=== PATIENT | female | born 1975 | race American Indian/Alaskan Native ===

== ENCOUNTER 2016-05-12 06:04 | Emergency (ER) | payer MEDICAID, OTHER ==
[2016-05-12 06:39] VITALS: BP 127/75
--- NOTE | 2016-05-12 07:14 | EDM.PDOC ---
ED HPI GENERAL MEDICAL PROBLEM - General Chief Complaint: General Stated Complaint: STREEP Time Seen by Provider: 05/12/16 06:37 Source of Information: Reports: Patient History Limitations: Reports: No limitations - History of Present Illness INITIAL COMMENTS - FREE TEXT/NARRATIVE: History of present illness: [Comes in with a daughter both have similar symptoms. She has sore throat and a nonproductive cough. This is been going on for a few days. Her daughter has a fever but she doesn't. She wants to be checked for strep is going around] Review of systems: As per history of present illness and below otherwise all systems reviewed and negative. Past medical history: As per history of present illness and as reviewed below otherwise noncontributory. Surgical history: As per history of present illness and as reviewed below otherwise noncontributory. Social history: No reported history of drug or alcohol abuse. Family history: As per history of present illness and as reviewed below otherwise noncontributory. Physical exam: HEENT: Atraumatic, normocephalic, pupils reactive, negative for conjunctival pallor or scleral icterus, mucous membranes moist, throat erythematous without exudate, neck supple, nontender, trachea midline. Lungs: Clear to auscultation, breath sounds equal bilaterally, Heart: S1S2, regular, negative for clicks, rubs, or JVD. Abdomen: Soft, nondistended, nontender. Pelvis: Stable nontender. Genitourinary: Deferred. Rectal: Deferred. Neuro: Awake, alert, oriented. Exam nonfocal. Diagnostics: [Strep is negative] Therapeutics: [] Impression: [URI] Plan: [Symptomatic treatment] Definitive disposition and diagnosis as appropriate pending reevaluation and review of above. 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: Neurological History: Reports: Migraines Endocrine/Metabolic History: Reports: Diabetes, type II Dermatologic History: Reports: Other (see below) Other Dermatologic History: hx of butterfly rash on face a few years age, she has gotten checked for lupus which was negative - Infectious Disease History Infectious Disease History: Reports: Chicken pox - Past Surgical History Other HEENT Surgeries/Procedures: migraines GI Surgical History: Reports: Cholecystectomy Musculoskeletal Surgical History: Reports: Other (see below) Other Musculoskeletal Surgeries/Procedures:: knee problems Social & Family History - Family History Family Medical History: Noncontributory - Tobacco Use Smoking Status *Q: Current Every Day Smoker Years of Tobacco use: 1 Packs/Tins Daily: 0.5 Used Tobacco, but Quit: Yes Month Tobacco Last Used: 1999 Second Hand Smoke Exposure: No - Caffeine Use Caffeine Use: Reports: Soda - Alcohol Use Days Per Week of Alcohol Use: 0 - Recreational Drug Use Recreational Drug Use: No ED ROS GENERAL - Review of Systems Review Of Systems: ROS reveals no pertinent complaints other than HPI. ED EXAM, GENERAL - Physical Exam Exam: See Below Course - Vital Signs Last Recorded V/S: Last Vital Signs Temp 35.9 C 05/12/16 06:38 Pulse 89 05/12/16 06:38 Resp 16 05/12/16 06:38 BP 127/75 05/12/16 06:38 Pulse Ox 96 05/12/16 06:38 - Orders/Labs/Meds Orders: Active Orders 24 hr Category Date Time Status CULTURE STREP A CONFIRMATION [RM] Stat Lab 05/12/16 06:46 Results STREP SCRN A RAPID W CULT CONF [RM] Stat Lab 05/12/16 06:46 Results Departure - Departure Time of Disposition: 07:13 Disposition: Home, Self-Care 01 Condition: good Clinical Impression: URI (upper respiratory infection) Qualifiers: URI type: unspecified viral URI Qualified Code(s): J06.9 - Acute upper respiratory infection, unspecified; B97.89 - Other viral agents as the cause of diseases classified elsewhere Forms: ED Department Discharge Additional Instructions: Push fluids and take Tylenol and Advil for any pain or discomfort that you have or fever. If you do not get better in the next week he should followup with your doctor. - My Orders Last 24 Hours: My Active Orders 05/12/16 06:46 CULTURE STREP A CONFIRMATION [RM] Stat STREP SCRN A RAPID W CULT CONF [RM] Stat - Assessment/Plan Last 24 Hours: My Active Orders 05/12/16 06:46 CULTURE STREP A CONFIRMATION [RM] Stat STREP SCRN A RAPID W CULT CONF [RM] Stat
== END 2016-05-12 07:21 | disposition home or self-care (01) ==
LOC: JP.ED 06:04
DX: J06.9 Acute upper respiratory infection, unspecified (principal); B97.89 Other viral agents as the cause of diseases classified elsewhere; F17.210 Nicotine dependence, cigarettes, uncomplicated; Z88.5 Allergy status to narcotic agent; Z88.8 Allergy status to other drugs, medicaments and biological substances; Z90.49 Acquired absence of other specified parts of digestive tract; Z98.890 Other specified postprocedural states
CPT/HCPCS: 87081; 87430; 99282; 99283

== ENCOUNTER 2016-08-13 18:46 | Emergency (ER) | payer MEDICAID ==
[2016-08-13 19:04] VITALS: BP 147/91
[2016-08-13] MEDS ORDERED: diphenhydrAMINE 25 MG Cap PO ONE (19:23)
[2016-08-13] MEDS ORDERED: Ketorolac 60 MG/2 ML SDV IM ONE (19:23)
--- NOTE | 2016-08-13 19:34 | EDM.PDOC ---
ED HPI GENERAL MEDICAL PROBLEM - General Chief Complaint: General Stated Complaint: ILLNESS Time Seen by Provider: 08/13/16 19:12 Source of Information: Reports: Patient History Limitations: Reports: No Limitations - History of Present Illness INITIAL COMMENTS - FREE TEXT/NARRATIVE: illness; this is a 40 year old female present to ER for evaluation . She reports has been sick for a while, but the past 2 days having facial pain, knees , elbows teeth and jaws are achey. Now this afternoon, had chills, facial flushing, pain and pressure in sinus area. 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: Neurological History: Reports: Migraines Endocrine/Metabolic History: Reports: Diabetes, Type II Dermatologic History: Reports: Other (See Below) Other Dermatologic History: hx of butterfly rash on face a few years age, she has gotten checked for lupus which was negative - Infectious Disease History Infectious Disease History: Reports: Chicken Pox - Past Surgical History Other HEENT Surgeries/Procedures: migraines GI Surgical History: Reports: Cholecystectomy Female Surgical History: Reports: Other (See Below) Musculoskeletal Surgical History: Reports: Other (See Below) Social & Family History - Family History Family Medical History: Noncontributory - Tobacco Use Smoking Status *Q: Light Tobacco Smoker Years of Tobacco use: 3 Packs/Tins Daily: 0.1 Used Tobacco, but Quit: Yes Month Tobacco Last Used: 1999 Second Hand Smoke Exposure: No - Caffeine Use Caffeine Use: Reports: Soda - Alcohol Use Days Per Week of Alcohol Use: 0 - Recreational Drug Use Recreational Drug Use: No - Living Situation & Occupation Living situation: Reports: with Family (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 has Metformin) GI/Abdominal: Reports: No Symptoms : Reports: No Symptoms Musculoskeletal: Reports: Muscle Pain Skin: Reports: No Symptoms Neurological: Reports: No Symptoms Psychiatric: Reports: No Symptoms Hematologic/Lymphatic: Reports: No Symptoms Immunologic: Reports: No Symptoms ED EXAM, GENERAL - Physical Exam Exam: See Below Exam Limited By: No Limitations General Appearance: Alert, WD/WN, Mild Distress, Obese Eye Exam: Bilateral Eye: Normal Inspection Ears: Normal External Exam, Normal Canal, Hearing Grossly Normal, Normal TMs Ear Exam: Bilateral Ear: Auricle Normal, Canal Normal, TM normal Nose: Nasal Tenderness, Nasal Drainage, Other (frontal and maxillary pain and pressure. turbinates raw and injected.) Throat/Mouth: Normal Inspection, Normal Lips, Normal Teeth, Normal Gums, Normal Oropharynx, Normal Voice, No Airway Compromise Head: Atraumatic, Normocephalic, Facial Tenderness, Sinus Tenderness Neck: Normal Inspection, Supple, Non-Tender, Full Range of Motion Respiratory/Chest: No Respiratory Distress, Lungs Clear, Normal Breath Sounds, No Accessory Muscle Use, Chest Non-Tender Cardiovascular: Normal Peripheral Pulses, Regular Rate, Rhythm, No Murmur GI/Abdominal: Normal Bowel Sounds, Soft, Non-Tender, No Organomegaly, No Distention (Female) Exam: Deferred Rectal (Female) Exam: Deferred Back Exam: Normal Inspection, Full Range of Motion Extremities: Normal Inspection, Normal Range of Motion Neurological: Alert, Oriented, CN II-XII Intact, Normal Cognition, Normal Gait, Normal Reflexes, No Motor/Sensory Deficits Psychiatric: Normal Affect, Normal Mood Skin Exam: Warm, Dry, Intact, Normal Color, No Rash Lymphatic: No Adenopathy Course - Vital Signs Last Recorded V/S: Last Vital Signs Temp 37.4 C 08/13/16 19:04 Pulse 91 08/13/16 19:04 Resp 16 08/13/16 19:04 BP 147/91 H 08/13/16 19:04 Pulse Ox 97 08/13/16 19:04 - Orders/Labs/Meds Orders: Active Orders 24 hr Category Date Time Status Sinus Comp Min 3V [CR] Stat Exams 08/13/16 19:23 Taken Meds: Medications Discontinued Medications Generic Name Dose Route Start Last Admin Trade Name Jossie PRN Reason Stop Dose Admin Diphenhydramine HCl 25 mg 08/13/16 19:23 08/13/16 19:29 Benadryl PO 08/13/16 19:24 25 mg ONETIME ONE Administration Ketorolac Tromethamine 60 mg 08/13/16 19:23 08/13/16 19:27 Toradol IM 08/13/16 19:24 60 mg ONETIME ONE Administration - Radiology Interpretation Free Text/Narrative:: xray of sinus 3 views; pending radiologist report - Re-Assessments/Exams Free Text/Narrative Re-Assessment/Exam: 08/13/16 19:29 given Toradol 60mg im for pain given Benadryl 25 mg po for congestion Departure - Departure Time of Disposition: 19:59 Disposition: Home, Self-Care 01 Condition: Good Clinical Impression: Acute sinus infection Qualifiers: Sinusitis location: maxillary Recurrence: non-recurrent Qualified Code(s): J01.00 - Acute maxillary sinusitis, unspecified - Discharge Information Instructions: Sinusitis, Adult, [id number] Referrals: PCP,None [Primary Care Provider] - Forms: ED Department Discharge Care Plan Goals: Acute Sinus Infection -given Toradol 60 mg im and Benadryl 25 mg po in ER -Xray of Sinus; 3 views in ER script -home medication Augmentin 875mgtake one tablet two times a day til gone -home med; Ultram 50mg take one to two tablets every 4 to 6 hours as needed for pain -home med; Benadryl 25mg take one tablet every 4 to 6 hours as needed for congestion discussed medication, xray reports. Advised to push fluids, rest, take medications as prescribed. start tonight return to clinic or ER if not improved or symptoms worsen. - Problem List & Annotations (1) Acute sinus infection SNOMED Code(s): 01604679 Code(s): J01.90 - ACUTE SINUSITIS, UNSPECIFIED Status: Acute Qualifiers: Sinusitis location: maxillary Recurrence: non-recurrent Qualified Code(s) : J01.00 - Acute maxillary sinusitis, unspecified - Problem List Review Problem List Initiated/Reviewed/Updated: Yes - My Orders Last 24 Hours: My Active Orders 08/13/16 19:23 Sinus Comp Min 3V [CR] Stat - Assessment/Plan Last 24 Hours: My Active Orders 08/13/16 19:23 Sinus Comp Min 3V [CR] Stat Plan: Acute Sinus Infection -given Toradol 60 mg im and Benadryl 25 mg po in ER -Xray of Sinus; 3 views in ER script -home medication Augmentin 875mgtake one tablet two times a day til gone -home med; Ultram 50mg take one to two tablets every 4 to 6 hours as needed for pain -home med; Benadryl 25mg take one tablet every 4 to 6 hours as needed for congestion discussed medication, xray reports. Advised to push fluids, rest, take medications as prescribed. start tonight return to clinic or ER if not improved or symptoms worsen.
--- NOTE | 2016-08-14 08:40 | CR ---
Sinus Comp Min 3V HISTORY: maxillary sinus pain and pressure FINDINGS: There is opacification of the right maxillary sinus consistent with sinusitis. Remainder o f the visualized paranasal sinuses are relatively clear. No soft tissue mass or bony expansion or er osion can be seen. There is no significant nasal septal deviation. IMPRESSION: Right maxillary sinusitis.
== END 2016-08-13 19:59 | disposition home or self-care (01) ==
LOC: JP.ED 18:46
DX: J01.00 Acute maxillary sinusitis, unspecified (principal); F17.210 Nicotine dependence, cigarettes, uncomplicated; E11.9 Type 2 diabetes mellitus without complications; G43.909 Migraine, unspecified, not intractable, without status migrainosus; Z90.49 Acquired absence of other specified parts of digestive tract; Z88.5 Allergy status to narcotic agent; Z88.8 Allergy status to other drugs, medicaments and biological substances
CPT/HCPCS: 70220; 96372; 99284; A9270; J1885; 99283

== ENCOUNTER 2017-11-06 16:59 | Emergency (ER) | payer SELFPAY ==
[2017-11-06 17:14] VITALS: BP 120/64
[2017-11-06] MEDS ORDERED: cefTRIAXone 1 GM Vial IM ONE (17:29)
[2017-11-06] MEDS ORDERED: Ketorolac 60 MG/2 ML SDV IM ONE (17:30)
[2017-11-06] MEDS ORDERED: Atropine/Diphenoxylate 0.025-2.5 MG Tab PO ONE (17:32)
--- NOTE | 2017-11-06 17:36 | EDM.PDOC ---
ED HPI GENERAL MEDICAL PROBLEM - General Chief Complaint: General Stated Complaint: EARACHE, BODY ACHES Time Seen by Provider: 11/06/17 17:20 Source of Information: Reports: Patient, Old Records History Limitations: Reports: No Limitations - History of Present Illness INITIAL COMMENTS - FREE TEXT/NARRATIVE: 42 yo female was seen in the clinic yesterday for L otitis media and started on Amoxicillin. Now she has diarrhea and both ears hurt and the left is worse than yesterday. Aches all over. Not aware of a fever. Is taking acetaminophen and ibuprofen without relief. No cough or SOB. Has a pHx of recurrent sinusitis. Onset: Gradual Onset Date: 11/04/17 Duration: Day(s):, Getting Worse Location: Reports: Head, Face Quality: Reports: Ache Severity: Moderate Improves with: Reports: None Worsens with: Reports: Other (time) Context: Reports: Other (See HPI) Associated Symptoms: Reports: Headaches, Other (See HPI). 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, Other Medication(s) (Amoxicillin ) Bilateral Ear Pain Score (Numeric/FACES): 9 - Related Data Allergies Allergy/AdvReac Type Severity Reaction Status Date / Time codeine AdvReac Intermediate Anxiety Verified 11/06/17 17:30 iodine AdvReac Unknown Anxiety Verified 11/06/17 17:30 Home Meds: Home Meds *Metformin 1 tab PO BID 11/06/17 [History] Acetaminophen/HYDROcodone [[place] 325-5 MG] 1 - 2 tab PO Q6H PRN #10 tab [Rx] Amoxicillin/Clavulanate K [Augmentin 875-125 MG] 1 tab PO BID 11/06/17 [History] Sulfamethoxazole/Trimethoprim [Bactrim Ds Tablet] 1 each PO Q12H #20 tablet [Rx] Past Medical History Genitourinary History: Reports: Renal 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: Neurological History: Reports: Migraines Endocrine/Metabolic History: Reports: Diabetes, Type II Dermatologic History: Reports: Other (See Below) Other Dermatologic History: hx of butterfly rash on face a few years age, she has gotten checked for lupus which was negative - Infectious Disease History Infectious Disease History: Reports: Chicken Pox - Past Surgical History Other HEENT Surgeries/Procedures: migraines GI Surgical History: Reports: Cholecystectomy Female Surgical History: Reports: Other (See Below) Musculoskeletal Surgical History: Reports: Other (See Below) Social & Family History - Family History Family Medical History: Noncontributory - Caffeine Use Caffeine Use: Reports: Soda - Living Situation & Occupation Living situation: Reports: with Family (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 in the knees) HEENT: Reports: Ear Pain (bilaterally), Rhinitis, Sinus Problem (pressure), Throat Pain (mild). Denies: Ear Discharge, Vision Change Respiratory: Reports: No Symptoms Cardiovascular: Reports: No Symptoms Endocrine: Reports: No Symptoms GI/Abdominal: Reports: Diarrhea. Denies: Abdominal Pain, Black Stool, Bloody Stool, Constipation, Distension, Hematemesis, Hematochezia, Nausea, Vomiting : Denies: No Symptoms Musculoskeletal: Reports: No Symptoms Skin: Reports: No Symptoms Neurological: Reports: No Symptoms Psychiatric: Reports: No Symptoms ED EXAM, GENERAL - Physical Exam Exam: See Below Exam Limited By: No Limitations General Appearance: Alert, WD/WN, Mild Distress, Obese Eye Exam: Bilateral Eye: Normal Inspection Ears: Normal Canal, Hearing Loss, Other (bilateral TM injection). No: Hearing Grossly Normal Ear Exam: Bilateral Ear: Auricle Normal, Canal Normal, Erythema, Tenderness, TM Red Nose: Other (congested) Throat/Mouth: Normal Inspection, Normal Lips, Normal Oropharynx, Normal Voice, No Airway Compromise Head: Atraumatic, Normocephalic Neck: Normal Inspection, Supple, Non-Tender Respiratory/Chest: No Respiratory Distress, Lungs Clear, Normal Breath Sounds, No Accessory Muscle Use Cardiovascular: Regular Rate, Rhythm, No Edema GI/Abdominal: Normal Bowel Sounds, Soft, Non-Tender, No Distention Back Exam: Normal Inspection. No: CVA Tenderness (R), CVA Tenderness (L) Extremities: Normal Inspection, Normal Range of Motion, Non-Tender, No Pedal Edema, Other (normal appearing knees bilaterally) Neurological: Alert, Oriented, CN II-XII Intact, Normal Cognition, No Motor/ Sensory Deficits Psychiatric: Normal Affect, Normal Mood Skin Exam: Warm, Dry, Intact, Normal Color Lymphatic: No Adenopathy Course - Vital Signs Last Recorded V/S: Last Vital Signs Temp 37.3 C 11/06/17 17:29 Pulse 97 11/06/17 17:29 Resp 18 11/06/17 17:29 BP 120/64 11/06/17 17:29 Pulse Ox 95 11/06/17 17:29 - Orders/Labs/Meds Labs: Laboratory Tests 11/06/17 Range/Units 17:34 WBC 10.0 (4.5-11.0) K/uL RBC 5.15 (3.30-5.50) M/uL Hgb 14.8 (12.0-15.0) g/dL Hct 43.4 (36.0-48.0) % MCV 84 (80-98) fL MCH 29 (27-31) pg MCHC 34 (32-36) % Plt Count 306 (150-400) K/uL Meds: Medications Discontinued Medications Generic Name Dose Route Start Last Admin Trade Name Freq PRN Reason Stop Dose Admin Ceftriaxone Sodium 1 gm 11/06/17 17:29 Rocephin IM 11/06/17 17:30 ONETIME ONE Diphenoxylate HCl/Atropine 1 tab 11/06/17 17:32 Lomotil 0.025-2.5 Mg PO 11/06/17 17:33 ONETIME ONE Ketorolac Tromethamine 60 mg 11/06/17 17:30 Toradol IM 11/06/17 17:31 ONETIME ONE Departure - Departure Time of Disposition: 17:50 Disposition: Home, Self-Care 01 Condition: Fair Clinical Impression: Sinusitis Qualifiers: Sinusitis location: maxillary Chronicity: acute Recurrence: recurrent Qualified Code(s): J01.01 - Acute recurrent maxillary sinusitis Otitis media Qualifiers: Otitis media type: suppurative Chronicity: acute Laterality: bilateral Recurrence: not specified as recurrent Spontaneous tympanic membrane rupture: without spontaneous rupture Qualified Code(s): H66.003 - Acute suppurative otitis media without spontaneous rupture of ear drum, bilateral - Discharge Information *PRESCRIPTION DRUG MONITORING PROGRAM REVIEWED*: No *COPY OF PRESCRIPTION DRUG MONITORING REPORT IN PATIENT ROSA: No Prescriptions: Acetaminophen/HYDROcodone [[place] 325-5 MG] 1 - 2 tab PO Q6H PRN #10 tab PRN Reason: Pain Sulfamethoxazole/Trimethoprim [Bactrim Ds Tablet] 1 each PO Q12H #20 tablet Instructions: Sinusitis, Adult, [id number], Otitis Media, Adult Referrals: PCP,None [Primary Care Provider] - Forms: ED Department Discharge Additional Instructions: Stop you amoxicillin. Start TMP/SMZ and take every 12 hrs until gone. Use the hydrocodone/APAP as needed for pain relief. After 11 pm tonight you may also add back ibuprofen as needed. See your doctor for recheck next week, return here if fever over 100.2F occurs. Drink ample fluids and get lots of rest. You may use yogurt for your diarrhea and if needed loperamide(follow package instructions).
== END 2017-11-06 18:30 | disposition home or self-care (01) ==
LOC: JP.ED 16:59
DX: J01.01 Acute recurrent maxillary sinusitis (principal); H66.003 Acute suppurative otitis media without spontaneous rupture of ear drum, bilateral; R19.7 Diarrhea, unspecified; E11.9 Type 2 diabetes mellitus without complications; Z88.5 Allergy status to narcotic agent; Z88.8 Allergy status to other drugs, medicaments and biological substances
CPT/HCPCS: 36415; 85027; 96372; 99283; A9270; J0696; J1885

== ENCOUNTER 2019-06-16 10:23 | Emergency (ER) | payer OTHER, MEDICAID ==
[2019-06-16] MEDS ORDERED: Famotidine 20 MG Tab PO ONE (10:24)
[2019-06-16] MEDS ORDERED: diphenhydrAMINE 25 MG Cap PO ONE (10:24)
--- NOTE | 2019-06-16 10:30 | EDM.PDOC ---
ED HPI GENERAL MEDICAL PROBLEM - General Chief Complaint: Allergic Reaction Stated Complaint: MEDICAL VIA [facility] Time Seen by Provider: 06/16/19 10:25 Source of Information: Reports: Patient, EMS, Old Records History Limitations: Reports: No Limitations - History of Present Illness INITIAL COMMENTS - FREE TEXT/NARRATIVE: 43 yo female ate a piece of kiwi about an hour ago and immediately noted swelling around her eyes and some throat swelling. EMS administered 25 mg of IV Benedryl and she is much improved on arrival. No hx of the same. No rash or itching. 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) (diphenhydramine 25 mg IV) - Related Data Allergies Allergy/AdvReac Type Severity Reaction Status Date / Time codeine AdvReac Intermediate Anxiety Verified 06/16/19 10:32 iodine AdvReac Unknown Anxiety Verified 06/16/19 10:32 Home Meds: Home Meds metFORMIN [Glucophage XR] 1 tab PO BID 06/16/19 [History] Past Medical History HEENT History: Reports: Otitis Media Genitourinary History: Reports: Renal 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: Neurological History: Reports: Migraines Endocrine/Metabolic History: Reports: Diabetes, Type II Dermatologic History: Reports: Other (See Below) Other Dermatologic History: hx of butterfly rash on face a few years age, she has gotten checked for lupus which was negative - Infectious Disease History Infectious Disease History: Reports: Chicken Pox - Past Surgical History GI Surgical History: Reports: Cholecystectomy Female Surgical History: Reports: Other (See Below) Social & Family History - Family History Family Medical History: Noncontributory - Caffeine Use Caffeine Use: Reports: Soda - Living Situation & Occupation Living situation: Reports: with Family (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[facility], 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[employer], 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 ED ROS ALLERGIC REACTION - Review of Systems Review Of Systems: See Below Constitutional: Reports: No Symptoms HEENT: Reports: Throat Swelling Respiratory: Reports: No Symptoms Cardiovascular: Reports: No Symptoms GI/Abdominal: Reports: No Symptoms Skin: Reports: No Symptoms Neurological: Reports: No Symptoms ED EXAM GENERAL NO PERIP PULSE - Physical Exam Exam: See Below Exam Limited By: No Limitations General Appearance: Alert, WD/WN, No Apparent Distress Eye Exam: Bilateral Eye: Conjunctival Injection Ears: Normal External Exam, Normal Canal, Hearing Grossly Normal, Normal TMs Nose: Normal Inspection, No Blood Throat/Mouth: Normal Inspection, Normal Lips, Normal Oropharynx, Normal Voice, No Airway Compromise Head: Atraumatic, Normocephalic Neck: Normal Inspection Respiratory/Chest: No Respiratory Distress, Lungs Clear, Normal Breath Sounds, No Accessory Muscle Use Cardiovascular: Regular Rate, Rhythm, No Edema Extremities: Normal Inspection Neurological: Alert, Oriented, CN II-XII Intact, Normal Cognition, No Motor/ Sensory Deficits Psychiatric: Normal Affect, Normal Mood Skin Exam: Warm, Dry, Intact, Normal Color, No Rash Course - Vital Signs Last Recorded V/S: Last Vital Signs Temp 36.6 C 06/16/19 10:38 Pulse 98 06/16/19 10:38 Resp 14 06/16/19 10:38 BP 132/93 H 06/16/19 10:38 Pulse Ox 99 06/16/19 10:38 - Orders/Labs/Meds Meds: Medications Discontinued Medications Generic Name Dose Route Start Last Admin Trade Name Tomq PRN Reason Stop Dose Admin Diphenhydramine HCl 50 mg 06/16/19 10:24 06/16/19 10:53 Benadryl PO 06/16/19 10:25 50 mg ONETIME ONE Administration Famotidine 40 mg 06/16/19 10:24 06/16/19 10:53 Pepcid PO 06/16/19 10:25 40 mg ONETIME ONE Administration - Re-Assessments/Exams Free Text/Narrative Re-Assessment/Exam: 06/16/19 11:21 symptoms resolved, ready to go home. 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 Avoid Kiwi in the future and be careful with banana, Latex, or avocado. Return if worse. See your doctor for recheck within the week. Sepsis Event Note - Focused Exam Vital Signs: Vital Signs Temp Pulse Resp BP Pulse Ox 06/16/19 10:38 36.6 C 98 14 132/93 H 99 Date Exam was Performed: 06/16/19 Time Exam was Performed: 11:21
[2019-06-16 10:39] VITALS: BP 132/93; PULSE 98
== END 2019-06-16 11:37 | disposition home or self-care (01) ==
LOC: JP.ED 10:23
DX: T78.1XXA Other adverse food reactions, not elsewhere classified, initial encounter (principal); E11.9 Type 2 diabetes mellitus without complications; Z79.84 Long term (current) use of oral hypoglycemic drugs; Z88.5 Allergy status to narcotic agent; Z91.09 Other allergy status, other than to drugs and biological substances
CPT/HCPCS: 99284; A9270

== ENCOUNTER 2019-09-25 22:19 | Emergency (ER) | payer OTHER, MEDICAID ==
[2019-09-25 22:33] VITALS: BP 138/77; PULSE 103
[2019-09-25] MEDS ORDERED: Ondansetron 4 MG Tab.DIS PO ONE (23:15)
[2019-09-25] MEDS ORDERED: Alum Hydrox/Mag Hydrox/Simeth 15 ML, Lidocaine 2% 15 ML PO ONE ×2 (23:20)
--- NOTE | 2019-09-25 23:21 | EDM.PDOC ---
ED HPI GENERAL MEDICAL PROBLEM - General Chief Complaint: Gastrointestinal Problem Stated Complaint: VOMITING,BODY ACHES Time Seen by Provider: 09/25/19 22:27 Source of Information: Reports: Patient, Family History Limitations: Reports: No Limitations - History of Present Illness INITIAL COMMENTS - FREE TEXT/NARRATIVE: pT. STATES HER DAUGHTER WAS sick w/vomiting yesterday but is better today. denies blood in vomitus. No severe abd pain. no fever. 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: Neurological History: Reports: Migraines Endocrine/Metabolic History: Reports: Diabetes, Type II Dermatologic History: Reports: Other (See Below) Other Dermatologic History: hx of butterfly rash on face a few years age, she has gotten checked for lupus which was negative - Infectious Disease History Infectious Disease History: Reports: Chicken Pox - Past Surgical History GI Surgical History: Reports: Cholecystectomy Female Surgical History: Reports: Other (See Below) Musculoskeletal Surgical History: Reports: Other (See Below) Social & Family History - Family History Family Medical History: Noncontributory - Tobacco Use Smoking Status *Q: Current Every Day Smoker Years of Tobacco use: 25 Packs/Tins Daily: 0.2 - Caffeine Use Caffeine Use: Reports: Soda - Recreational Drug Use Recreational Drug Use: No - Living Situation & Occupation Living situation: Reports: with Family (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 Denies: Fever HEENT: Reports: No Symptoms Respiratory: Reports: No Symptoms Cardiovascular: Reports: No Symptoms GI/Abdominal: Reports: Anorexia, Nausea, Vomiting. Denies: Diarrhea, Distension Neurological: Reports: No Symptoms Psychiatric: Reports: No Symptoms ED EXAM, GI/ABD - Physical Exam Exam: See Below Exam Limited By: No Limitations General Appearance: Alert, Obese Throat/Mouth: Normal Inspection, Normal Lips, Normal Teeth Head: Atraumatic, Normocephalic Respiratory/Chest: No Respiratory Distress, Lungs Clear, Normal Breath Sounds Cardiovascular: Normal Peripheral Pulses, Regular Rate, Rhythm GI/Abdominal Exam: Soft, Non-Tender, No Organomegaly, No Mass, Other (well healed surgical scar RUQ). No: Guarding, Rebound Extremities: Normal Range of Motion, Non-Tender Neurological: Alert, Oriented Psychiatric: Anxious. No: Tearful Skin Exam: Warm, Dry, Intact, No Rash Course - Vital Signs Text/Narrative:: Administered Zofran ODT, then GI cocktail. Last Recorded V/S: Last Vital Signs Temp 36.8 C 09/25/19 22:48 Pulse 103 H 09/25/19 22:48 Resp 18 09/25/19 22:48 BP 138/77 09/25/19 22:48 Pulse Ox 96 09/25/19 22:48 - Orders/Labs/Meds Meds: Medications Discontinued Medications Generic Name Dose Route Start Last Admin Trade Name Freq PRN Reason Stop Dose Admin Al Hydroxide/Mg Hydroxide 15 0 ml 09/25/19 23:20 09/25/19 23:37 ml/ Lidocaine HCl 15 ml PO 09/25/19 23:21 30 ml ONETIME ONE Administration Ondansetron HCl 4 mg 09/25/19 23:15 09/25/19 23:37 Zofran Odt PO 09/25/19 23:16 4 mg ONETIME ONE Administration Departure - Departure Time of Disposition: 23:44 Disposition: Home, Self-Care 01 Clinical Impression: Vomiting - Discharge Information Instructions: Nausea and Vomiting, Adult Referrals: PCP,None [Primary Care Provider] - Forms: ED Department Discharge Additional Instructions: Rx given for zofran. return if you develop marked abdominal pain, bloody vomitus, fever. Sepsis Event Note (ED) - Evaluation Sepsis Screening Result: No Definite Risk - Focused Exam Vital Signs: Vital Signs Temp Pulse Resp BP Pulse Ox 09/25/19 22:48 36.8 C 103 H 18 138/77 96 09/25/19 22:31 36.8 C 103 H 18 138/77 96
== END 2019-09-26 00:19 | disposition home or self-care (01) ==
LOC: JP.ED 22:19
DX: R11.10 Vomiting, unspecified (principal); E11.9 Type 2 diabetes mellitus without complications; F17.210 Nicotine dependence, cigarettes, uncomplicated; Z88.5 Allergy status to narcotic agent; Z91.048 Other nonmedicinal substance allergy status
CPT/HCPCS: 99283; A9270

== ENCOUNTER 2020-01-08 15:39 | Emergency (ER) | payer BC, OTHER, MEDICAID ==
[2020-01-08 17:05] VITALS: BP 128/88; PULSE 94
[2020-01-08] MEDS ORDERED: Ketorolac 60 MG/2 ML SDV IM ONE (17:39)
--- NOTE | 2020-01-08 17:45 | EDM.PDOC ---
ED HPI GENERAL MEDICAL PROBLEM - General Chief Complaint: Chest Pain Stated Complaint: CHEST PAIN Time Seen by Provider: 01/08/20 17:30 Source of Information: Reports: Patient, Old Records, RN History Limitations: Reports: Other (incomplete medical records) - History of Present Illness INITIAL COMMENTS - FREE TEXT/NARRATIVE: 44 yo NA female who normally gets her care at [facility] presents with upper/anterior chest pain worse with deep breathing or leaning forward. Was not changed by eating. No hx of the same. Is s/p choly. No hx of CAD. Does have a hx of DM and has not checked her BS or taken any of her meds for over a month. Lives in [place]. No cough. No injury to the area. Feels different from GERD she has experienced in the past. When at its worst had mild nausea. No SOB or diaphoresis. Onset: Today Onset Date: 01/08/20 Onset Time: 11:00 Duration: Hour(s):, Waxing/Waning Location: Reports: Chest Quality: Reports: Pressure Severity: Mild Improves with: Reports: Other (shallow breathing or holding still) Worsens with: Reports: Breathing Context: Reports: Other (See HPI) Associated Symptoms: Reports: Chest Pain, Nausea/Vomiting (no vomiting, brief nausea). 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) (none) Chest Pain Score (Numeric/FACES): 8 - Related Data Allergies Allergy/AdvReac Type Severity Reaction Status Date / Time codeine AdvReac Intermediate Anxiety Verified 01/08/20 17:23 iodine AdvReac Unknown Anxiety Verified 01/08/20 17:23 Home Meds: Home Meds Naproxen Sodium [Naproxen Sodium ER] 500 mg PO Q12H PRN #14 tablet.er 01/08/20 [Rx] glipiZIDE [Glipizide ER] 5 mg PO DAILY 01/08/20 [History] metFORMIN [Glucophage] 500 mg PO BIDMEALS 01/08/20 [History] Past Medical History HEENT History: Reports: Otitis Media Genitourinary History: Reports: Renal Calculus 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: Neurological History: Reports: Migraines Endocrine/Metabolic History: Reports: Diabetes, Type II Dermatologic History: Reports: Other (See Below) Other Dermatologic History: hx of butterfly rash on face a few years age, she has gotten checked for lupus which was negative - Infectious Disease History Infectious Disease History: Reports: Chicken Pox - Past Surgical History Other HEENT Surgeries/Procedures: migraines GI Surgical History: Reports: Cholecystectomy Female Surgical History: Reports: Other (See Below) Other Female Surgeries/Procedures: h/o kidney stones Musculoskeletal Surgical History: Reports: Other (See Below) Other Musculoskeletal Surgeries/Procedures:: knee problems Social & Family History - Family History Family Medical History: No Pertinent Family History - Tobacco Use Tobacco Use Status *Q: Current Some Day Tobacco User Years of Tobacco use: 20 Packs/Tins Daily: 0.1 - Caffeine Use Caffeine Use: Reports: None - Recreational Drug Use Recreational Drug Use: No - Living Situation & Occupation Living situation: Reports: with Family (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[facility], 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[employer], 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 ED ROS GENERAL - Review of Systems Review Of Systems: See Below Constitutional: Reports: No Symptoms HEENT: Reports: No Symptoms Respiratory: Reports: No Symptoms Cardiovascular: Reports: Chest Pain GI/Abdominal: Reports: No Symptoms : Reports: No Symptoms Musculoskeletal: Reports: No Symptoms Skin: Reports: No Symptoms Neurological: Reports: No Symptoms ED EXAM, GENERAL - Physical Exam Exam: See Below Exam Limited By: No Limitations General Appearance: Alert, WD/WN, No Apparent Distress Eye Exam: Bilateral Eye: Normal Inspection Ears: Normal External Exam, Normal Canal, Hearing Grossly Normal, Normal TMs Ear Exam: Bilateral Ear: Auricle Normal, Canal Normal Nose: Normal Inspection, No Blood Throat/Mouth: Normal Inspection, Normal Lips, Normal Oropharynx, Normal Voice, No Airway Compromise Head: Atraumatic, Normocephalic Neck: Normal Inspection Respiratory/Chest: No Respiratory Distress, Lungs Clear, Normal Breath Sounds, No Accessory Muscle Use. No: Chest Non-Tender (upper/anterior chest wall tenderness) Cardiovascular: Regular Rate, Rhythm, No Edema GI/Abdominal: Normal Bowel Sounds, Soft, Non-Tender, No Distention. No: Distended, Tender Back Exam: Normal Inspection. No: CVA Tenderness (R), CVA Tenderness (L) Extremities: Normal Inspection, Normal Range of Motion, Non-Tender, No Pedal Edema. No: Pedal Edema, Leg Pain (no calf pain) Neurological: Alert, Oriented, CN II-XII Intact, Normal Cognition Psychiatric: Normal Affect, Anxious Skin Exam: Warm, Dry, Intact, Normal Color, No Rash #1 Interpretation EKG Date: 01/08/20 Time: 18:10 Rhythm: NSR Rate (Beats/Min): 90 [place]: Normal P-Wave: Present QRS: Normal ST-T: Normal QT: Normal Comparison: No Change Course - Vital Signs Last Recorded V/S: Last Vital Signs Temp 36.6 C 01/08/20 17:26 Pulse 94 01/08/20 17:26 Resp 16 01/08/20 17:26 BP 128/88 01/08/20 17:26 Pulse Ox 100 01/08/20 17:26 - Orders/Labs/Meds Orders: Active Orders 24 hr Category Date Time Status Cardiac Monitoring [RC] .As Directed Care 01/08/20 17:39 Active EKG Documentation Completion [RC] ASDIRECTED Care 01/08/20 17:33 Active glipiZIDE [Glucotrol] Med 01/08/20 18:30 Active 5 mg PO DAILY EKG 12 Lead [EK] Routine Ther 01/08/20 17:33 Ordered Medication Orders Glipizide (Glucotrol) 5 mg PO DAILY [facility] Last Admin: 01/08/20 18:41 Dose: 5 mg Documented by: LATHA Labs: Laboratory Tests 01/08/20 01/08/20 01/08/20 Range/Units 18:04 18:04 18:04 WBC 11.7 H (4.5-11.0) K/uL RBC 4.95 (3.30-5.50) M/uL Hgb 14.1 (12.0-15.0) g/dL Hct 42.7 (36.0-48.0) % MCV 86 (80-98) fL MCH 29 (27-31) pg MCHC 33 (32-36) % Plt Count 323 (150-400) K/uL D-Dimer, Quantitative 211.39 (0.0-500.0) ng/mL Sodium 137 L (140-148) mmol/L Potassium 3.9 (3.6-5.2) mmol/L Chloride 99 L (100-108) mmol/L Carbon Dioxide 28 (21-32) mmol/L Anion Gap 13.9 (5.0-14.0) mmol/L BUN 10 (7-18) mg/dL Creatinine 0.8 (0.6-1.0) mg/dL Est Cr Clr Drug Dosing 85.76 mL/min Estimated GFR (MDRD) > 60 (>60) Glucose 288 H (74-106) mg/dL Calcium 8.8 (8.5-10.1) mg/dL Troponin I < 0.017 (0.000-0.056) ng/mL Meds: Medications Generic Name Dose Route Start Last Admin Trade Name Freq PRN Reason Stop Dose Admin Glipizide 5 mg 01/08/20 18:30 01/08/20 18:41 Glucotrol PO 5 mg DAILY DALJIT Administration Discontinued Medications Generic Name Dose Route Start Last Admin Trade Name Freq PRN Reason Stop Dose Admin Acetaminophen 1,000 mg 01/08/20 18:50 Tylenol Extra Strength PO 01/08/20 18:51 ONETIME ONE Ketorolac Tromethamine 60 mg 01/08/20 17:39 01/08/20 17:48 Toradol IM 01/08/20 17:40 60 mg ONETIME ONE Administration Metformin HCl 500 mg 01/08/20 18:28 01/08/20 18:41 Glucophage PO 01/08/20 18:29 500 mg ONETIME ONE Administration - Re-Assessments/Exams Free Text/Narrative Re-Assessment/Exam: 01/08/20 18:52 partial relief with Toradol. Departure - Departure Time of Disposition: 19:00 Disposition: Home, Self-Care 01 Condition: Fair Clinical Impression: Elevated blood sugar, Chest wall pain Prescriptions: Naproxen Sodium [Naproxen Sodium ER] 500 mg PO Q12H PRN #14 tablet.er PRN Reason: Pain Instructions: Nonspecific Chest Pain, Adult Referrals: PCP,None [Primary Care Provider] - Forms: ED Department Discharge Additional Instructions: Take Naproxen sodium as directed with food. Add acetaminophen up to 1000 mg every 6 hrs for added relief. Resume your diabetic meds, next dose is due in the morning. See your doctor for recheck within the week. Sepsis Event Note (ED) - Evaluation Sepsis Screening Result: No Definite Risk - Focused Exam Vital Signs: Vital Signs Temp Pulse Resp BP Pulse Ox 01/08/20 17:26 36.6 C 94 16 128/88 100 01/08/20 17:03 36.6 C 94 16 128/88 100 - My Orders Last 24 Hours: My Active Orders 01/08/20 17:33 EKG Documentation Completion [RC] ASDIRECTED EKG 12 Lead [EK] Routine 01/08/20 17:39 Cardiac Monitoring [RC] .As Directed 01/08/20 18:30 glipiZIDE [Glucotrol] 5 mg PO DAILY - Assessment/Plan Last 24 Hours: My Active Orders 01/08/20 17:33 EKG Documentation Completion [RC] ASDIRECTED EKG 12 Lead [EK] Routine 01/08/20 17:39 Cardiac Monitoring [RC] .As Directed 01/08/20 18:30 glipiZIDE [Glucotrol] 5 mg PO DAILY
[2020-01-08] MEDS ORDERED: metFORMIN 500 MG Tab PO ONE (18:28)
[2020-01-08] MEDS ORDERED: glipiZIDE 5 MG Tab PO SCH (18:30)
[2020-01-08] MEDS ORDERED: Acetaminophen 500 MG Tab PO ONE (18:50)
== END 2020-01-08 19:02 | disposition home or self-care (01) ==
LOC: JP.ED 15:39
DX: R07.89 Other chest pain (principal); E11.65 Type 2 diabetes mellitus with hyperglycemia; F17.210 Nicotine dependence, cigarettes, uncomplicated; Z79.84 Long term (current) use of oral hypoglycemic drugs; Z88.5 Allergy status to narcotic agent; Z91.048 Other nonmedicinal substance allergy status
CPT/HCPCS: 36415; 80048; 84484; 85027; 85379; 93005; 96372; 99285; A9270; J1885; 93010

== ENCOUNTER 2020-01-18 10:56 | Emergency (ER) | payer BC, MEDICAID ==
[2020-01-18 11:07] VITALS: BP 138/87; PULSE 105
[2020-01-18] MEDS ORDERED: Ketorolac 60 MG/2 ML SDV IM ONE (11:22)
[2020-01-18] MEDS ORDERED: Albuterol/Ipratropium 4 GM Inhalation Spray INH PRN (11:22)
[2020-01-18] MEDS ORDERED: LORazepam 1 MG Tab PO ONE (11:23)
--- NOTE | 2020-01-18 11:25 | EDM.PDOC ---
ED HPI GENERAL MEDICAL PROBLEM - General Chief Complaint: General Stated Complaint: COVID POSITIVE, CHEST PAIN 7 DAYS Time Seen by Provider: 01/18/20 11:22 Source of Information: Reports: Patient, RN Notes Reviewed History Limitations: Reports: No Limitations - History of Present Illness INITIAL COMMENTS - FREE TEXT/NARRATIVE: 44-year-old female presents emergency department a complaint of body aches, cough, inability to eat some nausea she is 2 days out from positive COVID-19 test, very histrionic difficult to obtain history tearful Generalized Pain Score (Numeric/FACES): 10 - Related Data Allergies Allergy/AdvReac Type Severity Reaction Status Date / Time codeine AdvReac Intermediate Anxiety Verified 01/08/20 17:23 iodine AdvReac Unknown Anxiety Verified 01/08/20 17:23 Home Meds: Home Meds Naproxen Sodium [Naproxen Sodium ER] 500 mg PO Q12H PRN #14 tablet.er 01/08/20 [Rx] glipiZIDE [Glipizide ER] 5 mg PO DAILY 01/08/20 [History] metFORMIN [Glucophage] 500 mg PO BIDMEALS 01/08/20 [History] Past Medical History HEENT History: Reports: Otitis Media Genitourinary History: Reports: Renal Calculus 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: Neurological History: Reports: Migraines Endocrine/Metabolic History: Reports: Diabetes, Type II Dermatologic History: Reports: Other (See Below) Other Dermatologic History: hx of butterfly rash on face a few years age, she has gotten checked for lupus which was negative - Infectious Disease History Infectious Disease History: Reports: Chicken Pox - Past Surgical History Other HEENT Surgeries/Procedures: migraines GI Surgical History: Reports: Cholecystectomy Female Surgical History: Reports: Other (See Below) Other Female Surgeries/Procedures: h/o kidney stones Musculoskeletal Surgical History: Reports: Other (See Below) Other Musculoskeletal Surgeries/Procedures:: knee problems Social & Family History - Family History Family Medical History: No Pertinent Family History - Tobacco Use Tobacco Use Status *Q: Former Tobacco User Used Tobacco, but Quit: Yes Month/Year Tobacco Last Used: nov 2019 - Caffeine Use Caffeine Use: Reports: Tea - Recreational Drug Use Recreational Drug Use: No - Living Situation & Occupation Living situation: Reports: with Family (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 Denies: Sputum Cardiovascular: Reports: Dyspnea on Exertion GI/Abdominal: Reports: Nausea Musculoskeletal: Reports: Muscle Pain Psychiatric: Reports: Anxiety ED EXAM, GENERAL - Physical Exam Exam: See Below Exam Limited By: No Limitations General Appearance: Alert, WD/WN, Anxious Respiratory/Chest: No Respiratory Distress, Lungs Clear, Normal Breath Sounds, No Accessory Muscle Use, Chest Non-Tender Cardiovascular: Regular Rate, Rhythm, No Murmur GI/Abdominal: Soft, Non-Tender Psychiatric: Anxious Course - Vital Signs Last Recorded V/S: Last Vital Signs Temp 97.6 F 01/18/20 11:06 Pulse 105 H 01/18/20 11:06 Resp 13 01/18/20 11:06 BP 138/87 01/18/20 11:06 Pulse Ox 96 01/18/20 11:06 - Orders/Labs/Meds Orders: Active Orders 24 hr Category Date Time Status RT Post Treatment Assessment [RC] Click to Edit Care 01/18/20 11:22 Active Albuterol/Ipratropium [Combivent Respimat] Med 01/18/20 11:22 Active 1 gm INH Q4H PRN Medication Orders Albuterol/Ipratropium (Combivent Respimat) 1 gm INH Q4H PRN PRN Reason: Dyspnea Last Admin: 01/18/20 11:38 Dose: 2 puff Documented by: MORGAN Meds: Medications Generic Name Dose Route Start Last Admin Trade Name Freq PRN Reason Stop Dose Admin Albuterol/Ipratropium 1 gm 01/18/20 11:22 01/18/20 11:38 Combivent Respimat INH 2 puff Q4H PRN Administration Dyspnea Discontinued Medications Generic Name Dose Route Start Last Admin Trade Name Freq PRN Reason Stop Dose Admin Cyclobenzaprine HCl 10 mg 01/18/20 12:31 01/18/20 13:07 Flexeril PO 01/18/20 12:32 10 mg ONETIME ONE Administration Ketorolac Tromethamine 60 mg 01/18/20 11:22 01/18/20 11:39 Toradol IM 01/18/20 11:23 60 mg ONETIME ONE Administration Lorazepam 1 mg 01/18/20 11:23 01/18/20 11:39 Ativan PO 01/18/20 11:24 1 mg ONETIME ONE Administration Departure - Departure Time of Disposition: 13:23 Disposition: Home, Self-Care 01 Condition: Poor Clinical Impression: COVID-19 - Discharge Information Instructions: COVID-19 Referrals: PCP,None [Primary Care Provider] - Forms: ED Department Discharge Additional Instructions: Continue to use ibuprofen for baseline pain control use hydrocodone for breakthrough pain, use Flexeril as needed for muscle relaxant, please followup with your primary care provider in 10-14 days if not better, please call return to the emergency department with worsening of symptoms. Sepsis Event Note (ED) - Evaluation Sepsis Screening Result: Possible Sepsis Risk - Focused Exam Vital Signs: Vital Signs Temp Pulse Resp BP Pulse Ox 01/18/20 11:06 97.6 F 105 H 13 138/87 96 - My Orders Last 24 Hours: My Active Orders 01/18/20 11:22 RT Post Treatment Assessment [RC] Click to Edit Albuterol/Ipratropium [Combivent Respimat] 1 gm INH Q4H PRN - Assessment/Plan Last 24 Hours: My Active Orders 01/18/20 11:22 RT Post Treatment Assessment [RC] Click to Edit Albuterol/Ipratropium [Combivent Respimat] 1 gm INH Q4H PRN Plan: Assessment Acuity = acute Site and laterality = viral syndrome Etiology = COVID-19 Manifestations = body aches, cough Location of injury = Home Lab values = none Plan Some improvement combination Combivent, Toradol, Ativan and Flexeril discharge home Flexeril 10 mg p.o. 3 times daily as needed total #15 prescription written for hydrocodone 5/325 1 tab p.o. 3 times daily as needed total #10 follow-up primary care in 10 to 14 days if not better This note was dictated using [employer] voice recognition software please call with any questions on syntax or grammar.
[2020-01-18] MEDS ORDERED: Cyclobenzaprine 10 MG Tab PO ONE (12:31)
== END 2020-01-18 13:45 | disposition home or self-care (01) ==
LOC: JP.ED 10:56
DX: U07.1 COVID-19 (principal); E11.9 Type 2 diabetes mellitus without complications; Z88.5 Allergy status to narcotic agent; Z91.048 Other nonmedicinal substance allergy status; Z79.84 Long term (current) use of oral hypoglycemic drugs; Z87.891 Personal history of nicotine dependence
CPT/HCPCS: 94640; 96372; 99283; A9270; J1885

== ENCOUNTER 2020-01-21 18:10 | Emergency (ER) | payer BC, MEDICAID ==
[2020-01-21] MEDS ORDERED: Acetaminophen 500 MG Tab ONE (18:37)
--- NOTE | 2020-01-21 18:44 | EDM.PDOC ---
ED HPI GENERAL MEDICAL PROBLEM - General Chief Complaint: General Stated Complaint: COVID POSITIVE/FEELING WORSE Time Seen by Provider: 01/21/20 18:43 Source of Information: Reports: Patient History Limitations: Reports: No Limitations - History of Present Illness INITIAL COMMENTS - FREE TEXT/NARRATIVE: pt arrived with a low grade temp and a continuous cough. The cough is new t onight. Onset: Gradual, Other (pt was covid positive on Jan 14) Duration: Day(s): Location: Reports: Head, Chest, Generalized Associated Symptoms: Reports: Cough, Other ( The cough is continuous and this is new tonight. ) Lower Feet Pain Score (Numeric/FACES): 6 - Related Data Allergies Allergy/AdvReac Type Severity Reaction Status Date / Time codeine AdvReac Intermediate Anxiety Verified 01/21/20 18:33 iodine AdvReac Unknown Anxiety Verified 01/21/20 18:33 Home Meds: Home Meds glipiZIDE [Glipizide ER] 5 mg PO DAILY 01/08/20 [History] metFORMIN [Glucophage] 500 mg PO BIDMEALS 01/08/20 [History] Cyclobenzaprine [Flexeril] 10 mg PO DAILY 01/21/20 [History] Hydrocodone/Acetaminophen [Hydrocodon-Acetaminophen 5-325] 1 tab PO Q6H PRN 01/21/20 [History] Past Medical History HEENT History: Reports: Otitis Media Genitourinary History: Reports: Renal Calculus [employer] History: Reports: Neurological History: Reports: Migraines Endocrine/Metabolic History: Reports: Diabetes, Type II Dermatologic History: Reports: Other (See Below) Other Dermatologic History: hx of butterfly rash on face a few years age, she has gotten checked for lupus which was negative - Infectious Disease History Infectious Disease History: Reports: Chicken Pox - Past Surgical History Other HEENT Surgeries/Procedures: migraines GI Surgical History: Reports: Cholecystectomy Female Surgical History: Reports: Other (See Below) Other Female Surgeries/Procedures: h/o kidney stones Musculoskeletal Surgical History: Reports: Other (See Below) Other Musculoskeletal Surgeries/Procedures:: knee problems Social & Family History - Family History Family Medical History: No Pertinent Family History - Tobacco Use Tobacco Use Status *Q: Never Tobacco User - Caffeine Use Caffeine Use: Reports: Tea - Recreational Drug Use Recreational Drug Use: No - Living Situation & Occupation Living situation: Reports: with Family (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 ) Cardiovascular: Reports: Chest Pain, Other ( Pt has tightness in her chest.) Endocrine: Reports: No Symptoms GI/Abdominal: Reports: No Symptoms : Reports: No Symptoms Musculoskeletal: Reports: No Symptoms Skin: Reports: No Symptoms Neurological: Reports: No Symptoms ED EXAM, GENERAL - Physical Exam Exam: See Below Free Text/Narrative:: pt arrived with a cough and some feeling of tightness in her chest. She has good oxgenation in the high 90s. Exam Limited By: No Limitations General Appearance: Alert, Anxious, Mild Distress Ears: Normal TMs Nose: Normal Inspection Throat/Mouth: Normal Inspection Head: Atraumatic Neck: Normal Inspection Respiratory/Chest: No Respiratory Distress, Other (pt has a continuous cough) Cardiovascular: Regular Rate, Rhythm GI/Abdominal: Soft, Non-Tender (Female) Exam: Deferred Rectal (Female) Exam: Deferred Back Exam: Normal Inspection Extremities: Normal Inspection Neurological: Alert, Oriented, Normal Cognition Psychiatric: Normal Affect Course - Vital Signs Last Recorded V/S: Last Vital Signs Temp 37.2 C 01/21/20 20:15 Pulse 84 01/21/20 19:33 Resp 16 01/21/20 19:33 BP 144/85 H 01/21/20 19:33 Pulse Ox 96 01/21/20 20:15 - Orders/Labs/Meds Labs: Laboratory Tests 01/21/20 01/21/20 01/21/20 Range/Units 18:42 19:10 19:10 WBC 8.3 (4.5-11.0) K/uL RBC 4.64 (3.30-5.50) M/uL Hgb 13.2 (12.0-15.0) g/dL Hct 39.8 (36.0-48.0) % MCV 86 (80-98) fL MCH 28 (27-31) pg MCHC 33 (32-36) % Plt Count 300 (150-400) K/uL Neut % (Auto) 75 H (36-66) % Lymph % (Auto) 15 L (24-44) % Whitley % (Auto) 9 H (2-6) % Eos % (Auto) 1 L (2-4) % Baso % (Auto) 0 (0-1) % D-Dimer, Quantitative (0.0-500.0) ng/mL Sodium 136 L (140-148) mmol/L Potassium 3.4 L (3.6-5.2) mmol/L Chloride 98 L (100-108) mmol/L Carbon Dioxide 29 (21-32) mmol/L Anion Gap 12.4 (5.0-14.0) mmol/L BUN 6 L (7-18) mg/dL Creatinine 0.8 (0.6-1.0) mg/dL Est Cr Clr Drug Dosing 79.11 mL/min Estimated GFR (MDRD) > 60 (>60) Glucose 245 H (74-106) mg/dL Calcium 8.0 L (8.5-10.1) mg/dL Total Bilirubin 0.5 D (0.2-1.0) mg/dL AST 30 (15-37) U/L ALT 48 (12-78) U/L Alkaline Phosphatase 104 (46-116) U/L C-Reactive Protein 9.04 H (0.0-0.3) mg/dL Total Protein 6.9 (6.4-8.2) g/dL Albumin 2.8 L (3.4-5.0) g/dL Globulin 4.1 H (2.3-3.5) g/dL Albumin/Globulin Ratio 0.7 L (1.2-2.2) HCG, Quant (0-6) mIU/mL Urine Color (YELLOW) Urine Appearance (CLEAR) Urine pH (5.0-8.0) Ur Specific [place] (1.008-1.030) Urine Protein (NEGATIVE) mg/dL Urine Glucose (UA) (NEGATIVE) mg/dL Urine Ketones (NEGATIVE) mg/dL Urine Occult Blood (NEGATIVE) Urine Nitrite (NEGATIVE) Urine Bilirubin (NEGATIVE) Urine Urobilinogen (0.2-1.0) EU/dL Ur Leukocyte Esterase (NEGATIVE) Urine RBC (0-5) Urine WBC (0-5) Ur Epithelial Cells Urine Bacteria 11/01/21/20 01/21/20 Range/Units 19:10 19:26 19:30 WBC (4.5-11.0) K/uL RBC (3.30-5.50) M/uL Hgb (12.0-15.0) g/dL Hct (36.0-48.0) % MCV (80-98) fL MCH (27-31) pg MCHC (32-36) % Plt Count (150-400) K/uL Neut % (Auto) (36-66) % Lymph % (Auto) (24-44) % Whitley % (Auto) (2-6) % Eos % (Auto) (2-4) % Baso % (Auto) (0-1) % D-Dimer, Quantitative 668.53 H (0.0-500.0) ng/mL Sodium (140-148) mmol/L Potassium (3.6-5.2) mmol/L Chloride (100-108) mmol/L Carbon Dioxide (21-32) mmol/L Anion Gap (5.0-14.0) mmol/L BUN (7-18) mg/dL Creatinine (0.6-1.0) mg/dL Est Cr Clr Drug Dosing mL/min Estimated GFR (MDRD) (>60) Glucose (74-106) mg/dL Calcium (8.5-10.1) mg/dL Total Bilirubin (0.2-1.0) mg/dL AST (15-37) U/L ALT (12-78) U/L Alkaline Phosphatase (46-116) U/L C-Reactive Protein (0.0-0.3) mg/dL Total Protein (6.4-8.2) g/dL Albumin (3.4-5.0) g/dL Globulin (2.3-3.5) g/dL Albumin/Globulin Ratio (1.2-2.2) HCG, Quant 0 (0-6) mIU/mL Urine Color Yellow (YELLOW) Urine Appearance Clear (CLEAR) Urine pH 7.0 (5.0-8.0) Ur Specific [place] 1.015 (1.008-1.030) Urine Protein Negative (NEGATIVE) mg/dL Urine Glucose (UA) >=1000 H (NEGATIVE) mg/dL Urine Ketones Negative (NEGATIVE) mg/dL Urine Occult Blood Negative (NEGATIVE) Urine Nitrite Negative (NEGATIVE) Urine Bilirubin Negative (NEGATIVE) Urine Urobilinogen 1.0 (0.2-1.0) EU/dL Ur Leukocyte Esterase Small H (NEGATIVE) Urine RBC Not seen (0-5) Urine WBC 5-10 H (0-5) Ur Epithelial Cells Not seen Urine Bacteria Few Meds: Medications Discontinued Medications Generic Name Dose Route Start Last Admin Trade Name Freq PRN Reason Stop Dose Admin Acetaminophen Confirm 01/21/20 18:37 01/21/20 18:45 Tylenol Extra Strength Administered 01/21/20 18:38 Not Given Dose 1,000 mg .ROUTE .STK-MED ONE Acetaminophen 1,000 mg 01/21/20 18:45 01/21/20 18:46 Tylenol Extra Strength PO 01/21/20 18:46 1,000 mg ONETIME ONE Administration Hydrocodone Bitart/Acetaminophen 1 tab 01/21/20 20:49 01/21/20 20:52 Franklin 325-5 Mg PO 01/21/20 20:50 1 tab ONETIME ONE Administration Albuterol 2 gm 01/21/20 19:30 01/21/20 20:02 Ventolin Hfa INH 01/21/20 19:31 2 puff ONETIME ONE Administration Dexamethasone 4 mg 01/21/20 20:42 01/21/20 20:52 Decadron PO 01/21/20 20:43 4 mg ONETIME ONE Administration Guaifenesin/Codeine Phosphate 10 ml 01/21/20 20:09 01/21/20 20:13 Robitussin Ac PO 01/21/20 20:10 10 ml ONETIME ONE Administration Sodium Chloride 1,000 mls @ 999 mls/hr 01/21/20 19:15 Normal Saline IV ASDIRECTED DALJIT - Re-Assessments/Exams Free Text/Narrative Re-Assessment/Exam: 01/21/20 21:02 push Departure - Departure Time of Disposition: 21:10 Disposition: Home, Self-Care 01 Condition: Fair Clinical Impression: COVID-19, Pulmonary infiltrates - Discharge Information Instructions: Prevent the Spread of COVID-19 if You Are Sick - [facility] Referrals: PCP,None [Primary Care Provider] - Forms: ED Department Discharge Care Plan Goals: rtc if increased sob-- you have good oxgenation at this time, Be sure to take your diabetic medication regularly, Use diabetic supplements for nutrition if not eating, albuterol inhaler 2 puffs qid for cough and bronchospasm, robitussin ac 2 tsp qeh as needed for the cough, follow up with regular provider, get vit c and zinic as a supplement, beclomethazione 4 mg bid for the next 3 days then stop. Use tylenol alternating with motrin for fever and body aches-- for severe pain use norco 5/325 q6h prn for pain. Sepsis Event Note (ED) - Evaluation Sepsis Screening Result: Possible Sepsis Risk
[2020-01-21] MEDS ORDERED: Acetaminophen 500 MG Tab PO ONE (18:45)
[2020-01-21] MEDS ORDERED: Sodium Chloride 0.9% 1,000 ML IV SCH (19:15)
[2020-01-21] MEDS ORDERED: Albuterol 8 GM Inhaler INH ONE (19:30)
[2020-01-21 19:34] VITALS: BP 144/85; PULSE 84
--- NOTE | 2020-01-21 19:40 | CRLCR ---
Indication: SOB Technique: Chest 1 view Comparison: None Findings/Impression: Cardiovascular and mediastinum: Heart size and vasculature are normal in caliber and appearance. Mediastinum is within normal limits. Lungs and pleural space: Ill-defined interstitial and airspace opacities in the bilateral mid and lower lungs consistent with infectious infiltrates. An ovoid lucency in the peripheral right mid lung opacity could be related to regional aerated lung, however follow up to exclude an evolving cavitary focus. Correlate clinically, including for viral pneumonia, and follow-up. No pleural effusions. No pneumothorax seen. Bones and soft tissues: No significant findings. Dictated by Adam Juarez MD @ 01/21/2020 7:38:53 PM Dictated by: Adam Juarez MD @ 01/21/2020 19:38:59 (Electronically Signed)
[2020-01-21] MEDS ORDERED: Codeine/guaiFENesin 100mg-10 MG/5 ML Syrup 10 ML Cup PO ONE (20:09)
[2020-01-21] MEDS ORDERED: Dexamethasone 4 MG/ML SDV PO ONE (20:42)
[2020-01-21] MEDS ORDERED: Acetaminophen/HYDROcodone 325-5 MG Tab PO ONE (20:49)
== END 2020-01-21 21:09 | disposition home or self-care (01) ==
LOC: JP.ED 18:10
DX: U07.1 COVID-19 (principal); R91.8 Other nonspecific abnormal finding of lung field; E11.9 Type 2 diabetes mellitus without complications; Z88.5 Allergy status to narcotic agent; Z91.048 Other nonmedicinal substance allergy status; Z79.84 Long term (current) use of oral hypoglycemic drugs
CPT/HCPCS: 36415; 71045; 80053; 81001; 84702; 85025; 85379; 86140; 94640; 99285; A9270; J1100

== ENCOUNTER 2020-08-29 20:02 | Emergency (ER) | payer BC, MEDICAID ==
[2020-08-29] MEDS ORDERED: Ibuprofen 600 MG Tab PO ONE (22:12)
[2020-08-29] MEDS ORDERED: diphenhydrAMINE 50 MG/ML SDV IVPUSH ONE (22:36)
[2020-08-29] MEDS ORDERED: methylPREDNISolone Sodium Succinate 125 MG/2 ML SDV IVPUSH ONE (22:36)
--- NOTE | 2020-08-29 22:43 | EDM.PDOC ---
ED HPI GENERAL MEDICAL PROBLEM - General Chief Complaint: Back Pain or Injury Stated Complaint: BACK AND BODY PAIN Time Seen by Provider: 08/29/20 20:43 Source of Information: Reports: Patient History Limitations: Reports: No Limitations - History of Present Illness INITIAL COMMENTS - FREE TEXT/NARRATIVE: Mally is a 44-year-old female presenting to the ED for evaluation of ge neralized body aches, fever and chills, headache, nausea without vomiting, shortness of breath with right-sided chest pain that started 5 days ago. The patient was seen several days ago at [facility] in [place] where she was evaluated for the symptoms and had a normal EKG, chest x-ray, and lab work per her report. The patient has a history significant for Covid in December 2019 and has had both vaccination doses but states that this feels like when she had Covid. She is unsure of any fever but has had significant chills. She has had a nonproductive cough. Patient said that her youngest child had a fever and cough earlier this week that cleared up after 2 days. She does state that the right-sided chest pain started out in the right flank and now is spread anteriorly to the anterior chest. It is associated with pleurodynia and difficulty breathing. right flank pain and headache Pain Score (Numeric/FACES): 9 - Related Data Allergies Allergy/AdvReac Type Severity Reaction Status Date / Time iodine AdvReac Unknown Anxiety Verified 08/29/20 20:27 Home Meds: Home Meds glipiZIDE [Glipizide ER] 5 mg PO DAILY 01/08/20 [History] metFORMIN [Glucophage] 500 mg PO BIDMEALS 01/08/20 [History] Cyclobenzaprine HCl 10 mg PO ASDIRECTED 08/29/20 [History] levoFLOXacin [Levaquin] 750 mg PO DAILY 7 Days #7 tab 08/30/20 [Rx] Past Medical History HEENT History: Reports: Otitis Media, Sinusitis Gastrointestinal History: Reports: GERD Genitourinary History: Reports: Renal Calculus [employer] History: Reports: Musculoskeletal History: Reports: Other (See Below) Other Musculoskeletal History: knee pain Neurological History: Reports: Migraines Psychiatric History: Reports: Panic Attack Endocrine/Metabolic History: Reports: Diabetes, Type II, Obesity/BMI 30+ Dermatologic History: Reports: Other (See Below) Other Dermatologic History: hx of butterfly rash on face, she has gotten checked for lupus which was negative - Infectious Disease History Infectious Disease History: Reports: Chicken Pox, Influenza, Mononucleosis, Novel Coronavirus, Shingles - Past Surgical History GI Surgical History: Reports: Cholecystectomy Social & Family History - Family History Family Medical History: No Pertinent Family History - Tobacco Use Tobacco Use Status *Q: Light Tobacco User Years of Tobacco use: 20 Packs/Tins Daily: 0.1 - Caffeine Use Caffeine Use: Reports: Tea - Recreational Drug Use Recreational Drug Use: No - Living Situation & Occupation Living situation: Reports: with Family (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 Denies: Sputum Cardiovascular: Reports: Chest Pain (Right-sided chest pain) Endocrine: Reports: Fatigue GI/Abdominal: Reports: Abdominal Pain, Nausea Musculoskeletal: Reports: Back Pain (Upper back on the right side) Skin: Reports: No Symptoms Neurological: Reports: Dizziness, Headache Psychiatric: Reports: Anxiety Hematologic/Lymphatic: Reports: No Symptoms Immunologic: Reports: No Symptoms ED EXAM, GENERAL - Physical Exam Exam: See Below Exam Limited By: No Limitations General Appearance: Alert, Anxious, Moderate Distress Eye Exam: Bilateral Eye: EOMI Throat/Mouth: Normal Inspection, Normal Oropharynx, Normal Voice, No Airway Compromise Head: Normocephalic, Other (Flushed face) Neck: Normal Inspection, Supple, Non-Tender, Full Range of Motion Respiratory/Chest: Decreased Breath Sounds (Right base), Rhonchi (Right base), Splinting (Splinting respiration with pain on the right with deep inspiration.) Cardiovascular: Normal Peripheral Pulses, Regular Rate, Rhythm, Tachycardia Peripheral Pulses: 2+: Radial (L), Radial (R), Posterior Tibial (L), Posterior Tibial (R) GI/Abdominal: Normal Bowel Sounds, Soft, Non-Tender Back Exam: Normal Inspection, Full Range of Motion Extremities: Normal Inspection, Normal Range of Motion Neurological: Alert, Oriented, Normal Cognition, No Motor/Sensory Deficits Psychiatric: Normal Affect, Normal Mood Skin Exam: Warm, Dry Lymphatic: No Adenopathy Course - Vital Signs Last Recorded V/S: Last Vital Signs Temp 36.8 C 08/29/20 20:30 Pulse 96 08/29/20 22:54 Resp 16 08/29/20 22:54 BP 147/92 H 08/29/20 22:54 Pulse Ox 98 08/29/20 22:54 - Orders/Labs/Meds Orders: Active Orders 24 hr Category Date Time Status Chest 2V [CR] Stat Exams 08/29/20 21:05 Taken Iopamidol [Isovue-370 (76%)] Med 08/29/20 23:00 Active 100 ml IV . DIRECTED Sodium Chloride 0.9% [Normal Saline] 100 ml Med 08/29/20 23:00 Active IV ASDIRECTED Medication Orders Sodium Chloride (Normal Saline) 100 mls @ 4 mls/sec IV ASDIRECTED DALJIT Last Admin: 08/29/20 23:07 Dose: 4 mls/sec Documented by: [employer] Iopamidol (Iopamidol 755 Mg/Ml 100 Ml Bottle) 100 ml IV . DIRECTED DALJIT Last Admin: 08/29/20 23:07 Dose: 100 ml Documented by: [email or web address] Labs: Laboratory Tests 08/29/20 08/29/20 08/29/20 Range/Units 21:21 21:21 21:21 WBC 11.6 H (4.5-11.0) K/uL RBC 4.48 (3.30-5.50) M/uL Hgb 12.9 (12.0-15.0) g/dL Hct 38.2 (36.0-48.0) % MCV 85 (80-98) fL MCH 29 (27-31) pg MCHC 34 (32-36) % Plt Count 353 (150-400) K/uL Neut % (Auto) 76.2 H (36-66) % Lymph % (Auto) 14.7 L (24-44) % Mcleod % (Auto) 7.6 H (2-6) % Eos % (Auto) 1.3 L (2-4) % Baso % (Auto) 0.2 (0-1) % D-Dimer, Quantitative (0.0-500.0) ng/mL Sodium 136 L (140-148) mmol/L Potassium 4.2 (3.6-5.2) mmol/L Chloride 100 (100-108) mmol/L Carbon Dioxide 27 (21-32) mmol/L Anion Gap 13.2 (5.0-14.0) mmol/L BUN 10 D (7-18) mg/dL Creatinine 0.6 (0.6-1.0) mg/dL Est Cr Clr Drug Dosing 85.80 mL/min Estimated GFR (MDRD) > 60 (>60) Glucose 229 H (74-106) mg/dL Calcium 8.4 L (8.5-10.1) mg/dL Total Bilirubin 0.7 (0.2-1.0) mg/dL AST 10 L (15-37) U/L ALT 20 (12-78) U/L Alkaline Phosphatase 83 (46-116) U/L C-Reactive Protein 5.54 H (0.0-0.3) mg/dL Total Protein 7.0 (6.4-8.2) g/dL Albumin 3.3 L (3.4-5.0) g/dL Globulin 3.7 H (2.3-3.5) g/dL Albumin/Globulin Ratio 0.9 L (1.2-2.2) Lyme Disease IgG Ab Negative (Negative) Lyme Disease IgM Ab Negative (Negative) 08/29/20 Range/Units 21:21 WBC (4.5-11.0) K/uL RBC (3.30-5.50) M/uL Hgb (12.0-15.0) g/dL Hct (36.0-48.0) % MCV (80-98) fL MCH (27-31) pg MCHC (32-36) % Plt Count (150-400) K/uL Neut % (Auto) (36-66) % Lymph % (Auto) (24-44) % Mcleod % (Auto) (2-6) % Eos % (Auto) (2-4) % Baso % (Auto) (0-1) % D-Dimer, Quantitative 999.03 H (0.0-500.0) ng/mL Sodium (140-148) mmol/L Potassium (3.6-5.2) mmol/L Chloride (100-108) mmol/L Carbon Dioxide (21-32) mmol/L Anion Gap (5.0-14.0) mmol/L BUN (7-18) mg/dL Creatinine (0.6-1.0) mg/dL Est Cr Clr Drug Dosing mL/min Estimated GFR (MDRD) (>60) Glucose (74-106) mg/dL Calcium (8.5-10.1) mg/dL Total Bilirubin (0.2-1.0) mg/dL AST (15-37) U/L ALT (12-78) U/L Alkaline Phosphatase (46-116) U/L C-Reactive Protein (0.0-0.3) mg/dL Total Protein (6.4-8.2) g/dL Albumin (3.4-5.0) g/dL Globulin (2.3-3.5) g/dL Albumin/Globulin Ratio (1.2-2.2) Lyme Disease IgG Ab (Negative) Lyme Disease IgM Ab (Negative) Meds: Medications Generic Name Dose Route Start Last Admin Trade Name Jossie PRN Reason Stop Dose Admin Sodium Chloride 100 mls @ 4 mls/sec 08/29/20 23:00 08/29/20 23:07 Normal Saline IV 4 mls/sec ASDIRECTED DALJIT Administration Iopamidol 100 ml 08/29/20 23:00 08/29/20 23:07 Iopamidol 755 Mg/Ml 100 Ml Bottle IV 100 ml . DIRECTED DALJIT Administration Discontinued Medications Generic Name Dose Route Start Last Admin Trade Name Jossie PRN Reason Stop Dose Admin Diphenhydramine HCl 50 mg 08/29/20 22:36 08/29/20 22:50 Diphenhydramine 50 Mg/Ml Sdv IVPUSH 08/29/20 22:37 50 mg ONETIME ONE Administration Ceftriaxone Sodium 2 gm/ 50 mls @ 100 mls/hr 08/30/20 00:20 08/30/20 00:49 Sodium Chloride IV 08/30/20 00:49 100 mls/hr ONETIME ONE Administration Ibuprofen 600 mg 08/29/20 22:12 08/29/20 22:28 Ibuprofen 600 Mg Tab PO 08/29/20 22:13 600 mg ONETIME ONE Administration Methylprednisolone Sodium Succinate 125 mg 08/29/20 22:36 08/29/20 22:50 Methylprednisolone Sodium Succinate 125 Mg/2 Ml Sdv IVPUSH 08/29/20 22:37 125 mg ONETIME ONE Administration - Radiology Interpretation Free Text/Narrative:: I reviewed the two-view chest x-ray showing an unusual infiltrate in the periphery of the right lower lobe. I hope to better define this with the CT angiogram of the chest. CT angiogram of the chest reveals a right lower lobe consolidation consistent with an acute pneumonia. There is also lymphadenopathy noted in the major fissure of the right lung. - Re-Assessments/Exams Free Text/Narrative Re-Assessment/Exam: 08/29/20 22:41 I reviewed the patient's 2 view chest x-ray showing what appears to be infiltrate in the right lower lobe out at the periphery. This does not look like a typical pneumonia. I did review her labs showing a CBC with a leukocyte count of 11.6, hemoglobin of 12.9, hematocrit of 38.2, and a platelet count of 353,000. Her comprehensive metabolic panel is unremarkable. Her glucose is 229. Her C-reactive protein is significantly elevated at 5.54 and her D-dimer is markedly elevated at 999+. Because of my extreme concern about a pulmonary embolism, we will proceed with a CT angiogram of the chest. As we were setting up to do this, the patient informed us that she has a contrast allergy so we will need to premedicate her with Solu-Medrol 125 mg IV push and diphenhydramine 50 mg IV push. 08/30/20 00:[address] angiogram of the chest was negative for pulmonary embolism, however, it did show consolidation in the right lower lobe of the lung consistent with acute pneumonia. This would be consistent with her symptoms as well. The patient was given ceftriaxone 2 g IV and we will start her on Levaquin 750 mg daily for the next 7 days. I do think at this time the patient is suitable for discharge home. She should continue to take Tylenol or ibuprofen for fever and chills and continue to push fluids to prevent dehydration. Indications return to the ED were discussed and all questions were answered prior to discharge. Departure - Departure Time of Disposition: 01:56 Disposition: Home, Self-Care 01 Clinical Impression: Right lower lobe pneumonia Qualifiers: Pneumonia type: due to unspecified organism Qualified Code(s): J18.9 - Pneumonia, unspecified organism - Discharge Information Prescriptions: levoFLOXacin [Levaquin] 750 mg PO DAILY 7 Days #7 tab Instructions: Community-Acquired Pneumonia, Adult, [id number] Referrals: PCP,None [Primary Care Provider] - Forms: ED Department Discharge Care Plan Goals: We have started the treatment for your pneumonia with ceftriaxone 2 g IV in the emergency room and I have a prescription for you to pickle solution maker tomorrow for Levaquin 750 mg daily for 7 days. This should help clear up your infection. You to take Tylenol and/or ibuprofen for your fever and continue to push fluids to prevent dehydration. Sepsis Event Note (ED) - Evaluation Sepsis Screening Result: Possible Sepsis Risk - Focused Exam Vital Signs: Vital Signs Temp Pulse Resp BP Pulse Ox 08/29/20 22:54 96 16 147/92 H 98 08/29/20 21:45 91 17 129/81 98 08/29/20 20:30 36.8 C 109 H 18 119/83 98 08/29/20 20:25 36.8 C 109 H 18 119/83 98 - Problem List & Annotations (1) Right lower lobe pneumonia SNOMED Code(s): 396555486 Code(s): J18.9 - PNEUMONIA, UNSPECIFIED ORGANISM Status: Acute Priority: High Current Visit: Yes Qualifiers: Pneumonia type: due to unspecified organism Qualified Code(s): J18.9 - Pneumonia, unspecified organism - Problem List Review Problem List Initiated/Reviewed/Updated: Yes - My Orders Last 24 Hours: My Active Orders 08/29/20 21:05 Chest 2V [CR] Stat 08/29/20 23:00 Iopamidol [Isovue-370 (76%)] 100 ml IV . DIRECTED Sodium Chloride 0.9% [Normal Saline] 100 ml IV ASDIRECTED - Assessment/Plan Last 24 Hours: My Active Orders 08/29/20 21:05 Chest 2V [CR] Stat 08/29/20 23:00 Iopamidol [Isovue-370 (76%)] 100 ml IV . DIRECTED Sodium Chloride 0.9% [Normal Saline] 100 ml IV ASDIRECTED
[2020-08-29 22:55] VITALS: BP 147/92; PULSE 96
[2020-08-29] MEDS ORDERED: Sodium Chloride 0.9% 100 ML IV SCH (23:00)
[2020-08-29] MEDS ORDERED: Iopamidol 755 Mg/ML 100 ML Bottle IV SCH (23:00)
--- NOTE | 2020-08-30 00:11 | CRLCT ---
For Patients: As a result of the Century Cures Act, medical imaging exams and procedure reports are released immediately into your electronic medical record. You may view this report before your referring provider. If you have questions, please contact your health care provider. INDICATION: Shortness of breath, right-sided chest pain and elevated D-dimer TECHNIQUE: CT chest PE was acquired with 100 cc Isovue 370 intravenous contrast. COMPARISON: None. FINDINGS: Heart and vasculature: Contrast opacification of the pulmonary arterial tree is adequate. No sign of pulmonary embolism. Heart size is normal. Thoracic aorta and pulmonary artery are normal in caliber. Lungs and pleural: Trace right pleural fluid. Subpleural 4 millimeter nodule along the right major fissure, likely an intrapulmonary lymph node. Focal airspace consolidation within the posterior segment of the right lower lobe. Lymph nodes/mediastinum: Right hilar lymph nodes measure up to 11 millimeters in short axis. Chest wall: No masses. Upper abdomen: Peripherally enhancing lesion within the right lobe of the liver near the dome measuring 18 millimeters. Bones: Unremarkable for age. IMPRESSION: 1. No evidence of pulmonary embolus. 2. Dense consolidation in the right lower lobe posterior segment suggestive of pneumonia. 3. Right hilar adenopathy, likely reactive to the right lower lobe process. 4. Right lobe liver lesion with peripheral enhancement measuring 18 millimeters. This is indeterminate although note is made of some areas of peripheral nodularity which are suggestive of a hepatic hemangioma. Please note that all CT scans at this facility use dose modulation, iterative reconstruction, and/or weight-based dosing when appropriate to reduce radiation dose to as low as reasonably achievable. Dictated by Ramana Miranda MD @ 08/30/2020 12:09:[address] Ramana Miranda @ Aug 30 2020 12:09AM
[2020-08-30] MEDS ORDERED: cefTRIAXone 2 GM in Sodium Chloride 0.9% 50 ML IV ONE (00:20)
--- NOTE | 2020-08-30 09:10 | CR ---
CHEST: 2 view CLINICAL HISTORY:Cough, dyspnea COMPARISON:January 12, 2020 FINDINGS: Heart size and pulmonary vascularity are normal. There is a rounded density in the right lateral lower lobe. Patient did have bibasal infiltrate-like density on the December 2019 study. IMPRESSION: Rounded density in the lateral right lung base. This may represent a rounded pneumonia but neoplasm is not excluded. Follow-up recommended
== END 2020-08-30 02:08 | disposition home or self-care (01) ==
LOC: JP.ED 20:02
DX: J18.9 Pneumonia, unspecified organism (principal); E11.9 Type 2 diabetes mellitus without complications; E66.9 Obesity, unspecified; Z68.1 Body mass index [BMI] 19.9 or less, adult; Z72.0 Tobacco use; Z88.8 Allergy status to other drugs, medicaments and biological substances; Z79.84 Long term (current) use of oral hypoglycemic drugs; Z79.899 Other long term (current) drug therapy
CPT/HCPCS: 36415; 71046; 71275; 80053; 85025; 85379; 86140; 86618; 96365; 96375; 99285; A9270; J0696; J1200; J2930; Q9967

== ENCOUNTER 2020-09-12 18:52 | Emergency (ER) | payer BC, MEDICAID ==
[2020-09-12] MEDS ORDERED: Albuterol 0.083% 2.5 MG/3 ML Neb Soln NEB ONE (20:16)
--- NOTE | 2020-09-12 20:16 | EDM.PDOC ---
ED HPI GENERAL MEDICAL PROBLEM - General Chief Complaint: Respiratory Problem Stated Complaint: CHEST PRESSURE Time Seen by Provider: 09/12/20 20:14 Source of Information: Reports: Patient History Limitations: Reports: No Limitations - History of Present Illness INITIAL COMMENTS - FREE TEXT/NARRATIVE: pt did have pneumonia about 2 weeks ago. She sdid take the perscription and did feel better. Onset: Other ( started in the last 2 days. 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: Musculoskeletal History: Reports: Other (See Below) Other Musculoskeletal History: knee pain Neurological History: Reports: Migraines Psychiatric History: Reports: Panic Attack Endocrine/Metabolic History: Reports: Diabetes, Type II, Obesity/BMI 30+ Dermatologic History: Reports: Other (See Below) Other Dermatologic History: hx of butterfly rash on face, she has gotten checked for lupus which was negative - Infectious Disease History Infectious Disease History: Reports: Chicken Pox, Influenza, Mononucleosis, Novel Coronavirus, Shingles - Past Surgical History Other HEENT Surgeries/Procedures: migraines GI Surgical History: Reports: Cholecystectomy Female Surgical History: Reports: Other (See Below) Other Female Surgeries/Procedures: h/o kidney stones Musculoskeletal Surgical History: Reports: Other (See Below) Other Musculoskeletal Surgeries/Procedures:: knee problems Social & Family History - Family History Family Medical History: No Pertinent Family History - Caffeine Use Caffeine Use: Reports: None - Recreational Drug Use Recreational Drug Use: No - Living Situation & Occupation Living situation: Reports: with Family (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 Denies: Other (sob. ) HEENT: Reports: No Symptoms Respiratory: Reports: Shortness of Breath, Pleuritic Chest Pain, Cough Cardiovascular: Reports: No Symptoms Endocrine: Reports: No Symptoms GI/Abdominal: Reports: No Symptoms : Reports: No Symptoms Musculoskeletal: Reports: No Symptoms ED EXAM, GENERAL - Physical Exam Exam: See Below Free Text/Narrative:: pt arrived with pain on the rt side of her chest. It did hurt more with deep breathing. Exam Limited By: No Limitations General Appearance: Alert, Anxious, Moderate Distress Ears: Normal TMs, Other (pt did appear quite flushed) Nose: Normal Inspection Throat/Mouth: Normal Inspection Head: Atraumatic Neck: Normal Inspection Respiratory/Chest: Other ( a few rales were heard at the rt lung base. ) Cardiovascular: Regular Rate, Rhythm GI/Abdominal: Soft, Non-Tender (Female) Exam: Deferred Rectal (Female) Exam: Deferred Back Exam: Normal Inspection Extremities: Normal Inspection Neurological: Alert, Oriented, Normal Cognition Psychiatric: Anxious Course - Vital Signs Last Recorded V/S: Last Vital Signs Temp 36.4 C 09/13/20 01:19 Pulse 97 09/13/20 01:19 Resp 18 09/13/20 01:19 BP 117/77 09/13/20 01:19 Pulse Ox 95 09/13/20 01:19 - Orders/Labs/Meds Labs: Laboratory Tests 09/12/20 09/12/20 09/12/20 Range/Units 20:20 20:24 20:24 WBC 12.8 H (4.5-11.0) K/uL RBC 4.89 (3.30-5.50) M/uL Hgb 13.4 (12.0-15.0) g/dL Hct 40.6 (36.0-48.0) % MCV 83 (80-98) fL MCH 27 (27-31) pg MCHC 33 (32-36) % Plt Count 391 (150-400) K/uL Neut % (Auto) 79.6 H (36-66) % Lymph % (Auto) 13.4 L (24-44) % [place] % (Auto) 5.3 (2-6) % Eos % (Auto) 1.4 L (2-4) % Baso % (Auto) 0.3 (0-1) % D-Dimer, Quantitative 807.53 H (0.0-500.0) ng/mL Sodium 135 L (140-148) mmol/L Potassium 3.8 (3.6-5.2) mmol/L Chloride 98 L (100-108) mmol/L Carbon Dioxide 27 (21-32) mmol/L Anion Gap 13.8 (5.0-14.0) mmol/L BUN 13 (7-18) mg/dL Creatinine 0.8 (0.6-1.0) mg/dL Est Cr Clr Drug Dosing 85.76 mL/min Estimated GFR (MDRD) > 60 (>60) Glucose 365 H (74-106) mg/dL Calcium 8.4 L (8.5-10.1) mg/dL Total Bilirubin 1.0 (0.2-1.0) mg/dL AST 10 L (15-37) U/L ALT 25 (12-78) U/L Alkaline Phosphatase 98 (46-116) U/L C-Reactive Protein 2.34 H (0.0-0.3) mg/dL Total Protein 7.1 (6.4-8.2) g/dL Albumin 3.5 (3.4-5.0) g/dL Globulin 3.6 H (2.3-3.5) g/dL Albumin/Globulin Ratio 1.0 L (1.2-2.2) Influenza Type A RNA (NEGATIVE) RSV RNA (INAAT) (NEGATIVE) Influenza Type B RNA (NEGATIVE) SARS-CoV-2 RNA (CRYSTAL) (NEGATIVE) 09/12/20 Range/Units 22:01 WBC (4.5-11.0) K/uL RBC (3.30-5.50) M/uL Hgb (12.0-15.0) g/dL Hct (36.0-48.0) % MCV (80-98) fL MCH (27-31) pg MCHC (32-36) % Plt Count (150-400) K/uL Neut % (Auto) (36-66) % Lymph % (Auto) (24-44) % [place]very % (Auto) (2-6) % Eos % (Auto) (2-4) % Baso % (Auto) (0-1) % D-Dimer, Quantitative (0.0-500.0) ng/mL Sodium (140-148) mmol/L Potassium (3.6-5.2) mmol/L Chloride (100-108) mmol/L Carbon Dioxide (21-32) mmol/L Anion Gap (5.0-14.0) mmol/L BUN (7-18) mg/dL Creatinine (0.6-1.0) mg/dL Est Cr Clr Drug Dosing mL/min Estimated GFR (MDRD) (>60) Glucose (74-106) mg/dL Calcium (8.5-10.1) mg/dL Total Bilirubin (0.2-1.0) mg/dL AST (15-37) U/L ALT (12-78) U/L Alkaline Phosphatase (46-116) U/L C-Reactive Protein (0.0-0.3) mg/dL Total Protein (6.4-8.2) g/dL Albumin (3.4-5.0) g/dL Globulin (2.3-3.5) g/dL Albumin/Globulin Ratio (1.2-2.2) Influenza Type A RNA Negative (NEGATIVE) RSV RNA (INAAT) Negative (NEGATIVE) Influenza Type B RNA Negative (NEGATIVE) SARS-CoV-2 RNA (CRYSTAL) Negative (NEGATIVE) Meds: Medications Discontinued Medications Generic Name Dose Route Start Last Admin Trade Name Freq PRN Reason Stop Dose Admin Albuterol 2.5 mg 09/12/20 20:16 09/12/20 20:29 Albuterol 0.083% 2.5 Mg/3 Ml Neb Soln NEB 09/12/20 20:17 2.5 mg ONETIME ONE Administration Azithromycin 500 mg 09/13/20 01:05 09/13/20 01:16 Azithromycin 250 Mg Tab PO 09/13/20 01:06 500 mg ONETIME ONE Administration Diphenhydramine HCl 50 mg 09/12/20 22:08 09/12/20 22:29 Diphenhydramine 50 Mg/Ml Sdv IVPUSH 09/12/20 22:09 50 mg ONETIME ONE Administration Sodium Chloride 100 mls @ 3 mls/sec 09/12/20 22:30 09/12/20 23:09 Normal Saline IV 3 mls/sec ASDIRECTED DALJIT Administration Ceftriaxone Sodium 1 gm/ 50 mls @ 100 mls/hr 09/12/20 23:58 09/13/20 00:06 Sodium Chloride IV 09/13/20 00:27 100 mls/hr ONETIME ONE Administration Iopamidol 100 ml 09/12/20 22:30 09/12/20 23:09 Iopamidol 755 Mg/Ml 100 Ml Bottle IV 100 ml . DIRECTED DALJIT Administration Ketorolac Tromethamine 60 mg 09/12/20 20:48 09/12/20 20:53 Ketorolac 30 Mg/Ml Sdv IM 09/12/20 20:49 60 mg ONETIME ONE Administration Methylprednisolone Sodium Succinate 125 mg 09/12/20 22:08 09/12/20 22:29 Methylprednisolone Sodium Succinate 125 Mg/2 Ml Sdv IVPUSH 09/12/20 22:09 125 mg ONETIME ONE Administration - Re-Assessments/Exams Free Text/Narrative Re-Assessment/Exam: 09/13/20 01:00 chest xray showed a questionable infiltrate. Her ddimer was mildly elevated so a angio of the chest was done and was neg for clot but there was a mild infiltrate preent which had improved form 2 weeks ago. She was given rocephen 1 gm iv. Her wbc showed mild elevation Departure - Departure Time of Disposition: 12:39 Disposition: Home, Self-Care 01 Condition: Fair Clinical Impression: Pneumonia involving right lung - Discharge Information Instructions: Community-Acquired Pneumonia, Adult, [id number] Referrals: PCP,None [Primary Care Provider] - Forms: ED Department Discharge Care Plan Goals: push fluids, zithromax 500mg now 250 daily for 1 week, appt with regular Dr in 1 week. torodol 10 mg q6h for next 5 days as needed for pain. Sepsis Event Note (ED) - Evaluation Sepsis Screening Result: No Definite Risk
[2020-09-12] MEDS ORDERED: Ketorolac 30 MG/ML SDV IM ONE (20:48)
[2020-09-12] MEDS ORDERED: diphenhydrAMINE 50 MG/ML SDV IVPUSH ONE (22:08)
[2020-09-12] MEDS ORDERED: methylPREDNISolone Sodium Succinate 125 MG/2 ML SDV IVPUSH ONE (22:08)
[2020-09-12] MEDS ORDERED: Iopamidol 755 Mg/ML 100 ML Bottle IV SCH (22:30)
[2020-09-12] MEDS ORDERED: Sodium Chloride 0.9% 100 ML IV SCH (22:30)
[2020-09-12 23:25] LABS: CORONAVIRUS COVID-19 NAA NEGATIVE (NEGATIVE)
--- NOTE | 2020-09-12 23:50 | CRLCT ---
For Patients: As a result of the Century Cures Act, medical imaging exams and procedure reports are released immediately into your electronic medical record. You may view this report before your referring provider. If you have questions, please contact your health care provider. INDICATION: Short of breath with right-sided chest pain. Elevated D-dimer. COMPARISON: [address] TECHNIQUE: 100 mL Isovue-370 IV contrast. FINDINGS: Adequate bolus timing with no pulmonary embolism filling defects. Mildly enlarged roughly 1 cm right hilar lymph nodes. No mediastinal adenopathy. No left hilar adenopathy. Hazy flash vascular enhancement presumed hemangioma suggested in the posterior right liver segment 7. No other significant finding in the upper abdomen. There is no fracture or bone lesion. Minor hazy atelectasis in the dependent lower lobes with some diminished consolidation at the lateral right inferior costophrenic angle. This has a less round in appearance than on comparison. No new consolidation. IMPRESSION : 1. No pulmonary embolism appreciated. Improved presumed pneumonia at the right lower lobe. Persistent small reactive right hilar lymph nodes. Please note that all CT scans at this facility use dose modulation, iterative reconstruction, and/or weight-based dosing when appropriate to reduce radiation dose to as low as reasonably achievable. Dictated by Ahmet Khan MD @ 09/12/2020 11:48:[address] Ahmet Khan @ Sep 12 2020 11:48PM
[2020-09-12] MEDS ORDERED: cefTRIAXone 1 GM in Sodium Chloride 0.9% 50 ML IV ONE (23:58)
[2020-09-13] MEDS ORDERED: Azithromycin 250 MG Tab PO ONE (01:05)
[2020-09-13 01:21] VITALS: BP 117/77; PULSE 97
--- NOTE | 2020-09-13 09:03 | CR ---
CHEST: 2 view CLINICAL HISTORY:Right chest pain COMPARISON:08/29/2020 FINDINGS: There is a decrease in size of the right lower lobe opacity described on 08/29/2020. No new abnormal density seen. Heart and pulmonary vascularity appear normal IMPRESSION: Decrease in right lower lobe opacity when compared to 08/29/2020
== END 2020-09-13 01:24 | disposition home or self-care (01) ==
LOC: JP.ED 18:52
DX: J18.9 Pneumonia, unspecified organism (principal); E11.9 Type 2 diabetes mellitus without complications; E66.9 Obesity, unspecified; Z68.34 Body mass index [BMI] 34.0-34.9, adult; Z86.16 Personal history of COVID-19; Z88.8 Allergy status to other drugs, medicaments and biological substances; Z20.822 Contact with and (suspected) exposure to COVID-19
CPT/HCPCS: 0241U; 36415; 71046; 71275; 80053; 85025; 85379; 86140; 94640; 96365; 96372; 96375; 99285; A9270; J0696; J1200; J1885; J2930; Q9967; 99283

== ENCOUNTER 2020-09-15 15:38 | Inpatient (IN) | payer BC, MEDICAID ==
--- NOTE | 2020-09-15 16:27 | EDM.PDOC ---
ED HPI GENERAL MEDICAL PROBLEM - General Chief Complaint: Respiratory Problem Stated Complaint: PNEUMONIA, GETTING WORSE Time Seen by Provider: 09/15/20 16:14 Source of Information: Reports: Patient History Limitations: Reports: No Limitations - History of Present Illness INITIAL COMMENTS - FREE TEXT/NARRATIVE: 44 yo female presents to ER with right sided chest pain with deep breathes, she was seen 72 hours ago here and yesterday in [place]. She states the pain has worsened over the last 48 hours. She was originally dx with pneumonia early in August treated with antibiotics and did improve. earlier this week she developed right sided pain when she would take a deep breath. fatigue, poor appetite. 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: Musculoskeletal History: Reports: Other (See Below) Other Musculoskeletal History: knee pain Neurological History: Reports: Migraines Psychiatric History: Reports: Panic Attack Endocrine/Metabolic History: Reports: Diabetes, Type II, Obesity/BMI 30+ Dermatologic History: Reports: Other (See Below) Other Dermatologic History: hx of butterfly rash on face, she has gotten checked for lupus which was negative - Infectious Disease History Infectious Disease History: Reports: Chicken Pox, Influenza, Mononucleosis, Novel Coronavirus, Shingles - Past Surgical History Other HEENT Surgeries/Procedures: migraines GI Surgical History: Reports: Cholecystectomy Female Surgical History: Reports: Other (See Below) Other Female Surgeries/Procedures: h/o kidney stones Musculoskeletal Surgical History: Reports: Other (See Below) Other Musculoskeletal Surgeries/Procedures:: knee problems Social & Family History - Family History Family Medical History: No Pertinent Family History - Tobacco Use Tobacco Use Status *Q: Current Every Day Tobacco User Years of Tobacco use: 20 Packs/Tins Daily: 0.5 - Caffeine Use Caffeine Use: Reports: None - Recreational Drug Use Recreational Drug Use: No - Living Situation & Occupation Living situation: Reports: with Family (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 Denies: Fever, Chills Respiratory: Reports: Shortness of Breath, Pleuritic Chest Pain, Cough. Denies: Wheezing Cardiovascular: Denies: Chest Pain GI/Abdominal: Denies: Abdominal Pain ED EXAM, GENERAL - Physical Exam Exam: See Below Exam Limited By: No Limitations General Appearance: Alert, WD/WN, No Apparent Distress Head: Atraumatic, Normocephalic Neck: Normal Inspection, Supple, Non-Tender, Full Range of Motion. No: Lymphadenopathy (R), Lymphadenopathy (L) Respiratory/Chest: No Respiratory Distress, No Accessory Muscle Use, Decreased Breath Sounds, Rhonchi (right lower) Cardiovascular: Tachycardia Psychiatric: Normal Affect, Normal Mood Skin Exam: Warm, Dry, Intact Course - Vital Signs Last Recorded V/S: Last Vital Signs Temp 35.6 C L 09/15/20 15:53 Pulse 103 H 09/15/20 21:01 Resp 20 09/15/20 20:01 BP 125/65 09/15/20 21:01 Pulse Ox 94 L 09/15/20 21:01 - Orders/Labs/Meds Orders: Active Orders 24 hr Category Date Time Status Chest 2V [CR] Stat Exams 09/15/20 18:37 Taken Iopamidol [Isovue-370 (76%)] Med 09/15/20 20:15 Active 100 ml IV . DIRECTED Sodium Chloride 0.9% [Normal Saline] 1,000 ml Med 09/15/20 17:00 Active IV ASDIRECTED Sodium Chloride 0.9% [Normal Saline] 100 ml Med 09/15/20 20:15 Active IV ASDIRECTED cefTRIAXone [Rocephin] 1 gm Med 09/15/20 21:49 Active Sodium Chloride 0.9% [Normal Saline] 50 ml IV ONETIME Medication Orders Sodium Chloride (Normal Saline) 1,000 mls @ 999 mls/hr IV ASDIRECTED DALJIT Last Admin: 09/15/20 17:16 Dose: 999 mls/hr Documented by: AKILAH Sodium Chloride (Normal Saline) 100 mls @ 4 mls/sec IV ASDIRECTED DALJIT Last Admin: 09/15/20 20:37 Dose: 4 mls/sec Documented by: NORA Ceftriaxone Sodium 1 gm/ (Sodium Chloride) 50 mls @ 100 mls/hr IV ONETIME ONE Stop: 09/15/20 22:18 Iopamidol (Iopamidol 755 Mg/Ml 100 Ml Bottle) 100 ml IV . DIRECTED DALJIT Last Admin: 09/15/20 20:36 Dose: 100 ml Documented by: NORA Labs: Laboratory Tests 09/15/20 09/15/20 09/15/20 Range/Units 16:56 16:57 17:30 WBC 12.4 H (4.5-11.0) K/uL RBC 4.69 (3.30-5.50) M/uL Hgb 13.0 (12.0-15.0) g/dL Hct 39.7 (36.0-48.0) % MCV 85 (80-98) fL MCH 28 (27-31) pg MCHC 33 (32-36) % Plt Count 353 (150-400) K/uL Neut % (Auto) 86.5 H (36-66) % Lymph % (Auto) 7.1 L (24-44) % [place] % (Auto) 6.0 (2-6) % Eos % (Auto) 0.2 L (2-4) % Baso % (Auto) 0.2 (0-1) % Sodium 135 L (140-148) mmol/L Potassium 3.7 (3.6-5.2) mmol/L Chloride 98 L (100-108) mmol/L Carbon Dioxide 25 (21-32) mmol/L Anion Gap 15.7 H (5.0-14.0) mmol/L BUN 12 (7-18) mg/dL Creatinine 0.7 (0.6-1.0) mg/dL Est Cr Clr Drug Dosing 98.01 mL/min Estimated GFR (MDRD) > 60 (>60) Glucose 251 H (74-106) mg/dL Calcium 8.4 L (8.5-10.1) mg/dL C-Reactive Protein 20.91 H (0.0-0.3) mg/dL Procalcitonin ng/mL 09/15/20 Range/Units 18:48 WBC (4.5-11.0) K/uL RBC (3.30-5.50) M/uL Hgb (12.0-15.0) g/dL Hct (36.0-48.0) % MCV (80-98) fL MCH (27-31) pg MCHC (32-36) % Plt Count (150-400) K/uL Neut % (Auto) (36-66) % Lymph % (Auto) (24-44) % [place] % (Auto) (2-6) % Eos % (Auto) (2-4) % Baso % (Auto) (0-1) % Sodium (140-148) mmol/L Potassium (3.6-5.2) mmol/L Chloride (100-108) mmol/L Carbon Dioxide (21-32) mmol/L Anion Gap (5.0-14.0) mmol/L BUN (7-18) mg/dL Creatinine (0.6-1.0) mg/dL Est Cr Clr Drug Dosing mL/min Estimated GFR (MDRD) (>60) Glucose (74-106) mg/dL Calcium (8.5-10.1) mg/dL C-Reactive Protein (0.0-0.3) mg/dL Procalcitonin < 0.05 ng/mL Meds: Medications Generic Name Dose Route Start Last Admin Trade Name Freq PRN Reason Stop Dose Admin Sodium Chloride 1,000 mls @ 999 mls/hr 09/15/20 17:00 09/15/20 17:16 Normal Saline IV 999 mls/hr ASDIRECTED DALJIT Administration Sodium Chloride 100 mls @ 4 mls/sec 09/15/20 20:15 09/15/20 20:37 Normal Saline IV 4 mls/sec ASDIRECTED DALJIT Administration Ceftriaxone Sodium 1 gm/ 50 mls @ 100 mls/hr 09/15/20 21:49 Sodium Chloride IV 09/15/20 22:18 ONETIME ONE Iopamidol 100 ml 09/15/20 20:15 09/15/20 20:36 Iopamidol 755 Mg/Ml 100 Ml Bottle IV 100 ml . DIRECTED DALJIT Administration Discontinued Medications Generic Name Dose Route Start Last Admin Trade Name Freq PRN Reason Stop Dose Admin Diphenhydramine HCl 50 mg 09/15/20 20:01 09/15/20 20:07 Diphenhydramine 50 Mg/Ml Sdv IVPUSH 09/15/20 20:02 50 mg ONETIME ONE Administration Ketorolac Tromethamine 30 mg 09/15/20 16:58 09/15/20 17:16 Ketorolac 30 Mg/Ml Sdv IVPUSH 09/15/20 16:59 30 mg ONETIME ONE Administration Methylprednisolone Sodium Succinate 125 mg 09/15/20 20:01 09/15/20 20:09 Methylprednisolone Sodium Succinate 125 Mg/2 Ml Sdv IVPUSH 09/15/20 20:02 125 mg ONETIME ONE Administration Morphine Sulfate 2 mg 09/15/20 17:37 09/15/20 17:51 Morphine 2 Mg/Ml Syringe IVPUSH 09/15/20 17:38 2 mg ONETIME ONE Administration Morphine Sulfate 2 mg 09/15/20 21:50 09/15/20 22:01 Morphine 2 Mg/Ml Syringe IVPUSH 09/15/20 21:51 2 mg ONETIME ONE Administration Sodium Chloride 10 ml 09/15/20 20:07 09/15/20 20:36 Sodium Chloride 0.9% 10 Ml Syringe FLUSH 09/15/20 20:08 10 ml ONETIME ONE Administration - Re-Assessments/Exams Free Text/Narrative Re-Assessment/Exam: 09/15/20 22:01 44 yo female present to the ER in mild distress with right sided chest wall pain, worse with deep breathes, tachypneic and fatigue. She was seen thday night in this ER and yesterday in [place]. She was started on azithromycin. She progressively worsened. Today she had significant worsening in her chest x-ray. Ct scan was repeated showing worsening of right lower lobe pneumonia. received IV pain management and IV antibiotics. will be admitted to med/surg received by Dr. Reyes 09/15/20 22:04 Departure - Departure Time of Disposition: 22:25 Disposition: Admitted As Inpatient 68 Condition: Good Clinical Impression: Pneumonia Qualifiers: Pneumonia type: due to unspecified organism Laterality: right Lung location: lower lobe of lung Qualified Code(s): J18.9 - Pneumonia, unspecified organism - Discharge Information *PRESCRIPTION DRUG MONITORING PROGRAM REVIEWED*: Not Applicable *COPY OF PRESCRIPTION DRUG MONITORING REPORT IN PATIENT ROSA: Not Applicable Referrals: PCP,None [Primary Care Provider] - Forms: ED Department Discharge Sepsis Event Note (ED) - Evaluation Sepsis Screening Result: No Definite Risk - Focused Exam Vital Signs: Vital Signs Temp Pulse Resp BP Pulse Ox 09/15/20 21:01 103 H 125/65 94 L 09/15/20 20:01 114 H 20 126/72 93 L 09/15/20 19:02 106 H 12 117/72 95 09/15/20 17:46 108 H 116/86 91 L 09/15/20 17:14 119 H 124/90 92 L 09/15/20 15:53 35.6 C L 121 H 22 H 125/87 95 09/15/20 15:49 35.6 C L 121 H 22 H 125/87 95 - My Orders Last 24 Hours: My Active Orders 09/15/20 17:00 Sodium Chloride 0.9% [Normal Saline] 1,000 ml IV ASDIRECTED 09/15/20 18:37 Chest 2V [CR] Stat 09/15/20 20:15 Iopamidol [Isovue-370 (76%)] 100 ml IV . DIRECTED Sodium Chloride 0.9% [Normal Saline] 100 ml IV ASDIRECTED 09/15/20 21:49 cefTRIAXone [Rocephin] 1 gm Sodium Chloride 0.9% [Normal Saline] 50 ml IV ONETIME - Assessment/Plan Last 24 Hours: My Active Orders 09/15/20 17:00 Sodium Chloride 0.9% [Normal Saline] 1,000 ml IV ASDIRECTED 09/15/20 18:37 Chest 2V [CR] Stat 09/15/20 20:15 Iopamidol [Isovue-370 (76%)] 100 ml IV . DIRECTED Sodium Chloride 0.9% [Normal Saline] 100 ml IV ASDIRECTED 09/15/20 21:49 cefTRIAXone [Rocephin] 1 gm Sodium Chloride 0.9% [Normal Saline] 50 ml IV ONETIME
[2020-09-15] MEDS ORDERED: Ketorolac 30 MG/ML SDV IVPUSH ONE (16:58)
[2020-09-15] MEDS ORDERED: Sodium Chloride 0.9% 1,000 ML IV SCH (17:00)
[2020-09-15] MEDS ORDERED: Morphine 2 MG/ML SYRINGE IVPUSH ONE ×2 (17:37→21:50)
[2020-09-15] MEDS ORDERED: methylPREDNISolone Sodium Succinate 125 MG/2 ML SDV IVPUSH ONE (20:01)
[2020-09-15] MEDS ORDERED: diphenhydrAMINE 50 MG/ML SDV IVPUSH ONE (20:01)
[2020-09-15] MEDS: Sodium Chloride 0.9% 10 ML Syringe FLUSH ONE ×2 (20:12→20:36)
[2020-09-15] MEDS ORDERED: Sodium Chloride 0.9% 100 ML IV SCH (20:15)
[2020-09-15] MEDS ORDERED: Iopamidol 755 Mg/ML 100 ML Bottle IV SCH (20:15)
--- NOTE | 2020-09-15 21:23 | CRLCT ---
For Patients: As a result of the Century Cures Act, medical imaging exams and procedure reports are released immediately into your electronic medical record. You may view this report before your referring provider. If you have questions, please contact your health care provider. HISTORY: Chest pain, shortness of breath. TECHNIQUE: CT chest with IV contrast, pulmonary embolism protocol. 100 mL Isovue-370 IV. COMPARISON: CT chest 09/12/2020. FINDINGS: Pulmonary arteries: No pulmonary embolism. Lungs: New small to moderate loculated right pleural effusion. New complete opacification of the right lower lobe with atelectasis and consolidation. Right lower lobe valid has significantly progressed since comparison CT. Patchy atelectasis throughout the remainder of both lungs. No left pleural effusion. No pneumothorax. Mediastinum: Thoracic aorta is normal caliber. No pericardial effusion. Lymph nodes: Unchanged borderline enlarged right hilar lymph nodes. No new lymphadenopathy. Musculoskeletal: Unremarkable. Upper abdomen: Unchanged hyperenhancing lesion in the posterior right lobe of the liver. IMPRESSION: 1. No pulmonary embolism. 2. New loculated small to moderate size right pleural effusion. 3. Progression of right lower lobe airspace disease and atelectasis. Right lower lobe is nearly completely opacified. New patchy atelectasis throughout the remainder of both lungs. 4. Unchanged borderline enlarged right hilar lymph nodes which are likely reactive. Please note that all CT scans at this facility use dose modulation, iterative reconstruction, and/or weight-based dosing when appropriate to reduce radiation dose to as low as reasonably achievable. Dictated by Amol Mesa MD @ 09/15/2020 9:20:[address] Amol Mesa @ Sep 15 2020 9:20PM
[2020-09-15] MEDS ORDERED: cefTRIAXone 1 GM in Sodium Chloride 0.9% 50 ML IV ONE (21:49)
[2020-09-15] MEDS ORDERED: Sodium Chloride 0.9% 10 ML Syringe FLUSH PRN (23:08)
[2020-09-15] MEDS ORDERED: Ketorolac 30 MG/ML SDV IVPUSH PRN (23:12)
[2020-09-15] MEDS ORDERED: cefTRIAXone 1 GM in Sodium Chloride 0.9% 50 ML IV SCH (23:45)
[2020-09-15] MEDS ORDERED: Azithromycin 250 MG Tab PO ONE (23:57)
[2020-09-16] MEDS: Acetaminophen/HYDROcodone 325-10 MG Tab PO PRN ×4 (00:35→21:48)
--- NOTE | 2020-09-16 01:03 | HP ---
IDENTIFYING DATA: Mally aldridge is a 44-year-old female from [place], [place]. CHIEF COMPLAINT: Right-sided chest pain. HISTORY OF PRESENT ILLNESS: Adult female noted lower right lateral thoracic chest wall pain, exacerbated with movement and inspiration or cough approximately 1-1/2 weeks ago. Additionally, she has had recurrent fever, weakness, and shortness of breath. She was seen in the emergency room approximately one week ago. Lab and x-ray studies were unremarkable. It was felt this represented a viral syndrome, and she was discharged with instructions to manage symptoms and seek follow up as needed. She was seen in the emergency room two days ago and had evidence of right lower lung pneumonia on chest x-ray and CT imaging. She was provided a five-day course of azithromycin, and with worsening pain presented to the emergency room yesterday evening. IV ceftriaxone was administered. She was instructed to continue with azithromycin, and a 2nd antibiotic was prescribed. She was not able to obtain this antibiotic from her retail pharmacy. She presents this evening with increasing pain, shortness of breath, and a weak nonproductive cough. PAST SURGERY HISTORY: Previous surgeries include laser cone and elective cholecystectomy. ADDITIONAL HISTORY: Significant for COVID respiratory infection in December of 2019. She has since recovered and has had COVID vaccine series completed. Recent COVID testing is also noted to be negative. She has a history of type 2 diabetes managed with oral medications. She denies hypertension, chronic respiratory disease, cardiac disease, stroke, renal disease, or peripheral vascular disease. HABITS: Smoker of two cigarettes daily. Previous use of sugared soft drinks, now abstaining. She does not use coffee. Denies alcohol or illicit drug use. ALLERGIES: REPORTED TO IODINE, PENICILLIN, AND CODEINE. CURRENT MEDICATIONS: Glipizide 5 mg daily and metformin 500 mg b.i.d. SOCIAL HISTORY: She is , residing with her and two preteen children. 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 Family is available to provide assistance during the hospital stay. FAMILY HISTORY: Notes tested positive for COVID during her infection in December of 2019. Elderly father with a history of cardiac disease. Lives in the adjacent residence. No other family members are currently ill. REVIEW OF SYSTEMS: NEUROLOGIC: No history of strokes, seizures, paresthesias, neuropathy, cataracts, or glaucoma. Records indicate a history of previous depression. CARDIAC: As above. No history of ischemic heart disease, PR, congestive heart failure, tachycardia, or rheumatic fever. RESPIRATORY: Denies asthma, emphysema, purulent sputum production, or hemoptysis. Chest imaging does reveal increasing density in the right lower lung. GI: No history of hepatitis, jaundice, chronic peptic ulcer disease, or bowel changes. Records suggest a history of nonalcoholic steatohepatitis. Status post cholecystectomy. : Denies chronic renal disease. Voiding with good regularity. No dysuria. MUSCULOSKELETAL: Bilateral leg and knee pain. She attributes this to COVID disease in December of 2019. She does use Biofreeze on a p.r.n. basis. PHYSICAL EXAMINATION: GENERAL: Appearance is that of a fatigued adult female with mild respiratory distress noted. VITAL SIGNS: On admission, temperature 35.6 degrees Celsius; pulse 103; respiratory rate 20; O2 sats 94%, now at 95% with supplemental oxygen; and blood pressure 125/65. HEENT: Hearing is intact. Sclerae are anicteric. Extraocular eye movements are intact. No facial asymmetries. No perioral cyanosis. Oral mucosa is moist and pink. NECK: Brisk carotid pulses. No bruits, JVD, adenopathy, or thyromegaly. LUNGS: Shallow respiratory effort with patient noting pleuritic pain with deep inspiration. Limited air flow. No wheezes or rales heard. HEART: Regular without murmurs, gallops, or rubs. Borderline tachycardic. ABDOMEN: Tenderness at the right costal margin. No organomegaly. No guarding, rebound, referred pain, or CVA tenderness. Active bowel sounds. Good femoral pulses. EXTREMITIES: Pale in the lower extremities. Radial, posterior tibial, and dorsal pedal pulses are brisk, as is capillary refill in the toes. No pitting edema, ischemic skin changes, or varicosities. Recent venous Dopplers negative for DVT. NEUROLOGIC: Sensorium is intact. LABORATORY DATA: On admission WBC 12.4, hemoglobin 13, and left shift with a differential of 87% neutrophils. Sodium 135, potassium 3.7, BUN 12, creatinine 0.7, GFR greater than 60, and glucose 251. C-reactive protein 21. Procalcitonin less than 0.05. Two-view chest x- ray reveals increasing density in the right lower lung. IMPRESSIONS: 1. Right lower lobe pneumonia. 2. Type 2 diabetes. 3. History of COVID infection in December of 2019 with subsequent resolution and completion of COVID vaccine series. PLAN: The patient will be admitted for supportive cares including oxygen, rest, analgesic therapy in the form of IV Toradol and oral hydrocodone as well as dual antibiotic therapy with azithromycin and ceftriaxone. Tylenol will be provided on a p.r.n. basis for fever and pain. Consistent carbohydrate diet and glucose monitoring are requested. Full code status will be initiated. Ham Reyes MD /[id number]
[2020-09-16] MEDS: Nicotine 21 MG/24 Hr Patch TRDERM SCH (08:25)
[2020-09-16] MEDS: glipiZIDE 5 MG Tab.ER PO SCH (08:25)
[2020-09-16] MEDS: metFORMIN 500 MG Tab PO SCH ×2 (08:25→16:46)
--- NOTE | 2020-09-16 09:06 | PN ---
DATE OF SERVICE: 09/16/2020 SUBJECTIVE: This 44-year-old female was admitted yesterday evening with right-sided pneumonia and pleuritic pain with accompanying air hunger with right lower lobe infiltrate confirmed on radiographic studies. She has had persistent right-sided pleurisy with discomfort through the night, leading to impaired respiratory effort with shallow breathing and subjective tachypnea, managed with use of supplemental oxygen. She has had no cough or sputum production. Appetite is good. Taking oral sustenance with water in during the night. Continues to minimize her activity, noting right-sided chest pain with movement. OBJECTIVE: VITAL SIGNS: Temperature 35.4 degrees centigrade, pulse 104, blood pressure 105/57, and respiratory rate 20 with O2 sats of 89% with supplemental oxygen at 1 L/minute. NECK: Brisk carotid pulses. No bruits or JVD. No stridor. LUNGS: Poor air exchange bilaterally. No tachypnea, retractions, or rales are heard. HEART: Regular. Borderline tachycardic. No murmurs or gallops noted. ABDOMEN: Persistent pain at the right costal margin. No organomegaly. No lower abdominal pain or CVA tenderness. EXTREMITIES: Warm and pink. Good turgor. IMPRESSION AND PLAN: Right lower lobe pneumonia. Had antibiotic therapies provided earlier. We will continue with use of azithromycin and Rocephin as well as IV Toradol and p.r.n. use of hydrocodone for pleuritic pain. Allow diabetic dietary intake with glucose monitoring and ongoing use of standard metformin and glipizide therapy. Continue to provide supplemental oxygen and Tylenol on a p.r.n. basis. Ham Reyes MD /[id number]
[2020-09-16] MEDS ORDERED: Insulin Lispro 100 Unit/ML 3 ML KwikPen SUBCUT ONE ×2 (09:30→11:55)
--- NOTE | 2020-09-16 10:02 | PCM.PN ---
- General Info Date of Service: 09/16/20 Subjective Update: Mally was admitted last night for management of persistent right lung pneumonia with possible loculated pleural effusion and hypoxic respiratory failure. She has been sick for nearly 3 weeks though she did have temporary improvement in her symptoms after treatment with levofloxacin. She continues to have mild dyspnea at rest and coughs with any sort of deep breathing attempts. She reports moderate pain in the right lateral chest and right posterior chest, especially with deep breathing and movements. She has not had any fevers. Currently requiring 3 L of supplemental oxygen. Functional Status: Reports: Pain Controlled - Review of Systems General: Denies: Fever Pulmonary: Reports: Shortness of Breath, Pleuritic Chest Pain Musculoskeletal: Reports: Back Pain - Patient Data Vitals - Most Recent: Last Vital Signs Temp 35.5 C L 09/16/20 08:15 Pulse 107 H 09/16/20 08:15 Resp 30 H 09/16/20 09:32 BP 117/64 09/16/20 08:15 Pulse Ox 92 L 09/16/20 08:20 Weight - Most Recent: 93.621 kg I&O - Last 24 Hours: Intake & Output 09/15/20 09/16/20 09/16/20 22:59 06:59 14:59 Intake Total 950 Output Total 700 Balance 250 Lab Results Last 24 Hours: Laboratory Results - last 24 hr 09/15/20 09/15/20 09/15/20 Range/Units 16:56 16:57 17:30 WBC 12.4 H (4.5-11.0) K/uL RBC 4.69 (3.30-5.50) M/uL Hgb 13.0 (12.0-15.0) g/dL Hct 39.7 (36.0-48.0) % MCV 85 (80-98) fL MCH 28 (27-31) pg MCHC 33 (32-36) % Plt Count 353 (150-400) K/uL Neut % (Auto) 86.5 H (36-66) % Lymph % (Auto) 7.1 L (24-44) % Perkins % (Auto) 6.0 (2-6) % Eos % (Auto) 0.2 L (2-4) % Baso % (Auto) 0.2 (0-1) % Sodium 135 L (140-148) mmol/L Potassium 3.7 (3.6-5.2) mmol/L Chloride 98 L (100-108) mmol/L Carbon Dioxide 25 (21-32) mmol/L Anion Gap 15.7 H (5.0-14.0) mmol/L BUN 12 (7-18) mg/dL Creatinine 0.7 (0.6-1.0) mg/dL Est Cr Clr Drug Dosing 98.01 mL/min Estimated GFR (MDRD) > 60 (>60) Glucose 251 H (74-106) mg/dL POC Glucose (74-106) mg/dL Calcium 8.4 L (8.5-10.1) mg/dL C-Reactive Protein 20.91 H (0.0-0.3) mg/dL Procalcitonin ng/mL 09/15/20 09/16/20 Range/Units 18:48 08:47 WBC (4.5-11.0) K/uL RBC (3.30-5.50) M/uL Hgb (12.0-15.0) g/dL Hct (36.0-48.0) % MCV (80-98) fL MCH (27-31) pg MCHC (32-36) % Plt Count (150-400) K/uL Neut % (Auto) (36-66) % Lymph % (Auto) (24-44) % Perkins % (Auto) (2-6) % Eos % (Auto) (2-4) % Baso % (Auto) (0-1) % Sodium (140-148) mmol/L Potassium (3.6-5.2) mmol/L Chloride (100-108) mmol/L Carbon Dioxide (21-32) mmol/L Anion Gap (5.0-14.0) mmol/L BUN (7-18) mg/dL Creatinine (0.6-1.0) mg/dL Est Cr Clr Drug Dosing mL/min Estimated GFR (MDRD) (>60) Glucose (74-106) mg/dL POC Glucose 446 H* (74-106) mg/dL Calcium (8.5-10.1) mg/dL C-Reactive Protein (0.0-0.3) mg/dL Procalcitonin < 0.05 ng/mL Med Orders - Current: Current Medications Acetaminophen (Acetaminophen 325 Mg Tab) 650 mg PO Q4H PRN PRN Reason: Pain Hydrocodone Bitart/Acetaminophen (Acetaminophen/Hydrocodone 325-10 Mg Tab) 1 tab PO Q4H PRN PRN Reason: Pain Last Admin: 09/16/20 06:09 Dose: 1 tab Documented by: Benzonatate (Benzonatate 100 Mg Cap) 100 mg PO Q6H PRN PRN Reason: Cough Glipizide (Glipizide 5 Mg Tab.Er) 5 mg PO DAILY [facility] Last Admin: 09/16/20 08:25 Dose: 5 mg Documented by: Guaifenesin/Dextromethorphan (Guaifenesin/Dextromethorphan 100-10 Mg/5 Ml Soln 10 Ml Cup) 10 ml PO Q4H PRN PRN Reason: Cough Sodium Chloride (Normal Saline) 1,000 mls @ 100 mls/hr IV ASDIRECTED [facility] Doxycycline Hyclate 100 mg/ (Sodium Chloride) 100 mls @ 100 mls/hr IV Q12H [facility] Ceftazidime 1 gm/ Sodium (Chloride) 50 mls @ 100 mls/hr IV Q8H [facility] Insulin Human Lispro (Insulin Lispro 100 Unit/Ml 3 Ml Kwikpen) 0 unit SUBCUT QIDACANDBED [facility]; Protocol Lactobacillus Rhamnosus (Lactobacillus Rhamnosus Gg (Probiotic) Cap) 1 cap PO BID [facility] Metformin HCl (Metformin 500 Mg Tab) 500 mg PO BIDMEALS [facility] Last Admin: 09/16/20 08:25 Dose: 500 mg Documented by: Morphine Sulfate (Morphine 2 Mg/Ml Syringe) 2 mg IVPUSH Q2H PRN PRN Reason: Pain (severe 7-10) Nicotine (Nicotine 21 Mg/24 Hr Patch) 21 mg TRDERM DAILY [facility] Last Admin: 09/16/20 08:25 Dose: 21 mg Documented by: Sodium Chloride (Sodium Chloride 0.9% 10 Ml Syringe) 10 ml FLUSH ASDIRECTED PRN PRN Reason: Keep Vein Open Discontinued Medications Azithromycin (Azithromycin 250 Mg Tab) 250 mg PO BEDTIME [facility] Azithromycin (Azithromycin 250 Mg Tab) 500 mg PO ONETIME ONE Stop: 09/15/20 23:58 Last Admin: 09/16/20 00:35 Dose: 500 mg Documented by: Diphenhydramine HCl (Diphenhydramine 50 Mg/Ml Sdv) 50 mg IVPUSH ONETIME ONE Stop: 09/15/20 20:02 Last Admin: 09/15/20 20:07 Dose: 50 mg Documented by: Sodium Chloride (Normal Saline) 1,000 mls @ 999 mls/hr IV ASDIRECTED [facility] Last Admin: 09/15/20 17:16 Dose: 999 mls/hr Documented by: Sodium Chloride (Normal Saline) 100 mls @ 4 mls/sec IV ASDIRECTED [facility] Last Admin: 09/15/20 20:37 Dose: 4 mls/sec Documented by: Ceftriaxone Sodium 1 gm/ (Sodium Chloride) 50 mls @ 100 mls/hr IV ONETIME ONE Stop: 09/15/20 22:18 Last Admin: 09/15/20 22:07 Dose: 100 mls/hr Documented by: Ceftriaxone Sodium 1 gm/ (Sodium Chloride) 50 mls @ 100 mls/hr IV Q24H [facility] Last Admin: 09/16/20 00:16 Dose: Not Given Documented by: Ceftriaxone Sodium 1 gm/ (Sodium Chloride) 50 mls @ 100 mls/hr IV Q24H [facility] Insulin Human Lispro (Insulin Lispro 100 Unit/Ml 3 Ml Kwikpen) 8 unit SUBCUT ONETIME ONE Stop: 09/16/20 09:31 Iopamidol (Iopamidol 755 Mg/Ml 100 Ml Bottle) 100 ml IV . DIRECTED [facility] Last Admin: 09/15/20 20:36 Dose: 100 ml Documented by: Ketorolac Tromethamine (Ketorolac 30 Mg/Ml Sdv) 30 mg IVPUSH ONETIME ONE Stop: 09/15/20 16:59 Last Admin: 09/15/20 17:16 Dose: 30 mg Documented by: Ketorolac Tromethamine (Ketorolac 30 Mg/Ml Sdv) 30 mg IVPUSH Q8H PRN PRN Reason: Pain Stop: 09/20/20 23:14 Last Admin: 09/16/20 05:27 Dose: 30 mg Documented by: Methylprednisolone Sodium Succinate (Methylprednisolone Sodium Succinate 125 Mg/2 Ml Sdv) 125 mg IVPUSH ONETIME ONE Stop: 09/15/20 20:02 Last Admin: 09/15/20 20:09 Dose: 125 mg Documented by: Morphine Sulfate (Morphine 2 Mg/Ml Syringe) 2 mg IVPUSH ONETIME ONE Stop: 07/25/21 17:38 Last Admin: 09/15/20 17:51 Dose: 2 mg Documented by: Morphine Sulfate (Morphine 2 Mg/Ml Syringe) 2 mg IVPUSH ONETIME ONE Stop: 09/15/20 21:51 Last Admin: 09/15/20 22:01 Dose: 2 mg Documented by: Sodium Chloride (Sodium Chloride 0.9% 10 Ml Syringe) 10 ml FLUSH ONETIME ONE Stop: 09/15/20 20:08 Last Admin: 09/15/20 20:36 Dose: 10 ml Documented by: - Exam Quality Assessment: Supplemental Oxygen General: Alert, Oriented, Cooperative, Mild Distress Lungs: Normal Respiratory Effort, Decreased Breath Sounds (right mid and lower lung ). No: Crackles, Wheezing Cardiovascular: Regular Rhythm, Tachycardia GI/Abdominal Exam: Soft, No Distention Extremities: No Pedal Edema. No: Increased Warmth Skin: Warm, Dry Psy/Mental Status: Alert, Normal Affect - Patient Data Lab Results Last 24 hrs: Laboratory Results - last 24 hr 09/15/20 09/15/20 09/15/20 Range/Units 16:56 16:57 17:30 WBC 12.4 H (4.5-11.0) K/uL RBC 4.69 (3.30-5.50) M/uL Hgb 13.0 (12.0-15.0) g/dL Hct 39.7 (36.0-48.0) % MCV 85 (80-98) fL MCH 28 (27-31) pg MCHC 33 (32-36) % Plt Count 353 (150-400) K/uL Neut % (Auto) 86.5 H (36-66) % Lymph % (Auto) 7.1 L (24-44) % Perkins % (Auto) 6.0 (2-6) % Eos % (Auto) 0.2 L (2-4) % Baso % (Auto) 0.2 (0-1) % Sodium 135 L (140-148) mmol/L Potassium 3.7 (3.6-5.2) mmol/L Chloride 98 L (100-108) mmol/L Carbon Dioxide 25 (21-32) mmol/L Anion Gap 15.7 H (5.0-14.0) mmol/L BUN 12 (7-18) mg/dL Creatinine 0.7 (0.6-1.0) mg/dL Est Cr Clr Drug Dosing 98.01 mL/min Estimated GFR (MDRD) > 60 (>60) Glucose 251 H (74-106) mg/dL POC Glucose (74-106) mg/dL Calcium 8.4 L (8.5-10.1) mg/dL C-Reactive Protein 20.91 H (0.0-0.3) mg/dL Procalcitonin ng/mL 09/15/20 09/16/20 Range/Units 18:48 08:47 WBC (4.5-11.0) K/uL RBC (3.30-5.50) M/uL Hgb (12.0-15.0) g/dL Hct (36.0-48.0) % MCV (80-98) fL MCH (27-31) pg MCHC (32-36) % Plt Count (150-400) K/uL Neut % (Auto) (36-66) % Lymph % (Auto) (24-44) % Perkins % (Auto) (2-6) % Eos % (Auto) (2-4) % Baso % (Auto) (0-1) % Sodium (140-148) mmol/L Potassium (3.6-5.2) mmol/L Chloride (100-108) mmol/L Carbon Dioxide (21-32) mmol/L Anion Gap (5.0-14.0) mmol/L BUN (7-18) mg/dL Creatinine (0.6-1.0) mg/dL Est Cr Clr Drug Dosing mL/min Estimated GFR (MDRD) (>60) Glucose (74-106) mg/dL POC Glucose 446 H* (74-106) mg/dL Calcium (8.5-10.1) mg/dL C-Reactive Protein (0.0-0.3) mg/dL Procalcitonin < 0.05 ng/mL Result Diagrams: 09/15/20 16:56 09/15/20 16:57 Sepsis Event Note - Evaluation Sepsis Screening Result: Sepsis Risk - Focused Exam Vital Signs: Vital Signs Temp Temp Pulse Resp BP Pulse Ox Pulse Ox 09/16/20 09:32 30 H 09/16/20 08:20 92 L 09/16/20 08:15 35.5 C L 107 H 20 117/64 88 L 09/16/20 08:00 18 119/69 92 L 09/16/20 03:00 104 H 20 105/57 L 89 L 09/16/20 00:00 94 L 09/15/20 23:22 35.4 C L 108 H 16 137/74 89 L 09/15/20 22:13 36.7 C 104 H 26 H 128/74 92 L - Problem List Review Problem List Initiated/Reviewed/Updated: Yes - My Orders Last 24 Hours: My Active Orders 09/16/20 09:09 Communication Order [RC] PRN Communication Order [RC] PRN Diabetes Education [RC] Click to Edit Notify Provider [RC] PRN 09/16/20 09:15 Sodium Chloride 0.9% [Normal Saline] 1,000 ml IV ASDIRECTED 09/16/20 09:27 Benzonatate [Tessalon Perles] 100 mg PO Q6H PRN Dextromethorphan/guaiFENesin [Robitussin DM] 10 ml PO Q4H PRN 09/16/20 09:57 Antiembolic Devices [RC] .Routine SCD [Sequential Compression Device] [OM.PC] Routine 09/16/20 09:58 Morphine 2 mg IVPUSH Q2H PRN 09/16/20 10:00 Doxycycline [Vibramycin] 100 mg Sodium Chloride 0.9% [Normal Saline] 100 ml IV Q12H cefTAZidime Pentahydrate [Fortaz] 1 gm Sodium Chloride 0.9% [Normal Saline] 50 ml IV Q8H 09/16/20 11:00 Insulin Lispro [HumaLOG] See Protocol SUBCUT QIDACANDBED 09/16/20 11:30 GLUCOSE POC LAB TO COLLECT JPM [POC] QIDACANDBED 09/16/20 16:30 GLUCOSE POC LAB TO COLLECT JPM [POC] QIDACANDBED 09/16/20 21:00 GLUCOSE POC LAB TO COLLECT JPM [POC] QIDACANDBED Lactobacillus Rhamnosus GG [Culturelle] 1 cap PO BID 09/17/20 05:00 BASIC METABOLIC PANEL,BMP [CHEM] Timed CBC W/O DIFF,HEMOGRAM [HEME] Timed (1) PROCALCITONIN [CHEM] Routine 09/17/20 07:30 GLUCOSE POC LAB TO COLLECT JPM [POC] QIDACANDBED 09/17/20 11:30 GLUCOSE POC LAB TO COLLECT JPM [POC] QIDACANDBED 09/17/20 16:30 GLUCOSE POC LAB TO COLLECT JPM [POC] QIDACANDBED 09/17/20 21:00 GLUCOSE POC LAB TO COLLECT JPM [POC] QIDACANDBED 09/18/20 07:30 GLUCOSE POC LAB TO COLLECT JPM [POC] QIDACANDBED 09/18/20 11:30 GLUCOSE POC LAB TO COLLECT JPM [POC] QIDACANDBED 09/18/20 16:30 GLUCOSE POC LAB TO COLLECT JPM [POC] QIDACANDBED 09/18/20 21:00 GLUCOSE POC LAB TO COLLECT JPM [POC] QIDACANDBED 09/19/20 07:30 GLUCOSE POC LAB TO COLLECT JPM [POC] QIDACANDBED 09/19/20 11:30 GLUCOSE POC LAB TO COLLECT JPM [POC] QIDACANDBED 09/19/20 16:30 GLUCOSE POC LAB TO COLLECT JPM [POC] QIDACANDBED 09/19/20 21:00 GLUCOSE POC LAB TO COLLECT JPM [POC] QIDACANDBED 09/20/20 07:30 GLUCOSE POC LAB TO COLLECT JPM [POC] QIDACANDBED 09/20/20 11:30 GLUCOSE POC LAB TO COLLECT JPM [POC] QIDACANDBED 09/20/20 16:30 GLUCOSE POC LAB TO COLLECT JPM [POC] QIDACANDBED 09/20/20 21:00 GLUCOSE POC LAB TO COLLECT JPM [POC] QIDACANDBED 09/21/20 07:30 GLUCOSE POC LAB TO COLLECT JPM [POC] QIDACANDBED 09/21/20 11:30 GLUCOSE POC LAB TO COLLECT JPM [POC] QIDACANDBED 09/21/20 16:30 GLUCOSE POC LAB TO COLLECT JPM [POC] QIDACANDBED - Plan Plan:: ASSESSMENT AND PLAN - Persistent right lower lobe pneumonia-initial symptoms on August 23, treated with levofloxacin for 1 week and felt better and then worse since then. CT scan has shown progression of right lower lobe infiltrate over the past few days along with new loculated effusion. She has hypoxic. She has failed 2 rounds of outpatient antibiotics. Could have developing empyema or parapneumonic effusion. Suspect bacterial cause even though procalcitonin level was low yesterday. -Antibiotic coverage with doxycycline and ceftazidime -No indication for steroids at this time -As needed nebulizers -Symptomatic management of cough and pleuritic pain -Surgical consultation to consider bronchoscopy and possibly thoracentesis -follow-up cultures Type 2 diabetes mellitus-usually controlled with oral medications. Sugars quite elevated this morning, probably related to stress of infection and the steroids yesterday. -Continue home medications -Sliding scale insulin Maintenance issues - -DVT prophylaxis-SCD -GI prophylaxis-not indicated -Nutrition-consistent carbohydrate -Chavira catheter-not indicated Disposition -I anticipate discharge home after the hospital stay Rishi Strange M.D.
[2020-09-16] MEDS: Sodium Chloride 0.9% 1,000 ML IV SCH (10:49)
[2020-09-16] MEDS: Doxycycline 100 MG in Sodium Chloride 0.9% 100 ML IV SCH ×2 (10:49→21:37)
--- NOTE | 2020-09-16 10:54 | CR ---
CHEST: 2 view CLINICAL HISTORY:Cough COMPARISON:09/12/2020 FINDINGS: There is less than optimal inspiration which exaggerates lung markings. There is moderate pneumonic infiltrate in the right lower lobe. There is some streaky and patchy opacity in the left lung base. Impression: Increasing pneumonia right lung base Patchy left lower lobe density may be some patchy atelectasis or infiltrate
[2020-09-16] MEDS ORDERED: Glucagon,Human Recombinant 1 MG Vial IM PRN ×2 (11:55→16:27)
[2020-09-16] MEDS ORDERED: 50% Dextrose in Water 50 ML Syringe IVPUSH PRN ×2 (11:55→16:27)
[2020-09-16] MEDS: Insulin Lispro 100 Unit/ML 3 ML KwikPen SUBCUT SCH ×3 (12:05→21:39)
[2020-09-16] MEDS: Benzonatate 100 MG Cap PO PRN (13:27)
[2020-09-16] MEDS ORDERED: Albuterol 0.083% 2.5 MG/3 ML Neb Soln NEB PRN (15:44)
[2020-09-16] MEDS ORDERED: Insulin Lispro 100 Units/ML 3 ML Vial SUBCUT ONE (16:27)
[2020-09-16] MEDS: Morphine 2 MG/ML SYRINGE IVPUSH PRN (19:06)
[2020-09-16] MEDS: guaiFENesin/Dextromethorphan 100-10 MG/5 ML Soln 10 ML Cup PO PRN (19:32)
[2020-09-16] MEDS ORDERED: Azithromycin 250 MG Tab PO SCH (21:00)
[2020-09-16] MEDS: Lactobacillus Rhamnosus GG (Probiotic) Cap PO SCH (21:40)
[2020-09-16] MEDS ORDERED: cefTRIAXone 1 GM in Sodium Chloride 0.9% 50 ML IV SCH (22:00)
[2020-09-17] MEDS: Sodium Chloride 0.9% 1,000 ML IV SCH ×2 (00:46→09:53)
[2020-09-17] MEDS: Acetaminophen/HYDROcodone 325-10 MG Tab PO PRN ×2 (06:14→20:11)
[2020-09-17] MEDS: guaiFENesin/Dextromethorphan 100-10 MG/5 ML Soln 10 ML Cup PO PRN ×2 (06:14→14:24)
[2020-09-17] MEDS ORDERED: Lidocaine 2% Viscous Solution 15 ML Cup ONE (07:31)
[2020-09-17] MEDS ORDERED: Lidocaine 4% Top Soln 50 ML Bottle ONE (07:32)
[2020-09-17] MEDS ORDERED: fentaNYL 100 MCG/2 ML SDV ONE (08:31)
[2020-09-17] MEDS ORDERED: Propofol 200 MG/20 ML SDV ONE (08:31)
[2020-09-17] MEDS ORDERED: Midazolam 1 MG/ML 2 ML SDV ONE (08:31)
[2020-09-17] MEDS ORDERED: Lidocaine 4% Top Soln LTA 4 ML Syringe Kit ONE ×2 (08:32→08:33)
[2020-09-17] MEDS: Insulin Lispro 100 Unit/ML 3 ML KwikPen SUBCUT SCH ×4 (08:33→21:19)
[2020-09-17] MEDS: Lactobacillus Rhamnosus GG (Probiotic) Cap PO SCH ×2 (09:08→21:14)
[2020-09-17] MEDS: metFORMIN 500 MG Tab PO SCH ×2 (09:08→17:51)
[2020-09-17] MEDS: glipiZIDE 5 MG Tab.ER PO SCH (09:08)
--- NOTE | 2020-09-17 09:13 | CONS ---
DATE OF SERVICE: 09/17/2020 REFERRING PHYSICIAN: CONSULTING PHYSICIAN: Sharon Banda PA-C HISTORY OF PRESENT ILLNESS: Mally Nash is a pleasant 44-year-old female who Surgery was asked to consult in regard to pneumonia. Mally was admitted through the emergency room on 09/15/2020 with right-sided chest pain with inspirations. She states the pain has worsened. She was diagnosed early in August with pneumonia, was treated with antibiotics and it did improve while she was hospitalized, but continues to have mild dyspnea at rest and cough any time she takes a deep breath. Moderate pain in the right lateral chest and right posterior chest. She is n.p.o. and will be having a bronchoscopy today. REVIEW OF SYSTEMS: Remainder of review of systems negative for any pertinent positives and negatives. OBJECTIVE: GENERAL: Mally Nash is a pleasant 44-year-old female. She is quite sleepy, comfortable. VITAL SIGNS: TPR; 95.6, 93, 16. Blood pressure 120/68, O2 is 94% on 2.5 L. HEENT: Negative. NECK: Supple. HEART: Regular rate and rhythm. LUNGS: Right lung is very diminished breath sounds, left minimal decreased breath sounds. ABDOMEN: Soft, nontender. EXTREMITIES: Without peripheral edema. NEUROLOGIC: Intact. PSYCHIATRIC: Mood and affect appropriate. ASSESSMENT: 1. Right pneumonia. 2. Diabetes type 2. PLAN: Schedule and have consent signed for bronchoscopy with IV sedation. Orders to be written post bronchoscopy. Thank you for this consultation. Sharon Banda PA-C /[id number]
[2020-09-17] MEDS: Doxycycline 100 MG in Sodium Chloride 0.9% 100 ML IV SCH ×2 (09:47→21:15)
[2020-09-17] MEDS ORDERED: Sodium Chloride 0.9% 1,000 ML IV SCH (09:57)
--- NOTE | 2020-09-17 09:58 | PCM.PN ---
- General Info Date of Service: 09/17/20 Subjective Update: There were no acute events overnight. She continues to require supplemental oxygen but is down to 2.5 L today. She feels about the same as yesterday but family thinks she looks better. Still having some pleuritic pain on the right side. She has a dry cough without sputum production. She is short of breath with activity. Tolerating her diet. No fevers. Bronchoscopy is planned later in the morning. Functional Status: Reports: Pain Controlled, Tolerating Diet - Review of Systems General: Denies: Fever Pulmonary: Reports: Shortness of Breath, Pleuritic Chest Pain, Cough. Denies: Sputum - Patient Data Vitals - Most Recent: Last Vital Signs Temp 35.3 C L 09/17/20 07:00 Pulse 93 09/17/20 07:00 Resp 16 09/17/20 07:00 BP 120/68 09/17/20 07:00 Pulse Ox 94 L 09/17/20 07:00 Weight - Most Recent: 93.621 kg I&O - Last 24 Hours: Intake & Output 09/16/20 09/17/20 09/17/20 22:59 06:59 14:59 Intake Total 1350 1440 100 Output Total 900 Balance 450 1440 100 Lab Results Last 24 Hours: Laboratory Results - last 24 hr 09/16/20 09/16/20 09/16/20 Range/Units 11:36 16:22 21:24 WBC (4.5-11.0) K/uL RBC (3.30-5.50) M/uL Hgb (12.0-15.0) g/dL Hct (36.0-48.0) % MCV (80-98) fL MCH (27-31) pg MCHC (32-36) % Plt Count (150-400) K/uL Sodium (140-148) mmol/L Potassium (3.6-5.2) mmol/L Chloride (100-108) mmol/L Carbon Dioxide (21-32) mmol/L Anion Gap (5.0-14.0) mmol/L BUN (7-18) mg/dL Creatinine (0.6-1.0) mg/dL Est Cr Clr Drug Dosing mL/min Estimated GFR (MDRD) (>60) Glucose (74-106) mg/dL POC Glucose 445 H* 406 H* 294 H (74-106) mg/dL Calcium (8.5-10.1) mg/dL Procalcitonin ng/mL 09/17/20 09/17/20 09/17/20 Range/Units 05:57 05:57 05:57 WBC 15.5 H (4.5-11.0) K/uL RBC 4.08 (3.30-5.50) M/uL Hgb 11.1 L (12.0-15.0) g/dL Hct 34.7 L (36.0-48.0) % MCV 85 (80-98) fL MCH 27 (27-31) pg MCHC 32 (32-36) % Plt Count 384 (150-400) K/uL Sodium 139 L (140-148) mmol/L Potassium 4.2 (3.6-5.2) mmol/L Chloride 103 (100-108) mmol/L Carbon Dioxide 27 (21-32) mmol/L Anion Gap 13.2 (5.0-14.0) mmol/L BUN 16 (7-18) mg/dL Creatinine 0.6 (0.6-1.0) mg/dL Est Cr Clr Drug Dosing 114.97 mL/min Estimated GFR (MDRD) > 60 (>60) Glucose 264 H (74-106) mg/dL POC Glucose (74-106) mg/dL Calcium 7.9 L (8.5-10.1) mg/dL Procalcitonin < 0.05 ng/mL 09/17/20 Range/Units 07:28 WBC (4.5-11.0) K/uL RBC (3.30-5.50) M/uL Hgb (12.0-15.0) g/dL Hct (36.0-48.0) % MCV (80-98) fL MCH (27-31) pg MCHC (32-36) % Plt Count (150-400) K/uL Sodium (140-148) mmol/L Potassium (3.6-5.2) mmol/L Chloride (100-108) mmol/L Carbon Dioxide (21-32) mmol/L Anion Gap (5.0-14.0) mmol/L BUN (7-18) mg/dL Creatinine (0.6-1.0) mg/dL Est Cr Clr Drug Dosing mL/min Estimated GFR (MDRD) (>60) Glucose (74-106) mg/dL POC Glucose 249 H (74-106) mg/dL Calcium (8.5-10.1) mg/dL Procalcitonin ng/mL Med Orders - Current: Current Medications Acetaminophen (Acetaminophen 325 Mg Tab) 650 mg PO Q4H PRN PRN Reason: Pain Hydrocodone Bitart/Acetaminophen (Acetaminophen/Hydrocodone 325-10 Mg Tab) 1 tab PO Q4H PRN PRN Reason: Pain Last Admin: 09/17/20 06:14 Dose: 1 tab Documented by: Albuterol (Albuterol 0.083% 2.5 Mg/3 Ml Neb Soln) 2.5 mg NEB Q4H PRN PRN Reason: shortness of breath/wheezing Benzonatate (Benzonatate 100 Mg Cap) 100 mg PO Q6H PRN PRN Reason: Cough Last Admin: 09/16/20 13:27 Dose: 100 mg Documented by: Dextrose/Water (50% Dextrose In Water 50 Ml Syringe) 50 ml IVPUSH ASDIRECTED PRN PRN Reason: Hypoglycemia Dextrose/Water (50% Dextrose In Water 50 Ml Syringe) 50 ml IVPUSH ASDIRECTED NE N PRN Reason: Hypoglycemia Glipizide (Glipizide 5 Mg Tab.Er) 5 mg PO DAILY [facility] Last Admin: 09/17/20 09:08 Dose: Not Given Documented by: Glucagon (Glucagon,Human Recombinant 1 Mg Vial) 1 mg IM ASDIRECTED PRN PRN Reason: Hypoglycemia Glucagon (Glucagon,Human Recombinant 1 Mg Vial) 1 mg IM ASDIRECTED PRN PRN Reason: Hypoglycemia Guaifenesin/Dextromethorphan (Guaifenesin/Dextromethorphan 100-10 Mg/5 Ml Soln 10 Ml Cup) 10 ml PO Q4H PRN PRN Reason: Cough Last Admin: 09/17/20 06:14 Dose: 10 ml Documented by: Sodium Chloride (Normal Saline) 1,000 mls @ 100 mls/hr IV ASDIRECTED [facility] Last Admin: 09/17/20 09:53 Dose: 100 mls/hr Documented by: Doxycycline Hyclate 100 mg/ (Sodium Chloride) 100 mls @ 100 mls/hr IV Q12H [facility] Last Admin: 09/17/20 09:47 Dose: 100 mls/hr Documented by: Ceftazidime 1 gm/ Sodium (Chloride) 50 mls @ 100 mls/hr IV Q8H [facility] Last Admin: 09/17/20 02:38 Dose: 100 mls/hr Documented by: Insulin Human Lispro (Insulin Lispro 100 Unit/Ml 3 Ml Kwikpen) 0 unit SUBCUT QIDACANDBED [facility]; Protocol Last Admin: 09/17/20 08:33 Dose: 4 unit Documented by: Lactobacillus Rhamnosus (Lactobacillus Rhamnosus Gg (Probiotic) Cap) 1 cap PO BID [facility] Last Admin: 09/17/20 09:08 Dose: Not Given Documented by: Metformin HCl (Metformin 500 Mg Tab) 500 mg PO BIDMEALS [facility] Last Admin: 09/17/20 09:08 Dose: Not Given Documented by: Morphine Sulfate (Morphine 2 Mg/Ml Syringe) 2 mg IVPUSH Q2H PRN PRN Reason: Pain (severe 7-10) Last Admin: 09/16/20 19:06 Dose: 2 mg Documented by: Nicotine (Nicotine 21 Mg/24 Hr Patch) 21 mg TRDERM DAILY [facility] Last Admin: 09/16/20 08:25 Dose: 21 mg Documented by: Sodium Chloride (Sodium Chloride 0.9% 10 Ml Syringe) 10 ml FLUSH ASDIRECTED PRN PRN Reason: Keep Vein Open Discontinued Medications Azithromycin (Azithromycin 250 Mg Tab) 250 mg PO BEDTIME [facility] Azithromycin (Azithromycin 250 Mg Tab) 500 mg PO ONETIME ONE Stop: 09/15/20 23:58 Last Admin: 09/16/20 00:35 Dose: 500 mg Documented by: Diphenhydramine HCl (Diphenhydramine 50 Mg/Ml Sdv) 50 mg IVPUSH ONETIME ONE Stop: 09/15/20 20:02 Last Admin: 09/15/20 20:07 Dose: 50 mg Documented by: Fentanyl (Fentanyl 100 Mcg/2 Ml Sdv) Confirm Administered Dose 100 mcg .ROUTE .STK-MED ONE Stop: 09/17/20 08:32 Sodium Chloride (Normal Saline) 1,000 mls @ 999 mls/hr IV ASDIRECTED [facility] Last Admin: 09/15/20 17:16 Dose: 999 mls/hr Documented by: Sodium Chloride (Normal Saline) 100 mls @ 4 mls/sec IV ASDIRECTED [facility] Last Admin: 09/15/20 20:37 Dose: 4 mls/sec Documented by: Ceftriaxone Sodium 1 gm/ (Sodium Chloride) 50 mls @ 100 mls/hr IV ONETIME ONE Stop: 09/15/20 22:18 Last Admin: 09/15/20 22:07 Dose: 100 mls/hr Documented by: Ceftriaxone Sodium 1 gm/ (Sodium Chloride) 50 mls @ 100 mls/hr IV Q24H [facility] Last Admin: 09/16/20 00:16 Dose: Not Given Documented by: Ceftriaxone Sodium 1 gm/ (Sodium Chloride) 50 mls @ 100 mls/hr IV Q24H [facility] Insulin Human Lispro (Insulin Lispro 100 Unit/Ml 3 Ml Kwikpen) 8 unit SUBCUT ONETIME ONE Stop: 09/16/20 09:31 Last Admin: 09/16/20 09:59 Dose: 8 units Documented by: Insulin Human Lispro (Insulin Lispro 100 Unit/Ml 3 Ml Kwikpen) 12 unit SUBCUT ONETIME ONE Stop: 09/16/20 11:56 Last Admin: 09/16/20 12:04 Dose: 12 units Documented by: Insulin Human Lispro (Insulin Lispro 100 Units/Ml 3 Ml Vial) 15 unit SUBCUT ONETIME ONE Stop: 09/16/20 16:28 Last Admin: 09/16/20 16:45 Dose: 15 units Documented by: Iopamidol (Iopamidol 755 Mg/Ml 100 Ml Bottle) 100 ml IV . DIRECTED [facility] Last Admin: 09/15/20 20:36 Dose: 100 ml Documented by: Ketorolac Tromethamine (Ketorolac 30 Mg/Ml Sdv) 30 mg IVPUSH ONETIME ONE Stop: 09/15/20 16:59 Last Admin: 09/15/20 17:16 Dose: 30 mg Documented by: Ketorolac Tromethamine (Ketorolac 30 Mg/Ml Sdv) 30 mg IVPUSH Q8H PRN PRN Reason: Pain Stop: 09/20/20 23:14 Last Admin: 09/16/20 05:27 Dose: 30 mg Documented by: Lidocaine (Lidocaine 4% Top Soln Lta 4 Ml Syringe Kit) Confirm Administered Dose 4 ml .ROUTE .STK-MED ONE Stop: 09/17/20 08:33 Lidocaine (Lidocaine 4% Top Soln Lta 4 Ml Syringe Kit) Confirm Administered Dose 4 ml .ROUTE .STK-MED ONE Stop: 09/17/20 08:34 Lidocaine HCl (Lidocaine 2% Viscous Solution 15 Ml Cup) Confirm Administered Dose 15 ml .ROUTE .STK-MED ONE Stop: 09/17/20 07:32 Lidocaine HCl (Lidocaine 4% Top Soln 50 Ml Bottle) Confirm Administered Dose 50 ml .ROUTE .STK-MED ONE Stop: 09/17/20 07:33 Methylprednisolone Sodium Succinate (Methylprednisolone Sodium Succinate 125 Mg/2 Ml Sdv) 125 mg IVPUSH ONETIME ONE Stop: 09/15/20 20:02 Last Admin: 09/15/20 20:09 Dose: 125 mg Documented by: Midazolam HCl (Midazolam 1 Mg/Ml 2 Ml Sdv) Confirm Administered Dose 2 mg .ROUTE .ST-MED ONE Stop: 09/17/20 08:32 Morphine Sulfate (Morphine 2 Mg/Ml Syringe) 2 mg IVPUSH ONETIME ONE Stop: 09/15/20 17:38 Last Admin: 09/15/20 17:51 Dose: 2 mg Documented by: Morphine Sulfate (Morphine 2 Mg/Ml Syringe) 2 mg IVPUSH ONETIME ONE Stop: 09/15/20 21:51 Last Admin: 09/15/20 22:01 Dose: 2 mg Documented by: Propofol (Propofol 200 Mg/20 Ml Sdv) Confirm Administered Dose 200 mg .ROUTE .ST-MED ONE Stop: 09/17/20 08:32 Sodium Chloride (Sodium Chloride 0.9% 10 Ml Syringe) 10 ml FLUSH ONETIME ONE Stop: 09/15/20 20:08 Last Admin: 09/15/20 20:36 Dose: 10 ml Documented by: - Exam Quality Assessment: Supplemental Oxygen General: Alert, Oriented, Cooperative, No Acute Distress Lungs: Normal Respiratory Effort, Decreased Breath Sounds (right mid and lower lung ), Crackles (few right mid lung ) Cardiovascular: Regular Rate, Regular Rhythm Extremities: No Pedal Edema. No: Increased Warmth Psy/Mental Status: Alert, Normal Affect - Patient Data Lab Results Last 24 hrs: Laboratory Results - last 24 hr 09/16/20 09/16/20 09/16/20 Range/Units 11:36 16:22 21:24 WBC (4.5-11.0) K/uL RBC (3.30-5.50) M/uL Hgb (12.0-15.0) g/dL Hct (36.0-48.0) % MCV (80-98) fL MCH (27-31) pg MCHC (32-36) % Plt Count (150-400) K/uL Sodium (140-148) mmol/L Potassium (3.6-5.2) mmol/L Chloride (100-108) mmol/L Carbon Dioxide (21-32) mmol/L Anion Gap (5.0-14.0) mmol/L BUN (7-18) mg/dL Creatinine (0.6-1.0) mg/dL Est Cr Clr Drug Dosing mL/min Estimated GFR (MDRD) (>60) Glucose (74-106) mg/dL POC Glucose 445 H* 406 H* 294 H (74-106) mg/dL Calcium (8.5-10.1) mg/dL Procalcitonin ng/mL 09/17/20 09/17/20 09/17/20 Range/Units 05:57 05:57 05:57 WBC 15.5 H (4.5-11.0) K/uL RBC 4.08 (3.30-5.50) M/uL Hgb 11.1 L (12.0-15.0) g/dL Hct 34.7 L (36.0-48.0) % MCV 85 (80-98) fL MCH 27 (27-31) pg MCHC 32 (32-36) % Plt Count 384 (150-400) K/uL Sodium 139 L (140-148) mmol/L Potassium 4.2 (3.6-5.2) mmol/L Chloride 103 (100-108) mmol/L Carbon Dioxide 27 (21-32) mmol/L Anion Gap 13.2 (5.0-14.0) mmol/L BUN 16 (7-18) mg/dL Creatinine 0.6 (0.6-1.0) mg/dL Est Cr Clr Drug Dosing 114.97 mL/min Estimated GFR (MDRD) > 60 (>60) Glucose 264 H (74-106) mg/dL POC Glucose (74-106) mg/dL Calcium 7.9 L (8.5-10.1) mg/dL Procalcitonin < 0.05 ng/mL 09/17/20 Range/Units 07:28 WBC (4.5-11.0) K/uL RBC (3.30-5.50) M/uL Hgb (12.0-15.0) g/dL Hct (36.0-48.0) % MCV (80-98) fL MCH (27-31) pg MCHC (32-36) % Plt Count (150-400) K/uL Sodium (140-148) mmol/L Potassium (3.6-5.2) mmol/L Chloride (100-108) mmol/L Carbon Dioxide (21-32) mmol/L Anion Gap (5.0-14.0) mmol/L BUN (7-18) mg/dL Creatinine (0.6-1.0) mg/dL Est Cr Clr Drug Dosing mL/min Estimated GFR (MDRD) (>60) Glucose (74-106) mg/dL POC Glucose 249 H (74-106) mg/dL Calcium (8.5-10.1) mg/dL Procalcitonin ng/mL Result Diagrams: 09/17/20 05:57 09/17/20 05:57 Sepsis Event Note - Evaluation Sepsis Screening Result: No Definite Risk - Focused Exam Vital Signs: Vital Signs Temp Pulse Resp BP BP Pulse Ox 09/17/20 07:00 35.3 C L 93 16 120/68 94 L 09/17/20 02:00 35.1 C L 75 18 104/58 L 92 L 09/16/20 22:31 35.2 C L 98 18 112/65 95 - Problem List Review Problem List Initiated/Reviewed/Updated: Yes - My Orders Last 24 Hours: My Active Orders 09/16/20 09:09 Communication Order [RC] PRN Communication Order [RC] PRN Diabetes Education [RC] Click to Edit Notify Provider [RC] PRN 09/16/20 09:15 Sodium Chloride 0.9% [Normal Saline] 1,000 ml IV ASDIRECTED 09/16/20 09:27 Benzonatate [Tessalon Perles] 100 mg PO Q6H PRN Dextromethorphan/guaiFENesin [Robitussin DM] 10 ml PO Q4H PRN 09/16/20 09:57 Antiembolic Devices [RC] .Routine SCD [Sequential Compression Device] [OM.PC] Routine 09/16/20 09:58 Morphine 2 mg IVPUSH Q2H PRN 09/16/20 10:00 Doxycycline [Vibramycin] 100 mg Sodium Chloride 0.9% [Normal Saline] 100 ml IV Q12H 09/16/20 11:00 Insulin Lispro [HumaLOG] See Protocol SUBCUT QIDACANDBED cefTAZidime Pentahydrate [Fortaz] 1 gm Sodium Chloride 0.9% [Normal Saline] 50 ml IV Q8H 09/16/20 11:55 Dextrose 50% in Water 50 ml IVPUSH ASDIRECTED PRN Glucagon,Human Recombinant [GlucaGen] 1 mg IM ASDIRECTED PRN 09/16/20 12:38 Consult to Physician [CONS] Routine 09/16/20 12:39 Notify Provider Consults [RC] ASDIRECTED 09/16/20 15:44 Albuterol [Proventil Neb Soln] 2.5 mg NEB Q4H PRN 09/16/20 15:45 RT Aerosol Therapy [RC] ASDIRECTED 09/16/20 16:27 Dextrose 50% in Water 50 ml IVPUSH ASDIRECTED PRN Glucagon,Human Recombinant [GlucaGen] 1 mg IM ASDIRECTED PRN 09/16/20 21:00 Lactobacillus Rhamnosus GG [Culturelle] 1 cap PO BID 09/17/20 Breakfast NPO After Midnight [Nothing per Oral After Midnight Diet] [DIET] 09/17/20 09:57 Sodium Chloride 0.9% [Normal Saline] 1,000 ml IV ASDIRECTED 09/17/20 11:30 GLUCOSE POC LAB TO COLLECT JPM [POC] QIDACANDBED 09/17/20 16:30 GLUCOSE POC LAB TO COLLECT JPM [POC] QIDACANDBED 09/17/20 21:00 GLUCOSE POC LAB TO COLLECT JPM [POC] QIDACANDBED 09/18/20 05:00 BASIC METABOLIC PANEL,BMP [CHEM] Timed CBC W/O DIFF,HEMOGRAM [HEME] Timed (1) CRP [C-REACTIVE PROTEIN] [CHEM] Timed 09/18/20 07:30 GLUCOSE POC LAB TO COLLECT JPM [POC] QIDACANDBED 09/18/20 11:30 GLUCOSE POC LAB TO COLLECT JPM [POC] QIDACANDBED 09/18/20 16:30 GLUCOSE POC LAB TO COLLECT JPM [POC] QIDACANDBED 09/18/20 21:00 GLUCOSE POC LAB TO COLLECT JPM [POC] QIDACANDBED 09/19/20 07:30 GLUCOSE POC LAB TO COLLECT JPM [POC] QIDACANDBED 09/19/20 11:30 GLUCOSE POC LAB TO COLLECT JPM [POC] QIDACANDBED 09/19/20 16:30 GLUCOSE POC LAB TO COLLECT JPM [POC] QIDACANDBED 09/19/20 21:00 GLUCOSE POC LAB TO COLLECT JPM [POC] QIDACANDBED 09/20/20 07:30 GLUCOSE POC LAB TO COLLECT JPM [POC] QIDACANDBED 09/20/20 11:30 GLUCOSE POC LAB TO COLLECT JPM [POC] QIDACANDBED 09/20/20 16:30 GLUCOSE POC LAB TO COLLECT JPM [POC] QIDACANDBED 09/20/20 21:00 GLUCOSE POC LAB TO COLLECT JPM [POC] QIDACANDBED 09/21/20 07:30 GLUCOSE POC LAB TO COLLECT JPM [POC] QIDACANDBED 09/21/20 11:30 GLUCOSE POC LAB TO COLLECT JPM [POC] QIDACANDBED 09/21/20 16:30 GLUCOSE POC LAB TO COLLECT JPM [POC] QIDACANDBED - Plan Plan:: ASSESSMENT AND PLAN - Persistent right lower lobe pneumonia-complicated by acute respiratory failure with hypoxia and a right pleural effusion that is partially loculated. Slightly better compared to yesterday. White count is slightly higher. No fevers. Procalcitonin level remains quite low but still suspect bacteria. -Antibiotic coverage with doxycycline and ceftazidime -No indication for steroids at this time -As needed nebulizers -Symptomatic management of cough and pleuritic pain -Surgical consultation for bronchoscopy and possibly thoracentesis -follow-up cultures Type 2 diabetes mellitus-usually controlled with oral medications. Sugars improving with sliding scale insulin. -Continue home medications -Sliding scale insulin Maintenance issues - -DVT prophylaxis-SCD -GI prophylaxis-not indicated -Nutrition-consistent carbohydrate -Chavira catheter-not indicated Disposition -I anticipate discharge home after the hospital stay Rishi Strange M.D.
[2020-09-17] MEDS: Morphine 2 MG/ML SYRINGE IVPUSH PRN ×2 (11:47→17:55)
[2020-09-17] MEDS: Nicotine 21 MG/24 Hr Patch TRDERM SCH (11:47)
[2020-09-17] MEDS: Benzonatate 100 MG Cap PO PRN (14:24)
[2020-09-17] MEDS: Ondansetron 4 MG/2 ML SDV IVPUSH PRN (19:51)
[2020-09-18] MEDS: Acetaminophen/HYDROcodone 325-10 MG Tab PO PRN ×2 (01:38→08:08)
[2020-09-18] MEDS: Ondansetron 4 MG/2 ML SDV IVPUSH PRN (08:09)
[2020-09-18] MEDS: Insulin Lispro 100 Unit/ML 3 ML KwikPen SUBCUT SCH ×4 (08:26→21:06)
[2020-09-18] MEDS: Nicotine 21 MG/24 Hr Patch TRDERM SCH (08:27)
[2020-09-18] MEDS: metFORMIN 500 MG Tab PO SCH ×2 (09:45→17:29)
[2020-09-18] MEDS: Lactobacillus Rhamnosus GG (Probiotic) Cap PO SCH ×2 (09:45→21:05)
[2020-09-18] MEDS: glipiZIDE 5 MG Tab.ER PO SCH (09:46)
[2020-09-18] MEDS: Doxycycline 100 MG in Sodium Chloride 0.9% 100 ML IV SCH (11:23)
[2020-09-18] MEDS ORDERED: HYDROmorphone 0.5 MG/0.5 ML Syringe IVPUSH PRN (12:11)
--- NOTE | 2020-09-18 12:15 | PCM.PN ---
- General Info Date of Service: 09/18/20 Subjective Update: There were no acute events overnight. Patient did have some difficulty with nausea and intermittent vomiting as well as a headache. Both of these persist today but may be are a little bit better. She has not had anything to eat eaten very little to drink because of the nausea. Headache is generalized. No history of migraines. Still having pleuritic chest pain on the right. Abdominal muscles are sore from coughing. Still has a loose cough. Respiratory samples from the bronchoscopy yesterday revealed few gram-positive cocci, few gram-positive rods and some gram-negative rods on Gram stain but cultures are pending. Functional Status: Reports: Pain Controlled - Review of Systems General: Denies: Fever Pulmonary: Reports: Shortness of Breath, Pleuritic Chest Pain, Cough Gastrointestinal: Reports: Nausea, Vomiting - Patient Data Vitals - Most Recent: Last Vital Signs Temp 36.3 C 09/18/20 11:00 Pulse 91 09/18/20 11:00 Resp 16 09/18/20 11:00 BP 130/66 09/18/20 11:00 Pulse Ox 94 L 09/18/20 11:00 Weight - Most Recent: 93.621 kg I&O - Last 24 Hours: Intake & Output 09/17/20 09/18/20 09/18/20 22:59 06:59 14:59 Intake Total 100 355 390 Output Total 1850 1000 1100 Balance -8686 -316 -901 Lab Results Last 24 Hours: Laboratory Results - last 24 hr 09/17/20 09/17/20 09/17/20 Range/Units 16:30 20:58 21:00 WBC (4.5-11.0) K/uL RBC (3.30-5.50) M/uL Hgb (12.0-15.0) g/dL Hct (36.0-48.0) % MCV (80-98) fL MCH (27-31) pg MCHC (32-36) % Plt Count (150-400) K/uL Sodium (140-148) mmol/L Potassium (3.6-5.2) mmol/L Chloride (100-108) mmol/L Carbon Dioxide (21-32) mmol/L Anion Gap (5.0-14.0) mmol/L BUN (7-18) mg/dL Creatinine (0.6-1.0) mg/dL Est Cr Clr Drug Dosing mL/min Estimated GFR (MDRD) (>60) Glucose (74-106) mg/dL POC Glucose 199 H 217 H 217 H (74-106) mg/dL Calcium (8.5-10.1) mg/dL C-Reactive Protein (0.0-0.3) mg/dL 09/18/20 09/18/20 09/18/20 Range/Units 04:53 04:53 07:27 WBC 10.6 (4.5-11.0) K/uL RBC 4.18 (3.30-5.50) M/uL Hgb 11.5 L (12.0-15.0) g/dL Hct 35.6 L (36.0-48.0) % MCV 85 (80-98) fL MCH 28 (27-31) pg MCHC 32 (32-36) % Plt Count 404 H (150-400) K/uL Sodium 139 L (140-148) mmol/L Potassium 3.4 L (3.6-5.2) mmol/L Chloride 102 (100-108) mmol/L Carbon Dioxide 29 (21-32) mmol/L Anion Gap 11.4 (5.0-14.0) mmol/L BUN 6 L D (7-18) mg/dL Creatinine 0.5 L (0.6-1.0) mg/dL Est Cr Clr Drug Dosing 137.96 mL/min Estimated GFR (MDRD) > 60 (>60) Glucose 176 H (74-106) mg/dL POC Glucose 159 H (74-106) mg/dL Calcium 7.9 L (8.5-10.1) mg/dL C-Reactive Protein 8.14 H (0.0-0.3) mg/dL 09/18/20 Range/Units 11:25 WBC (4.5-11.0) K/uL RBC (3.30-5.50) M/uL Hgb (12.0-15.0) g/dL Hct (36.0-48.0) % MCV (80-98) fL MCH (27-31) pg MCHC (32-36) % Plt Count (150-400) K/uL Sodium (140-148) mmol/L Potassium (3.6-5.2) mmol/L Chloride (100-108) mmol/L Carbon Dioxide (21-32) mmol/L Anion Gap (5.0-14.0) mmol/L BUN (7-18) mg/dL Creatinine (0.6-1.0) mg/dL Est Cr Clr Drug Dosing mL/min Estimated GFR (MDRD) (>60) Glucose (74-106) mg/dL POC Glucose 231 H (74-106) mg/dL Calcium (8.5-10.1) mg/dL C-Reactive Protein (0.0-0.3) mg/dL Baldemar Results Last 24 Hours: Microbiology 09/17/20 11:50 Gram Stain - Final Bronchial Alveolar Lavage - Right Lower Lobe Respiratory Culture - Preliminary ORAL CONTAMINATION 1 DAY 09/17/20 11:50 Gram Stain - Final Bronchial Alveolar Lavage - Right Lower Lobe Respiratory Culture - Preliminary ORAL CONTAMINATION 1 DAY 09/17/20 11:41 Gram Stain - Final Trachea Respiratory Culture - Preliminary ORAL CONTAMINATION 1 DAY 09/17/20 11:41 RADHA Preparation - Final Other - Trachea 09/17/20 11:50 RADHA Preparation - Final Other - Right Lower Lobe 09/17/20 11:50 RADHA Preparation - Final Other - Bronchoaveolar Med Orders - Current: Current Medications Acetaminophen (Acetaminophen 325 Mg Tab) 650 mg PO Q4H PRN PRN Reason: Pain Hydrocodone Bitart/Acetaminophen (Acetaminophen/Hydrocodone 325-10 Mg Tab) 1 tab PO Q4H PRN PRN Reason: Pain Last Admin: 09/18/20 08:08 Dose: 1 tab Documented by: Albuterol (Albuterol 0.083% 2.5 Mg/3 Ml Neb Soln) 2.5 mg NEB Q4H PRN PRN Reason: shortness of breath/wheezing Last Admin: 09/17/20 11:41 Dose: 2.5 mg Documented by: Benzonatate (Benzonatate 100 Mg Cap) 100 mg PO Q6H PRN PRN Reason: Cough Last Admin: 09/17/20 14:24 Dose: 100 mg Documented by: Dextrose/Water (50% Dextrose In Water 50 Ml Syringe) 50 ml IVPUSH ASDIRECTED PRN PRN Reason: Hypoglycemia Glipizide (Glipizide 5 Mg Tab.Er) 5 mg PO DAILY DALJIT Last Admin: 09/18/20 09:46 Dose: Not Given Documented by: Glucagon (Glucagon,Human Recombinant 1 Mg Vial) 1 mg IM ASDIRECTED PRN PRN Reason: Hypoglycemia Guaifenesin/Dextromethorphan (Guaifenesin/Dextromethorphan 100-10 Mg/5 Ml Soln 10 Ml Cup) 10 ml PO Q4H PRN PRN Reason: Cough Last Admin: 09/17/20 14:24 Dose: 10 ml Documented by: Doxycycline Hyclate 100 mg/ (Sodium Chloride) 100 mls @ 100 mls/hr IV Q12H [facility] Last Admin: 09/18/20 11:23 Dose: 100 mls/hr Documented by: Ceftazidime 1 gm/ Sodium (Chloride) 50 mls @ 100 mls/hr IV Q8H [facility] Last Admin: 09/18/20 03:41 Dose: 100 mls/hr Documented by: Sodium Chloride (Normal Saline) 1,000 mls @ 25 mls/hr IV ASDIRECTED [facility] Last Admin: 09/17/20 11:59 Dose: 25 mls/hr Documented by: Ibuprofen (Ibuprofen 800 Mg Tab) 800 mg PO Q6H PRN PRN Reason: Pain (moderate 4-6) Insulin Human Lispro (Insulin Lispro 100 Unit/Ml 3 Ml Kwikpen) 0 unit SUBCUT QIDACANDBED [facility]; Protocol Last Admin: 09/18/20 11:26 Dose: 4 unit Documented by: Lactobacillus Rhamnosus (Lactobacillus Rhamnosus Gg (Probiotic) Cap) 1 cap PO BID [facility] Last Admin: 09/18/20 09:45 Dose: Not Given Documented by: Lorazepam (Lorazepam 0.5 Mg Tab) 0.5 mg PO Q4H PRN PRN Reason: Anxiety Metformin HCl (Metformin 500 Mg Tab) 500 mg PO BIDMEALS [facility] Last Admin: 09/18/20 09:45 Dose: Not Given Documented by: Morphine Sulfate (Morphine 2 Mg/Ml Syringe) 2 mg IVPUSH Q2H PRN PRN Reason: Pain (severe 7-10) Last Admin: 09/17/20 17:55 Dose: 2 mg Documented by: Nicotine (Nicotine 21 Mg/24 Hr Patch) 21 mg TRDERM DAILY [facility] Last Admin: 09/18/20 08:27 Dose: Not Given Documented by: Ondansetron HCl (Ondansetron 4 Mg/2 Ml Sdv) 4 mg IVPUSH Q4H PRN PRN Reason: Nausea/Vomiting Last Admin: 09/18/20 08:09 Dose: 4 mg Documented by: Sodium Chloride (Sodium Chloride 0.9% 10 Ml Syringe) 10 ml FLUSH ASDIRECTED PRN PRN Reason: Keep Vein Open Discontinued Medications Azithromycin (Azithromycin 250 Mg Tab) 250 mg PO BEDTIME DALJIT Azithromycin (Azithromycin 250 Mg Tab) 500 mg PO ONETIME ONE Stop: 09/15/20 23:58 Last Admin: 09/16/20 00:35 Dose: 500 mg Documented by: Diphenhydramine HCl (Diphenhydramine 50 Mg/Ml Sdv) 50 mg IVPUSH ONETIME ONE Stop: 09/15/20 20:02 Last Admin: 09/15/20 20:07 Dose: 50 mg Documented by: Fentanyl (Fentanyl 100 Mcg/2 Ml Sdv) Confirm Administered Dose 100 mcg .ROUTE .STK-MED ONE Stop: 09/17/20 08:32 Sodium Chloride (Normal Saline) 1,000 mls @ 999 mls/hr IV ASDIRECTED [facility] Last Admin: 09/15/20 17:16 Dose: 999 mls/hr Documented by: Sodium Chloride (Normal Saline) 100 mls @ 4 mls/sec IV ASDIRECTED [facility] Last Admin: 09/15/20 20:37 Dose: 4 mls/sec Documented by: Ceftriaxone Sodium 1 gm/ (Sodium Chloride) 50 mls @ 100 mls/hr IV ONETIME ONE Stop: 09/15/20 22:18 Last Admin: 09/15/20 22:07 Dose: 100 mls/hr Documented by: Ceftriaxone Sodium 1 gm/ (Sodium Chloride) 50 mls @ 100 mls/hr IV Q24H [facility] Last Admin: 09/16/20 00:16 Dose: Not Given Documented by: Ceftriaxone Sodium 1 gm/ (Sodium Chloride) 50 mls @ 100 mls/hr IV Q24H [facility] Sodium Chloride (Normal Saline) 1,000 mls @ 100 mls/hr IV ASDIRECTED [facility] Last Admin: 09/17/20 09:53 Dose: 100 mls/hr Documented by: Insulin Human Lispro (Insulin Lispro 100 Unit/Ml 3 Ml Kwikpen) 8 unit SUBCUT ONETIME ONE Stop: 09/16/20 09:31 Last Admin: 09/16/20 09:59 Dose: 8 units Documented by: Insulin Human Lispro (Insulin Lispro 100 Unit/Ml 3 Ml Kwikpen) 12 unit SUBCUT ONETIME ONE Stop: 09/16/20 11:56 Last Admin: 09/16/20 12:04 Dose: 12 units Documented by: Insulin Human Lispro (Insulin Lispro 100 Units/Ml 3 Ml Vial) 15 unit SUBCUT ONETIME ONE Stop: 09/16/20 16:28 Last Admin: 09/16/20 16:45 Dose: 15 units Documented by: Iopamidol (Iopamidol 755 Mg/Ml 100 Ml Bottle) 100 ml IV . DIRECTED DALJIT Last Admin: 09/15/20 20:36 Dose: 100 ml Documented by: Ketorolac Tromethamine (Ketorolac 30 Mg/Ml Sdv) 30 mg IVPUSH ONETIME ONE Stop: 09/15/20 16:59 Last Admin: 09/15/20 17:16 Dose: 30 mg Documented by: Ketorolac Tromethamine (Ketorolac 30 Mg/Ml Sdv) 30 mg IVPUSH Q8H PRN PRN Reason: Pain Stop: 09/20/20 23:14 Last Admin: 09/16/20 05:27 Dose: 30 mg Documented by: Lidocaine (Lidocaine 4% Top Soln Lta 4 Ml Syringe Kit) Confirm Administered Dose 4 ml .ROUTE .STK-MED ONE Stop: 09/17/20 08:33 Lidocaine (Lidocaine 4% Top Soln Lta 4 Ml Syringe Kit) Confirm Administered Dose 4 ml .ROUTE .STK-MED ONE Stop: 09/17/20 08:34 Lidocaine HCl (Lidocaine 2% Viscous Solution 15 Ml Cup) Confirm Administered Dose 15 ml .ROUTE .STK-MED ONE Stop: 09/17/20 07:32 Lidocaine HCl (Lidocaine 4% Top Soln 50 Ml Bottle) Confirm Administered Dose 50 ml .ROUTE .STK-MED ONE Stop: 09/17/20 07:33 Methylprednisolone Sodium Succinate (Methylprednisolone Sodium Succinate 125 Mg/2 Ml Sdv) 125 mg IVPUSH ONETIME ONE Stop: 09/15/20 20:02 Last Admin: 09/15/20 20:09 Dose: 125 mg Documented by: Midazolam HCl (Midazolam 1 Mg/Ml 2 Ml Sdv) Confirm Administered Dose 2 mg .ROUTE .STK-MED ONE Stop: 09/17/20 08:32 Morphine Sulfate (Morphine 2 Mg/Ml Syringe) 2 mg IVPUSH ONETIME ONE Stop: 09/15/20 17:38 Last Admin: 09/15/20 17:51 Dose: 2 mg Documented by: Morphine Sulfate (Morphine 2 Mg/Ml Syringe) 2 mg IVPUSH ONETIME ONE Stop: 09/15/20 21:51 Last Admin: 09/15/20 22:01 Dose: 2 mg Documented by: Propofol (Propofol 200 Mg/20 Ml Sdv) Confirm Administered Dose 200 mg .ROUTE .STK-MED ONE Stop: 09/17/20 08:32 Sodium Chloride (Sodium Chloride 0.9% 10 Ml Syringe) 10 ml FLUSH ONETIME ONE Stop: 09/15/20 20:08 Last Admin: 09/15/20 20:36 Dose: 10 ml Documented by: - Exam Quality Assessment: Supplemental Oxygen General: Alert, Oriented, Cooperative, No Acute Distress Lungs: Normal Respiratory Effort, Decreased Breath Sounds (right lower lung ), Crackles (right mid lung ) Cardiovascular: Regular Rate, Regular Rhythm GI/Abdominal Exam: Normal Bowel Sounds, Soft, No Distention, Tender (mild generalized ) Extremities: No Pedal Edema. No: Increased Warmth Skin: Warm, Dry Psy/Mental Status: Alert, Normal Affect - Patient Data Lab Results Last 24 hrs: Laboratory Results - last 24 hr 09/17/20 09/17/20 09/17/20 Range/Units 16:30 20:58 21:00 WBC (4.5-11.0) K/uL RBC (3.30-5.50) M/uL Hgb (12.0-15.0) g/dL Hct (36.0-48.0) % MCV (80-98) fL MCH (27-31) pg MCHC (32-36) % Plt Count (150-400) K/uL Sodium (140-148) mmol/L Potassium (3.6-5.2) mmol/L Chloride (100-108) mmol/L Carbon Dioxide (21-32) mmol/L Anion Gap (5.0-14.0) mmol/L BUN (7-18) mg/dL Creatinine (0.6-1.0) mg/dL Est Cr Clr Drug Dosing mL/min Estimated GFR (MDRD) (>60) Glucose (74-106) mg/dL POC Glucose 199 H 217 H 217 H (74-106) mg/dL Calcium (8.5-10.1) mg/dL C-Reactive Protein (0.0-0.3) mg/dL 09/18/20 09/18/20 09/18/20 Range/Units 04:53 04:53 07:27 WBC 10.6 (4.5-11.0) K/uL RBC 4.18 (3.30-5.50) M/uL Hgb 11.5 L (12.0-15.0) g/dL Hct 35.6 L (36.0-48.0) % MCV 85 (80-98) fL MCH 28 (27-31) pg MCHC 32 (32-36) % Plt Count 404 H (150-400) K/uL Sodium 139 L (140-148) mmol/L Potassium 3.4 L (3.6-5.2) mmol/L Chloride 102 (100-108) mmol/L Carbon Dioxide 29 (21-32) mmol/L Anion Gap 11.4 (5.0-14.0) mmol/L BUN 6 L D (7-18) mg/dL Creatinine 0.5 L (0.6-1.0) mg/dL Est Cr Clr Drug Dosing 137.96 mL/min Estimated GFR (MDRD) > 60 (>60) Glucose 176 H (74-106) mg/dL POC Glucose 159 H (74-106) mg/dL Calcium 7.9 L (8.5-10.1) mg/dL C-Reactive Protein 8.14 H (0.0-0.3) mg/dL 09/18/20 Range/Units 11:25 WBC (4.5-11.0) K/uL RBC (3.30-5.50) M/uL Hgb (12.0-15.0) g/dL Hct (36.0-48.0) % MCV (80-98) fL MCH (27-31) pg MCHC (32-36) % Plt Count (150-400) K/uL Sodium (140-148) mmol/L Potassium (3.6-5.2) mmol/L Chloride (100-108) mmol/L Carbon Dioxide (21-32) mmol/L Anion Gap (5.0-14.0) mmol/L BUN (7-18) mg/dL Creatinine (0.6-1.0) mg/dL Est Cr Clr Drug Dosing mL/min Estimated GFR (MDRD) (>60) Glucose (74-106) mg/dL POC Glucose 231 H (74-106) mg/dL Calcium (8.5-10.1) mg/dL C-Reactive Protein (0.0-0.3) mg/dL Result Diagrams: 09/18/20 04:53 09/18/20 04:53 Baldemar Results Last 24 hrs: Microbiology 09/17/20 11:50 Gram Stain - Final Bronchial Alveolar Lavage - Right Lower Lobe Respiratory Culture - Preliminary ORAL CONTAMINATION 1 DAY 09/17/20 11:50 Gram Stain - Final Bronchial Alveolar Lavage - Right Lower Lobe Respiratory Culture - Preliminary ORAL CONTAMINATION 1 DAY 09/17/20 11:41 Gram Stain - Final Trachea Respiratory Culture - Preliminary ORAL CONTAMINATION 1 DAY 09/17/20 11:41 RADHA Preparation - Final Other - Trachea 09/17/20 11:50 RADHA Preparation - Final Other - Right Lower Lobe 09/17/20 11:50 RADHA Preparation - Final Other - Bronchoaveolar Sepsis Event Note - Evaluation Sepsis Screening Result: No Definite Risk - Focused Exam Vital Signs: Vital Signs Temp Pulse Resp BP Pulse Ox 09/18/20 11:00 36.3 C 91 16 130/66 94 L 09/18/20 07:00 36.4 C 79 18 124/75 92 L 09/18/20 03:00 35.5 C L 77 18 112/68 93 L - Problem List Review Problem List Initiated/Reviewed/Updated: Yes - My Orders Last 24 Hours: My Active Orders 09/17/20 19:44 Ondansetron [Zofran] 4 mg IVPUSH Q4H PRN 09/18/20 10:07 Ibuprofen [Motrin] 800 mg PO Q6H PRN LORazepam [Ativan] 0.5 mg PO Q4H PRN 09/18/20 12:10 oxyCODONE 5 - 10 mg PO Q4H PRN 09/18/20 12:11 HYDROmorphone [Dilaudid] 0.5 mg IVPUSH Q4H PRN 09/18/20 12:12 Convert IV to Saline Lock [OM.PC] Routine 09/18/20 12:13 Ondansetron [Zofran ODT] 4 mg PO Q4H PRN 09/18/20 12:15 Potassium Chloride 20 MEQ,Lidocaine 1% 2 ML IN 100ML NS @ 50 MLS/HR Potassium Chloride 20 meq Lidocaine 1% [Xylocaine 1%] 2 ml Sodium Chloride 0.9% [Normal Saline] 100 ml IV Q2H 09/18/20 13:00 Vancomycin 1.5 gm Sodium Chloride 0.9% [Normal Saline] 250 ml IV Q12H 09/18/20 16:30 GLUCOSE POC LAB TO COLLECT JPM [POC] QIDACANDBED 09/18/20 21:00 GLUCOSE POC LAB TO COLLECT JPM [POC] QIDACANDBED 09/19/20 05:00 Chest 2V [CR] Timed BASIC METABOLIC PANEL,BMP [CHEM] Timed CBC W/O DIFF,HEMOGRAM [HEME] Timed (1) 09/19/20 07:30 GLUCOSE POC LAB TO COLLECT JPM [POC] QIDACANDBED 09/19/20 11:30 GLUCOSE POC LAB TO COLLECT JPM [POC] QIDACANDBED 09/19/20 16:30 GLUCOSE POC LAB TO COLLECT JPM [POC] QIDACANDBED 09/19/20 21:00 GLUCOSE POC LAB TO COLLECT JPM [POC] QIDACANDBED 09/20/20 07:30 GLUCOSE POC LAB TO COLLECT JPM [POC] QIDACANDBED 09/20/20 11:30 GLUCOSE POC LAB TO COLLECT JPM [POC] QIDACANDBED 09/20/20 16:30 GLUCOSE POC LAB TO COLLECT JPM [POC] QIDACANDBED 09/20/20 21:00 GLUCOSE POC LAB TO COLLECT JPM [POC] QIDACANDBED 09/21/20 07:30 GLUCOSE POC LAB TO COLLECT JPM [POC] QIDACANDBED 09/21/20 11:30 GLUCOSE POC LAB TO COLLECT JPM [POC] QIDACANDBED 09/21/20 16:30 GLUCOSE POC LAB TO COLLECT JPM [POC] QIDACANDBED - Plan Plan:: ASSESSMENT AND PLAN - Persistent right lower lobe pneumonia-complicated by acute respiratory failure with hypoxia and a right pleural effusion that is partially loculated. Stable but not dramatically better than yesterday. Sputum samples and Krysta alveolar lavage samples revealed a variety of different organisms on Gram stain but cultures are pending. -Antibiotic coverage with vancomycin and ceftazidime -No indication for steroids at this time -As needed nebulizers -Symptomatic management of cough and pleuritic pain -Follow-up cultures Nausea with vomiting-could be related to infection versus medications such as pain medication or combination. -Change pain meds -Discontinue doxycycline Type 2 diabetes mellitus-sugars improving with current treatment plan. -Continue home medications -Sliding scale insulin Maintenance issues - -DVT prophylaxis-SCD -GI prophylaxis-not indicated -Nutrition-consistent carbohydrate -Chavira catheter-not indicated Disposition -I anticipate discharge home after the hospital stay Rishi Strange M.D.
[2020-09-18] MEDS: Ondansetron 4 MG Tab.DIS PO PRN ×2 (12:40→17:30)
[2020-09-18] MEDS: Ibuprofen 800 MG Tab PO PRN (12:40)
[2020-09-18] MEDS: oxyCODONE 5 MG Tab PO PRN (14:53)
[2020-09-18] MEDS: Potassium Chloride 20 MEQ, Lidocaine 1% 2 ML in Sodium Chloride 0.9% 100 ML IV SCH ×2 (15:48→20:39)
[2020-09-18] MEDS: LORazepam 0.5 MG Tab PO PRN (21:12)
[2020-09-18] MEDS: guaiFENesin/Dextromethorphan 100-10 MG/5 ML Soln 10 ML Cup PO PRN (23:16)
[2020-09-19] MEDS: oxyCODONE 5 MG Tab PO PRN ×2 (03:19→21:57)
[2020-09-19] MEDS: Acetaminophen 325 MG Tab PO PRN ×3 (03:20→22:52)
--- NOTE | 2020-09-19 04:49 | CRLCR ---
For Patients: As a result of the Cures Act, medical imaging exams and procedure reports are released immediately into your electronic medical record. You may view this report before your referring provider. If you have questions, please contact your health care provider. INDICATION: Pneumonia and right sided effusion TECHNIQUE: Chest radiograph 2 views COMPARISON: CT 09/15/2020 FINDINGS: Mediastinum: The mediastinum is normal in appearance. The heart silhouette is normal in size and morphology. Lung: Moderate loculated right pleural effusion is present with bibasilar discoid atelectasis seen. No pneumothorax is identified. Bone and Soft tissue: Unremarkable for age. IMPRESSION: 1. Moderate loculated right pleural effusion is present with bibasilar discoid atelectasis seen. Dictated by Devyn Messer MD @ 09/19/2020 4:47:03 AM Dictated by: Devyn Messer MD @ 09/19/2020 04:47:07 (Electronically Signed)
[2020-09-19] MEDS: Ondansetron 4 MG Tab.DIS PO PRN (07:47)
[2020-09-19] MEDS: Insulin Lispro 100 Unit/ML 3 ML KwikPen SUBCUT SCH ×4 (07:50→21:58)
[2020-09-19] MEDS: metFORMIN 500 MG Tab PO SCH ×2 (07:52→16:37)
[2020-09-19] MEDS: Lactobacillus Rhamnosus GG (Probiotic) Cap PO SCH ×2 (08:07→21:57)
[2020-09-19] MEDS: glipiZIDE 5 MG Tab.ER PO SCH (08:07)
[2020-09-19] MEDS: Magnesium Hydroxide 400 MG/5 ML Susp 30 ML Cup PO PRN ×2 (08:07→21:57)
[2020-09-19] MEDS: Nicotine 21 MG/24 Hr Patch TRDERM SCH (08:09)
[2020-09-19] MEDS: guaiFENesin/Dextromethorphan 100-10 MG/5 ML Soln 10 ML Cup PO PRN ×2 (08:51→22:04)
[2020-09-19] MEDS ORDERED: methylPREDNISolone Sodium Succinate 125 MG/2 ML SDV IVPUSH ONE (12:13)
[2020-09-19] MEDS ORDERED: diphenhydrAMINE 50 MG/ML SDV IVPUSH ONE (12:14)
--- NOTE | 2020-09-19 12:17 | PCM.PN ---
- General Info Date of Service: 09/19/20 Subjective Update: No acute events overnight. Patient is stable today but not dramatically better. Still complaining of a fair amount of right sided chest pain that radiates to h er back. She continues to have some episodes of nausea but no impressive vomiting. No fevers but she does feel warm. Appetite has not been very good. She feels weak. Cough is maybe a little bit better but still feels loose. White count is normal. Respiratory culture growing what appears to be oral contamination. Oxygenation stable and she is still on about 3 to 3-1/2 L of oxygen. Functional Status: Reports: Pain Controlled - Review of Systems General: Reports: Weakness. Denies: Fever Pulmonary: Reports: Shortness of Breath, Pleuritic Chest Pain, Cough Gastrointestinal: Reports: Nausea - Patient Data Vitals - Most Recent: Last Vital Signs Temp 36.2 C 09/19/20 11:09 Pulse 73 09/19/20 11:09 Resp 16 09/19/20 11:09 BP 106/56 L 09/19/20 11:09 Pulse Ox 93 L 09/19/20 11:09 Weight - Most Recent: 93.621 kg I&O - Last 24 Hours: Intake & Output 09/18/20 09/19/20 09/19/20 22:59 06:59 14:59 Intake Total 612 50 Output Total 1000 Balance -388 50 Lab Results Last 24 Hours: Laboratory Results - last 24 hr 09/18/20 09/18/20 09/19/20 Range/Units 16:22 20:58 05:23 WBC 9.1 (4.5-11.0) K/uL RBC 4.34 (3.30-5.50) M/uL Hgb 12.2 (12.0-15.0) g/dL Hct 37.3 (36.0-48.0) % MCV 86 (80-98) fL MCH 28 (27-31) pg MCHC 33 (32-36) % Plt Count 371 (150-400) K/uL Sodium (140-148) mmol/L Potassium (3.6-5.2) mmol/L Chloride (100-108) mmol/L Carbon Dioxide (21-32) mmol/L Anion Gap (5.0-14.0) mmol/L BUN (7-18) mg/dL Creatinine (0.6-1.0) mg/dL Est Cr Clr Drug Dosing mL/min Estimated GFR (MDRD) (>60) Glucose (74-106) mg/dL POC Glucose 222 H 336 H (74-106) mg/dL Calcium (8.5-10.1) mg/dL 09/19/20 09/19/20 09/19/20 Range/Units 05:23 07:25 11:33 WBC (4.5-11.0) K/uL RBC (3.30-5.50) M/uL Hgb (12.0-15.0) g/dL Hct (36.0-48.0) % MCV (80-98) fL MCH (27-31) pg MCHC (32-36) % Plt Count (150-400) K/uL Sodium 137 L (140-148) mmol/L Potassium 3.9 (3.6-5.2) mmol/L Chloride 101 (100-108) mmol/L Carbon Dioxide 28 (21-32) mmol/L Anion Gap 11.9 (5.0-14.0) mmol/L BUN 6 L (7-18) mg/dL Creatinine 0.5 L (0.6-1.0) mg/dL Est Cr Clr Drug Dosing 137.96 mL/min Estimated GFR (MDRD) > 60 (>60) Glucose 255 H (74-106) mg/dL POC Glucose 233 H 268 H (74-106) mg/dL Calcium 8.2 L (8.5-10.1) mg/dL [facility]ar Results Last 24 Hours: Microbiology 09/17/20 11:50 Gram Stain - Final Bronchial Alveolar Lavage - Right Lower Lobe Respiratory Culture - Final ORAL CONTAMINATION 2 DAY 09/17/20 11:50 Gram Stain - Final Bronchial Alveolar Lavage - Right Lower Lobe Respiratory Culture - Final ORAL CONTAMINATION 2 DAY 09/17/20 11:41 Gram Stain - Final Trachea Respiratory Culture - Final ORAL CONTAMINATION 2 DAY Med Orders - Current: Current Medications Acetaminophen (Acetaminophen 325 Mg Tab) 650 mg PO Q4H PRN PRN Reason: Pain Last Admin: 09/19/20 07:47 Dose: 650 mg Documented by: Albuterol (Albuterol 0.083% 2.5 Mg/3 Ml Neb Soln) 2.5 mg NEB Q4H PRN PRN Reason: shortness of breath/wheezing Last Admin: 09/17/20 11:41 Dose: 2.5 mg Documented by: Benzonatate (Benzonatate 100 Mg Cap) 100 mg PO Q6H PRN PRN Reason: Cough Last Admin: 09/17/20 14:24 Dose: 100 mg Documented by: Dextrose/Water (50% Dextrose In Water 50 Ml Syringe) 50 ml IVPUSH ASDIRECTED PRN PRN Reason: Hypoglycemia Diphenhydramine HCl (Diphenhydramine 50 Mg/Ml Sdv) 50 mg IVPUSH ONETIME ONE Stop: 09/19/20 12:15 Glipizide (Glipizide 5 Mg Tab.Er) 5 mg PO DAILY [facility] Last Admin: 09/19/20 08:07 Dose: 5 mg Documented by: Glucagon (Glucagon,Human Recombinant 1 Mg Vial) 1 mg IM ASDIRECTED PRN PRN Reason: Hypoglycemia Guaifenesin/Dextromethorphan (Guaifenesin/Dextromethorphan 100-10 Mg/5 Ml Soln 10 Ml Cup) 10 ml PO Q4H PRN PRN Reason: Cough Last Admin: 09/19/20 08:51 Dose: 10 ml Documented by: Hydromorphone HCl (Hydromorphone 0.5 Mg/0.5 Ml Syringe) 0.5 mg IVPUSH Q4H PRN PRN Reason: Pain (severe 7-10) Ceftazidime 1 gm/ Sodium (Chloride) 50 mls @ 100 mls/hr IV Q8H [facility] Last Admin: 09/19/20 12:06 Dose: 100 mls/hr Documented by: Vancomycin HCl 1.5 gm/ Sodium (Chloride) 250 mls @ 167 mls/hr IV Q12H [facility] Last Admin: 09/19/20 02:40 Dose: 167 mls/hr Documented by: Levofloxacin/Dextrose 750 mg/ (Premix) 150 mls @ 100 mls/hr IV Q24H [facility] Ibuprofen (Ibuprofen 800 Mg Tab) 800 mg PO Q6H PRN PRN Reason: Pain (moderate 4-6) Last Admin: 09/18/20 12:40 Dose: 800 mg Documented by: Insulin Human Lispro (Insulin Lispro 100 Unit/Ml 3 Ml Kwikpen) 0 unit SUBCUT QIDACANDBED [facility]; Protocol Last Admin: 09/19/20 11:57 Dose: 6 unit Documented by: Lactobacillus Rhamnosus (Lactobacillus Rhamnosus Gg (Probiotic) Cap) 1 cap PO BID [facility] Last Admin: 09/19/20 08:07 Dose: 1 cap Documented by: Lorazepam (Lorazepam 0.5 Mg Tab) 0.5 mg PO Q4H PRN PRN Reason: Anxiety Last Admin: 09/18/20 21:12 Dose: 0.5 mg Documented by: Magnesium Hydroxide (Magnesium Hydroxide 400 Mg/5 Ml Susp 30 Ml Cup) 30 ml PO BID PRN PRN Reason: Constipation Last Admin: 09/19/20 08:07 Dose: 30 ml Documented by: Metformin HCl (Metformin 500 Mg Tab) 500 mg PO BIDMEALS [facility] Last Admin: 09/19/20 07:52 Dose: 500 mg Documented by: Methylprednisolone Sodium Succinate (Methylprednisolone Sodium Succinate 125 Mg/2 Ml Sdv) 125 mg IVPUSH ONETIME ONE Stop: 09/19/20 12:14 Nicotine (Nicotine 21 Mg/24 Hr Patch) 21 mg TRDERM DAILY [facility] Last Admin: 09/19/20 08:09 Dose: Not Given Documented by: Ondansetron HCl (Ondansetron 4 Mg/2 Ml Sdv) 4 mg IVPUSH Q4H PRN PRN Reason: Nausea/Vomiting Last Admin: 09/18/20 08:09 Dose: 4 mg Documented by: Ondansetron HCl (Ondansetron 4 Mg Tab.Dis) 4 mg PO Q4H PRN PRN Reason: Nausea/Vomiting Last Admin: 09/19/20 07:47 Dose: 4 mg Documented by: Oxycodone HCl (Oxycodone 5 Mg Tab) 5 - 10 mg PO Q4H PRN PRN Reason: Pain Last Admin: 09/19/20 03:19 Dose: 5 mg Documented by: Senna/Docusate Sodium (Docusate Sodium/Sennosides 50-8.6 Mg Tab) 1 tab PO Q12H PRN PRN Reason: Constipation Last Admin: 09/19/20 08:07 Dose: 1 tab Documented by: Sodium Chloride (Sodium Chloride 0.9% 10 Ml Syringe) 10 ml FLUSH ASDIRECTED PRN PRN Reason: Keep Vein Open Discontinued Medications Hydrocodone Bitart/Acetaminophen (Acetaminophen/Hydrocodone 325-10 Mg Tab) 1 tab PO Q4H PRN PRN Reason: Pain Last Admin: 09/18/20 08:08 Dose: 1 tab Documented by: Azithromycin (Azithromycin 250 Mg Tab) 250 mg PO BEDTIME DALJIT Azithromycin (Azithromycin 250 Mg Tab) 500 mg PO ONETIME ONE Stop: 09/15/20 23:58 Last Admin: 09/16/20 00:35 Dose: 500 mg Documented by: Diphenhydramine HCl (Diphenhydramine 50 Mg/Ml Sdv) 50 mg IVPUSH ONETIME ONE Stop: 09/15/20 20:02 Last Admin: 09/15/20 20:07 Dose: 50 mg Documented by: Fentanyl (Fentanyl 100 Mcg/2 Ml Sdv) Confirm Administered Dose 100 mcg .ROUTE .STK-MED ONE Stop: 09/17/20 08:32 Sodium Chloride (Normal Saline) 1,000 mls @ 999 mls/hr IV ASDIRECTED [facility] Last Admin: 09/15/20 17:16 Dose: 999 mls/hr Documented by: Sodium Chloride (Normal Saline) 100 mls @ 4 mls/sec IV ASDIRECTED [facility] Last Admin: 09/15/20 20:37 Dose: 4 mls/sec Documented by: Ceftriaxone Sodium 1 gm/ (Sodium Chloride) 50 mls @ 100 mls/hr IV ONETIME ONE Stop: 09/15/20 22:18 Last Admin: 09/15/20 22:07 Dose: 100 mls/hr Documented by: Ceftriaxone Sodium 1 gm/ (Sodium Chloride) 50 mls @ 100 mls/hr IV Q24H [facility] Last Admin: 09/16/20 00:16 Dose: Not Given Documented by: Ceftriaxone Sodium 1 gm/ (Sodium Chloride) 50 mls @ 100 mls/hr IV Q24H [facility] Sodium Chloride (Normal Saline) 1,000 mls @ 100 mls/hr IV ASDIRECTED [facility] Last Admin: 09/17/20 09:53 Dose: 100 mls/hr Documented by: Doxycycline Hyclate 100 mg/ (Sodium Chloride) 100 mls @ 100 mls/hr IV Q12H [facility] Last Admin: 09/18/20 11:23 Dose: 100 mls/hr Documented by: Sodium Chloride (Normal Saline) 1,000 mls @ 25 mls/hr IV ASDIRECTED [facility] Last Admin: 09/17/20 11:59 Dose: 25 mls/hr Documented by: Potassium Chloride 20 meq/Lidocaine HCl 2 ml/ Sodium Chloride 112 mls @ 56 mls/hr IV Q2H [facility] Stop: 09/18/20 17:29 Last Admin: 09/18/20 20:39 Dose: 56 mls/hr Documented by: Insulin Human Lispro (Insulin Lispro 100 Unit/Ml 3 Ml Kwikpen) 8 unit SUBCUT ONETIME ONE Stop: 09/16/20 09:31 Last Admin: 09/16/20 09:59 Dose: 8 units Documented by: Insulin Human Lispro (Insulin Lispro 100 Unit/Ml 3 Ml Kwikpen) 12 unit SUBCUT ONETIME ONE Stop: 09/16/20 11:56 Last Admin: 09/16/20 12:04 Dose: 12 units Documented by: Insulin Human Lispro (Insulin Lispro 100 Units/Ml 3 Ml Vial) 15 unit SUBCUT ONETIME ONE Stop: 09/16/20 16:28 Last Admin: 09/16/20 16:45 Dose: 15 units Documented by: Iopamidol (Iopamidol 755 Mg/Ml 100 Ml Bottle) 100 ml IV . DIRECTED [facility] Last Admin: 09/15/20 20:36 Dose: 100 ml Documented by: Ketorolac Tromethamine (Ketorolac 30 Mg/Ml Sdv) 30 mg IVPUSH ONETIME ONE Stop: 09/15/20 16:59 Last Admin: 09/15/20 17:16 Dose: 30 mg Documented by: Ketorolac Tromethamine (Ketorolac 30 Mg/Ml Sdv) 30 mg IVPUSH Q8H PRN PRN Reason: Pain Stop: 09/20/20 23:14 Last Admin: 09/16/20 05:27 Dose: 30 mg Documented by: Lidocaine (Lidocaine 4% Top Soln Lta 4 Ml Syringe Kit) Confirm Administered Dose 4 ml .ROUTE .STK-MED ONE Stop: 09/17/20 08:33 Lidocaine (Lidocaine 4% Top Soln Lta 4 Ml Syringe Kit) Confirm Administered Dose 4 ml .ROUTE .STK-MED ONE Stop: 09/17/20 08:34 Lidocaine HCl (Lidocaine 2% Viscous Solution 15 Ml Cup) Confirm Administered Dose 15 ml .ROUTE .STK-MED ONE Stop: 09/17/20 07:32 Lidocaine HCl (Lidocaine 4% Top Soln 50 Ml Bottle) Confirm Administered Dose 50 ml .ROUTE .STK-MED ONE Stop: 09/17/20 07:33 Methylprednisolone Sodium Succinate (Methylprednisolone Sodium Succinate 125 Mg/2 Ml Sdv) 125 mg IVPUSH ONETIME ONE Stop: 09/15/20 20:02 Last Admin: 09/15/20 20:09 Dose: 125 mg Documented by: Midazolam HCl (Midazolam 1 Mg/Ml 2 Ml Sdv) Confirm Administered Dose 2 mg .ROUTE .STK-MED ONE Stop: 09/17/20 08:32 Morphine Sulfate (Morphine 2 Mg/Ml Syringe) 2 mg IVPUSH ONETIME ONE Stop: 09/15/20 17:38 Last Admin: 09/15/20 17:51 Dose: 2 mg Documented by: Morphine Sulfate (Morphine 2 Mg/Ml Syringe) 2 mg IVPUSH ONETIME ONE Stop: 09/15/20 21:51 Last Admin: 09/15/20 22:01 Dose: 2 mg Documented by: Morphine Sulfate (Morphine 2 Mg/Ml Syringe) 2 mg IVPUSH Q2H PRN PRN Reason: Pain (severe 7-10) Last Admin: 09/17/20 17:55 Dose: 2 mg Documented by: Propofol (Propofol 200 Mg/20 Ml Sdv) Confirm Administered Dose 200 mg .ROUTE .STK-MED ONE Stop: 09/17/20 08:32 Sodium Chloride (Sodium Chloride 0.9% 10 Ml Syringe) 10 ml FLUSH ONETIME ONE Stop: 09/15/20 20:08 Last Admin: 09/15/20 20:36 Dose: 10 ml Documented by: - Exam Quality Assessment: Supplemental Oxygen General: Alert, Oriented, Cooperative, No Acute Distress Lungs: Normal Respiratory Effort, Decreased Breath Sounds (right lower lung ), Crackles (right mid lung ) Cardiovascular: Regular Rate, Regular Rhythm GI/Abdominal Exam: Soft, No Distention Extremities: No Pedal Edema. No: Increased Warmth Skin: Warm, Dry Psy/Mental Status: Alert, Normal Affect - Patient Data Lab Results Last 24 hrs: Laboratory Results - last 24 hr 09/18/20 09/18/20 09/19/20 Range/Units 16:22 20:58 05:23 WBC 9.1 (4.5-11.0) K/uL RBC 4.34 (3.30-5.50) M/uL Hgb 12.2 (12.0-15.0) g/dL Hct 37.3 (36.0-48.0) % MCV 86 (80-98) fL MCH 28 (27-31) pg MCHC 33 (32-36) % Plt Count 371 (150-400) K/uL Sodium (140-148) mmol/L Potassium (3.6-5.2) mmol/L Chloride (100-108) mmol/L Carbon Dioxide (21-32) mmol/L Anion Gap (5.0-14.0) mmol/L BUN (7-18) mg/dL Creatinine (0.6-1.0) mg/dL Est Cr Clr Drug Dosing mL/min Estimated GFR (MDRD) (>60) Glucose (74-106) mg/dL POC Glucose 222 H 336 H (74-106) mg/dL Calcium (8.5-10.1) mg/dL 09/19/20 09/19/20 09/19/20 Range/Units 05:23 07:25 11:33 WBC (4.5-11.0) K/uL RBC (3.30-5.50) M/uL Hgb (12.0-15.0) g/dL Hct (36.0-48.0) % MCV (80-98) fL MCH (27-31) pg MCHC (32-36) % Plt Count (150-400) K/uL Sodium 137 L (140-148) mmol/L Potassium 3.9 (3.6-5.2) mmol/L Chloride 101 (100-108) mmol/L Carbon Dioxide 28 (21-32) mmol/L Anion Gap 11.9 (5.0-14.0) mmol/L BUN 6 L (7-18) mg/dL Creatinine 0.5 L (0.6-1.0) mg/dL Est Cr Clr Drug Dosing 137.96 mL/min Estimated GFR (MDRD) > 60 (>60) Glucose 255 H (74-106) mg/dL POC Glucose 233 H 268 H (74-106) mg/dL Calcium 8.2 L (8.5-10.1) mg/dL Result Diagrams: 09/19/20 05:23 09/19/20 05:23 [facility] Results Last 24 hrs: Microbiology 09/17/20 11:50 Gram Stain - Final Bronchial Alveolar Lavage - Right Lower Lobe Respiratory Culture - Final ORAL CONTAMINATION 2 DAY 09/17/20 11:50 Gram Stain - Final Bronchial Alveolar Lavage - Right Lower Lobe Respiratory Culture - Final ORAL CONTAMINATION 2 DAY 09/17/20 11:41 Gram Stain - Final Trachea Respiratory Culture - Final ORAL CONTAMINATION 2 DAY Sepsis Event Note - Evaluation Sepsis Screening Result: No Definite Risk - Focused Exam Vital Signs: Vital Signs Temp Pulse Resp BP BP Pulse Ox 09/19/20 11:09 36.2 C 73 16 106/56 L 93 L 09/19/20 08:11 36.1 C 81 18 124/76 95 09/19/20 03:08 34.4 C L 94 18 114/69 94 L - Problem List Review Problem List Initiated/Reviewed/Updated: Yes - My Orders Last 24 Hours: My Active Orders 09/18/20 12:10 oxyCODONE 5 - 10 mg PO Q4H PRN 09/18/20 12:11 HYDROmorphone [Dilaudid] 0.5 mg IVPUSH Q4H PRN 09/18/20 12:12 Convert IV to Saline Lock [OM.PC] Routine 09/18/20 12:13 Ondansetron [Zofran ODT] 4 mg PO Q4H PRN 09/18/20 13:00 Vancomycin 1.5 gm Sodium Chloride 0.9% [Normal Saline] 250 ml IV Q12H 09/18/20 16:14 Docusate Sodium/Sennosides [Senna Plus] 1 tab PO Q12H PRN Magnesium Hydroxide [Milk of Magnesia] 30 ml PO BID PRN 09/18/20 19:23 RT Acapella [RESPCARE] Routine 09/19/20 12:14 Chest w Cont [CT] Routine 09/19/20 12:15 Levofloxacin/Dextrose 5%-Water [Levaquin in D5W 750 MG/150 ML] 750 mg Premix Bag 1 bag IV Q24H 09/19/20 16:30 GLUCOSE POC LAB TO COLLECT JPM [POC] QIDACANDBED 09/19/20 17:00 Insulin Lispro [HumaLOG] See Protocol SUBCUT QIDACANDBED 09/19/20 21:00 GLUCOSE POC LAB TO COLLECT JPM [POC] QIDACANDBED 09/20/20 05:00 BASIC METABOLIC PANEL,BMP [CHEM] Timed CBC W/O DIFF,HEMOGRAM [HEME] Timed (1) GLYCOSYLATED HEMOGLOBIN,HGBA1C [CHEM] Timed 09/20/20 07:30 GLUCOSE POC LAB TO COLLECT JPM [POC] QIDACANDBED 09/20/20 11:30 GLUCOSE POC LAB TO COLLECT JPM [POC] QIDACANDBED 09/20/20 16:30 GLUCOSE POC LAB TO COLLECT JPM [POC] QIDACANDBED 09/20/20 21:00 GLUCOSE POC LAB TO COLLECT JPM [POC] QIDACANDBED 09/21/20 07:30 GLUCOSE POC LAB TO COLLECT JPM [POC] QIDACANDBED 09/21/20 11:30 GLUCOSE POC LAB TO COLLECT JPM [POC] QIDACANDBED 09/21/20 16:30 GLUCOSE POC LAB TO COLLECT JPM [POC] QIDACANDBED - Plan Plan:: ASSESSMENT AND PLAN - Persistent right lower lobe pneumonia-complicated by acute respiratory failure with hypoxia and a right pleural effusion that is partially loculated. Stable but not improving. CT scan of the chest today showed an increase in the size of the loculated effusion but no definite empyema. She has near complete collapse of the right lower lobe because of the effusion. Bronchoscopy cultures are not helpful so far with suspected oral contamination. -Surgical consultation to consider thoracentesis in the morning, patient will be n.p.o. in case she needs a thoracotomy to clear up the effusions -Antibiotic coverage with vancomycin, ceftazidime and levofloxacin -No indication for steroids at this time -As needed nebulizers -Symptomatic management of cough and pleuritic pain -Follow-up cultures Nausea with vomiting-could be related to infection versus medications such as pain medication or combination. Slightly better today than yesterday. -Symptomatic management of nausea, treat infection as above Type 2 diabetes mellitus-sugars moderately elevated at this time. -Continue home medications -High-dose sliding scale insulin Maintenance issues - -DVT prophylaxis-SCD -GI prophylaxis-not indicated -Nutrition-consistent carbohydrate today, nothing by mouth after midnight -Chavira catheter-not indicated Disposition -I anticipate discharge home after the hospital stay Rishi Strange M.D.
[2020-09-19] MEDS: LORazepam 0.5 MG Tab PO PRN ×2 (13:07→22:55)
[2020-09-19] MEDS ORDERED: Sodium Chloride 0.9% 75 ML IV ONE (13:08)
[2020-09-19] MEDS ORDERED: Sodium Chloride 0.9% 10 ML Syringe FLUSH PRN (13:08)
[2020-09-19] MEDS ORDERED: Iopamidol 612 MG/ML 100 ML Bottle IV PRN (13:08)
[2020-09-19] MEDS: Levofloxacin/Dextrose 5%-Water 750 MG in Premix Bag 1 BAG IV SCH (13:19)
--- NOTE | 2020-09-19 15:16 | CRLCT ---
For Patients: As a result of the Century Cures Act, medical imaging exams and procedure reports are released immediately into your electronic medical record. You may view this report before your referring provider. If you have questions, please contact your health care provider. INDICATION: Follow up loculated effusion, pneumonia. TECHNIQUE: CT chest with mL Omnipaque 350 IV contrast. COMPARISON: Multiple priors, most recent CT angiography of the chest dated 09/15/2020. FINDINGS: Lungs and pleura: Interval increase in size of loculated right pleural effusion, demonstrated by new locule of fluid at the anterior right upper lobe, and increased volume of loculated fluid in the right lower lobe. There is extensive atelectasis/near-complete collapse of the right lower lobe. Left basilar atelectasis is present, without large left pleural effusion identified. The lung pleura itself does not significantly enhance to suggest presence of empyema. Heart and vasculature: No cardiomegaly, no pericardial effusion. Thyroid and lower neck: No suspicious thyroid nodule. Mediastinum/yola: No lymphadenopathy. Chest wall: No axillary lymphadenopathy. Upper abdomen: 2.0 cm hypervascular focus in segment 7 of the liver, unchanged. Bones: Multilevel degenerative changes of the spine. No suspicious/aggressive focal osseous lesion. IMPRESSION: 1. Interval increase in size of loculated right pleural effusions. Right lung pleura does not significantly enhance to suggest presence of empyema, however given the increasing size, consider further evaluation with diagnostic thoracentesis. 2. Near complete collapse of the right lower lobe. Mild left basilar atelectasis is present, without large left pleural effusion identified. 3. Incidentally noted 2.0 cm hypervascular focus in segment 7 of the liver, may reflect a vascular shunt or hemangioma. This could be further evaluated with MR abdomen on a nonemergent basis. Please note that all CT scans at this facility use dose modulation, iterative reconstruction, and/or weight-based dosing when appropriate to reduce radiation dose to as low as reasonably achievable. Dictated by Hansel Haines MD @ 09/19/2020 3:14:[address] Hansel Haines @ Sep 19 2020 3:14PM
[2020-09-19] MEDS: Ibuprofen 800 MG Tab PO PRN (22:53)
[2020-09-20] MEDS: Insulin Lispro 100 Unit/ML 3 ML KwikPen SUBCUT SCH ×4 (07:45→21:28)
[2020-09-20] MEDS ORDERED: Bupivacaine 0.5%/EPINEPHrine 1:200,000 50 ML MDV ONE (07:47)
[2020-09-20] MEDS ORDERED: fentaNYL 100 MCG/2 ML SDV ONE (07:48)
[2020-09-20] MEDS ORDERED: Midazolam 1 MG/ML 2 ML SDV ONE (07:48)
[2020-09-20] MEDS ORDERED: Propofol 200 MG/20 ML SDV ONE ×2 (07:48→11:07)
[2020-09-20] MEDS: metFORMIN 500 MG Tab PO SCH ×2 (08:32→17:15)
[2020-09-20] MEDS: glipiZIDE 5 MG Tab.ER PO SCH (08:32)
[2020-09-20] MEDS: Nicotine 21 MG/24 Hr Patch TRDERM SCH (08:32)
[2020-09-20] MEDS: Lactobacillus Rhamnosus GG (Probiotic) Cap PO SCH ×2 (08:32→21:28)
--- NOTE | 2020-09-20 08:55 | PN ---
DATE OF SERVICE: 09/20/2020 SUBJECTIVE: Mally is n.p.o. for surgery. She continues to have quite a bit of pain in her right lung afebrile. Remainder of review of systems negative for any pertinent positives and negatives. OBJECTIVE: GENERAL: Mally Nash is a pleasant 44-year-old female, acutely ill. VITAL SIGNS: TPR 94.7, 74, 16. Blood pressure is 95/60. HEENT: Negative. NECK: Supple. HEART: Regular rate and rhythm. LUNGS: Decreased breath sounds in right lower lung and she has rales in the right lower and middle. Guarded respirations due to pain. EXTREMITIES: Negative. SKIN: Without rash. ASSESSMENT: 1. Persistent right lower lobe pneumonia. 2. Acute respiratory failure with hypoxia. 3. Right pleural effusion. PLAN: Orders written per Sai Love MD, and remain n.p.o. Will be having a chest tube placed. Case to follow. Orders to be written postoperatively. Sharon Banda PA-C /[id number]
[2020-09-20 10:14] LABS: HEMOGLOBIN A1C 10.1 % (4.5-6.2)
[2020-09-20] MEDS ORDERED: Bupivacaine 0.5%/EPINEPHrine 1:200,000 50 ML MDV INJECT ONE (10:50)
[2020-09-20] MEDS ORDERED: Naloxone 0.4 MG/ML SDV IVPUSH PRN (11:39)
[2020-09-20] MEDS ORDERED: Naloxone 0.4 MG/ML SDV IV PRN (12:00)
--- NOTE | 2020-09-20 12:11 | CRLCR ---
For Patients: As a result of the Century Cures Act, medical imaging exams and procedure reports are released immediately into your electronic medical record. You may view this report before your referring provider. If you have questions, please contact your health care provider. INDICATION: Chest tube insertion. TECHNIQUE: Semi upright portable AP image of the chest. COMPARISON: 09/19/2020. FINDINGS: Interval placement of right-sided chest tube with some decrease in loculated right-sided pleural effusion. No pneumothorax. Lungs low in volume with bibasilar atelectasis. Heart size within normal limits. Pulmonary veins grossly normal in caliber. No significant bony abnormality. IMPRESSION : 1. Interval right-sided chest tube placement with some decrease in the size of the loculated right-sided pleural effusion. 2. Lungs low in volume with bibasilar atelectasis. Dictated by Constantine Parsons MD @ 09/20/2020 12:09:[address] Constantine Parsons @ Sep 20 2020 12:09PM
[2020-09-20] MEDS: HYDROmorphone/Normal Saline 15 MG/30 ML PCA IV PRN (12:32)
[2020-09-20] MEDS: Levofloxacin/Dextrose 5%-Water 750 MG in Premix Bag 1 BAG IV SCH (12:45)
--- NOTE | 2020-09-20 14:17 | PCM.PN ---
- General Info Date of Service: 09/20/20 Subjective Update: No acute events overnight. Patient went to the operating room this morning and had a right-sided chest tube placed. She has some pain from the incision but the inflammatory pain in the right side of her chest and back has resolved. She had an exudative effusion that was evacuated. There is about 140 mL of red- colored but relatively clear fluid in the chest tube. No nausea. She is hungry and hoping to get some food. She feels less short of breath. She is requiring less supplemental oxygen. Previous cultures remain negative. No fevers overnight. Functional Status: Reports: Pain Controlled - Review of Systems General: Denies: Fever Pulmonary: Reports: Shortness of Breath Cardiovascular: Reports: Chest Pain - Patient Data Vitals - Most Recent: Last Vital Signs Temp 36.3 C 09/20/20 13:53 Pulse 96 09/20/20 13:53 Resp 18 09/20/20 13:53 BP 115/68 09/20/20 13:53 Pulse Ox 95 09/20/20 13:53 Weight - Most Recent: 93.621 kg I&O - Last 24 Hours: Intake & Output 09/19/20 09/20/20 09/20/20 22:59 06:59 14:59 Intake Total 1380 2435 200 Balance 1380 2435 200 Lab Results Last 24 Hours: Laboratory Results - last 24 hr 09/19/20 09/19/20 09/20/20 Range/Units 16:22 21:20 04:00 WBC 13.2 H (4.5-11.0) K/uL RBC 4.55 (3.30-5.50) M/uL Hgb 12.5 (12.0-15.0) g/dL Hct 38.2 (36.0-48.0) % MCV 84 (80-98) fL MCH 28 (27-31) pg MCHC 33 (32-36) % Plt Count 452 H (150-400) K/uL Sodium (140-148) mmol/L Potassium (3.6-5.2) mmol/L Chloride (100-108) mmol/L Carbon Dioxide (21-32) mmol/L Anion Gap (5.0-14.0) mmol/L BUN (7-18) mg/dL Creatinine (0.6-1.0) mg/dL Est Cr Clr Drug Dosing mL/min Estimated GFR (MDRD) (>60) Glucose (74-106) mg/dL POC Glucose 232 H 343 H (74-106) mg/dL Hemoglobin A1c (4.5-6.2) % Calcium (8.5-10.1) mg/dL Lactate Dehydrogenase (82-234) U/L Fluid Type Fluid WBC /ul Fluid RBC /ul Fluid Mononuclear Cell % Fl Polymorphonucl Cell % Fluid Glucose mg/dL Fluid Total Protein g/dL Fluid Amylase U/L Vancomycin Trough (10.0-20.0) ug/mL 09/20/20 09/20/20 09/20/20 Range/Units 04:00 04:00 07:35 WBC (4.5-11.0) K/uL RBC (3.30-5.50) M/uL Hgb (12.0-15.0) g/dL Hct (36.0-48.0) % MCV (80-98) fL MCH (27-31) pg MCHC (32-36) % Plt Count (150-400) K/uL Sodium 137 L (140-148) mmol/L Potassium 4.7 (3.6-5.2) mmol/L Chloride 100 (100-108) mmol/L Carbon Dioxide 31 (21-32) mmol/L Anion Gap 10.7 (5.0-14.0) mmol/L BUN 8 (7-18) mg/dL Creatinine 0.6 (0.6-1.0) mg/dL Est Cr Clr Drug Dosing 114.97 mL/min Estimated GFR (MDRD) > 60 (>60) Glucose 245 H (74-106) mg/dL POC Glucose 240 H (74-106) mg/dL Hemoglobin A1c 10.1 H (4.5-6.2) % Calcium 8.8 (8.5-10.1) mg/dL Lactate Dehydrogenase (82-234) U/L Fluid Type Fluid WBC /ul Fluid RBC /ul Fluid Mononuclear Cell % Fl Polymorphonucl Cell % Fluid Glucose mg/dL Fluid Total Protein g/dL Fluid Amylase U/L Vancomycin Trough (10.0-20.0) ug/mL 09/20/20 09/20/20 09/20/20 Range/Units 11:25 11:25 11:25 WBC (4.5-11.0) K/uL RBC (3.30-5.50) M/uL Hgb (12.0-15.0) g/dL Hct (36.0-48.0) % MCV (80-98) fL MCH (27-31) pg MCHC (32-36) % Plt Count (150-400) K/uL Sodium (140-148) mmol/L Potassium (3.6-5.2) mmol/L Chloride (100-108) mmol/L Carbon Dioxide (21-32) mmol/L Anion Gap (5.0-14.0) mmol/L BUN (7-18) mg/dL Creatinine (0.6-1.0) mg/dL Est Cr Clr Drug Dosing mL/min Estimated GFR (MDRD) (>60) Glucose (74-106) mg/dL POC Glucose (74-106) mg/dL Hemoglobin A1c (4.5-6.2) % Calcium (8.5-10.1) mg/dL Lactate Dehydrogenase 574 H (82-234) U/L Fluid Type Pleural fluid Pleural fluid Fluid WBC 06485 /ul Fluid RBC 475 /ul Fluid Mononuclear Cell 59 % Fl Polymorphonucl Cell 41 % Fluid Glucose 218 mg/dL Fluid Total Protein 4.2 g/dL Fluid Amylase U/L Vancomycin Trough (10.0-20.0) ug/mL 09/20/20 09/20/20 09/20/20 Range/Units 11:25 12:44 13:34 WBC (4.5-11.0) K/uL RBC (3.30-5.50) M/uL Hgb (12.0-15.0) g/dL Hct (36.0-48.0) % MCV (80-98) fL MCH (27-31) pg MCHC (32-36) % Plt Count (150-400) K/uL Sodium (140-148) mmol/L Potassium (3.6-5.2) mmol/L Chloride (100-108) mmol/L Carbon Dioxide (21-32) mmol/L Anion Gap (5.0-14.0) mmol/L BUN (7-18) mg/dL Creatinine (0.6-1.0) mg/dL Est Cr Clr Drug Dosing mL/min Estimated GFR (MDRD) (>60) Glucose (74-106) mg/dL POC Glucose 189 H (74-106) mg/dL Hemoglobin A1c (4.5-6.2) % Calcium (8.5-10.1) mg/dL Lactate Dehydrogenase (82-234) U/L Fluid Type Pleural fluid Fluid WBC /ul Fluid RBC /ul Fluid Mononuclear Cell % Fl Polymorphonucl Cell % Fluid Glucose mg/dL Fluid Total Protein g/dL Fluid Amylase 7 U/L Vancomycin Trough 4.9 L (10.0-20.0) ug/mL [facility] Results Last 24 Hours: Microbiology 09/20/20 12:03 Gram Stain - Final Pleural Fluid - Pleural Cavity, Right 09/20/20 12:03 RADHA Preparation - Final Other - Pleural Cavity, Right 09/17/20 11:50 AFB Specimen Processing Tissue - Final Bronchial Alveolar Lavage - Right Lower Lobe Acid Fast Bacilli Smear - Final Acid Fast Bacilli Culture - Preliminary 09/17/20 11:50 AFB Specimen Processing Tissue - Final Bronchial Alveolar Lavage - Right Lower Lobe Acid Fast Bacilli Smear - Final Acid Fast Bacilli Culture - Preliminary 09/17/20 11:41 AFB Specimen Processing Tissue - Final Tracheal Washings Acid Fast Bacilli Smear - Final Acid Fast Bacilli Culture - Preliminary Med Orders - Current: Current Medications Acetaminophen (Acetaminophen 325 Mg Tab) 650 mg PO Q4H PRN PRN Reason: Pain Last Admin: 09/19/20 22:52 Dose: 650 mg Documented by: Albuterol (Albuterol 0.083% 2.5 Mg/3 Ml Neb Soln) 2.5 mg NEB Q4H PRN PRN Reason: shortness of breath/wheezing Last Admin: 09/17/20 11:41 Dose: 2.5 mg Documented by: Benzonatate (Benzonatate 100 Mg Cap) 100 mg PO Q6H PRN PRN Reason: Cough Last Admin: 09/17/20 14:24 Dose: 100 mg Documented by: Dextrose/Water (50% Dextrose In Water 50 Ml Syringe) 50 ml IVPUSH ASDIRECTED PRN PRN Reason: Hypoglycemia Glipizide (Glipizide 5 Mg Tab.Er) 5 mg PO DAILY DALJIT Last Admin: 09/20/20 08:32 Dose: 5 mg Documented by: Glucagon (Glucagon,Human Recombinant 1 Mg Vial) 1 mg IM ASDIRECTED PRN PRN Reason: Hypoglycemia Guaifenesin/Dextromethorphan (Guaifenesin/Dextromethorphan 100-10 Mg/5 Ml Soln 10 Ml Cup) 10 ml PO Q4H PRN PRN Reason: Cough Last Admin: 09/19/20 22:04 Dose: 10 ml Documented by: Hydromorphone HCl (Hydromorphone/Normal Saline 15 Mg/30 Ml [employer]) 0 mg IV ASDIRECTED PRN; Protocol PRN Reason: Pain Last Admin: 09/20/20 12:32 Dose: 15 mg Documented by: Ceftazidime 1 gm/ Sodium (Chloride) 50 mls @ 100 mls/hr IV Q8H [facility] Last Admin: 09/20/20 10:17 Dose: 100 mls/hr Documented by: Levofloxacin/Dextrose 750 mg/ (Premix) 150 mls @ 100 mls/hr IV Q24H [facility] Last Admin: 09/20/20 12:45 Dose: 100 mls/hr Documented by: Vancomycin HCl 1.5 gm/ Sodium (Chloride) 250 mls @ 167 mls/hr IV Q12H [facility] Last Admin: 09/20/20 01:38 Dose: 167 mls/hr Documented by: Ibuprofen (Ibuprofen 800 Mg Tab) 800 mg PO Q6H PRN PRN Reason: Pain (moderate 4-6) Last Admin: 09/19/20 22:53 Dose: 800 mg Documented by: Insulin Human Lispro (Insulin Lispro 100 Unit/Ml 3 Ml Kwikpen) 0 unit SUBCUT QIDACANDBED [facility]; Protocol Last Admin: 09/20/20 12:47 Dose: 3 units Documented by: Lactobacillus Rhamnosus (Lactobacillus Rhamnosus Gg (Probiotic) Cap) 1 cap PO BID [facility] Last Admin: 09/20/20 08:32 Dose: 1 cap Documented by: Lorazepam (Lorazepam 0.5 Mg Tab) 0.5 mg PO Q4H PRN PRN Reason: Anxiety Last Admin: 09/19/20 22:55 Dose: 0.5 mg Documented by: Magnesium Hydroxide (Magnesium Hydroxide 400 Mg/5 Ml Susp 30 Ml Cup) 30 ml PO BID PRN PRN Reason: Constipation Last Admin: 09/19/20 21:57 Dose: 30 ml Documented by: [facility] Mg [facility] Admin: 09/20/20 08:32 Dose: 500 mg Documented by: Naloxone HCl (Naloxone 0.4 Mg/Ml Sdv) 0.1 mg IV ASDIRECTED PRN PRN Reason: decreased respiratory rate Nicotine (Nicotine 21 Mg/24 Hr Patch) 21 mg TRDERM DAILY [facility] Last Admin: 09/20/20 08:32 Dose: Not Given Documented by: Ondansetron HCl (Ondansetron 4 Mg/2 Ml Sdv) 4 mg IVPUSH Q4H PRN PRN Reason: Nausea/Vomiting Last Admin: 09/18/20 08:09 Dose: 4 mg Documented by: Ondansetron HCl (Ondansetron 4 Mg Tab.Dis) 4 mg PO Q4H PRN PRN Reason: Nausea/Vomiting Last Admin: 09/19/20 07:47 Dose: 4 mg Documented by: Oxycodone HCl (Oxycodone 5 Mg Tab) 5 - 10 mg PO Q4H PRN PRN Reason: Pain Last Admin: 09/19/20 21:57 Dose: 5 mg Documented by: Senna/Docusate Sodium (Docusate Sodium/Sennosides 50-8.6 Mg Tab) 1 tab PO Q12H PRN PRN Reason: Constipation Last Admin: 09/19/20 21:57 Dose: 1 tab Documented by: Sodium Chloride (Sodium Chloride 0.9% 10 Ml Syringe) 10 ml FLUSH ASDIRECTED PRN PRN Reason: Keep Vein Open Discontinued Medications Hydrocodone Bitart/Acetaminophen (Acetaminophen/Hydrocodone 325-10 Mg Tab) 1 tab PO Q4H PRN PRN Reason: Pain Last Admin: 09/18/20 08:08 Dose: 1 tab Documented by: Azithromycin (Azithromycin 250 Mg Tab) 250 mg PO BEDTIME [facility] Azithromycin (Azithromycin 250 Mg Tab) 500 mg PO ONETIME ONE Stop: 09/15/20 23:58 Last Admin: 09/16/20 00:35 Dose: 500 mg Documented by: Bupivacaine HCl/Epinephrine Bitart (Bupivacaine 0.5%/Epinephrine 1:200,000 50 Ml Mdv) Confirm Administered Dose 50 ml .ROUTE .STK-MED ONE Stop: 09/20/20 07:48 Bupivacaine HCl/Epinephrine Bitart (Bupivacaine 0.5%/Epinephrine 1:200,000 50 Ml Mdv) 15 ml INJECT .STK-MED ONE Stop: 09/20/20 10:51 Last Admin: 09/20/20 10:50 Dose: 15 ml Documented by: Diphenhydramine HCl (Diphenhydramine 50 Mg/Ml Sdv) 50 mg IVPUSH ONETIME ONE Stop: 09/15/20 20:02 Last Admin: 09/15/20 20:07 Dose: 50 mg Documented by: Diphenhydramine HCl (Diphenhydramine 50 Mg/Ml Sdv) 50 mg IVPUSH ONETIME ONE Stop: 09/19/20 12:15 Last Admin: 09/19/20 13:17 Dose: 50 mg Documented by: Fentanyl (Fentanyl 100 Mcg/2 Ml Sdv) Confirm Administered Dose 100 mcg .ROUTE .STK-MED ONE Stop: 09/17/20 08:32 Fentanyl (Fentanyl 100 Mcg/2 Ml Sdv) Confirm Administered Dose 100 mcg .ROUTE .STK-MED ONE Stop: 09/20/20 07:49 Hydromorphone HCl (Hydromorphone 0.5 Mg/0.5 Ml Syringe) 0.5 mg IVPUSH Q4H PRN PRN Reason: Pain (severe 7-10) Sodium Chloride (Normal Saline) 1,000 mls @ 999 mls/hr IV ASDIRECTED [facility] Last Admin: 09/15/20 17:16 Dose: 999 mls/hr Documented by: Sodium Chloride (Normal Saline) 100 mls @ 4 mls/sec IV ASDIRECTED [facility] Last Admin: 09/15/20 20:37 Dose: 4 mls/sec Documented by: Ceftriaxone Sodium 1 gm/ (Sodium Chloride) 50 mls @ 100 mls/hr IV ONETIME ONE Stop: 09/15/20 22:18 Last Admin: 09/15/20 22:07 Dose: 100 mls/hr Documented by: Ceftriaxone Sodium 1 gm/ (Sodium Chloride) 50 mls @ 100 mls/hr IV Q24H [facility] Last Admin: 09/16/20 00:16 Dose: Not Given Documented by: Ceftriaxone Sodium 1 gm/ (Sodium Chloride) 50 mls @ 100 mls/hr IV Q24H [facility] Sodium Chloride (Normal Saline) 1,000 mls @ 100 mls/hr IV ASDIRECTED [facility] Last Admin: 09/17/20 09:53 Dose: 100 mls/hr Documented by: Doxycycline Hyclate 100 mg/ (Sodium Chloride) 100 mls @ 100 mls/hr IV Q12H [facility] Last Admin: 09/18/20 11:23 Dose: 100 mls/hr Documented by: Sodium Chloride (Normal Saline) 1,000 mls @ 25 mls/hr IV ASDIRECTED [facility] Last Admin: 09/17/20 11:59 Dose: 25 mls/hr Documented by: Potassium Chloride 20 meq/Lidocaine HCl 2 ml/ Sodium Chloride 112 mls @ 56 mls/hr IV Q2H [facility] Stop: 09/18/20 17:29 Last Admin: 09/18/20 20:39 Dose: 56 mls/hr Documented by: Vancomycin HCl 1.5 gm/ Sodium (Chloride) 250 mls @ 167 mls/hr IV Q12H [facility] Last Admin: 09/19/20 02:40 Dose: 167 mls/hr Documented by: Sodium Chloride (Normal Saline) 75 mls @ 3 mls/sec IV ONETIME ONE Stop: 09/19/20 13:09 Last Admin: 09/19/20 16:29 Dose: Not Given Documented by: Insulin Human Lispro (Insulin Lispro 100 Unit/Ml 3 Ml Kwikpen) 0 unit SUBCUT QIDACANDBED [facility]; Protocol Last Admin: 09/19/20 11:57 Dose: 6 unit Documented by: Insulin Human Lispro (Insulin Lispro 100 Unit/Ml 3 Ml Kwikpen) 8 unit SUBCUT ONETIME ONE Stop: 09/16/20 09:31 Last Admin: 09/16/20 09:59 Dose: 8 units Documented by: Insulin Human Lispro (Insulin Lispro 100 Unit/Ml 3 Ml Kwikpen) 12 unit SUBCUT ONETIME ONE Stop: 09/16/20 11:56 Last Admin: 09/16/20 12:04 Dose: 12 units Documented by: Insulin Human Lispro (Insulin Lispro 100 Units/Ml 3 Ml Vial) 15 unit SUBCUT ONETIME ONE Stop: 09/16/20 16:28 Last Admin: 09/16/20 16:45 Dose: 15 units Documented by: Iopamidol (Iopamidol 755 Mg/Ml 100 Ml Bottle) 100 ml IV . DIRECTED [facility] Last Admin: 09/15/20 20:36 Dose: 100 ml Documented by: Iopamidol (Iopamidol 612 Mg/Ml 100 Ml Bottle) 100 ml IV . DIRECTED PRN PRN Reason: RADIOLOGY EXAM Stop: 09/19/20 13:09 Ketorolac Tromethamine (Ketorolac 30 Mg/Ml Sdv) 30 mg IVPUSH ONETIME ONE Stop: 09/15/20 16:59 Last Admin: 09/15/20 17:16 Dose: 30 mg Documented by: Ketorolac Tromethamine (Ketorolac 30 Mg/Ml Sdv) 30 mg IVPUSH Q8H PRN PRN Reason: Pain Stop: 09/20/20 23:14 Last Admin: 09/16/20 05:27 Dose: 30 mg Documented by: Lidocaine (Lidocaine 4% Top Soln Lta 4 Ml Syringe Kit) Confirm Administered Dose 4 ml .ROUTE .STK-MED ONE Stop: 09/17/20 08:33 Lidocaine (Lidocaine 4% Top Soln Lta 4 Ml Syringe Kit) Confirm Administered Dose 4 ml .ROUTE .STK-MED ONE Stop: 09/17/20 08:34 Lidocaine HCl (Lidocaine 2% Viscous Solution 15 Ml Cup) Confirm Administered Dose 15 ml .ROUTE .STK-MED ONE Stop: 09/17/20 07:32 Lidocaine HCl (Lidocaine 4% Top Soln 50 Ml Bottle) Confirm Administered Dose 50 ml .ROUTE .STK-MED ONE Stop: 09/17/20 07:33 Methylprednisolone Sodium Succinate (Methylprednisolone Sodium Succinate 125 Mg/2 Ml Sdv) 125 mg IVPUSH ONETIME ONE Stop: 09/15/20 20:02 Last Admin: 09/15/20 20:09 Dose: 125 mg Documented by: Methylprednisolone Sodium Succinate (Methylprednisolone Sodium Succinate 125 Mg/2 Ml Sdv) 125 mg IVPUSH ONETIME ONE Stop: 09/19/20 12:14 Last Admin: 09/19/20 13:17 Dose: 125 mg Documented by: Midazolam HCl (Midazolam 1 Mg/Ml 2 Ml Sdv) Confirm Administered Dose 2 mg .ROUTE .STK-MED ONE Stop: 09/17/20 08:32 Midazolam HCl (Midazolam 1 Mg/Ml 2 Ml Sdv) Confirm Administered Dose 2 mg .ROUTE .STK-MED ONE Stop: 09/20/20 07:49 Morphine Sulfate (Morphine 2 Mg/Ml Syringe) 2 mg IVPUSH ONETIME ONE Stop: 09/15/20 17:38 Last Admin: 09/15/20 17:51 Dose: 2 mg Documented by: Morphine Sulfate (Morphine 2 Mg/Ml Syringe) 2 mg IVPUSH ONETIME ONE Stop: 09/15/20 21:51 Last Admin: 09/15/20 22:01 Dose: 2 mg Documented by: Morphine Sulfate (Morphine 2 Mg/Ml Syringe) 2 mg IVPUSH Q2H PRN PRN Reason: Pain (severe 7-10) Last Admin: 09/17/20 17:55 Dose: 2 mg Documented by: Propofol (Propofol 200 Mg/20 Ml Sdv) Confirm Administered Dose 200 mg .ROUTE .STK-MED ONE Stop: 09/17/20 08:32 Propofol (Propofol 200 Mg/20 Ml Sdv) Confirm Administered Dose 200 mg .ROUTE .S TK-MED ONE Stop: 09/20/20 07:49 Propofol (Propofol 200 Mg/20 Ml Sdv) Confirm Administered Dose 200 mg .ROUTE .STK-MED ONE Stop: 09/20/20 11:08 Sodium Chloride (Sodium Chloride 0.9% 10 Ml Syringe) 10 ml FLUSH ONETIME ONE Stop: 09/15/20 20:08 Last Admin: 09/15/20 20:36 Dose: 10 ml Documented by: Sodium Chloride (Sodium Chloride 0.9% 10 Ml Syringe) 10 ml FLUSH ONETIME PRN PRN Reason: PER RADIOLOGY PROTOCOL Stop: 09/19/20 13:09 - Exam Quality Assessment: Supplemental Oxygen General: Alert, Oriented, Cooperative, No Acute Distress Lungs: Normal Respiratory Effort, Crackles (right mid and lower lung ) Cardiovascular: Regular Rate, Regular Rhythm GI/Abdominal Exam: Soft, No Distention Extremities: No Pedal Edema. No: Increased Warmth Skin: Warm, Dry Psy/Mental Status: Alert, Normal Affect - Patient Data Lab Results Last 24 hrs: Laboratory Results - last 24 hr 09/19/20 09/19/20 09/20/20 Range/Units 16:22 21:20 04:00 WBC 13.2 H (4.5-11.0) K/uL RBC 4.55 (3.30-5.50) M/uL Hgb 12.5 (12.0-15.0) g/dL Hct 38.2 (36.0-48.0) % MCV 84 (80-98) fL MCH 28 (27-31) pg MCHC 33 (32-36) % Plt Count 452 H (150-400) K/uL Sodium (140-148) mmol/L Potassium (3.6-5.2) mmol/L Chloride (100-108) mmol/L Carbon Dioxide (21-32) mmol/L Anion Gap (5.0-14.0) mmol/L BUN (7-18) mg/dL Creatinine (0.6-1.0) mg/dL Est Cr Clr Drug Dosing mL/min Estimated GFR (MDRD) (>60) Glucose (74-106) mg/dL POC Glucose 232 H 343 H (74-106) mg/dL Hemoglobin A1c (4.5-6.2) % Calcium (8.5-10.1) mg/dL Lactate Dehydrogenase (82-234) U/L Fluid Type Fluid WBC /ul Fluid RBC /ul Fluid Mononuclear Cell % Fl Polymorphonucl Cell % Fluid Glucose mg/dL Fluid Total Protein g/dL Fluid Amylase U/L Vancomycin Trough (10.0-20.0) ug/mL 09/20/20 09/20/20 09/20/20 Range/Units 04:00 04:00 07:35 WBC (4.5-11.0) K/uL RBC (3.30-5.50) M/uL Hgb (12.0-15.0) g/dL Hct (36.0-48.0) % MCV (80-98) fL MCH (27-31) pg MCHC (32-36) % Plt Count (150-400) K/uL Sodium 137 L (140-148) mmol/L Potassium 4.7 (3.6-5.2) mmol/L Chloride 100 (100-108) mmol/L Carbon Dioxide 31 (21-32) mmol/L Anion Gap 10.7 (5.0-14.0) mmol/L BUN 8 (7-18) mg/dL Creatinine 0.6 (0.6-1.0) mg/dL Est Cr Clr Drug Dosing 114.97 mL/min Estimated GFR (MDRD) > 60 (>60) Glucose 245 H (74-106) mg/dL POC Glucose 240 H (74-106) mg/dL Hemoglobin A1c 10.1 H (4.5-6.2) % Calcium 8.8 (8.5-10.1) mg/dL Lactate Dehydrogenase (82-234) U/L Fluid Type Fluid WBC /ul Fluid RBC /ul Fluid Mononuclear Cell % Fl Polymorphonucl Cell % Fluid Glucose mg/dL Fluid Total Protein g/dL Fluid Amylase U/L Vancomycin Trough (10.0-20.0) ug/mL 09/20/20 09/20/20 09/20/20 Range/Units 11:25 11:25 11:25 WBC (4.5-11.0) K/uL RBC (3.30-5.50) M/uL Hgb (12.0-15.0) g/dL Hct (36.0-48.0) % MCV (80-98) fL MCH (27-31) pg MCHC (32-36) % Plt Count (150-400) K/uL Sodium (140-148) mmol/L Potassium (3.6-5.2) mmol/L Chloride (100-108) mmol/L Carbon Dioxide (21-32) mmol/L Anion Gap (5.0-14.0) mmol/L BUN (7-18) mg/dL Creatinine (0.6-1.0) mg/dL Est Cr Clr Drug Dosing mL/min Estimated GFR (MDRD) (>60) Glucose (74-106) mg/dL POC Glucose (74-106) mg/dL Hemoglobin A1c (4.5-6.2) % Calcium (8.5-10.1) mg/dL Lactate Dehydrogenase 574 H (82-234) U/L Fluid Type Pleural fluid Pleural fluid Fluid WBC 97197 /ul Fluid RBC 475 /ul Fluid Mononuclear Cell 59 % Fl Polymorphonucl Cell 41 % Fluid Glucose 218 mg/dL Fluid Total Protein 4.2 g/dL Fluid Amylase U/L Vancomycin Trough (10.0-20.0) ug/mL 09/20/20 09/20/20 09/20/20 Range/Units 11:25 12:44 13:34 WBC (4.5-11.0) K/uL RBC (3.30-5.50) M/uL Hgb (12.0-15.0) g/dL Hct (36.0-48.0) % MCV (80-98) fL MCH (27-31) pg MCHC (32-36) % Plt Count (150-400) K/uL Sodium (140-148) mmol/L Potassium (3.6-5.2) mmol/L Chloride (100-108) mmol/L Carbon Dioxide (21-32) mmol/L Anion Gap (5.0-14.0) mmol/L BUN (7-18) mg/dL Creatinine (0.6-1.0) mg/dL Est Cr Clr Drug Dosing mL/min Estimated GFR (MDRD) (>60) Glucose (74-106) mg/dL POC Glucose 189 H (74-106) mg/dL Hemoglobin A1c (4.5-6.2) % Calcium (8.5-10.1) mg/dL Lactate Dehydrogenase (82-234) U/L Fluid Type Pleural fluid Fluid WBC /ul Fluid RBC /ul Fluid Mononuclear Cell % Fl Polymorphonucl Cell % Fluid Glucose mg/dL Fluid Total Protein g/dL Fluid Amylase 7 U/L Vancomycin Trough 4.9 L (10.0-20.0) ug/mL Result Diagrams: 09/20/20 04:00 09/20/20 04:00 [facility]emar Results Last 24 hrs: Microbiology 09/20/20 12:03 Gram Stain - Final Pleural Fluid - Pleural Cavity, Right 09/20/20 12:03 RADHA Preparation - Final Other - Pleural Cavity, Right 09/17/20 11:50 AFB Specimen Processing Tissue - Final Bronchial Alveolar Lavage - Right Lower Lobe Acid Fast Bacilli Smear - Final Acid Fast Bacilli Culture - Preliminary 09/17/20 11:50 AFB Specimen Processing Tissue - Final Bronchial Alveolar Lavage - Right Lower Lobe Acid Fast Bacilli Smear - Final Acid Fast Bacilli Culture - Preliminary 09/17/20 11:41 AFB Specimen Processing Tissue - Final Tracheal Washings Acid Fast Bacilli Smear - Final Acid Fast Bacilli Culture - Preliminary Sepsis Event Note - Evaluation Sepsis Screening Result: Sepsis Risk - Focused Exam Vital Signs: Vital Signs Temp Temp Pulse Resp BP BP Pulse Ox 09/20/20 13:53 36.3 C 96 18 115/68 95 09/20/20 13:32 100 09/20/20 12:51 76 18 109/51 L 95 09/20/20 12:36 76 18 124/67 95 09/20/20 12:18 35.4 C L 75 18 109/58 L 94 L 09/20/20 11:39 95 09/20/20 07:49 35.2 C L 77 16 103/76 93 L 09/20/20 03:34 34.8 C L 74 16 95/60 92 L - Problem List Review Problem List Initiated/Reviewed/Updated: Yes - My Orders Last 24 Hours: My Active Orders 09/19/20 14:30 Vancomycin 1.5 gm Sodium Chloride 0.9% [Normal Saline] 250 ml IV Q12H 09/19/20 17:00 Insulin Lispro [HumaLOG] See Protocol SUBCUT DACANDBED 09/20/20 07:00 Guide Intraoperative [US] Routine 09/20/20 16:30 GLUCOSE POC LAB TO COLLECT JPM [POC] QICANDBED 09/20/20 Dinner Consistent Carbohydrate Diet [DIET] 09/20/20 21:00 GLUCOSE POC LAB TO COLLECT JPM [POC] QIDACANDBED 09/21/20 05:00 BASIC METABOLIC PANEL,BMP [CHEM] Timed CBC W/O DIFF,HEMOGRAM [HEME] Timed (1) 09/21/20 07:30 GLUCOSE POC LAB TO COLLECT JPM [POC] QIDACANDBED 09/21/20 11:30 GLUCOSE POC LAB TO COLLECT JPM [POC] QIDACANDBED 09/21/20 16:30 GLUCOSE POC LAB TO COLLECT JPM [POC] QIDACANDBED - Plan Plan:: ASSESSMENT AND PLAN - Persistent right lower lobe pneumonia-complicated by acute respiratory failure with hypoxia and a right pleural effusion that is partially loculated. Chest tube placed this morning. Significant improvement in pain. Respiratory status seems improved so far. Cultures negative so far. Gram stain from the thoracic fluid did not reveal any organisms or fungal elements. -Surgical follow-up for chest tube management appreciated -Antibiotic coverage with vancomycin, ceftazidime and levofloxacin, narrow as able starting tomorrow -No indication for steroids at this time -As needed nebulizers -Symptomatic management of cough and pain -Follow-up cultures Nausea with vomiting-likely related to infection improved since the loculated effusion was evacuated. -Symptomatic management of nausea, treat infection as above Type 2 diabetes mellitus-sugars moderately elevated at this time. Hemoglobin A1c was 10. -Continue home medications -High-dose sliding scale insulin -Diabetic education Maintenance issues - -DVT prophylaxis-SCD -GI prophylaxis-not indicated -Nutrition-consistent carbohydrate -Chavira catheter-not indicated Disposition -I anticipate discharge home after the hospital stay, I would anticipate several more days here in the hospital before discharge home Rishi Strange M.D.
[2020-09-21] MEDS: LORazepam 0.5 MG Tab PO PRN ×3 (01:00→23:29)
[2020-09-21] MEDS: Ondansetron 4 MG Tab.DIS PO PRN (07:30)
--- NOTE | 2020-09-21 07:41 | CRLCR ---
For Patients: As a result of the Cures Act, medical imaging exams and procedure reports are released immediately into your electronic medical record. You may view this report before your referring provider. If you have questions, please contact your health care provider. INDICATION: Chest tube. TECHNIQUE: Upright portable AP image of the chest. COMPARISON: 08/21/2020. FINDINGS: Unchanged right-sided chest tube. No pneumothorax. Lungs low in volume with bibasilar atelectasis, somewhat increased on the left. Heart size stable. IMPRESSION: 1. Unchanged right chest tubes. No pneumothorax. 2. Lungs low in volume with bibasilar atelectasis, increased on the left. Dictated by Constantine Parsons MD @ 09/21/2020 7:40:[address] Constantine Parsons @ Sep 21 2020 7:40AM
[2020-09-21] MEDS: Insulin Lispro 100 Unit/ML 3 ML KwikPen SUBCUT SCH ×4 (09:05→21:34)
[2020-09-21] MEDS: metFORMIN 500 MG Tab PO SCH ×2 (09:05→17:48)
[2020-09-21] MEDS: glipiZIDE 5 MG Tab.ER PO SCH (09:06)
[2020-09-21] MEDS: Nicotine 21 MG/24 Hr Patch TRDERM SCH (09:06)
[2020-09-21] MEDS: Lactobacillus Rhamnosus GG (Probiotic) Cap PO SCH ×2 (09:06→20:45)
[2020-09-21] MEDS: Bisacodyl 5 MG Tab PO PRN (10:49)
[2020-09-21] MEDS: Magnesium Hydroxide 400 MG/5 ML Susp 30 ML Cup PO PRN (10:49)
--- NOTE | 2020-09-21 11:02 | PCM.PN ---
- General Info Date of Service: 09/21/20 Subjective Update: No acute events overnight. Pain is still present though less intense today than yesterday. Still short of breath with activity but a little better. Still requ iring 2 L of supplemental oxygen. Still having intermittent episodes of nausea and some flushing. Blood sugars moderately elevated and hemoglobin A1c was 10. Chest x-ray today is stable but does show some persistent pleural fluid. Patient had several good questions about current status of her infection and pleural fluid situation. She is agreeable to a CAT scan in the morning. Functional Status: Reports: Pain Controlled, Tolerating Diet - Review of Systems Pulmonary: Reports: Shortness of Breath, Pleuritic Chest Pain, Cough - Patient Data Vitals - Most Recent: Last Vital Signs Temp 36.3 C 09/21/20 07:36 Pulse 75 09/21/20 07:36 Resp 16 09/21/20 07:36 BP 112/71 09/21/20 07:36 Pulse Ox 97 09/21/20 07:36 Weight - Most Recent: 93.621 kg I&O - Last 24 Hours: Intake & Output 09/20/20 09/21/20 09/21/20 22:59 06:59 14:59 Intake Total 600 800 Output Total 712 14 0262 Balance -200 770 -1000 Lab Results Last 24 Hours: Laboratory Results - last 24 hr 09/20/20 09/20/20 09/20/20 Range/Units 11:25 11:25 11:25 WBC (4.5-11.0) K/uL RBC (3.30-5.50) M/uL Hgb (12.0-15.0) g/dL Hct (36.0-48.0) % MCV (80-98) fL MCH (27-31) pg MCHC (32-36) % Plt Count (150-400) K/uL Sodium (140-148) mmol/L Potassium (3.6-5.2) mmol/L Chloride (100-108) mmol/L Carbon Dioxide (21-32) mmol/L Anion Gap (5.0-14.0) mmol/L BUN (7-18) mg/dL Creatinine (0.6-1.0) mg/dL Est Cr Clr Drug Dosing mL/min Estimated GFR (MDRD) (>60) Glucose (74-106) mg/dL POC Glucose (74-106) mg/dL Calcium (8.5-10.1) mg/dL Lactate Dehydrogenase 574 H (82-234) U/L Fluid Type Pleural fluid Pleural fluid Fluid WBC 23119 /ul Fluid RBC 475 /ul Fluid Mononuclear Cell 59 % Fl Polymorphonucl Cell 41 % Fluid Glucose 218 mg/dL Fluid Total Protein 4.2 g/dL Fluid Amylase U/L Vancomycin Trough (10.0-20.0) ug/mL 09/20/20 09/20/20 09/20/20 Range/Units 11:25 12:44 13:34 WBC (4.5-11.0) K/uL RBC (3.30-5.50) M/uL Hgb (12.0-15.0) g/dL Hct (36.0-48.0) % MCV (80-98) fL MCH (27-31) pg MCHC (32-36) % Plt Count (150-400) K/uL Sodium (140-148) mmol/L Potassium (3.6-5.2) mmol/L Chloride (100-108) mmol/L Carbon Dioxide (21-32) mmol/L Anion Gap (5.0-14.0) mmol/L BUN (7-18) mg/dL Creatinine (0.6-1.0) mg/dL Est Cr Clr Drug Dosing mL/min Estimated GFR (MDRD) (>60) Glucose (74-106) mg/dL POC Glucose 189 H (74-106) mg/dL Calcium (8.5-10.1) mg/dL Lactate Dehydrogenase (82-234) U/L Fluid Type Pleural fluid Fluid WBC /ul Fluid RBC /ul Fluid Mononuclear Cell % Fl Polymorphonucl Cell % Fluid Glucose mg/dL Fluid Total Protein g/dL Fluid Amylase 7 U/L Vancomycin Trough 4.9 L (10.0-20.0) ug/mL 09/20/20 09/20/20 09/20/20 Range/Units 16:45 21:00 21:13 WBC (4.5-11.0) K/uL RBC (3.30-5.50) M/uL Hgb (12.0-15.0) g/dL Hct (36.0-48.0) % MCV (80-98) fL MCH (27-31) pg MCHC (32-36) % Plt Count (150-400) K/uL Sodium (140-148) mmol/L Potassium (3.6-5.2) mmol/L Chloride (100-108) mmol/L Carbon Dioxide (21-32) mmol/L Anion Gap (5.0-14.0) mmol/L BUN (7-18) mg/dL Creatinine (0.6-1.0) mg/dL Est Cr Clr Drug Dosing mL/min Estimated GFR (MDRD) (>60) Glucose (74-106) mg/dL POC Glucose 227 H 252 H 252 H (74-106) mg/dL Calcium (8.5-10.1) mg/dL Lactate Dehydrogenase (82-234) U/L Fluid Type Fluid WBC /ul Fluid RBC /ul Fluid Mononuclear Cell % Fl Polymorphonucl Cell % Fluid Glucose mg/dL Fluid Total Protein g/dL Fluid Amylase U/L Vancomycin Trough (10.0-20.0) ug/mL 09/21/20 09/21/20 09/21/20 Range/Units 04:10 04:10 07:29 WBC 9.0 (4.5-11.0) K/uL RBC 4.49 (3.30-5.50) M/uL Hgb 12.4 (12.0-15.0) g/dL Hct 38.3 (36.0-48.0) % MCV 85 (80-98) fL MCH 28 (27-31) pg MCHC 32 (32-36) % Plt Count 487 H (150-400) K/uL Sodium 141 (140-148) mmol/L Potassium 3.6 (3.6-5.2) mmol/L Chloride 102 (100-108) mmol/L Carbon Dioxide 31 (21-32) mmol/L Anion Gap 7.6 (5.0-14.0) mmol/L BUN 9 (7-18) mg/dL Creatinine 0.6 (0.6-1.0) mg/dL Est Cr Clr Drug Dosing 114.97 mL/min Estimated GFR (MDRD) > 60 (>60) Glucose 205 H (74-106) mg/dL POC Glucose 248 H (74-106) mg/dL Calcium 8.2 L (8.5-10.1) mg/dL Lactate Dehydrogenase (82-234) U/L Fluid Type Fluid WBC /ul Fluid RBC /ul Fluid Mononuclear Cell % Fl Polymorphonucl Cell % Fluid Glucose mg/dL Fluid Total Protein g/dL Fluid Amylase U/L Vancomycin Trough (10.0-20.0) ug/mL Baldemar Results Last 24 Hours: Microbiology 09/20/20 12:03 Gram Stain - Final Pleural Fluid - Pleural Cavity, Right Wound Culture - Preliminary NO GROWTH AFTER 1 DAY Anaerobic Culture - Preliminary NO GROWTH AFTER 1 DAY 09/20/20 12:03 RADHA Preparation - Final Other - Pleural Cavity, Right Med Orders - Current: Current Medications Acetaminophen (Acetaminophen 325 Mg Tab) 650 mg PO Q4H PRN PRN Reason: Pain Last Admin: 09/19/20 22:52 Dose: 650 mg Documented by: Albuterol (Albuterol 0.083% 2.5 Mg/3 Ml Neb Soln) 2.5 mg NEB Q4H PRN PRN Reason: shortness of breath/wheezing Last Admin: 09/17/20 11:41 Dose: 2.5 mg Documented by: Benzonatate (Benzonatate 100 Mg Cap) 100 mg PO Q6H PRN PRN Reason: Cough Last Admin: 09/17/20 14:24 Dose: 100 mg Documented by: Bisacodyl (Bisacodyl 5 Mg Tab) 10 mg PO BID PRN PRN Reason: Constipation Last Admin: 09/21/20 10:49 Dose: 10 mg Documented by: Dextrose/Water (50% Dextrose In Water 50 Ml Syringe) 50 ml IVPUSH ASDIRECTED PRN PRN Reason: Hypoglycemia Glucagon (Glucagon,Human Recombinant 1 Mg Vial) 1 mg IM ASDIRECTED PRN PRN Reason: Hypoglycemia Guaifenesin/Dextromethorphan (Guaifenesin/Dextromethorphan 100-10 Mg/5 Ml Soln 10 Ml Cup) 10 ml PO Q4H PRN PRN Reason: Cough Last Admin: 09/19/20 22:04 Dose: 10 ml Documented by: Hydromorphone HCl (Hydromorphone/Normal Saline 15 Mg/30 Ml [employer]) 0 mg IV ASDIRECTED PRN; Protocol PRN Reason: Pain Last Admin: 09/20/20 12:32 Dose: 15 mg Documented by: Ceftazidime 1 gm/ Sodium (Chloride) 50 mls @ 100 mls/hr IV Q8H [facility]ALJIT Last Admin: 09/21/20 03:08 Dose: 100 mls/hr Documented by: Levofloxacin/Dextrose 750 mg/ (Premix) 150 mls @ 100 mls/hr IV Q24H [facility] Last Admin: 09/20/20 12:45 Dose: 100 mls/hr Documented by: Ibuprofen (Ibuprofen 800 Mg Tab) 800 mg PO Q6H PRN PRN Reason: Pain (moderate 4-6) Last Admin: 09/19/20 22:53 Dose: 800 mg Documented by: Insulin Human Lispro (Insulin Lispro 100 Unit/Ml 3 Ml Kwikpen) 0 unit SUBCUT QIDACANDBED [facility]; Protocol Last Admin: 09/21/20 09:05 Dose: 6 units Documented by: Lactobacillus Rhamnosus (Lactobacillus Rhamnosus Gg (Probiotic) Cap) 1 cap PO BID [facility] Last Admin: 09/21/20 09:06 Dose: 1 cap Documented by: Lorazepam (Lorazepam 0.5 Mg Tab) 0.5 mg PO Q4H PRN PRN Reason: Anxiety Last Admin: 09/21/20 01:00 Dose: 0.5 mg Documented by: Magnesium Hydroxide (Magnesium Hydroxide 400 Mg/5 Ml Susp 30 Ml Cup) 30 ml PO BID PRN PRN Reason: Constipation Last Admin: 09/21/20 10:49 Dose: 30 ml Documented by: Metformin [facility] ([facility] 500 Mg Tab) [facility] Last Admin: 09/21/20 09:05 Dose: 500 mg Documented by: Naloxone HCl (Naloxone 0.4 Mg/Ml Sdv) 0.1 mg IV ASDIRECTED PRN PRN Reason: decreased respiratory rate Ondansetron HCl (Ondansetron 4 Mg/2 Ml Sdv) 4 mg IVPUSH Q4H PRN PRN Reason: Nausea/Vomiting Last Admin: 09/18/20 08:09 Dose: 4 mg Documented by: Ondansetron HCl (Ondansetron 4 Mg Tab.Dis) 4 mg PO Q4H PRN PRN Reason: Nausea/Vomiting Last Admin: 09/21/20 07:30 Dose: 4 mg Documented by: Oxycodone HCl (Oxycodone 5 Mg Tab) 5 - 10 mg PO Q4H PRN PRN Reason: Pain Last Admin: 09/19/20 21:57 Dose: 5 mg Documented by: Senna/Docusate Sodium (Docusate Sodium/Sennosides 50-8.6 Mg Tab) 1 tab PO Q12H PRN PRN Reason: Constipation Last Admin: 09/19/20 21:57 Dose: 1 tab Documented by: Sodium Chloride (Sodium Chloride 0.9% 10 Ml Syringe) 10 ml FLUSH ASDIRECTED PRN PRN Reason: Keep Vein Open Discontinued Medications Hydrocodone Bitart/Acetaminophen (Acetaminophen/Hydrocodone 325-10 Mg Tab) 1 tab PO Q4H PRN PRN Reason: Pain Last Admin: 09/18/20 08:08 Dose: 1 tab Documented by: Azithromycin (Azithromycin 250 Mg Tab) 250 mg PO BEDTIME DALJIT Azithromycin (Azithromycin 250 Mg Tab) 500 mg PO ONETIME ONE Stop: 09/15/20 23:58 Last Admin: 09/16/20 00:35 Dose: 500 mg Documented by: Bupivacaine HCl/Epinephrine Bitart (Bupivacaine 0.5%/Epinephrine 1:200,000 50 Ml Mdv) 15 ml INJECT .STK-MED ONE Stop: 09/20/20 10:51 Last Admin: 09/20/20 10:50 Dose: 15 ml Documented by: Diphenhydramine HCl (Diphenhydramine 50 Mg/Ml Sdv) 50 mg IVPUSH ONETIME ONE Stop: 09/15/20 20:02 Last Admin: 09/15/20 20:07 Dose: 50 mg Documented by: Diphenhydramine HCl (Diphenhydramine 50 Mg/Ml Sdv) 50 mg IVPUSH ONETIME ONE Stop: 09/19/20 12:15 Last Admin: 09/19/20 13:17 Dose: 50 mg Documented by: Fentanyl (Fentanyl 100 Mcg/2 Ml Sdv) Confirm Administered Dose 100 mcg .ROUTE .STK-MED ONE Stop: 09/17/20 08:32 Fentanyl (Fentanyl 100 Mcg/2 Ml Sdv) Confirm Administered Dose 100 mcg .ROUTE .S TK-MED ONE Stop: 09/20/20 07:49 Glipizide (Glipizide 5 Mg Tab.Er) 5 mg PO DAILY [facility] Last Admin: 09/21/20 09:06 Dose: 5 mg Documented by: Hydromorphone HCl (Hydromorphone 0.5 Mg/0.5 Ml Syringe) 0.5 mg IVPUSH Q4H PRN PRN Reason: Pain (severe 7-10) Sodium Chloride (Normal Saline) 1,000 mls @ 999 mls/hr IV ASDIRECTED [facility] Last Admin: 09/15/20 17:16 Dose: 999 mls/hr Documented by: Sodium Chloride (Normal Saline) 100 mls @ 4 mls/sec IV ASDIRECTED [facility] Last Admin: 09/15/20 20:37 Dose: 4 mls/sec Documented by: Ceftriaxone Sodium 1 gm/ (Sodium Chloride) 50 mls @ 100 mls/hr IV ONETIME ONE Stop: 09/15/20 22:18 Last Admin: 09/15/20 22:07 Dose: 100 mls/hr Documented by: Ceftriaxone Sodium 1 gm/ (Sodium Chloride) 50 mls @ 100 mls/hr IV Q24H [facility] Last Admin: 09/16/20 00:16 Dose: Not Given Documented by: Ceftriaxone Sodium 1 gm/ (Sodium Chloride) 50 mls @ 100 mls/hr IV Q24H [facility] Sodium Chloride (Normal Saline) 1,000 mls @ 100 mls/hr IV ASDIRECTED [facility] Last Admin: 09/17/20 09:53 Dose: 100 mls/hr Documented by: Doxycycline Hyclate 100 mg/ (Sodium Chloride) 100 mls @ 100 mls/hr IV Q12H [facility] Last Admin: 09/18/20 11:23 Dose: 100 mls/hr Documented by: Sodium Chloride (Normal Saline) 1,000 mls @ 25 mls/hr IV ASDIRECTED [facility] Last Admin: 09/17/20 11:59 Dose: 25 mls/hr Documented by: Potassium Chloride 20 meq/Lidocaine HCl 2 ml/ Sodium Chloride 112 mls @ 56 mls/hr IV Q2H [facility] Stop: 09/18/20 17:29 Last Admin: 09/18/20 20:39 Dose: 56 mls/hr Documented by: Vancomycin HCl 1.5 gm/ Sodium (Chloride) 250 mls @ 167 mls/hr IV Q12H [facility] Last Admin: 09/19/20 02:40 Dose: 167 mls/hr Documented by: Sodium Chloride (Normal Saline) 75 mls @ 3 mls/sec IV ONETIME ONE Stop: 09/19/20 13:09 Last Admin: 09/19/20 16:29 Dose: Not Given Documented by: Vancomycin HCl 1.5 gm/ Sodium (Chloride) 250 mls @ 167 mls/hr IV Q12H [facility] Last Admin: 09/20/20 01:38 Dose: 167 mls/hr Documented by: Vancomycin HCl 1.5 gm/ Sodium (Chloride) 250 mls @ 167 mls/hr IV Q8H [facility] Last Admin: 09/21/20 07:30 Dose: 167 mls/hr Documented by: Insulin Human Lispro (Insulin Lispro 100 Unit/Ml 3 Ml Kwikpen) 0 unit SUBCUT QIDACANDBED [facility]; Protocol Last Admin: 09/19/20 11:57 Dose: 6 unit Documented by: Insulin Human Lispro (Insulin Lispro 100 Unit/Ml 3 Ml Kwikpen) 8 unit SUBCUT ONETIME ONE Stop: 09/16/20 09:31 Last Admin: 09/16/20 09:59 Dose: 8 units Documented by: Insulin Human Lispro (Insulin Lispro 100 Unit/Ml 3 Ml Kwikpen) 12 unit SUBCUT ONETIME ONE Stop: 09/16/20 11:56 Last Admin: 09/16/20 12:04 Dose: 12 units Documented by: Insulin Human Lispro (Insulin Lispro 100 Units/Ml 3 Ml Vial) 15 unit SUBCUT ONETIME ONE Stop: 09/16/20 16:28 Last Admin: 09/16/20 16:45 Dose: 15 units Documented by: Iopamidol (Iopamidol 755 Mg/Ml 100 Ml Bottle) 100 ml IV . DIRECTED [facility] Last Admin: 09/15/20 20:36 Dose: 100 ml Documented by: Iopamidol (Iopamidol 612 Mg/Ml 100 Ml Bottle) 100 ml IV . DIRECTED PRN PRN Reason: RADIOLOGY EXAM Stop: 09/19/20 13:09 Ketorolac Tromethamine (Ketorolac 30 Mg/Ml Sdv) 30 mg IVPUSH ONETIME ONE Stop: 09/15/20 16:59 Last Admin: 09/15/20 17:16 Dose: 30 mg Documented by: Ketorolac Tromethamine (Ketorolac 30 Mg/Ml Sdv) 30 mg IVPUSH Q8H PRN PRN Reason: Pain Stop: 09/20/20 23:14 Last Admin: 09/16/20 05:27 Dose: 30 mg Documented by: Lidocaine (Lidocaine 4% Top Soln Lta 4 Ml Syringe Kit) Confirm Administered Dose 4 ml .ROUTE .STK-MED ONE Stop: 09/17/20 08:33 Lidocaine (Lidocaine 4% Top Soln Lta 4 Ml Syringe Kit) Confirm Administered Dose 4 ml .ROUTE .STK-MED ONE Stop: 09/17/20 08:34 Lidocaine HCl (Lidocaine 2% Viscous Solution 15 Ml Cup) Confirm Administered Dose 15 ml .ROUTE .STK-MED ONE Stop: 09/17/20 07:32 Lidocaine HCl (Lidocaine 4% Top Soln 50 Ml Bottle) Confirm Administered Dose 50 ml .ROUTE .STK-MED ONE Stop: 09/17/20 07:33 Methylprednisolone Sodium Succinate (Methylprednisolone Sodium Succinate 125 Mg/2 Ml Sdv) 125 mg IVPUSH ONETIME ONE Stop: 09/15/20 20:02 Last Admin: 09/15/20 20:09 Dose: 125 mg Documented by: Methylprednisolone Sodium Succinate (Methylprednisolone Sodium Succinate 125 Mg/2 Ml Sdv) 125 mg IVPUSH ONETIME ONE Stop: 09/19/20 12:14 Last Admin: 09/19/20 13:17 Dose: 125 mg Documented by: Midazolam HCl (Midazolam 1 Mg/Ml 2 Ml Sdv) Confirm Administered Dose 2 mg .ROUTE .STK-MED ONE Stop: 09/17/20 08:32 Midazolam HCl (Midazolam 1 Mg/Ml 2 Ml Sdv) Confirm Administered Dose 2 mg .ROUTE .STK-MED ONE Stop: 09/20/20 07:49 Morphine Sulfate (Morphine 2 Mg/Ml Syringe) 2 mg IVPUSH ONETIME ONE Stop: 09/15/20 17:38 Last Admin: 09/15/20 17:51 Dose: 2 mg Documented by: Morphine Sulfate (Morphine 2 Mg/Ml Syringe) 2 mg IVPUSH ONETIME ONE Stop: 09/15/20 21:51 Last Admin: 09/15/20 22:01 Dose: 2 mg Documented by: Morphine Sulfate (Morphine 2 Mg/Ml Syringe) 2 mg IVPUSH Q2H PRN PRN Reason: Pain (severe 7-10) Last Admin: 09/17/20 17:55 Dose: 2 mg Documented by: Nicotine (Nicotine 21 Mg/24 Hr Patch) 21 mg TRDERM DAILY [facility] Last Admin: 09/21/20 09:06 Dose: Not Given Documented by: Propofol (Propofol 200 Mg/20 Ml Sdv) Confirm Administered Dose 200 mg .ROUTE .STK-MED ONE Stop: 09/17/20 08:32 Propofol (Propofol 200 Mg/20 Ml Sdv) Confirm Administered Dose 200 mg .ROUTE .STK-MED ONE Stop: 09/20/20 07:49 Propofol (Propofol 200 Mg/20 Ml Sdv) Confirm Administered Dose 200 mg .ROUTE .STK-MED ONE Stop: 09/20/20 11:08 Sodium Chloride (Sodium Chloride 0.9% 10 Ml Syringe) 10 ml FLUSH ONETIME ONE Stop: 09/15/20 20:08 Last Admin: 09/15/20 20:36 Dose: 10 ml Documented by: Sodium Chloride (Sodium Chloride 0.9% 10 Ml Syringe) 10 ml FLUSH ONETIME PRN PRN Reason: PER RADIOLOGY PROTOCOL Stop: 09/19/20 13:09 - Exam Quality Assessment: Supplemental Oxygen General: Alert, Oriented, Cooperative, No Acute Distress Lungs: Normal Respiratory Effort, Decreased Breath Sounds (right lung base), Crackles (right mid and lower lung ) Cardiovascular: Regular Rate, Regular Rhythm GI/Abdominal Exam: Soft, No Distention Extremities: No Pedal Edema. No: Increased Warmth Skin: Warm, Dry Psy/Mental Status: Alert, Normal Affect - Patient Data Lab Results Last 24 hrs: Laboratory Results - last 24 hr 09/20/20 09/20/20 09/20/20 Range/Units 11:25 11:25 11:25 WBC (4.5-11.0) K/uL RBC (3.30-5.50) M/uL Hgb (12.0-15.0) g/dL Hct (36.0-48.0) % MCV (80-98) fL MCH (27-31) pg MCHC (32-36) % Plt Count (150-400) K/uL Sodium (140-148) mmol/L Potassium (3.6-5.2) mmol/L Chloride (100-108) mmol/L Carbon Dioxide (21-32) mmol/L Anion Gap (5.0-14.0) mmol/L BUN (7-18) mg/dL Creatinine (0.6-1.0) mg/dL Est Cr Clr Drug Dosing mL/min Estimated GFR (MDRD) (>60) Glucose (74-106) mg/dL POC Glucose (74-106) mg/dL Calcium (8.5-10.1) mg/dL Lactate Dehydrogenase 574 H (82-234) U/L Fluid Type Pleural fluid Pleural fluid Fluid WBC 87393 /ul Fluid RBC 475 /ul Fluid Mononuclear Cell 59 % Fl Polymorphonucl Cell 41 % Fluid Glucose 218 mg/dL Fluid Total Protein 4.2 g/dL Fluid Amylase U/L Vancomycin Trough (10.0-20.0) ug/mL 09/20/20 09/20/20 09/20/20 Range/Units 11:25 12:44 13:34 WBC (4.5-11.0) K/uL RBC (3.30-5.50) M/uL Hgb (12.0-15.0) g/dL Hct (36.0-48.0) % MCV (80-98) fL MCH (27-31) pg MCHC (32-36) % Plt Count (150-400) K/uL Sodium (140-148) mmol/L Potassium (3.6-5.2) mmol/L Chloride (100-108) mmol/L Carbon Dioxide (21-32) mmol/L Anion Gap (5.0-14.0) mmol/L BUN (7-18) mg/dL Creatinine (0.6-1.0) mg/dL Est Cr Clr Drug Dosing mL/min Estimated GFR (MDRD) (>60) Glucose (74-106) mg/dL POC Glucose 189 H (74-106) mg/dL Calcium (8.5-10.1) mg/dL Lactate Dehydrogenase (82-234) U/L Fluid Type Pleural fluid Fluid WBC /ul Fluid RBC /ul Fluid Mononuclear Cell % Fl Polymorphonucl Cell % Fluid Glucose mg/dL Fluid Total Protein g/dL Fluid Amylase 7 U/L Vancomycin Trough 4.9 L (10.0-20.0) ug/mL 09/20/20 09/20/20 09/20/20 Range/Units 16:45 21:00 21:13 WBC (4.5-11.0) K/uL RBC (3.30-5.50) M/uL Hgb (12.0-15.0) g/dL Hct (36.0-48.0) % MCV (80-98) fL MCH (27-31) pg MCHC (32-36) % Plt Count (150-400) K/uL Sodium (140-148) mmol/L Potassium (3.6-5.2) mmol/L Chloride (100-108) mmol/L Carbon Dioxide (21-32) mmol/L Anion Gap (5.0-14.0) mmol/L BUN (7-18) mg/dL Creatinine (0.6-1.0) mg/dL Est Cr Clr Drug Dosing mL/min Estimated GFR (MDRD) (>60) Glucose (74-106) mg/dL POC Glucose 227 H 252 H 252 H (74-106) mg/dL Calcium (8.5-10.1) mg/dL Lactate Dehydrogenase (82-234) U/L Fluid Type Fluid WBC /ul Fluid RBC /ul Fluid Mononuclear Cell % Fl Polymorphonucl Cell % Fluid Glucose mg/dL Fluid Total Protein g/dL Fluid Amylase U/L Vancomycin Trough (10.0-20.0) ug/mL 09/21/20 09/21/20 09/21/20 Range/Units 04:10 04:10 07:29 WBC 9.0 (4.5-11.0) K/uL RBC 4.49 (3.30-5.50) M/uL Hgb 12.4 (12.0-15.0) g/dL Hct 38.3 (36.0-48.0) % MCV 85 (80-98) fL MCH 28 (27-31) pg MCHC 32 (32-36) % Plt Count 487 H (150-400) K/uL Sodium 141 (140-148) mmol/L Potassium 3.6 (3.6-5.2) mmol/L Chloride 102 (100-108) mmol/L Carbon Dioxide 31 (21-32) mmol/L Anion Gap 7.6 (5.0-14.0) mmol/L BUN 9 (7-18) mg/dL Creatinine 0.6 (0.6-1.0) mg/dL Est Cr Clr Drug Dosing 114.97 mL/min Estimated GFR (MDRD) > 60 (>60) Glucose 205 H (74-106) mg/dL POC Glucose 248 H (74-106) mg/dL Calcium 8.2 L (8.5-10.1) mg/dL Lactate Dehydrogenase (82-234) U/L Fluid Type Fluid WBC /ul Fluid RBC /ul Fluid Mononuclear Cell % Fl Polymorphonucl Cell % Fluid Glucose mg/dL Fluid Total Protein g/dL Fluid Amylase U/L Vancomycin Trough (10.0-20.0) ug/mL Result Diagrams: 09/21/20 04:10 09/21/20 04:10 Baldemar Results Last 24 hrs: Microbiology 09/20/20 12:03 Gram Stain - Final Pleural Fluid - Pleural Cavity, Right Wound Culture - Preliminary NO GROWTH AFTER 1 DAY Anaerobic Culture - Preliminary NO GROWTH AFTER 1 DAY 09/20/20 12:03 RADHA Preparation - Final Other - Pleural Cavity, Right Sepsis Event Note - Evaluation Sepsis Screening Result: No Definite Risk - Focused Exam Vital Signs: Vital Signs Temp Pulse Resp BP Pulse Ox 09/21/20 07:36 36.3 C 75 16 112/71 97 09/21/20 07:00 95 09/21/20 01:00 98 - Problem List Review Problem List Initiated/Reviewed/Updated: Yes - My Orders Last 24 Hours: My Active Orders 09/20/20 Dinner Consistent Carbohydrate Diet [DIET] 09/21/20 09:50 bisacodyL [Dulcolax] 10 mg PO BID PRN 09/21/20 11:30 GLUCOSE POC LAB TO COLLECT JPM [POC] QIDACANDBED 09/21/20 16:30 GLUCOSE POC LAB TO COLLECT JPM [POC] QIDACANDBED 09/22/20 05:00 BASIC METABOLIC PANEL,BMP [CHEM] Timed CBC W/O DIFF,HEMOGRAM [HEME] Timed (1) CRP [C-REACTIVE PROTEIN] [CHEM] Timed 09/22/20 09:00 glipiZIDE [Glucotrol XL] 10 mg PO DAILY - Plan Plan:: ASSESSMENT AND PLAN - Persistent right lower lobe pneumonia-complicated by acute respiratory failure with hypoxia and a right pleural effusion that is partially loculated. Chest tube placed 09/20. Minimal output overnight. X-ray stable but there is still some fluid present. CT scan of the chest is planned for tomorrow morning. Patient may need a thoracotomy and more drainage/debridement. Cultures negative so far. -Surgical follow-up for chest tube management appreciated -Antibiotic coverage with ceftazidime and levofloxacin -As needed nebulizers -Symptomatic management of cough and pain -Follow-up cultures Nausea with vomiting-likely related to infection and is better but not resolved. -Symptomatic management of nausea, treat infection as above Type 2 diabetes mellitus-sugars moderately elevated at this time. Hemoglobin A1c was 10. -Continue home medications -High-dose sliding scale insulin -Consider addition of a long-acting insulin -Diabetic education Maintenance issues - -DVT prophylaxis-SCD -GI prophylaxis-not indicated -Nutrition-consistent carbohydrate -Chavira catheter-not indicated Disposition -I anticipate discharge home after the hospital stay, I would anticipate several more days here in the hospital before discharge home Rishi Strange M.D.
[2020-09-21] MEDS: Levofloxacin/Dextrose 5%-Water 750 MG in Premix Bag 1 BAG IV SCH (12:36)
[2020-09-21] MEDS: Ondansetron 4 MG/2 ML SDV IVPUSH PRN ×3 (13:20→22:05)
[2020-09-21] MEDS ORDERED: Bisacodyl 10 MG Supp RECTAL ONE (18:09)
[2020-09-21] MEDS ORDERED: Magnesium Citrate Solution 296 ML Bottle PO ONE (18:09)
[2020-09-21] MEDS ORDERED: Sodium Phosphate,Monobasic/Sodium Phosphate,Dibasic Enema 133 ML Bottle RECTAL PRN (18:09)
[2020-09-21] MEDS: Metoclopramide 10 MG/2 ML SDV IVPUSH SCH ×2 (18:42→23:31)
--- NOTE | 2020-09-22 05:34 | CRLCT ---
For Patients: As a result of the Century Cures Act, medical imaging exams and procedure reports are released immediately into your electronic medical record. You may view this report before your referring provider. If you have questions, please contact your health care provider. INDICATION: Pleural effusion TECHNIQUE: CT chest without i.v. contrast. Coronal and sagittal reformats were obtained. COMPARISON: 09/19/2020 FINDINGS: Cardiovascular: The heart has an unremarkable appearance and size. Moderate to severe but stable enlargement of the main pulmonary artery is present and measures 3.5 cm in maximal short axis. No sign of aneurysm seen in the thoracic aorta. The presence of aortic dissection cannot be evaluated without the use of intravenous contrast. Mediastinum: No mass or adenopathy seen. Lung: Small residual loculated effusion is present with fluid seen in the right major fissure. A right posterior apical chest tube is noted. Bibasilar moderate discoid atelectasis is seen. Segmental consolidation with central air bronchograms are present involving the basal segments of the right lower lobe. Pleura and pericardium: No sign of pleural effusion seen. No significant pericardial effusion is present. Chest wall and axilla: No mass or adenopathy seen. Bone: Unremarkable for age. Upper abdomen: Unremarkable. IMPRESSIONS: 1. Small residual loculated effusion is present with fluid seen in the right major fissure. The amount of fluid has substantially decreased since prior examination. 2. Segmental consolidation with central air bronchograms are present involving the basal segments of the right lower lobe. These findings can be seen with atelectasis and/or pneumonia. 3. Moderate to severe but stable enlargement of the main pulmonary artery is present and measures 3.5 cm in maximal short axis. This is likely due to pulmonary hypertension. Dictated by eDvyn Messer MD @ 09/22/2020 5:32:30 AM Please note that all CT scans at this facility use dose modulation, iterative reconstruction, and/or weight-based dosing when appropriate to reduce radiation dose to as low as reasonably achievable. Dictated by: Devyn Messer MD @ 09/22/2020 05:32:35 (Electronically Signed)
[2020-09-22] MEDS: HYDROmorphone/Normal Saline 15 MG/30 ML PCA IV PRN (05:35)
[2020-09-22] MEDS: Metoclopramide 10 MG/2 ML SDV IVPUSH SCH ×3 (05:45→17:30)
[2020-09-22] MEDS: Lactobacillus Rhamnosus GG (Probiotic) Cap PO SCH ×2 (08:14→22:07)
[2020-09-22] MEDS: Insulin Lispro 100 Unit/ML 3 ML KwikPen SUBCUT SCH ×4 (08:15→21:19)
[2020-09-22] MEDS: metFORMIN 500 MG Tab PO SCH ×2 (08:15→17:27)
[2020-09-22] MEDS: glipiZIDE 5 MG Tab.ER PO SCH (08:15)
[2020-09-22] MEDS: Bisacodyl 5 MG Tab PO PRN (08:26)
[2020-09-22] MEDS: Magnesium Hydroxide 400 MG/5 ML Susp 30 ML Cup PO PRN (08:26)
--- NOTE | 2020-09-22 10:23 | PCM.PN ---
- General Info Date of Service: 09/22/20 Subjective Update: No acute events overnight. Patient continues to feel somewhat short of breath though her oxygenation is slowly improving. Saturations are in the upper nineties on 2 L of oxygen. She continues to have episodes of nausea but no vomiting. CAT scan of the chest this morning did show some residual fluid in the fissure between the right upper and right lower lobes. All of her cultures so far have been negative. White count is normal. No fevers. Functional Status: Reports: Pain Controlled - Review of Systems Pulmonary: Reports: Shortness of Breath, Pleuritic Chest Pain Gastrointestinal: Reports: Nausea - Patient Data Vitals - Most Recent: Last Vital Signs Temp 36.5 C 09/22/20 07:13 Pulse 67 09/22/20 07:13 Resp 18 09/22/20 07:13 BP 96/51 L 09/22/20 08:26 Pulse Ox 96 09/22/20 07:38 Weight - Most Recent: 93.621 kg I&O - Last 24 Hours: Intake & Output 09/21/20 09/22/20 09/22/20 22:59 06:59 14:59 Intake Total 2150 50 Output Total 1250 90 Balance 900 -40 Lab Results Last 24 Hours: Laboratory Results - last 24 hr 09/21/20 09/21/20 09/21/20 Range/Units 11:36 16:23 20:57 WBC (4.5-11.0) K/uL RBC (3.30-5.50) M/uL Hgb (12.0-15.0) g/dL Hct (36.0-48.0) % MCV (80-98) fL MCH (27-31) pg MCHC (32-36) % Plt Count (150-400) K/uL Sodium (140-148) mmol/L Potassium (3.6-5.2) mmol/L Chloride (100-108) mmol/L Carbon Dioxide (21-32) mmol/L Anion Gap (5.0-14.0) mmol/L BUN (7-18) mg/dL Creatinine (0.6-1.0) mg/dL Est Cr Clr Drug Dosing mL/min Estimated GFR (MDRD) (>60) Glucose (74-106) mg/dL POC Glucose 242 H 197 H 212 H (74-106) mg/dL Calcium (8.5-10.1) mg/dL C-Reactive Protein (0.0-0.3) mg/dL 09/21/20 09/22/20 09/22/20 Range/Units 21:00 05:00 05:00 WBC 8.4 (4.5-11.0) K/uL RBC 4.44 (3.30-5.50) M/uL Hgb 12.2 (12.0-15.0) g/dL Hct 38.5 (36.0-48.0) % MCV 87 (80-98) fL MCH 28 (27-31) pg MCHC 32 (32-36) % Plt Count 476 H (150-400) K/uL Sodium 140 (140-148) mmol/L Potassium 3.9 (3.6-5.2) mmol/L Chloride 100 (100-108) mmol/L Carbon Dioxide 32 (21-32) mmol/L Anion Gap 7.7 (5.0-14.0) mmol/L BUN 6 L (7-18) mg/dL Creatinine 0.6 (0.6-1.0) mg/dL Est Cr Clr Drug Dosing 114.97 mL/min Estimated GFR (MDRD) > 60 (>60) Glucose 183 H (74-106) mg/dL POC Glucose 212 H (74-106) mg/dL Calcium 8.5 (8.5-10.1) mg/dL C-Reactive Protein 3.09 H (0.0-0.3) mg/dL 09/22/20 Range/Units 07:30 WBC (4.5-11.0) K/uL RBC (3.30-5.50) M/uL Hgb (12.0-15.0) g/dL Hct (36.0-48.0) % MCV (80-98) fL MCH (27-31) pg MCHC (32-36) % Plt Count (150-400) K/uL Sodium (140-148) mmol/L Potassium (3.6-5.2) mmol/L Chloride (100-108) mmol/L Carbon Dioxide (21-32) mmol/L Anion Gap (5.0-14.0) mmol/L BUN (7-18) mg/dL Creatinine (0.6-1.0) mg/dL Est Cr Clr Drug Dosing mL/min Estimated GFR (MDRD) (>60) Glucose (74-106) mg/dL POC Glucose 159 H (74-106) mg/dL Calcium (8.5-10.1) mg/dL C-Reactive Protein (0.0-0.3) mg/dL Baldemar Results Last 24 Hours: Microbiology 09/20/20 12:03 Gram Stain - Final Pleural Fluid - Pleural Cavity, Right Wound Culture - Preliminary NO GROWTH AFTER 2 DAYS Anaerobic Culture - Preliminary NO GROWTH AFTER 2 DAYS Med Orders - Current: Current Medications Acetaminophen (Acetaminophen 325 Mg Tab) 650 mg PO Q4H PRN PRN Reason: Pain Last Admin: 09/19/20 22:52 Dose: 650 mg Documented by: Albuterol (Albuterol 0.083% 2.5 Mg/3 Ml Neb Soln) 2.5 mg NEB Q4H PRN PRN Reason: shortness of breath/wheezing Last Admin: 09/17/20 11:41 Dose: 2.5 mg Documented by: Benzonatate (Benzonatate 100 Mg Cap) 100 mg PO Q6H PRN PRN Reason: Cough Last Admin: 09/17/20 14:24 Dose: 100 mg Documented by: Bisacodyl (Bisacodyl 5 Mg Tab) 10 mg PO BID PRN PRN Reason: Constipation Last Admin: 09/22/20 08:26 Dose: 10 mg Documented by: Dextrose/Water (50% Dextrose In Water 50 Ml Syringe) 50 ml IVPUSH ASDIRECTED PRN PRN Reason: Hypoglycemia Glipizide (Glipizide 5 Mg Tab.Er) 10 mg PO DAILY DALJIT Last Admin: 09/22/20 08:15 Dose: 10 mg Documented by: Glucagon (Glucagon,Human Recombinant 1 Mg Vial) 1 mg IM ASDIRECTED PRN PRN Reason: Hypoglycemia Guaifenesin/Dextromethorphan (Guaifenesin/Dextromethorphan 100-10 Mg/5 Ml Soln 10 Ml Cup) 10 ml PO Q4H PRN PRN Reason: Cough Last Admin: 09/19/20 22:04 Dose: 10 ml Documented by: Hydromorphone HCl (Hydromorphone/Normal Saline 15 Mg/30 Ml Front End Software Engineer) 0 mg IV ASDIRECTED PRN; Protocol PRN Reason: Pain Last Admin: 09/22/20 05:35 Dose: 15 mg Documented by: Ceftazidime 1 gm/ Sodium (Chloride) 50 mls @ 100 mls/hr IV Q8H [facility] Last Admin: 09/22/20 03:05 Dose: 100 mls/hr Documented by: Levofloxacin/Dextrose 750 mg/ (Premix) 150 mls @ 100 mls/hr IV Q24H [facility] Last Admin: 09/21/20 12:36 Dose: 100 mls/hr Documented by: Ibuprofen (Ibuprofen 800 Mg Tab) 800 mg PO Q6H PRN PRN Reason: Pain (moderate 4-6) Last Admin: 09/19/20 22:53 Dose: 800 mg Documented by: Insulin Human Lispro (Insulin Lispro 100 Unit/Ml 3 Ml Kwikpen) 0 unit SUBCUT QIDACANDBED [facility]; Protocol Last Admin: 09/22/20 08:15 Dose: 3 units Documented by: Lactobacillus Rhamnosus (Lactobacillus Rhamnosus Gg (Probiotic) Cap) 1 cap PO BID [facility] Last Admin: 09/22/20 08:14 Dose: 1 cap Documented by: Lorazepam (Lorazepam 0.5 Mg Tab) 0.5 mg PO Q4H PRN PRN Reason: Anxiety Last Admin: 09/21/20 23:29 Dose: 0.5 mg Documented by: Magnesium Hydroxide (Magnesium Hydroxide 400 Mg/5 Ml Susp 30 Ml Cup) 30 ml PO BID PRN PRN Reason: Constipation Last Admin: 09/22/20 08:26 Dose: 30 ml Documented by: [facility] ([facility] 500 Mg [facility]) [facility] Admin: 09/22/20 08:15 Dose: 500 mg Documented by: Metoclopramide HCl (Metoclopramide 10 Mg/2 Ml Sdv) 10 mg IVPUSH Q6H [facility] Last Admin: 09/22/20 05:45 Dose: 10 mg Documented by: Naloxone HCl (Naloxone 0.4 Mg/Ml Sdv) 0.1 mg IV ASDIRECTED PRN PRN Reason: decreased respiratory rate Ondansetron HCl (Ondansetron 4 Mg/2 Ml Sdv) 4 mg IVPUSH Q4H PRN PRN Reason: Nausea/Vomiting Last Admin: 09/21/20 22:05 Dose: 4 mg Documented by: Ondansetron HCl (Ondansetron 4 Mg Tab.Dis) 4 mg PO Q4H PRN PRN Reason: Nausea/Vomiting Last Admin: 09/21/20 07:30 Dose: 4 mg Documented by: Oxycodone HCl (Oxycodone 5 Mg Tab) 5 - 10 mg PO Q4H PRN PRN Reason: Pain Last Admin: 09/19/20 21:57 Dose: 5 mg Documented by: Senna/Docusate Sodium (Docusate Sodium/Sennosides 50-8.6 Mg Tab) 1 tab PO Q12H PRN PRN Reason: Constipation Last Admin: 09/19/20 21:57 Dose: 1 tab Documented by: Sodium Biphosphate/Sodium Phosphate (Sodium Phosphate,Monobasic/Sodium Phosphate,Dibasic Enema 133 Ml Bottle) 133 ml RECTAL ONETIME PRN PRN Reason: Constipation Sodium Chloride (Sodium Chloride 0.9% 10 Ml Syringe) 10 ml FLUSH ASDIRECTED PRN PRN Reason: Keep Vein Open Discontinued Medications Hydrocodone Bitart/Acetaminophen (Acetaminophen/Hydrocodone 325-10 Mg Tab) 1 tab PO Q4H PRN PRN Reason: Pain Last Admin: 09/18/20 08:08 Dose: 1 tab Documented by: Azithromycin (Azithromycin 250 Mg Tab) 250 mg PO BEDTIME DALJIT Azithromycin (Azithromycin 250 Mg Tab) 500 mg PO ONETIME ONE Stop: 09/15/20 23:58 Last Admin: 09/16/20 00:35 Dose: 500 mg Documented by: Bisacodyl (Bisacodyl 10 Mg Supp) 10 mg RECTAL ONETIME ONE Stop: 09/21/20 18:10 Last Admin: 09/21/20 18:41 Dose: 10 mg Documented by: Bupivacaine HCl/Epinephrine Bitart (Bupivacaine 0.5%/Epinephrine 1:200,000 50 Ml Mdv) 15 ml INJECT .STK-MED ONE Stop: 09/20/20 10:51 Last Admin: 09/20/20 10:50 Dose: 15 ml Documented by: Diphenhydramine HCl (Diphenhydramine 50 Mg/Ml Sdv) 50 mg IVPUSH ONETIME ONE Stop: 09/15/20 20:02 Last Admin: 09/15/20 20:07 Dose: 50 mg Documented by: Diphenhydramine HCl (Diphenhydramine 50 Mg/Ml Sdv) 50 mg IVPUSH ONETIME ONE Stop: 09/19/20 12:15 Last Admin: 09/19/20 13:17 Dose: 50 mg Documented by: Fentanyl (Fentanyl 100 Mcg/2 Ml Sdv) Confirm Administered Dose 100 mcg .ROUTE .STK-MED ONE Stop: 09/17/20 08:32 Fentanyl (Fentanyl 100 Mcg/2 Ml Sdv) Confirm Administered Dose 100 mcg .ROUTE .STK-MED ONE Stop: 09/20/20 07:49 Glipizide (Glipizide 5 Mg Tab.Er) 5 mg PO DAILY [facility] Last Admin: 09/21/20 09:06 Dose: 5 mg Documented by: Hydromorphone HCl (Hydromorphone 0.5 Mg/0.5 Ml Syringe) 0.5 mg IVPUSH Q4H PRN PRN Reason: Pain (severe 7-10) Sodium Chloride (Normal Saline) 1,000 mls @ 999 mls/hr IV ASDIRECTED [facility] Last Admin: 09/15/20 17:16 Dose: 999 mls/hr Documented by: Sodium Chloride (Normal Saline) 100 mls @ 4 mls/sec IV ASDIRECTED [facility] Last Admin: 09/15/20 20:37 Dose: 4 mls/sec Documented by: Ceftriaxone Sodium 1 gm/ (Sodium Chloride) 50 mls @ 100 mls/hr IV ONETIME ONE Stop: 09/15/20 22:18 Last Admin: 09/15/20 22:07 Dose: 100 mls/hr Documented by: Ceftriaxone Sodium 1 gm/ (Sodium Chloride) 50 mls @ 100 mls/hr IV Q24H [facility] Last Admin: 09/16/20 00:16 Dose: Not Given Documented by: Ceftriaxone Sodium 1 gm/ (Sodium Chloride) 50 mls @ 100 mls/hr IV Q24H [facility] Sodium Chloride (Normal Saline) 1,000 mls @ 100 mls/hr IV ASDIRECTED [facility] Last Admin: 09/17/20 09:53 Dose: 100 mls/hr Documented by: Doxycycline Hyclate 100 mg/ (Sodium Chloride) 100 mls @ 100 mls/hr IV Q12H [facility] Last Admin: 09/18/20 11:23 Dose: 100 mls/hr Documented by: Sodium Chloride (Normal Saline) 1,000 mls @ 25 mls/hr IV ASDIRECTED [facility] Last Admin: 09/17/20 11:59 Dose: 25 mls/hr Documented by: Potassium Chloride 20 meq/Lidocaine HCl 2 ml/ Sodium Chloride 112 mls @ 56 mls/hr IV Q2H [facility] Stop: 09/18/20 17:29 Last Admin: 09/18/20 20:39 Dose: 56 mls/hr Documented by: Vancomycin HCl 1.5 gm/ Sodium (Chloride) 250 mls @ 167 mls/hr IV Q12H [facility] Last Admin: 09/19/20 02:40 Dose: 167 mls/hr Documented by: Sodium Chloride (Normal Saline) 75 mls @ 3 mls/sec IV ONETIME ONE Stop: 09/19/20 13:09 Last Admin: 09/19/20 16:29 Dose: Not Given Documented by: Vancomycin HCl 1.5 gm/ Sodium (Chloride) 250 mls @ 167 mls/hr IV Q12H [facility] Last Admin: 09/20/20 01:38 Dose: 167 mls/hr Documented by: Vancomycin HCl 1.5 gm/ Sodium (Chloride) 250 mls @ 167 mls/hr IV Q8H [facility] Last Admin: 09/21/20 07:30 Dose: 167 mls/hr Documented by: Insulin Human Lispro (Insulin Lispro 100 Unit/Ml 3 Ml Kwikpen) 0 unit SUBCUT QIDACANDBED [facility]; Protocol Last Admin: 09/19/20 11:57 Dose: 6 unit Documented by: Insulin Human Lispro (Insulin Lispro 100 Unit/Ml 3 Ml Kwikpen) 8 unit SUBCUT ONETIME ONE Stop: 09/16/20 09:31 Last Admin: 09/16/20 09:59 Dose: 8 units Documented by: Insulin Human Lispro (Insulin Lispro 100 Unit/Ml 3 Ml Kwikpen) 12 unit SUBCUT ONETIME ONE Stop: 09/16/20 11:56 Last Admin: 09/16/20 12:04 Dose: 12 units Documented by: Insulin Human Lispro (Insulin Lispro 100 Units/Ml 3 Ml Vial) 15 unit SUBCUT ONETIME ONE Stop: 09/16/20 16:28 Last Admin: 09/16/20 16:45 Dose: 15 units Documented by: Iopamidol (Iopamidol 755 Mg/Ml 100 Ml Bottle) 100 ml IV . DIRECTED [facility] Last Admin: 09/15/20 20:36 Dose: 100 ml Documented by: Iopamidol (Iopamidol 612 Mg/Ml 100 Ml Bottle) 100 ml IV . DIRECTED PRN PRN Reason: RADIOLOGY EXAM Stop: 09/19/20 13:09 Ketorolac Tromethamine (Ketorolac 30 Mg/Ml Sdv) 30 mg IVPUSH ONETIME ONE Stop: 09/15/20 16:59 Last Admin: 09/15/20 17:16 Dose: 30 mg Documented by: Ketorolac Tromethamine (Ketorolac 30 Mg/Ml Sdv) 30 mg IVPUSH Q8H PRN PRN Reason: Pain Stop: 09/20/20 23:14 Last Admin: 09/16/20 05:27 Dose: 30 mg Documented by: Lidocaine (Lidocaine 4% Top Soln Lta 4 Ml Syringe Kit) Confirm Administered Dose 4 ml .ROUTE .STK-MED ONE Stop: 09/17/20 08:33 Lidocaine (Lidocaine 4% Top Soln Lta 4 Ml Syringe Kit) Confirm Administered Dose 4 ml .ROUTE .STK-MED ONE Stop: 09/17/20 08:34 Lidocaine HCl (Lidocaine 2% Viscous Solution 15 Ml Cup) Confirm Administered Dose 15 ml .ROUTE .STK-MED ONE Stop: 09/17/20 07:32 Lidocaine HCl (Lidocaine 4% Top Soln 50 Ml Bottle) Confirm Administered Dose 50 ml .ROUTE .STK-MED ONE Stop: 09/17/20 07:33 Magnesium Citrate (Magnesium Citrate Solution 296 Ml Bottle) 296 ml PO ONETIME ONE Stop: 09/21/20 18:10 Last Admin: 09/21/20 18:41 Dose: 296 ml Documented by: Methylprednisolone Sodium Succinate (Methylprednisolone Sodium Succinate 125 Mg/2 Ml Sdv) 125 mg IVPUSH ONETIME ONE Stop: 09/15/20 20:02 Last Admin: 09/15/20 20:09 Dose: 125 mg Documented by: Methylprednisolone Sodium Succinate (Methylprednisolone Sodium Succinate 125 Mg/2 Ml Sdv) 125 mg IVPUSH ONETIME ONE Stop: 09/19/20 12:14 Last Admin: 09/19/20 13:17 Dose: 125 mg Documented by: Midazolam HCl (Midazolam 1 Mg/Ml 2 Ml Sdv) Confirm Administered Dose 2 mg .ROUTE .STK-MED ONE Stop: 09/17/20 08:32 Midazolam HCl (Midazolam 1 Mg/Ml 2 Ml Sdv) Confirm Administered Dose 2 mg .ROUTE .STK-MED ONE Stop: 09/20/20 07:49 Morphine Sulfate (Morphine 2 Mg/Ml Syringe) 2 mg IVPUSH ONETIME ONE Stop: 09/15/20 17:38 Last Admin: 09/15/20 17:51 Dose: 2 mg Documented by: Morphine Sulfate (Morphine 2 Mg/Ml Syringe) 2 mg IVPUSH ONETIME ONE Stop: 09/15/20 21:51 Last Admin: 09/15/20 22:01 Dose: 2 mg Documented by: Morphine Sulfate (Morphine 2 Mg/Ml Syringe) 2 mg IVPUSH Q2H PRN PRN Reason: Pain (severe 7-10) Last Admin: 09/17/20 17:55 Dose: 2 mg Documented by: Nicotine (Nicotine 21 Mg/24 Hr Patch) 21 mg TRDERM DAILY DALJIT Last Admin: 09/21/20 09:06 Dose: Not Given Documented by: Propofol (Propofol 200 Mg/20 Ml Sdv) Confirm Administered Dose 200 mg .ROUTE .STK-MED ONE Stop: 09/17/20 08:32 Propofol (Propofol 200 Mg/20 Ml Sdv) Confirm Administered Dose 200 mg .ROUTE .STK-MED ONE Stop: 09/20/20 07:49 Propofol (Propofol 200 Mg/20 Ml Sdv) Confirm Administered Dose 200 mg .ROUTE .STK-MED ONE Stop: 09/20/20 11:08 Sodium Chloride (Sodium Chloride 0.9% 10 Ml Syringe) 10 ml FLUSH ONETIME ONE Stop: 09/15/20 20:08 Last Admin: 09/15/20 20:36 Dose: 10 ml Documented by: Sodium Chloride (Sodium Chloride 0.9% 10 Ml Syringe) 10 ml FLUSH ONETIME PRN PRN Reason: PER RADIOLOGY PROTOCOL Stop: 09/19/20 13:09 - Exam Quality Assessment: Supplemental Oxygen General: Alert, Oriented, Cooperative, No Acute Distress Lungs: Normal Respiratory Effort, Crackles (few right lower lung ) Cardiovascular: Regular Rate, Regular Rhythm GI/Abdominal Exam: Soft, No Distention, Tender (mild generalized ) Extremities: No Pedal Edema. No: Increased Warmth Skin: Warm, Dry Psy/Mental Status: Alert, Normal Affect - Patient Data Lab Results Last 24 hrs: Laboratory Results - last 24 hr 09/21/20 09/21/20 09/21/20 Range/Units 11:36 16:23 20:57 WBC (4.5-11.0) K/uL RBC (3.30-5.50) M/uL Hgb (12.0-15.0) g/dL Hct (36.0-48.0) % MCV (80-98) fL MCH (27-31) pg MCHC (32-36) % Plt Count (150-400) K/uL Sodium (140-148) mmol/L Potassium (3.6-5.2) mmol/L Chloride (100-108) mmol/L Carbon Dioxide (21-32) mmol/L Anion Gap (5.0-14.0) mmol/L BUN (7-18) mg/dL Creatinine (0.6-1.0) mg/dL Est Cr Clr Drug Dosing mL/min Estimated GFR (MDRD) (>60) Glucose (74-106) mg/dL POC Glucose 242 H 197 H 212 H (74-106) mg/dL Calcium (8.5-10.1) mg/dL C-Reactive Protein (0.0-0.3) mg/dL 09/21/20 09/22/20 09/22/20 Range/Units 21:00 05:00 05:00 WBC 8.4 (4.5-11.0) K/uL RBC 4.44 (3.30-5.50) M/uL Hgb 12.2 (12.0-15.0) g/dL Hct 38.5 (36.0-48.0) % MCV 87 (80-98) fL MCH 28 (27-31) pg MCHC 32 (32-36) % Plt Count 476 H (150-400) K/uL Sodium 140 (140-148) mmol/L Potassium 3.9 (3.6-5.2) mmol/L Chloride 100 (100-108) mmol/L Carbon Dioxide 32 (21-32) mmol/L Anion Gap 7.7 (5.0-14.0) mmol/L BUN 6 L (7-18) mg/dL Creatinine 0.6 (0.6-1.0) mg/dL Est Cr Clr Drug Dosing 114.97 mL/min Estimated GFR (MDRD) > 60 (>60) Glucose 183 H (74-106) mg/dL POC Glucose 212 H (74-106) mg/dL Calcium 8.5 (8.5-10.1) mg/dL C-Reactive Protein 3.09 H (0.0-0.3) mg/dL 09/22/20 Range/Units 07:30 WBC (4.5-11.0) K/uL RBC (3.30-5.50) M/uL Hgb (12.0-15.0) g/dL Hct (36.0-48.0) % MCV (80-98) fL MCH (27-31) pg MCHC (32-36) % Plt Count (150-400) K/uL Sodium (140-148) mmol/L Potassium (3.6-5.2) mmol/L Chloride (100-108) mmol/L Carbon Dioxide (21-32) mmol/L Anion Gap (5.0-14.0) mmol/L BUN (7-18) mg/dL Creatinine (0.6-1.0) mg/dL Est Cr Clr Drug Dosing mL/min Estimated GFR (MDRD) (>60) Glucose (74-106) mg/dL POC Glucose 159 H (74-106) mg/dL Calcium (8.5-10.1) mg/dL C-Reactive Protein (0.0-0.3) mg/dL Result Diagrams: 09/22/20 05:00 09/22/20 05:00 Baldemar Results Last 24 hrs: Microbiology 09/20/20 12:03 Gram Stain - Final Pleural Fluid - Pleural Cavity, Right Wound Culture - Preliminary NO GROWTH AFTER 2 DAYS Anaerobic Culture - Preliminary NO GROWTH AFTER 2 DAYS Sepsis Event Note - Evaluation Sepsis Screening Result: No Definite Risk - Focused Exam Vital Signs: Vital Signs Temp Temp Pulse Resp BP Pulse Ox 09/22/20 08:26 96/51 L 09/22/20 07:38 96 09/22/20 07:13 36.5 C 67 18 85/51 L 95 09/22/20 03:08 36.2 C 80 18 98/56 L 96 09/22/20 00:55 96 09/21/20 22:41 36.4 C 85 16 95/45 L 97 - Problem List Review Problem List Initiated/Reviewed/Updated: Yes - My Orders Last 24 Hours: My Active Orders 09/21/20 09:50 bisacodyL [Dulcolax] 10 mg PO BID PRN 09/22/20 07:30 GLUCOSE POC LAB TO COLLECT JPM [POC] QIDACANDBED 09/22/20 09:00 glipiZIDE [Glucotrol XL] 10 mg PO DAILY 09/22/20 10:22 Ambulate [RC] QID 09/22/20 11:30 GLUCOSE POC LAB TO COLLECT JPM [POC] QIDACANDBED 09/22/20 Lunch Consistent Carbohydrate Diet [DIET] 09/22/20 16:30 GLUCOSE POC LAB TO COLLECT JPM [POC] QIDACANDBED 09/22/20 Dinner NPO After Midnight [Nothing per Oral After Midnight Diet] [DIET] 09/22/20 21:00 GLUCOSE POC LAB TO COLLECT JPM [POC] QIDACANDBED 09/23/20 05:00 Chest 1V Frontal [CR] DAILY 09/23/20 07:30 GLUCOSE POC LAB TO COLLECT JPM [POC] QIDACANDBED 09/23/20 11:30 GLUCOSE POC LAB TO COLLECT JPM [POC] QIDACANDBED 09/23/20 16:30 GLUCOSE POC LAB TO COLLECT JPM [POC] QIDACANDBED 09/23/20 21:00 GLUCOSE POC LAB TO COLLECT JPM [POC] QIDACANDBED 09/24/20 05:00 Chest 1V Frontal [CR] DAILY 09/24/20 07:30 GLUCOSE POC LAB TO COLLECT JPM [POC] QIDACANDBED 09/24/20 11:30 GLUCOSE POC LAB TO COLLECT JPM [POC] QIDACANDBED 09/24/20 16:30 GLUCOSE POC LAB TO COLLECT JPM [POC] QIDACANDBED 09/24/20 21:00 GLUCOSE POC LAB TO COLLECT JPM [POC] QIDACANDBED 09/25/20 05:00 Chest 1V Frontal [CR] DAILY 09/25/20 07:30 GLUCOSE POC LAB TO COLLECT JPM [POC] QIDACANDBED 09/25/20 11:30 GLUCOSE POC LAB TO COLLECT JPM [POC] QIDACANDBED 09/25/20 16:30 GLUCOSE POC LAB TO COLLECT JPM [POC] QIDACANDBED 09/25/20 21:00 GLUCOSE POC LAB TO COLLECT JPM [POC] QIDACANDBED 09/26/20 05:00 Chest 1V Frontal [CR] DAILY 09/26/20 07:30 GLUCOSE POC LAB TO COLLECT JPM [POC] QIDACANDBED 09/26/20 11:30 GLUCOSE POC LAB TO COLLECT JPM [POC] QIDACANDBED 09/26/20 16:30 GLUCOSE POC LAB TO COLLECT JPM [POC] QIDACANDBED 09/26/20 21:00 GLUCOSE POC LAB TO COLLECT JPM [POC] QIDACANDBED 09/27/20 07:30 GLUCOSE POC LAB TO COLLECT JPM [POC] QIDACANDBED 09/27/20 11:30 GLUCOSE POC LAB TO COLLECT JPM [POC] QIDACANDBED 09/27/20 16:30 GLUCOSE POC LAB TO COLLECT JPM [POC] QIDACANDBED - Plan Plan:: ASSESSMENT AND PLAN - Persistent right lower lobe pneumonia-complicated by acute respiratory failure with hypoxia and a right pleural effusion that is partially loculated. Chest tube placed 09/20. She has had about 300 mL of output since insertion. Still has some loculated effusion left and a surgical intervention is planned for tomorrow morning. She does seem to be slowly improving. Cultures have all been negative. -Surgical follow-up for chest tube management appreciated -Antibiotic coverage with ceftazidime and levofloxacin -As needed nebulizers -Symptomatic management of cough and pain -Follow-up cultures Nausea with vomiting-likely related to infection and is better but not resolved. -Symptomatic management of nausea, treat infection as above Type 2 diabetes mellitus-sugars moderately elevated at this time. Hemoglobin A1c was 10. I did increase her glipizide to 10 mg. -Continue home medications with dose increase noted -High-dose sliding scale insulin -Consider addition of a long-acting insulin -Diabetic education Maintenance issues - -DVT prophylaxis-SCD -GI prophylaxis-not indicated -Nutrition-consistent carbohydrate -Chavira catheter-not indicated Disposition -I anticipate discharge home after the hospital stay, I would anticipate several more days here in the hospital before discharge home Rishi Strange M.D.
[2020-09-22] MEDS: Levofloxacin/Dextrose 5%-Water 750 MG in Premix Bag 1 BAG IV SCH (13:31)
[2020-09-22] MEDS: Ondansetron 4 MG Tab.DIS PO PRN (19:14)
[2020-09-22] MEDS: LORazepam 0.5 MG Tab PO PRN (23:34)
[2020-09-23] MEDS: Metoclopramide 10 MG/2 ML SDV IVPUSH SCH ×6 (01:37→23:39)
[2020-09-23] MEDS: LORazepam 0.5 MG Tab PO PRN ×2 (06:22→21:42)
[2020-09-23] MEDS ORDERED: Bupivacaine 0.5%/EPINEPHrine 1:200,000 50 ML MDV ONE (06:52)
[2020-09-23] MEDS ORDERED: Ondansetron 4 MG/2 ML SDV ONE (07:01)
[2020-09-23] MEDS ORDERED: Dexamethasone 4 MG/ML SDV ONE (07:01)
[2020-09-23] MEDS ORDERED: Succinylcholine 200 MG/10 ML MDV ONE (07:01)
[2020-09-23] MEDS ORDERED: Neostigmine Methylsulfate 1 MG/ML 5 ML Syringe ONE (07:01)
[2020-09-23] MEDS ORDERED: Glycopyrrolate 0.2 MG/ML 5 ML MDV ONE (07:01)
[2020-09-23] MEDS ORDERED: Rocuronium 50 MG/5 ML Vial ONE (07:01)
[2020-09-23] MEDS ORDERED: Propofol 200 MG/20 ML SDV ONE (07:01)
[2020-09-23] MEDS ORDERED: fentaNYL 250 MCG/5 ML SDV ONE (07:03)
[2020-09-23] MEDS ORDERED: Meropenem 500 MG SDV IRR ONE (07:30)
[2020-09-23] MEDS ORDERED: Meropenem 500 MG SDV ONE ×2 (07:43→11:29)
[2020-09-23] MEDS ORDERED: Bupivacaine 0.5%/EPINEPHrine 1:200,000 30 ML SDV INJECT ONE (08:00)
--- NOTE | 2020-09-23 08:11 | PN ---
DATE OF SERVICE: 09/23/2020 SUBJECTIVE: Mally's x-ray did not show any improvement after the chest tube was placed on 09/20/2020. She is n.p.o. for a thoracotomy today. OBJECTIVE: GENERAL: Mally is a 44-year-old female. Color flushed. VITAL SIGNS: TPR is 97.3, 79, 16, blood pressure 99/64. HEENT: Negative. NECK: Supple. HEART: Regular rate and rhythm. LUNGS: Reveal decreased breath sounds in the left, mid, and lower lobes. ABDOMEN: Soft, nontender. EXTREMITIES: Without peripheral edema. ASSESSMENT: 1. Placement of chest tube, 09/20/2020. 2. Bronchoscopy, 09/17/2020. PLAN: Orders to be written after operative procedure. We will evaluate p.r.n. or in a.m. Sharon Banda PA-C /[id number]
[2020-09-23] MEDS ORDERED: Lactated Ringers 1,000 ML ONE (08:13)
[2020-09-23] MEDS ORDERED: hydrOXYzine HCL 100 MG/2 ML SDV IM ONE (09:24)
[2020-09-23] MEDS ORDERED: fentaNYL 100 MCG/2 ML SDV IVPUSH ONE (09:24)
[2020-09-23] MEDS ORDERED: Ketorolac 30 MG/ML SDV IM ONE (09:33)
[2020-09-23] MEDS ORDERED: Acetaminophen 1,000 MG in Premix Bag 1 BAG IV ONE (10:00)
[2020-09-23] MEDS ORDERED: hydrOXYzine HCL 100 MG/2 ML SDV IM PRN (10:53)
--- NOTE | 2020-09-23 11:26 | CR ---
CHEST: Portable 221 at 4:40 AM CLINICAL HISTORY:Chest tube, loculated pleural effusion COMPARISON:09/21/2020 FINDINGS: Right-sided chest tube remains in place unchanged in position. There is improved aeration in the right lower lung field with some residual lower lobe density. There is minimal blunting the left costophrenic angle similar to prior study. Impression: Right chest tube remains in place Improved aeration in the right lower lobe when compared to prior study
[2020-09-23] MEDS: Insulin Lispro 100 Unit/ML 3 ML KwikPen SUBCUT SCH ×4 (11:29→21:43)
[2020-09-23] MEDS ORDERED: Sodium Chloride 0.9% 10 ML ONE (11:29)
[2020-09-23] MEDS: metFORMIN 500 MG Tab PO SCH ×2 (11:29→16:16)
--- NOTE | 2020-09-23 11:29 | CR ---
CHEST: Portable 10-12 at 9:29 AM CLINICAL HISTORY:Post thoroscopy COMPARISON:Earlier on 09/23/2020 FINDINGS: Medial right chest tube is been replaced with 2 more lateral positioned chest tubes. There is persistent airspace disease in the right lower lung field similar to prior study. IMPRESSION: [address] post thoroscopy
[2020-09-23] MEDS: Levofloxacin/Dextrose 5%-Water 750 MG in Premix Bag 1 BAG IV SCH (12:25)
[2020-09-23] MEDS: glipiZIDE 5 MG Tab.ER PO SCH (13:40)
[2020-09-23] MEDS: Lactobacillus Rhamnosus GG (Probiotic) Cap PO SCH ×2 (13:40→20:33)
--- NOTE | 2020-09-23 15:31 | PCM.PN ---
- General Info Date of Service: 09/23/20 Subjective Update: Ms. Nash underwent thoracotomy earlier today because of loculated effusion and possibility of ongoing infection. She is stable in the immediate postoperative period although somewhat sleepy and lethargic secondary to general anesthetic. Functional Status: Reports: Tolerating Diet, Urinating - Review of Systems General: Reports: Weakness, Fatigue. Denies: Fever, Chills Pulmonary: Reports: No Symptoms Cardiovascular: Reports: No Symptoms Gastrointestinal: Reports: No Symptoms - Patient Data Vitals - Most Recent: Last Vital Signs Temp 97.7 F 09/23/20 15:04 Pulse 81 09/23/20 15:04 Resp 18 09/23/20 15:04 BP 93/44 L 09/23/20 15:04 Pulse Ox 98 09/23/20 15:04 Weight - Most Recent: 206 lb 6.383 oz I&O - Last 24 Hours: Intake & Output 09/23/20 09/23/20 09/23/20 06:59 14:59 22:59 Intake Total 600 Output Total 25 150 Balance 575 -150 Lab Results Last 24 Hours: Laboratory Results - last 24 hr 09/20/20 09/22/20 09/22/20 Range/Units 11:25 16:33 20:55 POC Glucose 203 H 119 H (74-106) mg/dL Fluid Diff Comment Qc ok 09/23/20 09/23/20 Range/Units 07:13 11:34 POC Glucose 205 H 292 H (74-106) mg/dL Fluid Diff Comment Baldemar Results Last 24 Hours: Microbiology 09/17/20 11:50 Fungal Culture - Preliminary Bronchial Alveolar Lavage - Right Lower Lobe YEAST 09/17/20 11:41 Fungal Culture - Preliminary Tracheal Washings YEAST 09/23/20 08:24 Gram Stain - Final Thoracentesis Fluid - Right 09/23/20 08:24 Gram Stain - Final Pleural Fluid - Pleural Cavity, Right 09/23/20 08:24 RADHA Preparation - Final Other - Tissue 09/23/20 08:24 RADHA Preparation - Final Other - Pleural Cavity, Right 09/20/20 12:03 Fungal Culture - Preliminary Pleural Fluid - Pleural Cavity, Right NO FUNGAL GROWTH AT 1 WEEK 09/17/20 11:50 Fungal Culture - Preliminary Bronchial Alveolar Lavage - Right Lower Lobe NO FUNGAL GROWTH AT 1 WEEK 09/20/20 12:03 Gram Stain - Final Pleural Fluid - Pleural Cavity, Right Wound Culture - Final NO GROWTH AFTER 3 DAYS Anaerobic Culture - Final NO GROWTH AFTER 3 DAYS 09/20/20 12:03 AFB Specimen Processing Tissue - Final Pleural Fluid - Pleural Cavity, Right Acid Fast Bacilli Smear - Final Acid Fast Bacilli Culture - Preliminary Med Orders - Current: Current Medications Acetaminophen (Acetaminophen 500 Mg Tab) 1,000 mg PO Q6H [facility] Albuterol (Albuterol 0.083% 2.5 Mg/3 Ml Neb Soln) 2.5 mg NEB Q4H PRN PRN Reason: shortness of breath/wheezing Last Admin: 09/17/20 11:41 Dose: 2.5 mg Documented by: Benzonatate (Benzonatate 100 Mg Cap) 100 mg PO Q6H PRN PRN Reason: Cough Last Admin: 09/17/20 14:24 Dose: 100 mg Documented by: Bisacodyl (Bisacodyl 5 Mg Tab) 10 mg PO BID PRN PRN Reason: Constipation Last Admin: 09/22/20 08:26 Dose: 10 mg Documented by: Dextrose/Water (50% Dextrose In Water 50 Ml Syringe) 50 ml IVPUSH ASDIRECTED PRN PRN Reason: Hypoglycemia Glipizide (Glipizide 5 Mg Tab.Er) 10 mg PO DAILY [facility] Last Admin: 09/23/20 13:40 Dose: Not Given Documented by: Glucagon (Glucagon,Human Recombinant 1 Mg Vial) 1 mg IM ASDIRECTED PRN PRN Reason: Hypoglycemia Guaifenesin/Dextromethorphan (Guaifenesin/Dextromethorphan 100-10 Mg/5 Ml Soln 10 Ml Cup) 10 ml PO Q4H PRN PRN Reason: Cough Last Admin: 09/19/20 22:04 Dose: 10 ml Documented by: Hydromorphone HCl (Hydromorphone/Normal Saline 15 Mg/30 Ml Bulb Assembler) 0 mg IV ASDIRECTED PRN; Protocol PRN Reason: [employer] PAIN [employer]OL Hydroxyzine HCl (Hydroxyzine Hcl 100 Mg/2 Ml Sdv) 100 mg IM Q4H PRN PRN Reason: BREAKTHROUGH PAIN Ceftazidime 1 gm/ Sodium (Chloride) 50 mls @ 100 mls/hr IV Q8H [facility] Last Admin: 09/23/20 11:53 Dose: 100 mls/hr Documented by: Levofloxacin/Dextrose 750 mg/ (Premix) 150 mls @ 100 mls/hr IV Q24H [facility] Last Admin: 09/23/20 12:25 Dose: 100 mls/hr Documented by: Dextrose/Lactated Ringer's (Dextrose 5%-Lactated Ringers) 1,000 mls @ 150 mls/hr IV ASDIRECTED [facility] Ibuprofen (Ibuprofen 600 Mg Tab) 600 mg PO Q6H [facility] Insulin Human Lispro (Insulin Lispro 100 Unit/Ml 3 Ml Kwikpen) 0 unit SUBCUT QIDACANDBED [facility]; Protocol Last Admin: 09/23/20 11:35 Dose: 9 units Documented by: Lactobacillus Rhamnosus (Lactobacillus Rhamnosus Gg (Probiotic) Cap) 1 cap PO BID [facility] Last Admin: 09/23/20 13:40 Dose: Not Given Documented by: Lorazepam (Lorazepam 0.5 Mg Tab) 0.5 mg PO Q4H PRN PRN Reason: Anxiety Last Admin: 09/23/20 06:22 Dose: 0.5 mg Documented by: Magnesium Hydroxide (Magnesium Hydroxide 400 Mg/5 Ml Susp 30 Ml Cup) 30 ml PO BID PRN PRN Reason: Constipation Last Admin: 09/22/20 08:26 Dose: 30 ml Documented by: Metformin HCl (Metformin 500 Mg Tab) 500 mg PO BIDAKALS [facility] Last Admin: 09/23/20 11:29 Dose: Not Given Documented by: Metoclopramide HCl (Metoclopramide 10 Mg/2 Ml Sdv) 10 mg IVPUSH Q6H [facility] Last Admin: 09/23/20 11:58 Dose: 10 mg Documented by: Naloxone HCl (Naloxone 0.4 Mg/Ml Sdv) 0.1 mg IV ASDIRECTED PRN PRN Reason: decreased respiratory rate Ondansetron HCl (Ondansetron 4 Mg/2 Ml Sdv) 4 mg IVPUSH Q4H PRN PRN Reason: Nausea/Vomiting Last Admin: 09/21/20 22:05 Dose: 4 mg Documented by: Ondansetron HCl (Ondansetron 4 Mg Tab.Dis) 4 mg PO Q4H PRN PRN Reason: Nausea/Vomiting Last Admin: 09/22/20 19:14 Dose: 4 mg Documented by: Oxycodone HCl (Oxycodone 5 Mg Tab) 5 - 10 mg PO Q4H PRN PRN Reason: Pain Last Admin: 09/19/20 21:57 Dose: 5 mg Documented by: Senna/Docusate Sodium (Docusate Sodium/Sennosides 50-8.6 Mg Tab) 1 tab PO Q12H PRN PRN Reason: Constipation Last Admin: 09/19/20 21:57 Dose: 1 tab Documented by: Sodium Biphosphate/Sodium Phosphate (Sodium Phosphate,Monobasic/Sodium Phosphate,Dibasic Enema 133 Ml Bottle) 133 ml RECTAL ONETIME PRN PRN Reason: Constipation Sodium Chloride (Sodium Chloride 0.9% 10 Ml Syringe) 10 ml FLUSH ASDIRECTED PRN PRN Reason: Keep Vein Open Discontinued Medications Acetaminophen (Acetaminophen 325 Mg Tab) 650 mg PO Q4H PRN PRN Reason: Pain Last Admin: 09/19/20 22:52 Dose: 650 mg Documented by: Hydrocodone Bitart/Acetaminophen (Acetaminophen/Hydrocodone 325-10 Mg Tab) 1 tab PO Q4H PRN PRN Reason: Pain Last Admin: 09/18/20 08:08 Dose: 1 tab Documented by: Azithromycin (Azithromycin 250 Mg Tab) 250 mg PO BEDTIME [facility]ALJIT Azithromycin (Azithromycin 250 Mg Tab) 500 mg PO ONETIME ONE Stop: 09/15/20 23:58 Last Admin: 09/16/20 00:35 Dose: 500 mg Documented by: Bisacodyl (Bisacodyl 10 Mg Supp) 10 mg RECTAL ONETIME ONE Stop: 09/21/20 18:10 Last Admin: 09/21/20 18:41 Dose: 10 mg Documented by: Bupivacaine HCl/Epinephrine Bitart (Bupivacaine 0.5%/Epinephrine 1:200,000 50 Ml Mdv) 15 ml INJECT .STK-MED ONE Stop: 09/20/20 10:51 Last Admin: 09/20/20 10:50 Dose: 15 ml Documented by: Bupivacaine HCl/Epinephrine Bitart (Bupivacaine 0.5%/Epinephrine 1:200,000 50 Ml Mdv) Confirm Administered Dose 50 ml .ROUTE .STK-MED ONE Stop: 09/23/20 06:53 Bupivacaine HCl/Epinephrine Bitart (Bupivacaine 0.5%/Epinephrine 1:200,000 30 Ml Sdv) 20 ml INJECT .STK-MED ONE Stop: 09/23/20 08:01 Last Admin: 09/23/20 08:00 Dose: 20 ml Documented by: Dexamethasone (Dexamethasone 4 Mg/Ml Sdv) Confirm Administered Dose 4 mg .ROUTE .STK-MED ONE Stop: 09/23/20 07:02 Diphenhydramine HCl (Diphenhydramine 50 Mg/Ml Sdv) 50 mg IVPUSH ONETIME ONE Stop: 09/15/20 20:02 Last Admin: 09/15/20 20:07 Dose: 50 mg Documented by: Diphenhydramine HCl (Diphenhydramine 50 Mg/Ml Sdv) 50 mg IVPUSH ONETIME ONE Stop: 09/19/20 12:15 Last Admin: 09/19/20 13:17 Dose: 50 mg Documented by: Fentanyl (Fentanyl 100 Mcg/2 Ml Sdv) Confirm Administered Dose 100 mcg .ROUTE .STK-MED ONE Stop: 09/17/20 08:32 Fentanyl (Fentanyl 100 Mcg/2 Ml Sdv) Confirm Administered Dose 100 mcg .ROUTE .STK-MED ONE Stop: 09/20/20 07:49 Fentanyl (Fentanyl 250 Mcg/5 Ml Sdv) Confirm Administered Dose 250 mcg .ROUTE .STK-MED ONE Stop: 09/23/20 07:04 Fentanyl (Fentanyl 100 Mcg/2 Ml Sdv) 50 mcg IVPUSH ONETIME ONE Stop: 09/23/20 09:25 Last Admin: 09/23/20 09:28 Dose: 50 mcg Documented by: Glipizide (Glipizide 5 Mg Tab.Er) 5 mg PO DAILY [facility] Last Admin: 09/21/20 09:06 Dose: 5 mg Documented by: Glycopyrrolate (Glycopyrrolate 0.2 Mg/Ml 5 Ml Mdv) Confirm Administered Dose 1 mg .ROUTE .STK-MED ONE Stop: 09/23/20 07:02 Hydromorphone HCl (Hydromorphone 0.5 Mg/0.5 Ml Syringe) 0.5 mg IVPUSH Q4H PRN PRN Reason: Pain (severe 7-10) Hydromorphone HCl (Hydromorphone/Normal Saline 15 Mg/30 Ml Bulb Assembler) 0 mg IV ASDIRECTED PRN; Protocol PRN Reason: Pain Last Admin: 09/22/20 05:35 Dose: 15 mg Documented by: Hydroxyzine HCl (Hydroxyzine Hcl 100 Mg/2 Ml Sdv) 100 mg IM ONETIME ONE Stop: 09/23/20 09:25 Last Admin: 09/23/20 09:30 Dose: 100 mg Documented by: Sodium Chloride (Normal Saline) 1,000 mls @ 999 mls/hr IV ASDIRECTED [facility] Last Admin: 09/15/20 17:16 Dose: 999 mls/hr Documented by: Sodium Chloride (Normal Saline) 100 mls @ 4 mls/sec IV ASDIRECTED [facility] Last Admin: 09/15/20 20:37 Dose: 4 mls/sec Documented by: Ceftriaxone Sodium 1 gm/ (Sodium Chloride) 50 mls @ 100 mls/hr IV ONETIME ONE Stop: 09/15/20 22:18 Last Admin: 09/15/20 22:07 Dose: 100 mls/hr Documented by: Ceftriaxone Sodium 1 gm/ (Sodium Chloride) 50 mls @ 100 mls/hr IV Q24H [facility] Last Admin: 09/16/20 00:16 Dose: Not Given Documented by: Ceftriaxone Sodium 1 gm/ (Sodium Chloride) 50 mls @ 100 mls/hr IV Q24H [facility] Sodium Chloride (Normal Saline) 1,000 mls @ 100 mls/hr IV ASDIRECTED [facility] Last Admin: 09/17/20 09:53 Dose: 100 mls/hr Documented by: Doxycycline Hyclate 100 mg/ (Sodium Chloride) 100 mls @ 100 mls/hr IV Q12H [facility] Last Admin: 09/18/20 11:23 Dose: 100 mls/hr Documented by: Sodium Chloride (Normal Saline) 1,000 mls @ 25 mls/hr IV ASDIRECTED [facility] Last Admin: 09/17/20 11:59 Dose: 25 mls/hr Documented by: Potassium Chloride 20 meq/Lidocaine HCl 2 ml/ Sodium Chloride 112 mls @ 56 mls/hr IV Q2H [facility] Stop: 09/18/20 17:29 Last Admin: 09/18/20 20:39 Dose: 56 mls/hr Documented by: Vancomycin HCl 1.5 gm/ Sodium (Chloride) 250 mls @ 167 mls/hr IV Q12H [facility] Last Admin: 09/19/20 02:40 Dose: 167 mls/hr Documented by: Sodium Chloride (Normal Saline) 75 mls @ 3 mls/sec IV ONETIME ONE Stop: 09/19/20 13:09 Last Admin: 09/19/20 16:29 Dose: Not Given Documented by: Vancomycin HCl 1.5 gm/ Sodium (Chloride) 250 mls @ 167 mls/hr IV Q12H [facility] Last Admin: 09/20/20 01:38 Dose: 167 mls/hr Documented by: Vancomycin HCl 1.5 gm/ Sodium (Chloride) 250 mls @ 167 mls/hr IV Q8H [facility] Last Admin: 09/21/20 07:30 Dose: 167 mls/hr Documented by: Lactated Ringer's (Ringers, Lactated) Confirm Administered Dose 1,000 mls @ as directed .ROUTE .STK-MED ONE Stop: 09/23/20 08:14 Acetaminophen 1,000 mg/ Premix 100 mls @ 400 mls/hr IV NOW ONE Stop: 09/23/20 10:14 Last Admin: 09/23/20 09:43 Dose: 400 mls/hr Documented by: Sodium Chloride (Normal Saline) Confirm Administered Dose 10 mls @ as directed .ROUTE .STK-MED ONE Stop: 09/23/20 11:30 Ibuprofen (Ibuprofen 800 Mg Tab) 800 mg PO Q6H PRN PRN Reason: Pain (moderate 4-6) Last Admin: 09/19/20 22:53 Dose: 800 mg Documented by: Insulin Human Lispro (Insulin Lispro 100 Unit/Ml 3 Ml Kwikpen) 0 unit SUBCUT QIDACANDBED [facility]; Protocol Last Admin: 09/19/20 11:57 Dose: 6 unit Documented by: Insulin Human Lispro (Insulin Lispro 100 Unit/Ml 3 Ml Kwikpen) 8 unit SUBCUT ONETIME ONE Stop: 09/16/20 09:31 Last Admin: 09/16/20 09:59 Dose: 8 units Documented by: Insulin Human Lispro (Insulin Lispro 100 Unit/Ml 3 Ml Kwikpen) 12 unit SUBCUT ONETIME ONE Stop: 09/16/20 11:56 Last Admin: 09/16/20 12:04 Dose: 12 units Documented by: Insulin Human Lispro (Insulin Lispro 100 Units/Ml 3 Ml Vial) 15 unit SUBCUT ONETIME ONE Stop: 09/16/20 16:28 Last Admin: 09/16/20 16:45 Dose: 15 units Documented by: Iopamidol (Iopamidol 755 Mg/Ml 100 Ml Bottle) 100 ml IV . DIRECTED DALJIT Last Admin: 09/15/20 20:36 Dose: 100 ml Documented by: Iopamidol (Iopamidol 612 Mg/Ml 100 Ml Bottle) 100 ml IV . DIRECTED PRN PRN Reason: RADIOLOGY EXAM Stop: 09/19/20 13:09 Ketorolac Tromethamine (Ketorolac 30 Mg/Ml Sdv) 30 mg IVPUSH ONETIME ONE Stop: 09/15/20 16:59 Last Admin: 09/15/20 17:16 Dose: 30 mg Documented by: Ketorolac Tromethamine (Ketorolac 30 Mg/Ml Sdv) 30 mg IVPUSH Q8H PRN PRN Reason: Pain Stop: 09/20/20 23:14 Last Admin: 09/16/20 05:27 Dose: 30 mg Documented by: Ketorolac Tromethamine (Ketorolac 30 Mg/Ml Sdv) 60 mg IM ONETIME ONE Stop: 09/23/20 09:34 Last Admin: 09/23/20 09:42 Dose: 60 mg Documented by: Lidocaine (Lidocaine 4% Top Soln Lta 4 Ml Syringe Kit) Confirm Administered Dose 4 ml .ROUTE .STK-MED ONE Stop: 09/17/20 08:33 Lidocaine (Lidocaine 4% Top Soln Lta 4 Ml Syringe Kit) Confirm Administered Dose 4 ml .ROUTE .STK-MED ONE Stop: 09/17/20 08:34 Lidocaine HCl (Lidocaine 2% Viscous Solution 15 Ml Cup) Confirm Administered Dose 15 ml .ROUTE .STK-MED ONE Stop: 09/17/20 07:32 Lidocaine HCl (Lidocaine 4% Top Soln 50 Ml Bottle) Confirm Administered Dose 50 ml .ROUTE .STK-MED ONE Stop: 09/17/20 07:33 Magnesium Citrate (Magnesium Citrate Solution 296 Ml Bottle) 296 ml PO ONETIME ONE Stop: 09/21/20 18:10 Last Admin: 09/21/20 18:41 Dose: 296 ml Documented by: Meropenem (Meropenem 500 Mg Sdv) Confirm Administered Dose 500 mg .ROUTE .STK- MED ONE Stop: 09/23/20 07:44 Meropenem (Meropenem 500 Mg Sdv) 500 mg IRR .STK-MED ONE Stop: 09/23/20 07:31 Last Admin: 09/23/20 07:30 Dose: 500 mg Documented by: Meropenem (Meropenem 500 Mg Sdv) Confirm Administered Dose 500 mg .ROUTE .STK- MED ONE Stop: 09/23/20 11:30 Methylprednisolone Sodium Succinate (Methylprednisolone Sodium Succinate 125 Mg/2 Ml Sdv) 125 mg IVPUSH ONETIME ONE Stop: 09/15/20 20:02 Last Admin: 09/15/20 20:09 Dose: 125 mg Documented by: Methylprednisolone Sodium Succinate (Methylprednisolone Sodium Succinate 125 Mg/2 Ml Sdv) 125 mg IVPUSH ONETIME ONE Stop: 09/19/20 12:14 Last Admin: 09/19/20 13:17 Dose: 125 mg Documented by: Midazolam HCl (Midazolam 1 Mg/Ml 2 Ml Sdv) Confirm Administered Dose 2 mg .ROUTE .STK-MED ONE Stop: 09/17/20 08:32 Midazolam HCl (Midazolam 1 Mg/Ml 2 Ml Sdv) Confirm Administered Dose 2 mg .ROUTE .STK-MED ONE Stop: 09/20/20 07:49 Morphine Sulfate (Morphine 2 Mg/Ml Syringe) 2 mg IVPUSH ONETIME ONE Stop: 09/15/20 17:38 Last Admin: 09/15/20 17:51 Dose: 2 mg Documented by: Morphine Sulfate (Morphine 2 Mg/Ml Syringe) 2 mg IVPUSH ONETIME ONE Stop: 09/15/20 21:51 Last Admin: 09/15/20 22:01 Dose: 2 mg Documented by: Morphine Sulfate (Morphine 2 Mg/Ml Syringe) 2 mg IVPUSH Q2H PRN PRN Reason: Pain (severe 7-10) Last Admin: 09/17/20 17:55 Dose: 2 mg Documented by: Neostigmine Methylsulfate (Neostigmine Methylsulfate 1 Mg/Ml 5 Ml Syringe) Confirm Administered Dose 5 mg .ROUTE .STK-MED ONE Stop: 09/23/20 07:02 Nicotine (Nicotine 21 Mg/24 Hr Patch) 21 mg TRDERM DAILY [facility] Last Admin: 09/21/20 09:06 Dose: Not Given Documented by: Ondansetron HCl (Ondansetron 4 Mg/2 Ml Sdv) Confirm Administered Dose 4 mg .ROUTE .STK-MED ONE Stop: 09/23/20 07:02 Propofol (Propofol 200 Mg/20 Ml Sdv) Confirm Administered Dose 200 mg .ROUTE .STK-MED ONE Stop: 09/17/20 08:32 Propofol (Propofol 200 Mg/20 Ml Sdv) Confirm Administered Dose 200 mg .ROUTE .STK-MED ONE Stop: 09/20/20 07:49 Propofol (Propofol 200 Mg/20 Ml Sdv) Confirm Administered Dose 200 mg .ROUTE .STK-MED ONE Stop: 09/20/20 11:08 Propofol (Propofol 200 Mg/20 Ml Sdv) Confirm Administered Dose 200 mg .ROUTE .STK-MED ONE Stop: 09/23/20 07:02 Rocuronium [place] (Rocuronium 50 Mg/5 Ml Vial) Confirm Administered Dose 50 mg .ROUTE .STK-MED ONE Stop: 09/23/20 07:02 Sodium Chloride (Sodium Chloride 0.9% 10 Ml Syringe) 10 ml FLUSH ONETIME ONE Stop: 09/15/20 20:08 Last Admin: 09/15/20 20:36 Dose: 10 ml Documented by: Sodium Chloride (Sodium Chloride 0.9% 10 Ml Syringe) 10 ml FLUSH ONETIME PRN PRN Reason: PER RADIOLOGY PROTOCOL Stop: 09/19/20 13:09 Sodium Chloride (Sodium Chloride 0.9% 1,000 Ml Bag) 500 ml IRR .STK-MED ONE Stop: 09/23/20 07:31 Last Admin: 09/23/20 07:30 Dose: 500 ml Documented by: Succinylcholine Chloride (Succinylcholine 200 Mg/10 Ml Mdv) Confirm Administered Dose 200 mg .ROUTE .STK-MED ONE Stop: 09/23/20 07:02 - Exam General: Sedated, Lethargic Lungs: Clear to Auscultation, Normal Respiratory Effort, Decreased Breath Sounds Cardiovascular: Regular Rate, Regular Rhythm, No Murmurs GI/Abdominal Exam: Soft, Non-Tender, No Organomegaly, No Distention Extremities: Non-Tender, No Pedal Edema - Patient Data Lab Results Last 24 hrs: Laboratory Results - last 24 hr 09/20/20 09/22/20 09/22/20 Range/Units 11:25 16:33 20:55 POC Glucose 203 H 119 H (74-106) mg/dL Fluid Diff Comment Qc ok 09/23/20 09/23/20 Range/Units 07:13 11:34 POC Glucose 205 H 292 H (74-106) mg/dL Fluid Diff Comment Result Diagrams: 09/22/20 05:00 09/22/20 05:00 Baldemar Results Last 24 hrs: Microbiology 07/27/21 11:50 Fungal Culture - Preliminary Bronchial Alveolar Lavage - Right Lower Lobe YEAST 09/17/20 11:41 Fungal Culture - Preliminary Tracheal Washings YEAST 09/23/20 08:24 Gram Stain - Final Thoracentesis Fluid - Right 09/23/20 08:24 Gram Stain - Final Pleural Fluid - Pleural Cavity, Right 09/23/20 08:24 RADHA Preparation - Final Other - Tissue 09/23/20 08:24 RADHA Preparation - Final Other - Pleural Cavity, Right 09/20/20 12:03 Fungal Culture - Preliminary Pleural Fluid - Pleural Cavity, Right NO FUNGAL GROWTH AT 1 WEEK 09/17/20 11:50 Fungal Culture - Preliminary Bronchial Alveolar Lavage - Right Lower Lobe NO FUNGAL GROWTH AT 1 WEEK 09/20/20 12:03 Gram Stain - Final Pleural Fluid - Pleural Cavity, Right Wound Culture - Final NO GROWTH AFTER 3 DAYS Anaerobic Culture - Final NO GROWTH AFTER 3 DAYS 09/20/20 12:03 AFB Specimen Processing Tissue - Final Pleural Fluid - Pleural Cavity, Right Acid Fast Bacilli Smear - Final Acid Fast Bacilli Culture - Preliminary Sepsis Event Note - Evaluation Sepsis Screening Result: No Definite Risk - Focused Exam Vital Signs: Vital Signs Temp Temp Pulse Resp BP Pulse Ox 09/23/20 15:04 97.7 F 81 18 93/44 L 98 09/23/20 13:00 97 09/23/20 12:45 85 18 97/57 L 96 09/23/20 12:15 70 18 90/55 L 97 09/23/20 11:45 97.0 F 70 18 90/54 L 98 09/23/20 11:15 71 18 100/58 L 98 09/23/20 11:00 78 18 82/45 L 94 L 09/23/20 10:49 69 18 86/47 L 91 L 09/23/20 10:30 75 18 94/61 89 L 09/23/20 10:15 97.0 F 76 17 103/60 95 09/23/20 10:00 78 18 107/62 95 09/23/20 09:56 80 19 107/62 94 L 09/23/20 09:50 77 21 H 121/75 94 L 09/23/20 09:45 96.6 F L 81 20 123/73 94 L 09/23/20 09:40 83 20 119/74 93 L 09/23/20 09:36 88 22 H 127/78 95 09/23/20 09:30 96.4 F L 88 25 H 128/81 93 L 09/23/20 09:26 88 16 130/77 92 L 09/23/20 09:20 93 21 H 125/80 89 L 09/23/20 09:15 96.3 F L 90 21 H 136/85 93 L 09/23/20 07:22 95 - Problem List Review Problem List Initiated/Reviewed/Updated: Yes - My Orders Last 24 Hours: My Active Orders 09/24/20 05:00 BASIC METABOLIC PANEL,BMP [CHEM] Timed CBC WITH AUTO DIFF [HEME] Timed - Plan Plan:: ASSESSMENT AND PLAN - Persistent right lower lobe pneumonia-complicated by acute respiratory failure with hypoxia and a right pleural effusion that is partially loculated. Chest tube placed 09/20. Status post thoracotomy done earlier today by Dr. Love -Antibiotic coverage with ceftazidime and levofloxacin -As needed nebulizers -Symptomatic management of cough and pain -Follow-up cultures -Surgical follow-up per Dr. Love Nausea with vomiting-likely related to infection and is better but not resolved. -Symptomatic management of nausea, treat infection as above Type 2 diabetes mellitus-sugars moderately elevated at this time. Hemoglobin A1c was 10. I did increase her glipizide to 10 mg. -Continue home medications with dose increase noted -High-dose sliding scale insulin -Consider addition of a long-acting insulin -Diabetic education Maintenance issues - -DVT prophylaxis-SCD -GI prophylaxis-not indicated -Nutrition-consistent carbohydrate -Chavira catheter-not indicated Disposition -I anticipate discharge home after the hospital stay, I would anticipate several more days here in the hospital before discharge home
[2020-09-23] MEDS: Dextrose 5%-Lactated Ringers 1,000 ML IV SCH ×2 (15:37→23:38)
[2020-09-23] MEDS: Acetaminophen 500 MG Tab PO SCH ×2 (15:39→21:42)
[2020-09-23] MEDS: Ibuprofen 600 MG Tab PO SCH ×2 (15:39→21:42)
[2020-09-24] MEDS: LORazepam 0.5 MG Tab PO PRN ×3 (01:55→20:47)
[2020-09-24] MEDS: Benzonatate 100 MG Cap PO PRN ×2 (01:55→08:34)
[2020-09-24] MEDS: HYDROmorphone/Normal Saline 15 MG/30 ML PCA IV PRN (02:34)
[2020-09-24] MEDS: Acetaminophen 500 MG Tab PO SCH ×4 (04:56→21:31)
[2020-09-24] MEDS: Ibuprofen 600 MG Tab PO SCH ×4 (04:57→21:31)
[2020-09-24] MEDS: Dextrose 5%-Lactated Ringers 1,000 ML IV SCH (05:26)
[2020-09-24] MEDS: Metoclopramide 10 MG/2 ML SDV IVPUSH SCH ×3 (05:30→17:39)
[2020-09-24] MEDS: Insulin Lispro 100 Unit/ML 3 ML KwikPen SUBCUT SCH ×4 (08:05→21:32)
[2020-09-24] MEDS: Lactobacillus Rhamnosus GG (Probiotic) Cap PO SCH ×2 (08:07→20:29)
[2020-09-24] MEDS: metFORMIN 500 MG Tab PO SCH ×2 (08:07→17:00)
[2020-09-24] MEDS: glipiZIDE 5 MG Tab.ER PO SCH (08:08)
[2020-09-24] MEDS: Lactated Ringers 1,000 ML IV SCH ×2 (08:30→19:40)
--- NOTE | 2020-09-24 10:22 | PN ---
DATE OF SERVICE: 09/23/2020 SUBJECTIVE: Mally is postop day #1. She states her pain is controlled. She is on 3 L of O2. Oral intake 2100. Urine output via Chavira catheter 3100. Chest tube put out 345 mL of a light pink drainage. REVIEW OF SYSTEMS: Remainder of review of systems negative for any pertinent positives and negatives. OBJECTIVE: GENERAL: Mally is a pleasant 44-year-old female. She is resting comfortably. VITAL SIGNS: TPR 97.2, 76, 16, and blood pressure 74/42. HEENT: Negative. NECK: Supple. HEART: Regular rate and rhythm. LUNGS: On the right, is decreased breath sounds. Chest tube dressing and thoracotomy dressing in place. ASSESSMENT: 1. Right thoracoscopy. 2. Right lateral thoracotomy with: a. Pulmonary decortication. b. Removal of solid intrapulmonary exudate. c. Wedge resection, right middle lobe and right lower lobe. d. Postoperative Diagnosis: Extensive dense scarring with thickened pulmonary tissue and multiple lobulated pleural effusions. Date of procedure, 09/23/2020. Surgeon, Sai Love MD. 3. Placement of chest tube on 09/20/2020, Sai Love MD. 4. Bronchoscopy on 09/11/2020, Sai Love MD. PLAN: 1. Discontinue Chavira catheter. 2. Discontinue D5LR IV solution. 3. Lactated Ringer's 100 mL per hour. 4. Check CBC, CMP, mag, and phos in a.m. 5. We will evaluate p.r.n. or in a.m. Sharon Banda PA-C /[id number]
[2020-09-24] MEDS: Levofloxacin/Dextrose 5%-Water 750 MG in Premix Bag 1 BAG IV SCH (12:48)
--- NOTE | 2020-09-24 16:41 | PCM.PN ---
- General Info Date of Service: 09/24/20 Subjective Update: Ms. Nash has been stable since surgery yesterday. Vital signs have been stable and she has remained afebrile. She is requiring low-level of supplemental oxygen to maintain adequate oxygenation. She reports that current pain control has been adequate. Functional Status: Reports: Tolerating Diet, Ambulating, Urinating - Review of Systems General: Reports: Weakness, Fatigue. Denies: Fever, Chills Pulmonary: Reports: Shortness of Breath. Denies: Cough, Sputum, Hemoptysis, Wheezing Cardiovascular: Reports: Dyspnea on Exertion. Denies: Chest Pain, Palpitations, Orthopnea, PND, Edema, Lightheadedness Gastrointestinal: Reports: No Symptoms Genitourinary: Reports: No Symptoms - Patient Data Vitals - Most Recent: Last Vital Signs Temp 99.5 F 09/24/20 16:18 Pulse 105 H 09/24/20 16:18 Resp 16 09/24/20 16:18 BP 100/52 L 09/24/20 16:18 Pulse Ox 90 L 09/24/20 16:18 Weight - Most Recent: 206 lb 6.383 oz I&O - Last 24 Hours: Intake & Output 09/24/20 09/24/20 09/24/20 06:59 14:59 22:59 Intake Total 2447 940 Output Total 1480 400 Balance 967 540 Lab Results Last 24 Hours: Laboratory Results - last 24 hr 09/23/20 09/24/20 09/24/20 Range/Units 21:01 04:10 04:10 WBC 11.6 H (4.5-11.0) K/uL RBC 3.87 (3.30-5.50) M/uL Hgb 10.8 L (12.0-15.0) g/dL Hct 33.9 L (36.0-48.0) % MCV 88 (80-98) fL MCH 28 (27-31) pg MCHC 32 (32-36) % Plt Count 376 (150-400) K/uL Neut % (Auto) 75.9 H (36-66) % Lymph % (Auto) 13.8 L (24-44) % [place] % (Auto) 8.8 H (2-6) % Eos % (Auto) 1.3 L (2-4) % Baso % (Auto) 0.2 (0-1) % Sodium 137 L (140-148) mmol/L Potassium 3.9 (3.6-5.2) mmol/L Chloride 100 (100-108) mmol/L Carbon Dioxide 32 (21-32) mmol/L Anion Gap 8.9 (5.0-14.0) mmol/L BUN 7 (7-18) mg/dL Creatinine 0.8 (0.6-1.0) mg/dL Est Cr Clr Drug Dosing 86.23 mL/min Estimated GFR (MDRD) > 60 (>60) Glucose 303 H (74-106) mg/dL POC Glucose 279 H (74-106) mg/dL Calcium 8.3 L (8.5-10.1) mg/dL 09/24/20 09/24/20 Range/Units 07:23 11:15 WBC (4.5-11.0) K/uL RBC (3.30-5.50) M/uL Hgb (12.0-15.0) g/dL Hct (36.0-48.0) % MCV (80-98) fL MCH (27-31) pg MCHC (32-36) % Plt Count (150-400) K/uL Neut % (Auto) (36-66) % Lymph % (Auto) (24-44) % [place] % (Auto) (2-6) % Eos % (Auto) (2-4) % Baso % (Auto) (0-1) % Sodium (140-148) mmol/L Potassium (3.6-5.2) mmol/L Chloride (100-108) mmol/L Carbon Dioxide (21-32) mmol/L Anion Gap (5.0-14.0) mmol/L BUN (7-18) mg/dL Creatinine (0.6-1.0) mg/dL Est Cr Clr Drug Dosing mL/min Estimated GFR (MDRD) (>60) Glucose (74-106) mg/dL POC Glucose 332 H 282 H (74-106) mg/dL Calcium (8.5-10.1) mg/dL [facility] Results Last 24 Hours: Microbiology 09/23/20 08:24 Gram Stain - Final Pleural Fluid - Pleural Cavity, Right Body Fluid Culture - Preliminary Aerobic Culture - Final Not Reportable Anaerobic Culture - Final Not Reportable 09/23/20 08:24 Gram Stain - Final Thoracentesis Fluid - Right Body Fluid Culture - Preliminary NO GROWTH AFTER 1 DAY Aerobic Culture - Final Not Reportable Anaerobic Culture - Final Not Reportable 09/17/20 11:50 Fungal Culture - Preliminary Bronchial Alveolar Lavage - Right Lower Lobe YEAST 09/17/20 11:41 Fungal Culture - Preliminary Tracheal Washings YEAST Med Orders - Current: Current Medications Acetaminophen (Acetaminophen 500 Mg Tab) 1,000 mg PO Q6H [facility] Last Admin: 09/24/20 11:08 Dose: 1,000 mg Documented by: Albuterol (Albuterol 0.083% 2.5 Mg/3 Ml Neb Soln) 2.5 mg NEB Q4H PRN PRN Reason: shortness of breath/wheezing Last Admin: 09/17/20 11:41 Dose: 2.5 mg Documented by: Benzonatate (Benzonatate 100 Mg Cap) 100 mg PO Q6H PRN PRN Reason: Cough Last Admin: 09/24/20 08:34 Dose: 100 mg Documented by: Bisacodyl (Bisacodyl 5 Mg Tab) 10 mg PO BID PRN PRN Reason: Constipation Last Admin: 09/22/20 08:26 Dose: 10 mg Documented by: Dextrose/Water (50% Dextrose In Water 50 Ml Syringe) 50 ml IVPUSH ASDIRECTED PRN PRN Reason: Hypoglycemia Glipizide (Glipizide 5 Mg Tab.Er) 10 mg PO DAILY [facility] Last Admin: 09/24/20 08:08 Dose: 10 mg Documented by: Glucagon (Glucagon,Human Recombinant 1 Mg Vial) 1 mg IM ASDIRECTED PRN PRN Reason: Hypoglycemia Guaifenesin/Dextromethorphan (Guaifenesin/Dextromethorphan 100-10 Mg/5 Ml Soln 10 Ml Cup) 10 ml PO Q4H PRN PRN Reason: Cough Last Admin: 09/19/20 22:04 Dose: 10 ml Documented by: Hydromorphone HCl (Hydromorphone/Normal Saline 15 Mg/30 Ml [place]) 0 mg IV ASDIREC SHAQ PRN; Protocol PRN 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 Last Admin: 09/24/20 02:34 Dose: 15 mg Documented by: Hydroxyzine HCl (Hydroxyzine Hcl 100 Mg/2 Ml Sdv) 100 mg IM Q4H PRN PRN Reason: BREAKTHROUGH PAIN Ceftazidime 1 gm/ Sodium (Chloride) 50 mls @ 100 mls/hr IV Q8H [facility] Last Admin: 09/24/20 11:40 Dose: 100 mls/hr Documented by: Levofloxacin/Dextrose 750 mg/ (Premix) 150 mls @ 100 mls/hr IV Q24H [facility] Last Admin: 09/24/20 12:48 Dose: 100 mls/hr Documented by: Lactated Ringer's (Ringers, Lactated) 1,000 mls @ 100 mls/hr IV ASDIRECTED [facility] Last Admin: 09/24/20 08:30 Dose: 100 mls/hr Documented by: Ibuprofen (Ibuprofen 600 Mg Tab) 600 mg PO Q6H [facility] Last Admin: 09/24/20 11:06 Dose: 600 mg Documented by: Insulin Glargine (Insulin Glargine,Human Rec. Analog 100 Units/Ml 3 Ml Pen) 24 units SUBCUT BEDTIME [facility] Insulin Human Lispro (Insulin Lispro 100 Unit/Ml 3 Ml Kwikpen) 0 unit SUBCUT QIDACANDBED [facility]; Protocol Last Admin: 09/24/20 12:47 Dose: 9 units Documented by: Lactobacillus Rhamnosus (Lactobacillus Rhamnosus Gg (Probiotic) Cap) 1 cap PO BID [facility] Last Admin: 09/24/20 08:07 Dose: 1 cap Documented by: Lorazepam (Lorazepam 0.5 Mg Tab) 0.5 mg PO Q4H PRN PRN Reason: Anxiety Last Admin: 09/24/20 01:55 Dose: 0.5 mg Documented by: Magnesium Hydroxide (Magnesium Hydroxide 400 Mg/5 Ml Susp 30 Ml Cup) 30 ml PO BID PRN PRN Reason: Constipation Last Admin: 09/22/20 08:26 Dose: 30 ml Documented by: Metformin HCl (Metformin 500 Mg Tab) 500 mg PO BIDMEALS [facility] Last Admin: 09/24/20 08:07 Dose: 500 mg Documented by: Metoclopramide HCl (Metoclopramide 10 Mg/2 Ml Sdv) 10 mg IVPUSH Q6H [facility] Last Admin: 09/24/20 12:49 Dose: 10 mg Documented by: Naloxone HCl (Naloxone 0.4 Mg/Ml Sdv) 0.1 mg IV ASDIRECTED PRN PRN Reason: decreased respiratory rate Ondansetron HCl (Ondansetron 4 Mg/2 Ml Sdv) 4 mg IVPUSH Q4H PRN PRN Reason: Nausea/Vomiting Last Admin: 09/21/20 22:05 Dose: 4 mg Documented by: Ondansetron HCl (Ondansetron 4 Mg Tab.Dis) 4 mg PO Q4H PRN PRN Reason: Nausea/Vomiting Last Admin: 09/22/20 19:14 Dose: 4 mg Documented by: Oxycodone HCl (Oxycodone 5 Mg Tab) 5 - 10 mg PO Q4H PRN PRN Reason: Pain Last Admin: 09/19/20 21:57 Dose: 5 mg Documented by: Senna/Docusate Sodium (Docusate Sodium/Sennosides 50-8.6 Mg Tab) 1 tab PO Q12H PRN PRN Reason: Constipation Last Admin: 09/24/20 08:10 Dose: 1 tab Documented by: Sodium Biphosphate/Sodium Phosphate (Sodium Phosphate,Monobasic/Sodium Phosphate,Dibasic Enema 133 Ml Bottle) 133 ml RECTAL ONETIME PRN PRN Reason: Constipation Sodium Chloride (Sodium Chloride 0.9% 10 Ml Syringe) 10 ml FLUSH ASDIRECTED PRN PRN Reason: Keep Vein Open Discontinued Medications Acetaminophen (Acetaminophen 325 Mg Tab) 650 mg PO Q4H PRN PRN Reason: Pain Last Admin: 09/19/20 22:52 Dose: 650 mg Documented by: Hydrocodone Bitart/Acetaminophen (Acetaminophen/Hydrocodone 325-10 Mg Tab) 1 tab PO Q4H PRN PRN Reason: Pain Last Admin: 09/18/20 08:08 Dose: 1 tab Documented by: Azithromycin (Azithromycin 250 Mg Tab) 250 mg PO BEDTIME [facility] Azithromycin (Azithromycin 250 Mg Tab) 500 mg PO ONETIME ONE Stop: 09/15/20 23:58 Last Admin: 09/16/20 00:35 Dose: 500 mg Documented by: Bisacodyl (Bisacodyl 10 Mg Supp) 10 mg RECTAL ONETIME ONE Stop: 09/21/20 18:10 Last Admin: 09/21/20 18:41 Dose: 10 mg Documented by: Bupivacaine HCl/Epinephrine Bitart (Bupivacaine 0.5%/Epinephrine 1:200,000 50 Ml Mdv) 15 ml INJECT .STK-MED ONE Stop: 09/20/20 10:51 Last Admin: 09/20/20 10:50 Dose: 15 ml Documented by: Bupivacaine HCl/Epinephrine Bitart (Bupivacaine 0.5%/Epinephrine 1:200,000 50 Ml Mdv) Confirm Administered Dose 50 ml .ROUTE .STK-MED ONE Stop: 09/23/20 06:53 Bupivacaine HCl/Epinephrine Bitart (Bupivacaine 0.5%/Epinephrine 1:200,000 30 Ml Sdv) 20 ml INJECT .STK-MED ONE Stop: 09/23/20 08:01 Last Admin: 09/23/20 08:00 Dose: 20 ml Documented by: Dexamethasone (Dexamethasone 4 Mg/Ml Sdv) Confirm Administered Dose 4 mg .ROUTE .STK-MED ONE Stop: 09/23/20 07:02 Diphenhydramine HCl (Diphenhydramine 50 Mg/Ml Sdv) 50 mg IVPUSH ONETIME ONE Stop: 09/15/20 20:02 Last Admin: 09/15/20 20:07 Dose: 50 mg Documented by: Diphenhydramine HCl (Diphenhydramine 50 Mg/Ml Sdv) 50 mg IVPUSH ONETIME ONE Stop: 09/19/20 12:15 Last Admin: 09/19/20 13:17 Dose: 50 mg Documented by: Fentanyl (Fentanyl 100 Mcg/2 Ml Sdv) Confirm Administered Dose 100 mcg .ROUTE .S TK-MED ONE Stop: 09/17/20 08:32 Fentanyl (Fentanyl 100 Mcg/2 Ml Sdv) Confirm Administered Dose 100 mcg .ROUTE .ST-MED ONE Stop: 09/20/20 07:49 Fentanyl (Fentanyl 250 Mcg/5 Ml Sdv) Confirm Administered Dose 250 mcg .ROUTE .STK-MED ONE Stop: 09/23/20 07:04 Fentanyl (Fentanyl 100 Mcg/2 Ml Sdv) 50 mcg IVPUSH ONETIME ONE Stop: 09/23/20 09:25 Last Admin: 09/23/20 09:28 Dose: 50 mcg Documented by: Glipizide (Glipizide 5 Mg Tab.Er) 5 mg PO DAILY [facility] Last Admin: 09/21/20 09:06 Dose: 5 mg Documented by: Glycopyrrolate (Glycopyrrolate 0.2 Mg/Ml 5 Ml Mdv) Confirm Administered Dose 1 mg .ROUTE .STK-MED ONE Stop: 09/23/20 07:02 Hydromorphone HCl (Hydromorphone 0.5 Mg/0.5 Ml Syringe) 0.5 mg IVPUSH Q4H PRN PRN Reason: Pain (severe 7-10) Hydromorphone HCl (Hydromorphone/Normal Saline 15 Mg/30 Ml [place]) 0 mg IV ASDIRECTED PRN; Protocol PRN Reason: Pain Last Admin: 09/22/20 05:35 Dose: 15 mg Documented by: Hydroxyzine HCl (Hydroxyzine Hcl 100 Mg/2 Ml Sdv) 100 mg IM ONETIME ONE Stop: 09/23/20 09:25 Last Admin: 09/23/20 09:30 Dose: 100 mg Documented by: Sodium Chloride (Normal Saline) 1,000 mls @ 999 mls/hr IV ASDIRECTED [facility] Last Admin: 09/15/20 17:16 Dose: 999 mls/hr Documented by: Sodium Chloride (Normal Saline) 100 mls @ 4 mls/sec IV ASDIRECTED [facility] Last Admin: 09/15/20 20:37 Dose: 4 mls/sec Documented by: Ceftriaxone Sodium 1 gm/ (Sodium Chloride) 50 mls @ 100 mls/hr IV ONETIME ONE Stop: 09/15/20 22:18 Last Admin: 09/15/20 22:07 Dose: 100 mls/hr Documented by: Ceftriaxone Sodium 1 gm/ (Sodium Chloride) 50 mls @ 100 mls/hr IV Q24H [facility] Last Admin: 09/16/20 00:16 Dose: Not Given Documented by: Ceftriaxone Sodium 1 gm/ (Sodium Chloride) 50 mls @ 100 mls/hr IV Q24H [facility] Sodium Chloride (Normal Saline) 1,000 mls @ 100 mls/hr IV ASDIRECTED [facility] Last Admin: 09/17/20 09:53 Dose: 100 mls/hr Documented by: Doxycycline Hyclate 100 mg/ (Sodium Chloride) 100 mls @ 100 mls/hr IV Q12H [facility] Last Admin: 09/18/20 11:23 Dose: 100 mls/hr Documented by: Sodium Chloride (Normal Saline) 1,000 mls @ 25 mls/hr IV ASDIRECTED [facility] Last Admin: 09/17/20 11:59 Dose: 25 mls/hr Documented by: Potassium Chloride 20 meq/Lidocaine HCl 2 ml/ Sodium Chloride 112 mls @ 56 mls/hr IV Q2H [facility] Stop: 09/18/20 17:29 Last Admin: 09/18/20 20:39 Dose: 56 mls/hr Documented by: Vancomycin HCl 1.5 gm/ Sodium (Chloride) 250 mls @ 167 mls/hr IV Q12H [facility] Last Admin: 09/19/20 02:40 Dose: 167 mls/hr Documented by: Sodium Chloride (Normal Saline) 75 mls @ 3 mls/sec IV ONETIME ONE Stop: 09/19/20 13:09 Last Admin: 09/19/20 16:29 Dose: Not Given Documented by: Vancomycin HCl 1.5 gm/ Sodium (Chloride) 250 mls @ 167 mls/hr IV Q12H [facility] Last Admin: 09/20/20 01:38 Dose: 167 mls/hr Documented by: Vancomycin HCl 1.5 gm/ Sodium (Chloride) 250 mls @ 167 mls/hr IV Q8H [facility] Last Admin: 09/21/20 07:30 Dose: 167 mls/hr Documented by: Lactated Ringer's (Ringers, Lactated) Confirm Administered Dose 1,000 mls @ as directed .ROUTE .STK-MED ONE Stop: 09/23/20 08:14 Acetaminophen 1,000 mg/ Premix 100 mls @ 400 mls/hr IV NOW ONE Stop: 09/23/20 10:14 Last Admin: 09/23/20 09:43 Dose: 400 mls/hr Documented by: Dextrose/Lactated Ringer's (Dextrose 5%-Lactated Ringers) 1,000 mls @ 150 mls/hr IV ASDIRECTED [facility] Last Admin: 09/24/20 05:26 Dose: 150 mls/hr Documented by: Sodium Chloride (Normal Saline) Confirm Administered Dose 10 mls @ as directed .ROUTE .STK-MED ONE Stop: 09/23/20 11:30 Ibuprofen (Ibuprofen 800 Mg Tab) 800 mg PO Q6H PRN PRN Reason: Pain (moderate 4-6) Last Admin: 09/19/20 22:53 Dose: 800 mg Documented by: Insulin Human Lispro (Insulin Lispro 100 Unit/Ml 3 Ml Kwikpen) 0 unit SUBCUT QIDACANDBED [facility]; Protocol Last Admin: 09/19/20 11:57 Dose: 6 unit Documented by: Insulin Human Lispro (Insulin Lispro 100 Unit/Ml 3 Ml Kwikpen) 8 unit SUBCUT ONETIME ONE Stop: 09/16/20 09:31 Last Admin: 09/16/20 09:59 Dose: 8 units Documented by: Insulin Human Lispro (Insulin Lispro 100 Unit/Ml 3 Ml Kwikpen) 12 unit SUBCUT ONETIME ONE Stop: 09/16/20 11:56 Last Admin: 09/16/20 12:04 Dose: 12 units Documented by: Insulin Human Lispro (Insulin Lispro 100 Units/Ml 3 Ml Vial) 15 unit SUBCUT ONETIME ONE Stop: 09/16/20 16:28 Last Admin: 09/16/20 16:45 Dose: 15 units Documented by: Iopamidol (Iopamidol 755 Mg/Ml 100 Ml Bottle) 100 ml IV . DIRECTED [facility] Last Admin: 09/15/20 20:36 Dose: 100 ml Documented by: Iopamidol (Iopamidol 612 Mg/Ml 100 Ml Bottle) 100 ml IV . DIRECTED PRN PRN Reason: RADIOLOGY EXAM Stop: 09/19/20 13:09 Ketorolac Tromethamine (Ketorolac 30 Mg/Ml Sdv) 30 mg IVPUSH ONETIME ONE Stop: 09/15/20 16:59 Last Admin: 09/15/20 17:16 Dose: 30 mg Documented by: Ketorolac Tromethamine (Ketorolac 30 Mg/Ml Sdv) 30 mg IVPUSH Q8H PRN PRN Reason: Pain Stop: 09/20/20 23:14 Last Admin: 09/16/20 05:27 Dose: 30 mg Documented by: Ketorolac Tromethamine (Ketorolac 30 Mg/Ml Sdv) 60 mg IM ONETIME ONE Stop: 09/23/20 09:34 Last Admin: 09/23/20 09:42 Dose: 60 mg Documented by: Lidocaine (Lidocaine 4% Top Soln Lta 4 Ml Syringe Kit) Confirm Administered Dose 4 ml .ROUTE .STK-MED ONE Stop: 09/17/20 08:33 Lidocaine (Lidocaine 4% Top Soln Lta 4 Ml Syringe Kit) Confirm Administered Dose 4 ml .ROUTE .STK-MED ONE Stop: 09/17/20 08:34 Lidocaine HCl (Lidocaine 2% Viscous Solution 15 Ml Cup) Confirm Administered Dose 15 ml .ROUTE .STK-MED ONE Stop: 09/17/20 07:32 Lidocaine HCl (Lidocaine 4% Top Soln 50 Ml Bottle) Confirm Administered Dose 50 ml .ROUTE .STK-MED ONE Stop: 09/17/20 07:33 Magnesium Citrate (Magnesium Citrate Solution 296 Ml Bottle) 296 ml PO ONETIME ONE Stop: 09/21/20 18:10 Last Admin: 09/21/20 18:41 Dose: 296 ml Documented by: Meropenem (Meropenem 500 Mg Sdv) Confirm Administered Dose 500 mg .ROUTE .STK- MED ONE Stop: 09/23/20 07:44 Meropenem (Meropenem 500 Mg Sdv) 500 mg IRR .STK-MED ONE Stop: 09/23/20 07:31 Last Admin: 09/23/20 07:30 Dose: 500 mg Documented by: Meropenem (Meropenem 500 Mg Sdv) Confirm Administered Dose 500 mg .ROUTE .STK- MED ONE Stop: 09/23/20 11:30 Methylprednisolone Sodium Succinate (Methylprednisolone Sodium Succinate 125 Mg/2 Ml Sdv) 125 mg IVPUSH ONETIME ONE Stop: 09/15/20 20:02 Last Admin: 09/15/20 20:09 Dose: 125 mg Documented by: Methylprednisolone Sodium Succinate (Methylprednisolone Sodium Succinate 125 Mg/2 Ml Sdv) 125 mg IVPUSH ONETIME ONE Stop: 09/19/20 12:14 Last Admin: 09/19/20 13:17 Dose: 125 mg Documented by: Midazolam HCl (Midazolam 1 Mg/Ml 2 Ml Sdv) Confirm Administered Dose 2 mg .ROUTE .STK-MED ONE Stop: 09/17/20 08:32 Midazolam HCl (Midazolam 1 Mg/Ml 2 Ml Sdv) Confirm Administered Dose 2 mg .ROUTE .STK-MED ONE Stop: 09/20/20 07:49 Morphine Sulfate (Morphine 2 Mg/Ml Syringe) 2 mg IVPUSH ONETIME ONE Stop: 09/15/20 17:38 Last Admin: 09/15/20 17:51 Dose: 2 mg Documented by: Morphine Sulfate (Morphine 2 Mg/Ml Syringe) 2 mg IVPUSH ONETIME ONE Stop: 09/15/20 21:51 Last Admin: 09/15/20 22:01 Dose: 2 mg Documented by: Morphine Sulfate (Morphine 2 Mg/Ml Syringe) 2 mg IVPUSH Q2H PRN PRN Reason: Pain (severe 7-10) Last Admin: 09/17/20 17:55 Dose: 2 mg Documented by: Neostigmine Methylsulfate (Neostigmine Methylsulfate 1 Mg/Ml 5 Ml Syringe) Confirm Administered Dose 5 mg .ROUTE .STK-MED ONE Stop: 09/23/20 07:02 Nicotine (Nicotine 21 Mg/24 Hr Patch) 21 mg TRDERM DAILY [facility] Last Admin: 09/21/20 09:06 Dose: Not Given Documented by: Ondansetron HCl (Ondansetron 4 Mg/2 Ml Sdv) Confirm Administered Dose 4 mg .ROUTE .STK-MED ONE Stop: 09/23/20 07:02 Propofol (Propofol 200 Mg/20 Ml Sdv) Confirm Administered Dose 200 mg .ROUTE .STK-MED ONE Stop: 09/17/20 08:32 Propofol (Propofol 200 Mg/20 Ml Sdv) Confirm Administered Dose 200 mg .ROUTE .STK-MED ONE Stop: 09/20/20 07:49 Propofol (Propofol 200 Mg/20 Ml Sdv) Confirm Administered Dose 200 mg .ROUTE .S TK-MED ONE Stop: 09/20/20 11:08 Propofol (Propofol 200 Mg/20 Ml Sdv) Confirm Administered Dose 200 mg .ROUTE .STK-MED ONE Stop: 09/23/20 07:02 Rocuronium [place] (Rocuronium 50 Mg/5 Ml Vial) Confirm Administered Dose 50 mg .ROUTE .STK-MED ONE Stop: 09/23/20 07:02 Sodium Chloride (Sodium Chloride 0.9% 10 Ml Syringe) 10 ml FLUSH ONETIME ONE Stop: 09/15/20 20:08 Last Admin: 09/15/20 20:36 Dose: 10 ml Documented by: Sodium Chloride (Sodium Chloride 0.9% 10 Ml Syringe) 10 ml FLUSH ONETIME PRN PRN Reason: PER RADIOLOGY PROTOCOL Stop: 09/19/20 13:09 Sodium Chloride (Sodium Chloride 0.9% 1,000 Ml Bag) 500 ml IRR .STK-MED ONE Stop: 09/23/20 07:31 Last Admin: 09/23/20 07:30 Dose: 500 ml Documented by: Succinylcholine Chloride (Succinylcholine 200 Mg/10 Ml Mdv) Confirm Administered Dose 200 mg .ROUTE .STK-MED ONE Stop: 09/23/20 07:02 - Exam Quality Assessment: Supplemental Oxygen, DVT Prophylaxis Urinary Catheter Total Time: 1Days 2Hours General: Alert, Oriented, Cooperative, Moderate Distress Lungs: Clear to Auscultation, Normal Respiratory Effort, Decreased Breath Sounds. No: Rales, Rhonchi, Wheezing Cardiovascular: Regular Rate, Regular Rhythm, No Murmurs GI/Abdominal Exam: Soft, Non-Tender, No Organomegaly, No Distention Extremities: Non-Tender, No Pedal Edema - Patient Data Lab Results Last 24 hrs: Laboratory Results - last 24 hr 09/23/20 09/24/20 09/24/20 Range/Units 21:01 04:10 04:10 WBC 11.6 H (4.5-11.0) K/uL RBC 3.87 (3.30-5.50) M/uL Hgb 10.8 L (12.0-15.0) g/dL Hct 33.9 L (36.0-48.0) % MCV 88 (80-98) fL MCH 28 (27-31) pg MCHC 32 (32-36) % Plt Count 376 (150-400) K/uL Neut % (Auto) 75.9 H (36-66) % Lymph % (Auto) 13.8 L (24-44) % [place] % (Auto) 8.8 H (2-6) % Eos % (Auto) 1.3 L (2-4) % Baso % (Auto) 0.2 (0-1) % Sodium 137 L (140-148) mmol/L Potassium 3.9 (3.6-5.2) mmol/L Chloride 100 (100-108) mmol/L Carbon Dioxide 32 (21-32) mmol/L Anion Gap 8.9 (5.0-14.0) mmol/L BUN 7 (7-18) mg/dL Creatinine 0.8 (0.6-1.0) mg/dL Est Cr Clr Drug Dosing 86.23 mL/min Estimated GFR (MDRD) > 60 (>60) Glucose 303 H (74-106) mg/dL POC Glucose 279 H (74-106) mg/dL Calcium 8.3 L (8.5-10.1) mg/dL 09/24/20 09/24/20 Range/Units 07:23 11:15 WBC (4.5-11.0) K/uL RBC (3.30-5.50) M/uL Hgb (12.0-15.0) g/dL Hct (36.0-48.0) % MCV (80-98) fL MCH (27-31) pg MCHC (32-36) % Plt Count (150-400) K/uL Neut % (Auto) (36-66) % Lymph % (Auto) (24-44) % [place] % (Auto) (2-6) % Eos % (Auto) (2-4) % Baso % (Auto) (0-1) % Sodium (140-148) mmol/L Potassium (3.6-5.2) mmol/L Chloride (100-108) mmol/L Carbon Dioxide (21-32) mmol/L Anion Gap (5.0-14.0) mmol/L BUN (7-18) mg/dL Creatinine (0.6-1.0) mg/dL Est Cr Clr Drug Dosing mL/min Estimated GFR (MDRD) (>60) Glucose (74-106) mg/dL POC Glucose 332 H 282 H (74-106) mg/dL Calcium (8.5-10.1) mg/dL Result Diagrams: 09/24/20 04:10 09/24/20 04:10 [facility] Results Last 24 hrs: Microbiology 09/23/20 08:24 Gram Stain - Final Pleural Fluid - Pleural Cavity, Right Body Fluid Culture - Preliminary Aerobic Culture - Final Not Reportable Anaerobic Culture - Final Not Reportable 09/23/20 08:24 Gram Stain - Final Thoracentesis Fluid - Right Body Fluid Culture - Preliminary NO GROWTH AFTER 1 DAY Aerobic Culture - Final Not Reportable Anaerobic Culture - Final Not Reportable 09/17/20 11:50 Fungal Culture - Preliminary Bronchial Alveolar Lavage - Right Lower Lobe YEAST 09/17/20 11:41 Fungal Culture - Preliminary Tracheal Washings YEAST Sepsis Event Note - Evaluation Sepsis Screening Result: No Definite Risk - Focused Exam Vital Signs: Vital Signs Temp Pulse Resp BP BP Pulse Ox 09/24/20 16:18 99.5 F 105 H 16 100/52 L 90 L 09/24/20 12:55 93 L 09/24/20 11:00 98.4 F 98 17 95/60 95 09/24/20 07:35 95/59 L 09/24/20 07:33 97.2 F 76 16 74/42 L 95 09/24/20 07:16 96 - Problem List Review Problem List Initiated/Reviewed/Updated: Yes - My Orders Last 24 Hours: My Active Orders 09/24/20 21:00 Insulin Glarg,Human.Rec.Analog [LantUS Solostar] 24 units SUBCUT BEDTIME - Plan Plan:: ASSESSMENT AND PLAN Persistent right lower lobe pneumonia-status post thoracotomy for decortication, biopsies and cultures also obtained -Antibiotic coverage with ceftazidime and levofloxacin -As needed nebulizers -Symptomatic management of cough and pain -Follow-up cultures -Surgical follow-up per Dr. Love Nausea with vomiting-resolved -Symptomatic management of nausea Type 2 diabetes mellitus-sugars moderately elevated at this time. Hemoglobin A1c was 10. -Lantus 24 units subcu at at bedtime -Continue home medications with dose increase noted -High-dose sliding scale insulin -Diabetic education Maintenance issues - -DVT prophylaxis-SCD -GI prophylaxis-not indicated -Nutrition-consistent carbohydrate -Chavira catheter-not indicated Disposition -I anticipate discharge home after the hospital stay, I would anticipate several more days here in the hospital before discharge home
[2020-09-24] MEDS: Insulin Glargine,Human Rec. Analog 100 Units/ML 3 ML Pen SUBCUT SCH (21:32)
[2020-09-25] MEDS: Metoclopramide 10 MG/2 ML SDV IVPUSH SCH ×4 (00:59→17:37)
[2020-09-25] MEDS: LORazepam 0.5 MG Tab PO PRN ×2 (02:22→21:20)
[2020-09-25] MEDS: HYDROmorphone/Normal Saline 15 MG/30 ML PCA IV PRN (05:10)
[2020-09-25] MEDS: Acetaminophen 500 MG Tab PO SCH ×3 (05:13→19:44)
[2020-09-25] MEDS: Ibuprofen 600 MG Tab PO SCH ×4 (05:13→21:21)
[2020-09-25] MEDS: Lactated Ringers 1,000 ML IV SCH (06:35)
[2020-09-25] MEDS: Bisacodyl 5 MG Tab PO SCH ×2 (08:26→21:19)
[2020-09-25] MEDS: glipiZIDE 5 MG Tab.ER PO SCH (08:26)
[2020-09-25] MEDS: Insulin Lispro 100 Unit/ML 3 ML KwikPen SUBCUT SCH ×4 (08:26→21:14)
[2020-09-25] MEDS: metFORMIN 500 MG Tab PO SCH ×2 (08:26→16:16)
[2020-09-25] MEDS: Lactobacillus Rhamnosus GG (Probiotic) Cap PO SCH ×2 (08:26→21:11)
--- NOTE | 2020-09-25 09:06 | CR ---
CHEST: Portable 09/24/2020 at 4:46 AM CLINICAL HISTORY:Chest tubes COMPARISON:09/23/2020 FINDINGS: 2 right chest tubes remain in place. There is some patchy airspace disease persisting in the right lower lung field. There is no significant pleural effusion or pneumothorax. Impression: Chest tubes remain in place. Appearance is similar to prior study
[2020-09-25] MEDS: Magnesium Sulfate/Water 2 GM/50 ML BAG IV SCH ×3 (10:29→21:27)
--- NOTE | 2020-09-25 10:43 | PCM.PN ---
- General Info Date of Service: 09/25/20 Subjective Update: Ms. Nash has remained stable over the past 24 hours, she has been more active sitting in the chair and walking several times yesterday. She is feeling somewh at down today about the prolonged illness. Pain control has been adequate and she has remained afebrile. Functional Status: Reports: Tolerating Diet, Ambulating, Urinating - Review of Systems General: Reports: Weakness, Fatigue. Denies: Fever, Chills Pulmonary: Reports: Shortness of Breath, Cough, Sputum. Denies: Pleuritic Chest Pain, Hemoptysis, Wheezing Cardiovascular: Reports: Dyspnea on Exertion. Denies: Chest Pain, Palpitations, Orthopnea, PND, Edema, Lightheadedness Gastrointestinal: Reports: No Symptoms Genitourinary: Reports: No Symptoms - Patient Data Vitals - Most Recent: Last Vital Signs Temp 97.5 F 09/25/20 07:00 Pulse 114 H 09/25/20 07:00 Resp 16 09/25/20 07:00 BP 147/90 H 09/25/20 07:00 Pulse Ox 94 L 09/25/20 07:02 Weight - Most Recent: 206 lb 6.383 oz I&O - Last 24 Hours: Intake & Output 09/24/20 09/25/20 09/25/20 22:59 06:59 14:59 Intake Total 1571 1631 120 Output Total 714 91 3358 Balance 871 1611 -880 Lab Results Last 24 Hours: Laboratory Results - last 24 hr 09/24/20 09/24/20 09/24/20 Range/Units 11:15 16:38 20:55 WBC (4.5-11.0) K/uL RBC (3.30-5.50) M/uL Hgb (12.0-15.0) g/dL Hct (36.0-48.0) % MCV (80-98) fL MCH (27-31) pg MCHC (32-36) % Plt Count (150-400) K/uL Sodium (140-148) mmol/L Potassium (3.6-5.2) mmol/L Chloride (100-108) mmol/L Carbon Dioxide (21-32) mmol/L Anion Gap (5.0-14.0) mmol/L BUN (7-18) mg/dL Creatinine (0.6-1.0) mg/dL Est Cr Clr Drug Dosing mL/min Estimated GFR (MDRD) (>60) Glucose (74-106) mg/dL POC Glucose 282 H 201 H 171 H (74-106) mg/dL Calcium (8.5-10.1) mg/dL Phosphorus (2.5-4.9) mg/dL Magnesium (1.8-2.4) mg/dL Ferritin (8-388) ng/ml Total Bilirubin (0.2-1.0) mg/dL AST (15-37) U/L ALT (12-78) U/L Alkaline Phosphatase (46-116) U/L Total Protein (6.4-8.2) g/dL Albumin (3.4-5.0) g/dL Globulin (2.3-3.5) g/dL Albumin/Globulin Ratio (1.2-2.2) 09/25/20 09/25/20 09/25/20 Range/Units 04:33 04:33 06:25 WBC 11.3 H (4.5-11.0) K/uL RBC 4.02 (3.30-5.50) M/uL Hgb 10.9 L (12.0-15.0) g/dL Hct 35.3 L (36.0-48.0) % MCV 88 (80-98) fL MCH 27 (27-31) pg MCHC 31 L (32-36) % Plt Count 399 (150-400) K/uL Sodium 138 L (140-148) mmol/L Potassium 4.0 (3.6-5.2) mmol/L Chloride 100 (100-108) mmol/L Carbon Dioxide 35 H (21-32) mmol/L Anion Gap 7.0 (5.0-14.0) mmol/L BUN 9 (7-18) mg/dL Creatinine 0.8 (0.6-1.0) mg/dL Est Cr Clr Drug Dosing 86.23 mL/min Estimated GFR (MDRD) > 60 (>60) Glucose 212 H (74-106) mg/dL POC Glucose (74-106) mg/dL Calcium 8.3 L (8.5-10.1) mg/dL Phosphorus 3.8 (2.5-4.9) mg/dL Magnesium 1.4 L (1.8-2.4) mg/dL Ferritin 105 (8-388) ng/ml Total Bilirubin 0.3 D (0.2-1.0) mg/dL AST 22 D (15-37) U/L ALT 32 (12-78) U/L Alkaline Phosphatase 61 (46-116) U/L Total Protein 5.7 L (6.4-8.2) g/dL Albumin 2.0 L (3.4-5.0) g/dL Globulin 3.7 H (2.3-3.5) g/dL Albumin/Globulin Ratio 0.5 L (1.2-2.2) 09/25/20 Range/Units 07:36 WBC (4.5-11.0) K/uL RBC (3.30-5.50) M/uL Hgb (12.0-15.0) g/dL Hct (36.0-48.0) % MCV (80-98) fL MCH (27-31) pg MCHC (32-36) % Plt Count (150-400) K/uL Sodium (140-148) mmol/L Potassium (3.6-5.2) mmol/L Chloride (100-108) mmol/L Carbon Dioxide (21-32) mmol/L Anion Gap (5.0-14.0) mmol/L BUN (7-18) mg/dL Creatinine (0.6-1.0) mg/dL Est Cr Clr Drug Dosing mL/min Estimated GFR (MDRD) (>60) Glucose (74-106) mg/dL POC Glucose 223 H (74-106) mg/dL Calcium (8.5-10.1) mg/dL Phosphorus (2.5-4.9) mg/dL Magnesium (1.8-2.4) mg/dL Ferritin (8-388) ng/ml Total Bilirubin (0.2-1.0) mg/dL AST (15-37) U/L ALT (12-78) U/L Alkaline Phosphatase (46-116) U/L Total Protein (6.4-8.2) g/dL Albumin (3.4-5.0) g/dL Globulin (2.3-3.5) g/dL Albumin/Globulin Ratio (1.2-2.2) [place] Results Last 24 Hours: Microbiology 09/23/20 08:24 Gram Stain - Final Pleural Fluid - Pleural Cavity, Right Body Fluid Culture - Preliminary 09/23/20 08:28 Anaerobic Culture - Preliminary Lung - Right NO GROWTH AFTER 2 DAYS 09/23/20 08:24 Anaerobic Culture - Preliminary Pleural Fluid - Pleural Cavity, Right NO GROWTH AFTER 2 DAYS 09/23/20 08:24 Gram Stain - Final Thoracentesis Fluid - Right Body Fluid Culture - Preliminary NO GROWTH AFTER 2 DAYS Med Orders - Current: Current Medications Acetaminophen (Acetaminophen 500 Mg Tab) 1,000 mg PO Q6H [facility] Last Admin: 09/25/20 10:28 Dose: 1,000 mg Documented by: Albuterol (Albuterol 0.083% 2.5 Mg/3 Ml Neb Soln) 2.5 mg NEB Q4H PRN PRN Reason: shortness of breath/wheezing Last Admin: 09/17/20 11:41 Dose: 2.5 mg Documented by: Benzonatate (Benzonatate 100 Mg Cap) 100 mg PO Q6H PRN PRN Reason: Cough Last Admin: 09/24/20 08:34 Dose: 100 mg Documented by: Bisacodyl (Bisacodyl 5 Mg Tab) 10 mg PO BID [facility] Last Admin: 09/25/20 08:26 Dose: 10 mg Documented by: Dextrose/Water (50% Dextrose In Water 50 Ml Syringe) 50 ml IVPUSH ASDIRECTED PRN PRN Reason: Hypoglycemia Glipizide (Glipizide 5 Mg Tab.Er) 10 mg PO DAILY [facility] Last Admin: 09/25/20 08:26 Dose: 10 mg Documented by: Glucagon (Glucagon,Human Recombinant 1 Mg Vial) 1 mg IM ASDIRECTED PRN PRN Reason: Hypoglycemia Guaifenesin/Dextromethorphan (Guaifenesin/Dextromethorphan 100-10 Mg/5 Ml Soln 10 Ml Cup) 10 ml PO Q4H PRN PRN Reason: Cough Last Admin: 09/19/20 22:04 Dose: 10 ml Documented by: Hydromorphone HCl (Hydromorphone/Normal Saline 15 Mg/30 Ml Duco Polisher) 0 mg IV ASDIRECTED PRN; Protocol PRN 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 Last Admin: 09/25/20 05:10 Dose: 15 mg Documented by: Hydroxyzine HCl (Hydroxyzine Hcl 100 Mg/2 Ml Sdv) 100 mg IM Q4H PRN PRN Reason: BREAKTHROUGH PAIN Ceftazidime 1 gm/ Sodium (Chloride) 50 mls @ 100 mls/hr IV Q8H [facility] Last Admin: 09/25/20 02:59 Dose: 100 mls/hr Documented by: Levofloxacin/Dextrose 750 mg/ (Premix) 150 mls @ 100 mls/hr IV Q24H [facility] Last Admin: 09/24/20 12:48 Dose: 100 mls/hr Documented by: Lactated Ringer's (Ringers, Lactated) 1,000 mls @ 100 mls/hr IV ASDIRECTED [facility] Last Admin: 09/25/20 06:35 Dose: 100 mls/hr Documented by: Magnesium Sulfate (Magnesium Sulfate In Water 2 Gm/50 Ml) 2 gm in 50 mls @ 25 mls/hr IV Q6H [facility] Stop: 09/28/20 05:59 Last Admin: 09/25/20 10:29 Dose: 25 mls/hr Documented by: Ibuprofen (Ibuprofen 600 Mg Tab) 600 mg PO Q6H [facility] Last Admin: 09/25/20 10:28 Dose: 600 mg Documented by: Insulin Glargine (Insulin Glargine,Human Rec. Analog 100 Units/Ml 3 Ml Pen) 24 units SUBCUT BEDTIME [facility] Last Admin: 09/24/20 21:32 Dose: 24 units Documented by: Insulin Human Lispro (Insulin Lispro 100 Unit/Ml 3 Ml Kwikpen) 0 unit SUBCUT QIDACANDBED [facility]; Protocol Last Admin: 09/25/20 08:26 Dose: 6 units Documented by: Lactobacillus Rhamnosus (Lactobacillus Rhamnosus Gg (Probiotic) Cap) 1 cap PO BID [facility] Last Admin: 09/25/20 08:26 Dose: 1 cap Documented by: Lorazepam (Lorazepam 0.5 Mg Tab) 0.5 mg PO Q4H PRN PRN Reason: Anxiety Last Admin: 09/25/20 02:22 Dose: 0.5 mg Documented by: Magnesium Hydroxide (Magnesium Hydroxide 400 Mg/5 Ml Susp 30 Ml Cup) 30 ml PO BID PRN PRN Reason: Constipation Last Admin: 09/22/20 08:26 Dose: 30 ml Documented by: [facility] Mg [facility] Last Admin: 09/25/20 08:26 Dose: 500 mg Documented by: Metoclopramide HCl (Metoclopramide 10 Mg/2 Ml Sdv) 10 mg IVPUSH Q6H [facility] Last Admin: 09/25/20 06:24 Dose: Not Given Documented by: Naloxone HCl (Naloxone 0.4 Mg/Ml Sdv) 0.1 mg IV ASDIRECTED PRN PRN Reason: decreased respiratory rate Ondansetron HCl (Ondansetron 4 Mg/2 Ml Sdv) 4 mg IVPUSH Q4H PRN PRN Reason: Nausea/Vomiting Last Admin: 09/21/20 22:05 Dose: 4 mg Documented by: Ondansetron HCl (Ondansetron 4 Mg Tab.Dis) 4 mg PO Q4H PRN PRN Reason: Nausea/Vomiting Last Admin: 09/22/20 19:14 Dose: 4 mg Documented by: Oxycodone HCl (Oxycodone 5 Mg Tab) 5 - 10 mg PO Q4H PRN PRN Reason: Pain Last Admin: 09/19/20 21:57 Dose: 5 mg Documented by: Senna/Docusate Sodium (Docusate Sodium/Sennosides 50-8.6 Mg Tab) 1 tab PO Q12H PRN PRN Reason: Constipation Last Admin: 09/24/20 08:10 Dose: 1 tab Documented by: Sodium Biphosphate/Sodium Phosphate (Sodium Phosphate,Monobasic/Sodium Phosphate,Dibasic Enema 133 Ml Bottle) 133 ml RECTAL ONETIME PRN PRN Reason: Constipation Sodium Chloride (Sodium Chloride 0.9% 10 Ml Syringe) 10 ml FLUSH ASDIRECTED PRN PRN Reason: Keep Vein Open Discontinued Medications Acetaminophen (Acetaminophen 325 Mg Tab) 650 mg PO Q4H PRN PRN Reason: Pain Last Admin: 09/19/20 22:52 Dose: 650 mg Documented by: Hydrocodone Bitart/Acetaminophen (Acetaminophen/Hydrocodone 325-10 Mg Tab) 1 tab PO Q4H PRN PRN Reason: Pain Last Admin: 09/18/20 08:08 Dose: 1 tab Documented by: Azithromycin (Azithromycin 250 Mg Tab) 250 mg PO BEDTIME [facility] Azithromycin (Azithromycin 250 Mg Tab) 500 mg PO ONETIME ONE Stop: 09/15/20 23:58 Last Admin: 09/16/20 00:35 Dose: 500 mg Documented by: Bisacodyl (Bisacodyl 5 Mg Tab) 10 mg PO BID PRN PRN Reason: Constipation Last Admin: 09/22/20 08:26 Dose: 10 mg Documented by: Bisacodyl (Bisacodyl 10 Mg Supp) 10 mg RECTAL ONETIME ONE Stop: 09/21/20 18:10 Last Admin: 09/21/20 18:41 Dose: 10 mg Documented by: Bupivacaine HCl/Epinephrine Bitart (Bupivacaine 0.5%/Epinephrine 1:200,000 50 Ml Mdv) 15 ml INJECT .STK-MED ONE Stop: 09/20/20 10:51 Last Admin: 09/20/20 10:50 Dose: 15 ml Documented by: Bupivacaine HCl/Epinephrine Bitart (Bupivacaine 0.5%/Epinephrine 1:200,000 50 Ml Mdv) Confirm Administered Dose 50 ml .ROUTE .STK-MED ONE Stop: 09/23/20 06:53 Bupivacaine HCl/Epinephrine Bitart (Bupivacaine 0.5%/Epinephrine 1:200,000 30 Ml Sdv) 20 ml INJECT .STK-MED ONE Stop: 09/23/20 08:01 Last Admin: 09/23/20 08:00 Dose: 20 ml Documented by: Dexamethasone (Dexamethasone 4 Mg/Ml Sdv) Confirm Administered Dose 4 mg .ROUTE .STK-MED ONE Stop: 09/23/20 07:02 Diphenhydramine HCl (Diphenhydramine 50 Mg/Ml Sdv) 50 mg IVPUSH ONETIME ONE Stop: 09/15/20 20:02 Last Admin: 09/15/20 20:07 Dose: 50 mg Documented by: Diphenhydramine HCl (Diphenhydramine 50 Mg/Ml Sdv) 50 mg IVPUSH ONETIME ONE Stop: 09/19/20 12:15 Last Admin: 09/19/20 13:17 Dose: 50 mg Documented by: Fentanyl (Fentanyl 100 Mcg/2 Ml Sdv) Confirm Administered Dose 100 mcg .ROUTE .STK-MED ONE Stop: 09/17/20 08:32 Fentanyl (Fentanyl 100 Mcg/2 Ml Sdv) Confirm Administered Dose 100 mcg .ROUTE .STK-MED ONE Stop: 09/20/20 07:49 Fentanyl (Fentanyl 250 Mcg/5 Ml Sdv) Confirm Administered Dose 250 mcg .ROUTE . STK-MED ONE Stop: 09/23/20 07:04 Fentanyl (Fentanyl 100 Mcg/2 Ml Sdv) 50 mcg IVPUSH ONETIME ONE Stop: 09/23/20 09:25 Last Admin: 09/23/20 09:28 Dose: 50 mcg Documented by: Glipizide (Glipizide 5 Mg Tab.Er) 5 mg PO DAILY [facility] Last Admin: 09/21/20 09:06 Dose: 5 mg Documented by: Glycopyrrolate (Glycopyrrolate 0.2 Mg/Ml 5 Ml Mdv) Confirm Administered Dose 1 mg .ROUTE .STK-MED ONE Stop: 09/23/20 07:02 Hydromorphone HCl (Hydromorphone 0.5 Mg/0.5 Ml Syringe) 0.5 mg IVPUSH Q4H PRN PRN Reason: Pain (severe 7-10) Hydromorphone HCl (Hydromorphone/Normal Saline 15 Mg/30 Ml Duco Polisher) 0 mg IV ASD IRECTED PRN; Protocol PRN Reason: Pain Last Admin: 09/22/20 05:35 Dose: 15 mg Documented by: Hydroxyzine HCl (Hydroxyzine Hcl 100 Mg/2 Ml Sdv) 100 mg IM ONETIME ONE Stop: 09/23/20 09:25 Last Admin: 09/23/20 09:30 Dose: 100 mg Documented by: Sodium Chloride (Normal Saline) 1,000 mls @ 999 mls/hr IV ASDIRECTED [facility] Last Admin: 09/15/20 17:16 Dose: 999 mls/hr Documented by: Sodium Chloride (Normal Saline) 100 mls @ 4 mls/sec IV ASDIRECTED [facility] Last Admin: 09/15/20 20:37 Dose: 4 mls/sec Documented by: Ceftriaxone Sodium 1 gm/ (Sodium Chloride) 50 mls @ 100 mls/hr IV ONETIME ONE Stop: 09/15/20 22:18 Last Admin: 09/15/20 22:07 Dose: 100 mls/hr Documented by: Ceftriaxone Sodium 1 gm/ (Sodium Chloride) 50 mls @ 100 mls/hr IV Q24H [facility] Last Admin: 09/16/20 00:16 Dose: Not Given Documented by: Ceftriaxone Sodium 1 gm/ (Sodium Chloride) 50 mls @ 100 mls/hr IV Q24H [facility] Sodium Chloride (Normal Saline) 1,000 mls @ 100 mls/hr IV ASDIRECTED [facility] Last Admin: 09/17/20 09:53 Dose: 100 mls/hr Documented by: Doxycycline Hyclate 100 mg/ (Sodium Chloride) 100 mls @ 100 mls/hr IV Q12H [facility] Last Admin: 09/18/20 11:23 Dose: 100 mls/hr Documented by: Sodium Chloride (Normal Saline) 1,000 mls @ 25 mls/hr IV ASDIRECTED [facility] Last Admin: 09/17/20 11:59 Dose: 25 mls/hr Documented by: Potassium Chloride 20 meq/Lidocaine HCl 2 ml/ Sodium Chloride 112 mls @ 56 mls/hr IV Q2H [facility] Stop: 09/18/20 17:29 Last Admin: 09/18/20 20:39 Dose: 56 mls/hr Documented by: Vancomycin HCl 1.5 gm/ Sodium (Chloride) 250 mls @ 167 mls/hr IV Q12H [facility] Last Admin: 09/19/20 02:40 Dose: 167 mls/hr Documented by: Sodium Chloride (Normal Saline) 75 mls @ 3 mls/sec IV ONETIME ONE Stop: 09/19/20 13:09 Last Admin: 09/19/20 16:29 Dose: Not Given Documented by: Vancomycin HCl 1.5 gm/ Sodium (Chloride) 250 mls @ 167 mls/hr IV Q12H [facility] Last Admin: 09/20/20 01:38 Dose: 167 mls/hr Documented by: Vancomycin HCl 1.5 gm/ Sodium (Chloride) 250 mls @ 167 mls/hr IV Q8H [facility] Last Admin: 09/21/20 07:30 Dose: 167 mls/hr Documented by: Lactated Ringer's (Ringers, Lactated) Confirm Administered Dose 1,000 mls @ as directed .ROUTE .STK-MED ONE Stop: 09/23/20 08:14 Acetaminophen 1,000 mg/ Premix 100 mls @ 400 mls/hr IV NOW ONE Stop: 09/23/20 10:14 Last Admin: 09/23/20 09:43 Dose: 400 mls/hr Documented by: Dextrose/Lactated Ringer's (Dextrose 5%-Lactated Ringers) 1,000 mls @ 150 mls/hr IV ASDIRECTED [facility] Last Admin: 09/24/20 05:26 Dose: 150 mls/hr Documented by: Sodium Chloride (Normal Saline) Confirm Administered Dose 10 mls @ as directed .ROUTE .STK-MED ONE Stop: 09/23/20 11:30 Ibuprofen (Ibuprofen 800 Mg Tab) 800 mg PO Q6H PRN PRN Reason: Pain (moderate 4-6) Last Admin: 09/19/20 22:53 Dose: 800 mg Documented by: Insulin Human Lispro (Insulin Lispro 100 Unit/Ml 3 Ml Kwikpen) 0 unit SUBCUT QIDACANDBED [facility]; Protocol Last Admin: 09/19/20 11:57 Dose: 6 unit Documented by: Insulin Human Lispro (Insulin Lispro 100 Unit/Ml 3 Ml Kwikpen) 8 unit SUBCUT ONETIME ONE Stop: 09/16/20 09:31 Last Admin: 09/16/20 09:59 Dose: 8 units Documented by: Insulin Human Lispro (Insulin Lispro 100 Unit/Ml 3 Ml Kwikpen) 12 unit SUBCUT ONETIME ONE Stop: 09/16/20 11:56 Last Admin: 09/16/20 12:04 Dose: 12 units Documented by: Insulin Human Lispro (Insulin Lispro 100 Units/Ml 3 Ml Vial) 15 unit SUBCUT ONETIME ONE Stop: 09/16/20 16:28 Last Admin: 09/16/20 16:45 Dose: 15 units Documented by: Iopamidol (Iopamidol 755 Mg/Ml 100 Ml Bottle) 100 ml IV . DIRECTED [facility] Last Admin: 09/15/20 20:36 Dose: 100 ml Documented by: Iopamidol (Iopamidol 612 Mg/Ml 100 Ml Bottle) 100 ml IV . DIRECTED PRN PRN Reason: RADIOLOGY EXAM Stop: 09/19/20 13:09 Ketorolac Tromethamine (Ketorolac 30 Mg/Ml Sdv) 30 mg IVPUSH ONETIME ONE Stop: 09/15/20 16:59 Last Admin: 09/15/20 17:16 Dose: 30 mg Documented by: Ketorolac Tromethamine (Ketorolac 30 Mg/Ml Sdv) 30 mg IVPUSH Q8H PRN PRN Reason: Pain Stop: 09/20/20 23:14 Last Admin: 09/16/20 05:27 Dose: 30 mg Documented by: Ketorolac Tromethamine (Ketorolac 30 Mg/Ml Sdv) 60 mg IM ONETIME ONE Stop: 09/23/20 09:34 Last Admin: 09/23/20 09:42 Dose: 60 mg Documented by: Lidocaine (Lidocaine 4% Top Soln Lta 4 Ml Syringe Kit) Confirm Administered Dose 4 ml .ROUTE .STK-MED ONE Stop: 09/17/20 08:33 Lidocaine (Lidocaine 4% Top Soln Lta 4 Ml Syringe Kit) Confirm Administered Dose 4 ml .ROUTE .STK-MED ONE Stop: 09/17/20 08:34 Lidocaine HCl (Lidocaine 2% Viscous Solution 15 Ml Cup) Confirm Administered Dose 15 ml .ROUTE .STK-MED ONE Stop: 09/17/20 07:32 Lidocaine HCl (Lidocaine 4% Top Soln 50 Ml Bottle) Confirm Administered Dose 50 ml .ROUTE .STK-MED ONE Stop: 09/17/20 07:33 Magnesium Citrate (Magnesium Citrate Solution 296 Ml Bottle) 296 ml PO ONETIME ONE Stop: 09/21/20 18:10 Last Admin: 09/21/20 18:41 Dose: 296 ml Documented by: Meropenem (Meropenem 500 Mg Sdv) Confirm Administered Dose 500 mg .ROUTE .STK- MED ONE Stop: 09/23/20 07:44 Meropenem (Meropenem 500 Mg Sdv) 500 mg IRR .STK-MED ONE Stop: 09/23/20 07:31 Last Admin: 09/23/20 07:30 Dose: 500 mg Documented by: Meropenem (Meropenem 500 Mg Sdv) Confirm Administered Dose 500 mg .ROUTE .STK- MED ONE Stop: 09/23/20 11:30 Methylprednisolone Sodium Succinate (Methylprednisolone Sodium Succinate 125 Mg/2 Ml Sdv) 125 mg IVPUSH ONETIME ONE Stop: 09/15/20 20:02 Last Admin: 09/15/20 20:09 Dose: 125 mg Documented by: Methylprednisolone Sodium Succinate (Methylprednisolone Sodium Succinate 125 Mg/2 Ml Sdv) 125 mg IVPUSH ONETIME ONE Stop: 09/19/20 12:14 Last Admin: 09/19/20 13:17 Dose: 125 mg Documented by: Midazolam HCl (Midazolam 1 Mg/Ml 2 Ml Sdv) Confirm Administered Dose 2 mg .ROUTE .STK-MED ONE Stop: 09/17/20 08:32 Midazolam HCl (Midazolam 1 Mg/Ml 2 Ml Sdv) Confirm Administered Dose 2 mg .ROUTE .STK-MED ONE Stop: 09/20/20 07:49 Morphine Sulfate (Morphine 2 Mg/Ml Syringe) 2 mg IVPUSH ONETIME ONE Stop: 09/15/20 17:38 Last Admin: 09/15/20 17:51 Dose: 2 mg Documented by: Morphine Sulfate (Morphine 2 Mg/Ml Syringe) 2 mg IVPUSH ONETIME ONE Stop: 09/15/20 21:51 Last Admin: 09/15/20 22:01 Dose: 2 mg Documented by: Morphine Sulfate (Morphine 2 Mg/Ml Syringe) 2 mg IVPUSH Q2H PRN PRN Reason: Pain (severe 7-10) Last Admin: 09/17/20 17:55 Dose: 2 mg Documented by: Neostigmine Methylsulfate (Neostigmine Methylsulfate 1 Mg/Ml 5 Ml Syringe) Confirm Administered Dose 5 mg .ROUTE .STK-MED ONE Stop: 09/23/20 07:02 Nicotine (Nicotine 21 Mg/24 Hr Patch) 21 mg TRDERM DAILY [facility] Last Admin: 09/21/20 09:06 Dose: Not Given Documented by: Ondansetron HCl (Ondansetron 4 Mg/2 Ml Sdv) Confirm Administered Dose 4 mg .ROUTE .STK-MED ONE Stop: 09/23/20 07:02 Propofol (Propofol 200 Mg/20 Ml Sdv) Confirm Administered Dose 200 mg .ROUTE .STK-MED ONE Stop: 09/17/20 08:32 Propofol (Propofol 200 Mg/20 Ml Sdv) Confirm Administered Dose 200 mg .ROUTE .STK-MED ONE Stop: 09/20/20 07:49 Propofol (Propofol 200 Mg/20 Ml Sdv) Confirm Administered Dose 200 mg .ROUTE .STK-MED ONE Stop: 09/20/20 11:08 Propofol (Propofol 200 Mg/20 Ml Sdv) Confirm Administered Dose 200 mg .ROUTE .STK-MED ONE Stop: 09/23/20 07:02 Rocuronium [place] (Rocuronium 50 Mg/5 Ml Vial) Confirm Administered Dose 50 mg .ROUTE .STK-MED ONE Stop: 09/23/20 07:02 Sodium Chloride (Sodium Chloride 0.9% 10 Ml Syringe) 10 ml FLUSH ONETIME ONE Stop: 09/15/20 20:08 Last Admin: 09/15/20 20:36 Dose: 10 ml Documented by: Sodium Chloride (Sodium Chloride 0.9% 10 Ml Syringe) 10 ml FLUSH ONETIME PRN PRN Reason: PER RADIOLOGY PROTOCOL Stop: 09/19/20 13:09 Sodium Chloride (Sodium Chloride 0.9% 1,000 Ml Bag) 500 ml IRR .STK-MED ONE Stop: 09/23/20 07:31 Last Admin: 09/23/20 07:30 Dose: 500 ml Documented by: Succinylcholine Chloride (Succinylcholine 200 Mg/10 Ml Mdv) Confirm Administered Dose 200 mg .ROUTE .STK-MED ONE Stop: 09/23/20 07:02 - Exam Quality Assessment: Supplemental Oxygen, DVT Prophylaxis Urinary Catheter Total Time: 1Days 2Hours General: Alert, Oriented, Cooperative, Moderate Distress Lungs: Clear to Auscultation, Normal Respiratory Effort, Decreased Breath Sounds Cardiovascular: Regular Rate, Regular Rhythm, No Murmurs GI/Abdominal Exam: Soft, Non-Tender, No Organomegaly, No Distention Extremities: Non-Tender, No Pedal Edema - Patient Data Lab Results Last 24 hrs: Laboratory Results - last 24 hr 09/24/20 09/24/20 09/24/20 Range/Units 11:15 16:38 20:55 WBC (4.5-11.0) K/uL RBC (3.30-5.50) M/uL Hgb (12.0-15.0) g/dL Hct (36.0-48.0) % MCV (80-98) fL MCH (27-31) pg MCHC (32-36) % Plt Count (150-400) K/uL Sodium (140-148) mmol/L Potassium (3.6-5.2) mmol/L Chloride (100-108) mmol/L Carbon Dioxide (21-32) mmol/L Anion Gap (5.0-14.0) mmol/L BUN (7-18) mg/dL Creatinine (0.6-1.0) mg/dL Est Cr Clr Drug Dosing mL/min Estimated GFR (MDRD) (>60) Glucose (74-106) mg/dL POC Glucose 282 H 201 H 171 H (74-106) mg/dL Calcium (8.5-10.1) mg/dL Phosphorus (2.5-4.9) mg/dL Magnesium (1.8-2.4) mg/dL Ferritin (8-388) ng/ml Total Bilirubin (0.2-1.0) mg/dL AST (15-37) U/L ALT (12-78) U/L Alkaline Phosphatase (46-116) U/L Total Protein (6.4-8.2) g/dL Albumin (3.4-5.0) g/dL Globulin (2.3-3.5) g/dL Albumin/Globulin Ratio (1.2-2.2) 09/25/20 09/25/20 09/25/20 Range/Units 04:33 04:33 06:25 WBC 11.3 H (4.5-11.0) K/uL RBC 4.02 (3.30-5.50) M/uL Hgb 10.9 L (12.0-15.0) g/dL Hct 35.3 L (36.0-48.0) % MCV 88 (80-98) fL MCH 27 (27-31) pg MCHC 31 L (32-36) % Plt Count 399 (150-400) K/uL Sodium 138 L (140-148) mmol/L Potassium 4.0 (3.6-5.2) mmol/L Chloride 100 (100-108) mmol/L Carbon Dioxide 35 H (21-32) mmol/L Anion Gap 7.0 (5.0-14.0) mmol/L BUN 9 (7-18) mg/dL Creatinine 0.8 (0.6-1.0) mg/dL Est Cr Clr Drug Dosing 86.23 mL/min Estimated GFR (MDRD) > 60 (>60) Glucose 212 H (74-106) mg/dL POC Glucose (74-106) mg/dL Calcium 8.3 L (8.5-10.1) mg/dL Phosphorus 3.8 (2.5-4.9) mg/dL Magnesium 1.4 L (1.8-2.4) mg/dL Ferritin 105 (8-388) ng/ml Total Bilirubin 0.3 D (0.2-1.0) mg/dL AST 22 D (15-37) U/L ALT 32 (12-78) U/L Alkaline Phosphatase 61 (46-116) U/L Total Protein 5.7 L (6.4-8.2) g/dL Albumin 2.0 L (3.4-5.0) g/dL Globulin 3.7 H (2.3-3.5) g/dL Albumin/Globulin Ratio 0.5 L (1.2-2.2) 09/25/20 Range/Units 07:36 WBC (4.5-11.0) K/uL RBC (3.30-5.50) M/uL Hgb (12.0-15.0) g/dL Hct (36.0-48.0) % MCV (80-98) fL MCH (27-31) pg MCHC (32-36) % Plt Count (150-400) K/uL Sodium (140-148) mmol/L Potassium (3.6-5.2) mmol/L Chloride (100-108) mmol/L Carbon Dioxide (21-32) mmol/L Anion Gap (5.0-14.0) mmol/L BUN (7-18) mg/dL Creatinine (0.6-1.0) mg/dL Est Cr Clr Drug Dosing mL/min Estimated GFR (MDRD) (>60) Glucose (74-106) mg/dL POC Glucose 223 H (74-106) mg/dL Calcium (8.5-10.1) mg/dL Phosphorus (2.5-4.9) mg/dL Magnesium (1.8-2.4) mg/dL Ferritin (8-388) ng/ml Total Bilirubin (0.2-1.0) mg/dL AST (15-37) U/L ALT (12-78) U/L Alkaline Phosphatase (46-116) U/L Total Protein (6.4-8.2) g/dL Albumin (3.4-5.0) g/dL Globulin (2.3-3.5) g/dL Albumin/Globulin Ratio (1.2-2.2) Result Diagrams: 09/25/20 04:33 09/25/20 04:33 [place] Results Last 24 hrs: Microbiology 09/23/20 08:24 Gram Stain - Final Pleural Fluid - Pleural Cavity, Right Body Fluid Culture - Preliminary 09/23/20 08:28 Anaerobic Culture - Preliminary Lung - Right NO GROWTH AFTER 2 DAYS 09/23/20 08:24 Anaerobic Culture - Preliminary Pleural Fluid - Pleural Cavity, Right NO GROWTH AFTER 2 DAYS 08/02/21 08:24 Gram Stain - Final Thoracentesis Fluid - Right Body Fluid Culture - Preliminary NO GROWTH AFTER 2 DAYS Sepsis Event Note - Evaluation Sepsis Screening Result: No Definite Risk - Focused Exam Vital Signs: Vital Signs Temp Pulse Resp BP Pulse Ox 09/25/20 07:02 94 L 09/25/20 07:00 97.5 F 114 H 16 147/90 H 93 L 09/25/20 03:00 95.2 F L 95 16 120/80 95 09/25/20 01:46 92 L - Problem List Review Problem List Initiated/Reviewed/Updated: Yes - My Orders Last 24 Hours: My Active Orders 09/24/20 21:00 Insulin Glarg,Human.Rec.Analog [LantUS Solostar] 24 units SUBCUT BEDTIME - Plan Plan:: ASSESSMENT AND PLAN Persistent right lower lobe pneumonia-status post thoracotomy for decortication, biopsies and cultures also obtained -Antibiotic coverage with ceftazidime and levofloxacin -As needed nebulizers -Symptomatic management of cough and pain -Follow-up cultures -Surgical follow-up per Dr. Love Nausea with vomiting-resolved -Symptomatic management of nausea Type 2 diabetes mellitus-sugars moderately elevated at this time. Hemoglobin A1c was 10. -Lantus 24 units subcu at at bedtime -Continue home medications with dose increase noted -High-dose sliding scale insulin -Diabetic education Maintenance issues - -DVT prophylaxis-SCD -GI prophylaxis-not indicated -Nutrition-consistent carbohydrate -Chavira catheter-not indicated Disposition -I anticipate discharge home after the hospital stay, I would ant icipate several more days here in the hospital before discharge home
--- NOTE | 2020-09-25 11:32 | PN ---
DATE OF SERVICE: 09/25/2020 SUBJECTIVE: Mally states that she is feeling better. Chest tube put out 20. Blood sugar 212. Magnesium was 1.4. She reports she has not had a bowel movement for several days. REVIEW OF SYSTEMS: Remainder of review of systems negative for any pertinent positives and negatives. OBJECTIVE: GENERAL: Mally is a pleasant 44-year-old female. VITAL SIGNS: TPR is 97.5, 114, 16, blood pressure 147/90. HEENT: Negative. NECK: Supple. HEART: Regular rate and rhythm. LUNGS: Decreased breath sounds. Right chest tube intact putting out a light pink drainage, total of 20 for the past 24 hours. ABDOMEN: Soft and nontender. EXTREMITIES: Without peripheral edema. ASSESSMENT: 1. Right thoracoscopy. 2. Right lateral thoracotomy with: a. Pulmonary decortication. b. Removal of solid intraperitoneal exudate. c. Wedge resection, right middle lobe and right lower lobe. POSTOPERATIVE DIAGNOSES: 1. Extensive dense scarring with thickened pulmonary tissue. Multiple lobulated pleural effusions. Date of procedure: 09/23/2020. Surgeon: Sai Love MD. 2. Placement of chest tube on 08/24/2020. Sai Love MD. 3. Bronchoscopy on 09/11/2020, Sai Love MD. PLAN: 1. Magnesium 2 g IV q.6 hours x72 hours. 2. Change chest tube dressing once daily. 3. Discontinue packing over open wound on chest where the first chest tube was. Remove the packing and just place wet gauze or ABD. 4. Dulcolax 10 mg p.o. b.i.d. scheduled. 5. Check CBC, CMP, and phos in a.m. 6. Ambulation encouraged. 7. Use of incentive spirometer and/or Acapella. 8. We will evaluate p.r.n. or in a.m. Sharon Banda PA-C /[id number]
[2020-09-25] MEDS: Levofloxacin/Dextrose 5%-Water 750 MG in Premix Bag 1 BAG IV SCH (13:25)
--- NOTE | 2020-09-25 15:13 | CR ---
CHEST: Portable 09/25/2020 at at 5:14 AM CLINICAL HISTORY:Chest tubes COMPARISON:09/24/2020 FINDINGS: 2 right chest tubes remain in place. There is some persistent right lower lung field airspace disease similar to prior study.
[2020-09-25] MEDS: Insulin Glargine,Human Rec. Analog 100 Units/ML 3 ML Pen SUBCUT SCH (21:13)
[2020-09-26] MEDS: Metoclopramide 10 MG/2 ML SDV IVPUSH SCH ×5 (01:23→17:56)
[2020-09-26] MEDS: LORazepam 0.5 MG Tab PO PRN ×2 (01:23→22:13)
[2020-09-26] MEDS: Acetaminophen 500 MG Tab PO SCH ×4 (01:23→17:59)
[2020-09-26] MEDS: HYDROmorphone/Normal Saline 15 MG/30 ML PCA IV PRN (01:43)
[2020-09-26] MEDS: Magnesium Sulfate/Water 2 GM/50 ML BAG IV SCH ×4 (04:08→22:10)
[2020-09-26] MEDS: Ibuprofen 600 MG Tab PO SCH ×4 (04:32→22:12)
[2020-09-26] MEDS: Insulin Lispro 100 Unit/ML 3 ML KwikPen SUBCUT SCH ×4 (08:19→21:01)
[2020-09-26] MEDS: metFORMIN 500 MG Tab PO SCH ×2 (08:19→16:41)
[2020-09-26] MEDS: Lactobacillus Rhamnosus GG (Probiotic) Cap PO SCH ×2 (08:19→20:45)
[2020-09-26] MEDS: glipiZIDE 5 MG Tab.ER PO SCH (08:20)
[2020-09-26] MEDS: Bisacodyl 5 MG Tab PO SCH ×2 (08:20→20:44)
[2020-09-26] MEDS: Magnesium Hydroxide 400 MG/5 ML Susp 30 ML Cup PO PRN ×2 (10:12→22:16)
--- NOTE | 2020-09-26 10:39 | PN ---
DATE OF SERVICE: 09/26/2020 SUBJECTIVE: Mally reports most of her pain now is at the chest tube site. She is tolerating the open dressing changes. She has no other questions or concerns. Blood sugars in the past 24 hours 172, 176, 211, and 243. REVIEW OF SYSTEMS: Remainder of review of systems negative for any pertinent positives and negatives. OBJECTIVE: GENERAL: Mally is a pleasant 44-year-old female. She is very sleepy. Has a hard time staying awake. VITAL SIGNS: TPR is 97.3, 94, 16, blood pressure 104/41. HEENT: Negative. NECK: Supple. HEART: Regular rate and rhythm. LUNGS: Revealed decreased breath sounds on the right. Dressing dry and intact. Chest tube put out 50 mL in the past 24 hours. EXTREMITIES: Without peripheral edema. ASSESSMENT: 1. Right thoracoscopy. 2. Right lateral thoracotomy with: a. Pulmonary decortication. b. Removal of solid intraperitoneal exudate. c. Wedge resection of right middle lobe and right lower lobe. POSTOPERATIVE DIAGNOSES: 1. Extensive dense scarring with thickened pulmonary tissue, multiple lobulated pleural effusions. Date of procedure: 09/23/2020. Surgeon: Sai Love MD. 2. Placement of chest tube. Date of procedure: 08/24/2020. Surgeon: Sai Love MD. 3. Bronchoscopy. Date of procedure: 09/11/2020. Sai Love MD. PLAN: 1. Communication order written to have all supplies at bedside in a.m., 09/27/[address] Love. 2. Remove chest tube. 3. Continue good pulmonary toilet. 4. We will evaluate p.r.n. or in a.m. Sharon Banda PA-C /[id number]
--- NOTE | 2020-09-26 10:41 | PCM.PN ---
- General Info Date of Service: 09/26/20 Subjective Update: Ms. Nash remained stable over the last 24 hours. She continues to intermittently use supplemental oxygen but use of this has been less. She has been up in the chair and walking in the hallways on a regular basis. Vital signs have remained stable and she has been afebrile. Functional Status: Reports: Tolerating Diet, Ambulating, Urinating - Review of Systems General: Reports: Weakness, Fatigue. Denies: Fever, Chills Pulmonary: Reports: Shortness of Breath, Cough, Sputum. Denies: Pleuritic Chest Pain, Hemoptysis, Wheezing Cardiovascular: Reports: Dyspnea on Exertion. Denies: Chest Pain, Palpitations, Orthopnea, PND, Edema, Lightheadedness Gastrointestinal: Reports: No Symptoms Genitourinary: Reports: No Symptoms - Patient Data Vitals - Most Recent: Last Vital Signs Temp 97.3 F 09/26/20 07:34 Pulse 94 09/26/20 07:34 Resp 16 09/26/20 07:34 BP 104/41 L 09/26/20 07:34 Pulse Ox 92 L 09/26/20 07:34 Weight - Most Recent: 206 lb 6.383 oz I&O - Last 24 Hours: Intake & Output 09/25/20 09/26/20 09/26/20 22:59 06:59 14:59 Intake Total 750 1344 Output Total 2000 1050 Balance -1250 294 Lab Results Last 24 Hours: Laboratory Results - last 24 hr 09/25/20 09/25/20 09/25/20 Range/Units 11:17 16:24 20:55 WBC (4.5-11.0) K/uL RBC (3.30-5.50) M/uL Hgb (12.0-15.0) g/dL Hct (36.0-48.0) % MCV (80-98) fL MCH (27-31) pg MCHC (32-36) % Plt Count (150-400) K/uL Sodium (140-148) mmol/L Potassium (3.6-5.2) mmol/L Chloride (100-108) mmol/L Carbon Dioxide (21-32) mmol/L Anion Gap (5.0-14.0) mmol/L BUN (7-18) mg/dL Creatinine (0.6-1.0) mg/dL Est Cr Clr Drug Dosing mL/min Estimated GFR (MDRD) (>60) Glucose (74-106) mg/dL POC Glucose 172 H 176 H 211 H (74-106) mg/dL Calcium (8.5-10.1) mg/dL Phosphorus (2.5-4.9) mg/dL Total Bilirubin (0.2-1.0) mg/dL AST (15-37) U/L ALT (12-78) U/L Alkaline Phosphatase (46-116) U/L Total Protein (6.4-8.2) g/dL Albumin (3.4-5.0) g/dL Globulin (2.3-3.5) g/dL Albumin/Globulin Ratio (1.2-2.2) 09/26/20 09/26/20 09/26/20 Range/Units 04:55 04:55 07:19 WBC 8.8 (4.5-11.0) K/uL RBC 4.18 (3.30-5.50) M/uL Hgb 11.5 L (12.0-15.0) g/dL Hct 37.0 (36.0-48.0) % MCV 89 (80-98) fL MCH 28 (27-31) pg MCHC 31 L (32-36) % Plt Count 439 H (150-400) K/uL Sodium 139 L (140-148) mmol/L Potassium 4.1 (3.6-5.2) mmol/L Chloride 99 L (100-108) mmol/L Carbon Dioxide 35 H (21-32) mmol/L Anion Gap 9.1 (5.0-14.0) mmol/L BUN 10 (7-18) mg/dL Creatinine 0.8 (0.6-1.0) mg/dL Est Cr Clr Drug Dosing 86.23 mL/min Estimated GFR (MDRD) > 60 (>60) Glucose 198 H (74-106) mg/dL POC Glucose 243 H (74-106) mg/dL Calcium 8.6 (8.5-10.1) mg/dL Phosphorus 4.3 (2.5-4.9) mg/dL Total Bilirubin 0.3 (0.2-1.0) mg/dL AST 20 (15-37) U/L ALT 33 (12-78) U/L Alkaline Phosphatase 73 (46-116) U/L Total Protein 6.5 (6.4-8.2) g/dL Albumin 2.3 L (3.4-5.0) g/dL Globulin 4.2 H (2.3-3.5) g/dL Albumin/Globulin Ratio 0.6 L (1.2-2.2) [facility] Results Last 24 Hours: Microbiology 09/23/20 08:24 Anaerobic Culture - Final Pleural Fluid - Pleural Cavity, Right NO GROWTH AFTER 3 DAYS 09/23/20 08:28 Anaerobic Culture - Final Lung - Right NO GROWTH AFTER 3 DAYS 09/23/20 08:24 Gram Stain - Final Pleural Fluid - Pleural Cavity, Right Body Fluid Culture - Final Staphylococcus Capitis 09/23/20 08:24 Gram Stain - Final Thoracentesis Fluid - Right Body Fluid Culture - Final NO GROWTH AFTER 3 DAYS Med Orders - Current: Current Medications Acetaminophen (Acetaminophen 500 Mg Tab) 1,000 mg PO Q6H [facility] Last Admin: 09/26/20 08:19 Dose: 1,000 mg Documented by: Albuterol (Albuterol 0.083% 2.5 Mg/3 Ml Neb Soln) 2.5 mg NEB Q4H PRN PRN Reason: shortness of breath/wheezing Last Admin: 09/17/20 11:41 Dose: 2.5 mg Documented by: Benzonatate (Benzonatate 100 Mg Cap) 100 mg PO Q6H PRN PRN Reason: Cough Last Admin: 09/24/20 08:34 Dose: 100 mg Documented by: Bisacodyl (Bisacodyl 5 Mg Tab) 10 mg PO BID [facility] Last Admin: 09/26/20 08:20 Dose: 10 mg Documented by: Dextrose/Water (50% Dextrose In Water 50 Ml Syringe) 50 ml IVPUSH ASDIRECTED PRN PRN Reason: Hypoglycemia Glipizide (Glipizide 5 Mg Tab.Er) 10 mg PO DAILY [facility] Last Admin: 09/26/20 08:20 Dose: 10 mg Documented by: Glucagon (Glucagon,Human Recombinant 1 Mg Vial) 1 mg IM ASDIRECTED PRN PRN Reason: Hypoglycemia Guaifenesin/Dextromethorphan (Guaifenesin/Dextromethorphan 100-10 Mg/5 Ml Soln 10 Ml Cup) 10 ml PO Q4H PRN PRN Reason: Cough Last Admin: 09/19/20 22:04 Dose: 10 ml Documented by: Hydroxyzine HCl (Hydroxyzine Hcl 100 Mg/2 Ml Sdv) 100 mg IM Q4H PRN PRN Reason: BREAKTHROUGH PAIN Levofloxacin/Dextrose 750 mg/ (Premix) 150 mls @ 100 mls/hr IV Q24H [facility] Last Admin: 09/25/20 13:25 Dose: 100 mls/hr Documented by: Magnesium Sulfate (Magnesium Sulfate In Water 2 Gm/50 Ml) 2 gm in 50 mls @ 25 mls/hr IV Q6H [facility] Stop: 09/28/20 05:59 Last Admin: 09/26/20 10:12 Dose: 25 mls/hr Documented by: Ibuprofen (Ibuprofen 600 Mg Tab) 600 mg PO Q6H [facility] Last Admin: 09/26/20 10:11 Dose: 600 mg Documented by: Insulin Glargine (Insulin Glargine,Human Rec. Analog 100 Units/Ml 3 Ml Pen) 24 units SUBCUT BEDTIME [facility] Last Admin: 09/25/20 21:13 Dose: 24 units Documented by: Insulin Human Lispro (Insulin Lispro 100 Unit/Ml 3 Ml Kwikpen) 0 unit SUBCUT QIDACANDBED [facility]; Protocol Last Admin: 09/26/20 08:19 Dose: 6 units Documented by: Lactobacillus Rhamnosus (Lactobacillus Rhamnosus Gg (Probiotic) Cap) 1 cap PO BID [facility] Last Admin: 09/26/20 08:19 Dose: 1 cap Documented by: Lorazepam (Lorazepam 0.5 Mg Tab) 0.5 mg PO Q4H PRN PRN Reason: Anxiety Last Admin: 09/26/20 01:23 Dose: 0.5 mg Documented by: Magnesium Hydroxide (Magnesium Hydroxide 400 Mg/5 Ml Susp 30 Ml Cup) 30 ml PO BID PRN PRN Reason: Constipation Last Admin: 09/26/20 10:12 Dose: 30 ml Documented by: Metformin HCl (Metformin 500 Mg Tab) 500 mg PO BIDMEALS [facility] Last Admin: 09/26/20 08:19 Dose: 500 mg Documented by: Metoclopramide HCl (Metoclopramide 10 Mg/2 Ml Sdv) 10 mg IVPUSH Q6H [facility] Last Admin: 09/26/20 05:39 Dose: 10 mg Documented by: Naloxone HCl (Naloxone 0.4 Mg/Ml Sdv) 0.1 mg IV ASDIRECTED PRN PRN Reason: decreased respiratory rate Ondansetron HCl (Ondansetron 4 Mg/2 Ml Sdv) 4 mg IVPUSH Q4H PRN PRN Reason: Nausea/Vomiting Last Admin: 09/21/20 22:05 Dose: 4 mg Documented by: Ondansetron HCl (Ondansetron 4 Mg Tab.Dis) 4 mg PO Q4H PRN PRN Reason: Nausea/Vomiting Last Admin: 09/22/20 19:14 Dose: 4 mg Documented by: Oxycodone HCl (Oxycodone 5 Mg Tab) 5 - 10 mg PO Q4H PRN PRN Reason: Pain Last Admin: 09/19/20 21:57 Dose: 5 mg Documented by: Senna/Docusate Sodium (Docusate Sodium/Sennosides 50-8.6 Mg Tab) 1 tab PO Q12H PRN PRN Reason: Constipation Last Admin: 09/26/20 10:11 Dose: 1 tab Documented by: Sodium Biphosphate/Sodium Phosphate (Sodium Phosphate,Monobasic/Sodium Phosphate,Dibasic Enema 133 Ml Bottle) 133 ml RECTAL ONETIME PRN PRN Reason: Constipation Sodium Chloride (Sodium Chloride 0.9% 10 Ml Syringe) 10 ml FLUSH ASDIRECTED PRN PRN Reason: Keep Vein Open Discontinued Medications Acetaminophen (Acetaminophen 325 Mg Tab) 650 mg PO Q4H PRN PRN Reason: Pain Last Admin: 09/19/20 22:52 Dose: 650 mg Documented by: Acetaminophen (Acetaminophen 500 Mg Tab) 1,000 mg PO Q6H [facility] Last Admin: 09/25/20 10:28 Dose: 1,000 mg Documented by: Hydrocodone Bitart/Acetaminophen (Acetaminophen/Hydrocodone 325-10 Mg Tab) 1 tab PO Q4H PRN PRN Reason: Pain Last Admin: 09/18/20 08:08 Dose: 1 tab Documented by: Azithromycin (Azithromycin 250 Mg Tab) 250 mg PO BEDTIME [facility] Azithromycin (Azithromycin 250 Mg Tab) 500 mg PO ONETIME ONE Stop: 09/15/20 23:58 Last Admin: 09/16/20 00:35 Dose: 500 mg Documented by: Bisacodyl (Bisacodyl 5 Mg Tab) 10 mg PO BID PRN PRN Reason: Constipation Last Admin: 09/22/20 08:26 Dose: 10 mg Documented by: Bisacodyl (Bisacodyl 10 Mg Supp) 10 mg RECTAL ONETIME ONE Stop: 09/21/20 18:10 Last Admin: 09/21/20 18:41 Dose: 10 mg Documented by: Bupivacaine HCl/Epinephrine Bitart (Bupivacaine 0.5%/Epinephrine 1:200,000 50 Ml Mdv) 15 ml INJECT .STK-MED ONE Stop: 09/20/20 10:51 Last Admin: 09/20/20 10:50 Dose: 15 ml Documented by: Bupivacaine HCl/Epinephrine Bitart (Bupivacaine 0.5%/Epinephrine 1:200,000 50 Ml Mdv) Confirm Administered Dose 50 ml .ROUTE .STK-MED ONE Stop: 09/23/20 06:53 Bupivacaine HCl/Epinephrine Bitart (Bupivacaine 0.5%/Epinephrine 1:200,000 30 Ml Sdv) 20 ml INJECT .STK-MED ONE Stop: 09/23/20 08:01 Last Admin: 09/23/20 08:00 Dose: 20 ml Documented by: Dexamethasone (Dexamethasone 4 Mg/Ml Sdv) Confirm Administered Dose 4 mg .ROUTE .STK-MED ONE Stop: 09/23/20 07:02 Diphenhydramine HCl (Diphenhydramine 50 Mg/Ml Sdv) 50 mg IVPUSH ONETIME ONE Stop: 09/15/20 20:02 Last Admin: 09/15/20 20:07 Dose: 50 mg Documented by: Diphenhydramine HCl (Diphenhydramine 50 Mg/Ml Sdv) 50 mg IVPUSH ONETIME ONE Stop: 09/19/20 12:15 Last Admin: 09/19/20 13:17 Dose: 50 mg Documented by: Fentanyl (Fentanyl 100 Mcg/2 Ml Sdv) Confirm Administered Dose 100 mcg .ROUTE .STK-MED ONE Stop: 09/17/20 08:32 Fentanyl (Fentanyl 100 Mcg/2 Ml Sdv) Confirm Administered Dose 100 mcg .ROUTE .STK-MED ONE Stop: 09/20/20 07:49 Fentanyl (Fentanyl 250 Mcg/5 Ml Sdv) Confirm Administered Dose 250 mcg .ROUTE .STK-MED ONE Stop: 09/23/20 07:04 Fentanyl (Fentanyl 100 Mcg/2 Ml Sdv) 50 mcg IVPUSH ONETIME ONE Stop: 09/23/20 09:25 Last Admin: 09/23/20 09:28 Dose: 50 mcg Documented by: Glipizide (Glipizide 5 Mg Tab.Er) 5 mg PO DAILY [facility] Last Admin: 09/21/20 09:06 Dose: 5 mg Documented by: Glycopyrrolate (Glycopyrrolate 0.2 Mg/Ml 5 Ml Mdv) Confirm Administered Dose 1 mg .ROUTE .STK-MED ONE Stop: 09/23/20 07:02 Hydromorphone HCl (Hydromorphone 0.5 Mg/0.5 Ml Syringe) 0.5 mg IVPUSH Q4H PRN PRN Reason: Pain (severe 7-10) Hydromorphone HCl (Hydromorphone/Normal Saline 15 Mg/30 Ml Product Technician) 0 mg IV ASDIRECTED PRN; Protocol PRN Reason: Pain Last Admin: 09/22/20 05:35 Dose: 15 mg Documented by: Hydromorphone HCl (Hydromorphone/Normal Saline 15 Mg/30 Ml Product Technician) 0 mg IV ASDIRECTED PRN; Protocol PRN Reason: [employer] Last Admin: 09/26/20 01:43 Dose: 15 mg Documented by: Hydroxyzine HCl (Hydroxyzine Hcl 100 Mg/2 Ml Sdv) 100 mg IM ONETIME ONE Stop: 09/23/20 09:25 Last Admin: 09/23/20 09:30 Dose: 100 mg Documented by: Sodium Chloride (Normal Saline) 1,000 mls @ 999 mls/hr IV ASDIRECTED [facility] Last Admin: 09/15/20 17:16 Dose: 999 mls/hr Documented by: Sodium Chloride (Normal Saline) 100 mls @ 4 mls/sec IV ASDIRECTED [facility] Last Admin: 09/15/20 20:37 Dose: 4 mls/sec Documented by: Ceftriaxone Sodium 1 gm/ (Sodium Chloride) 50 mls @ 100 mls/hr IV ONETIME ONE Stop: 09/15/20 22:18 Last Admin: 09/15/20 22:07 Dose: 100 mls/hr Documented by: Ceftriaxone Sodium 1 gm/ (Sodium Chloride) 50 mls @ 100 mls/hr IV Q24H [facility] Last Admin: 09/16/20 00:16 Dose: Not Given Documented by: Ceftriaxone Sodium 1 gm/ (Sodium Chloride) 50 mls @ 100 mls/hr IV Q24H [facility] Sodium Chloride (Normal Saline) 1,000 mls @ 100 mls/hr IV ASDIRECTED [facility] Last Admin: 09/17/20 09:53 Dose: 100 mls/hr Documented by: Doxycycline Hyclate 100 mg/ (Sodium Chloride) 100 mls @ 100 mls/hr IV Q12H [facility] Last Admin: 09/18/20 11:23 Dose: 100 mls/hr Documented by: Ceftazidime 1 gm/ Sodium (Chloride) 50 mls @ 100 mls/hr IV Q8H [facility] Last Admin: 09/26/20 03:29 Dose: 100 mls/hr Documented by: Sodium Chloride (Normal Saline) 1,000 mls @ 25 mls/hr IV ASDIRECTED [facility] Last Admin: 09/17/20 11:59 Dose: 25 mls/hr Documented by: Potassium Chloride 20 meq/Lidocaine HCl 2 ml/ Sodium Chloride 112 mls @ 56 mls/hr IV Q2H [facility] Stop: 09/18/20 17:29 Last Admin: 09/18/20 20:39 Dose: 56 mls/hr Documented by: Vancomycin HCl 1.5 gm/ Sodium (Chloride) 250 mls @ 167 mls/hr IV Q12H [facility] Last Admin: 09/19/20 02:40 Dose: 167 mls/hr Documented by: Sodium Chloride (Normal Saline) 75 mls @ 3 mls/sec IV ONETIME ONE Stop: 09/19/20 13:09 Last Admin: 09/19/20 16:29 Dose: Not Given Documented by: Vancomycin HCl 1.5 gm/ Sodium (Chloride) 250 mls @ 167 mls/hr IV Q12H [facility] Last Admin: 09/20/20 01:38 Dose: 167 mls/hr Documented by: Vancomycin HCl 1.5 gm/ Sodium (Chloride) 250 mls @ 167 mls/hr IV Q8H [facility] Last Admin: 09/21/20 07:30 Dose: 167 mls/hr Documented by: Lactated Ringer's (Ringers, Lactated) Confirm Administered Dose 1,000 mls @ as directed .ROUTE .STK-MED ONE Stop: 09/23/20 08:14 Acetaminophen 1,000 mg/ Premix 100 mls @ 400 mls/hr IV NOW ONE Stop: 09/23/20 10:14 Last Admin: 09/23/20 09:43 Dose: 400 mls/hr Documented by: Dextrose/Lactated Ringer's (Dextrose 5%-Lactated Ringers) 1,000 mls @ 150 mls/hr IV ASDIRECTED [facility] Last Admin: 09/24/20 05:26 Dose: 150 mls/hr Documented by: Sodium Chloride (Normal Saline) Confirm Administered Dose 10 mls @ as directed .ROUTE .STK-MED ONE Stop: 09/23/20 11:30 Lactated Ringer's (Ringers, Lactated) 1,000 mls @ 100 mls/hr IV ASDIRECTED [facility] Last Admin: 09/25/20 06:35 Dose: 100 mls/hr Documented by: Ibuprofen (Ibuprofen 800 Mg Tab) 800 mg PO Q6H PRN PRN Reason: Pain (moderate 4-6) Last Admin: 09/19/20 22:53 Dose: 800 mg Documented by: Insulin Human Lispro (Insulin Lispro 100 Unit/Ml 3 Ml Kwikpen) 0 unit SUBCUT QIDACANDBED [facility]; Protocol Last Admin: 09/19/20 11:57 Dose: 6 unit Documented by: Insulin Human Lispro (Insulin Lispro 100 Unit/Ml 3 Ml Kwikpen) 8 unit SUBCUT ONETIME ONE Stop: 09/16/20 09:31 Last Admin: 09/16/20 09:59 Dose: 8 units Documented by: Insulin Human Lispro (Insulin Lispro 100 Unit/Ml 3 Ml Kwikpen) 12 unit SUBCUT ONETIME ONE Stop: 09/16/20 11:56 Last Admin: 09/16/20 12:04 Dose: 12 units Documented by: Insulin Human Lispro (Insulin Lispro 100 Units/Ml 3 Ml Vial) 15 unit SUBCUT ONETIME ONE Stop: 09/16/20 16:28 Last Admin: 09/16/20 16:45 Dose: 15 units Documented by: Iopamidol (Iopamidol 755 Mg/Ml 100 Ml Bottle) 100 ml IV . DIRECTED [facility] Last Admin: 09/15/20 20:36 Dose: 100 ml Documented by: Iopamidol (Iopamidol 612 Mg/Ml 100 Ml Bottle) 100 ml IV . DIRECTED PRN PRN Reason: RADIOLOGY EXAM Stop: 09/19/20 13:09 Ketorolac Tromethamine (Ketorolac 30 Mg/Ml Sdv) 30 mg IVPUSH ONETIME ONE Stop: 09/15/20 16:59 Last Admin: 09/15/20 17:16 Dose: 30 mg Documented by: Ketorolac Tromethamine (Ketorolac 30 Mg/Ml Sdv) 30 mg IVPUSH Q8H PRN PRN Reason: Pain Stop: 09/20/20 23:14 Last Admin: 09/16/20 05:27 Dose: 30 mg Documented by: Ketorolac Tromethamine (Ketorolac 30 Mg/Ml Sdv) 60 mg IM ONETIME ONE Stop: 09/23/20 09:34 Last Admin: 09/23/20 09:42 Dose: 60 mg Documented by: Lidocaine (Lidocaine 4% Top Soln Lta 4 Ml Syringe Kit) Confirm Administered Dose 4 ml .ROUTE .STK-MED ONE Stop: 09/17/20 08:33 Lidocaine (Lidocaine 4% Top Soln Lta 4 Ml Syringe Kit) Confirm Administered Dose 4 ml .ROUTE .STK-MED ONE Stop: 09/17/20 08:34 Lidocaine HCl (Lidocaine 2% Viscous Solution 15 Ml Cup) Confirm Administered Dose 15 ml .ROUTE .STK-MED ONE Stop: 09/17/20 07:32 Lidocaine HCl (Lidocaine 4% Top Soln 50 Ml Bottle) Confirm Administered Dose 50 ml .ROUTE .STK-MED ONE Stop: 09/17/20 07:33 Magnesium Citrate (Magnesium Citrate Solution 296 Ml Bottle) 296 ml PO ONETIME ONE Stop: 09/21/20 18:10 Last Admin: 09/21/20 18:41 Dose: 296 ml Documented by: Meropenem (Meropenem 500 Mg Sdv) Confirm Administered Dose 500 mg .ROUTE .STK- MED ONE Stop: 09/23/20 07:44 Meropenem (Meropenem 500 Mg Sdv) 500 mg IRR .STK-MED ONE Stop: 09/23/20 07:31 Last Admin: 09/23/20 07:30 Dose: 500 mg Documented by: Meropenem (Meropenem 500 Mg Sdv) Confirm Administered Dose 500 mg .ROUTE .STK- MED ONE Stop: 09/23/20 11:30 Methylprednisolone Sodium Succinate (Methylprednisolone Sodium Succinate 125 Mg/2 Ml Sdv) 125 mg IVPUSH ONETIME ONE Stop: 09/15/20 20:02 Last Admin: 09/15/20 20:09 Dose: 125 mg Documented by: Methylprednisolone Sodium Succinate (Methylprednisolone Sodium Succinate 125 Mg/2 Ml Sdv) 125 mg IVPUSH ONETIME ONE Stop: 09/19/20 12:14 Last Admin: 09/19/20 13:17 Dose: 125 mg Documented by: Midazolam HCl (Midazolam 1 Mg/Ml 2 Ml Sdv) Confirm Administered Dose 2 mg .ROUTE .STK-MED ONE Stop: 09/17/20 08:32 Midazolam HCl (Midazolam 1 Mg/Ml 2 Ml Sdv) Confirm Administered Dose 2 mg .ROUTE .STK-MED ONE Stop: 09/20/20 07:49 Morphine Sulfate (Morphine 2 Mg/Ml Syringe) 2 mg IVPUSH ONETIME ONE Stop: 09/15/20 17:38 Last Admin: 09/15/20 17:51 Dose: 2 mg Documented by: Morphine Sulfate (Morphine 2 Mg/Ml Syringe) 2 mg IVPUSH ONETIME ONE Stop: 09/15/20 21:51 Last Admin: 09/15/20 22:01 Dose: 2 mg Documented by: Morphine Sulfate (Morphine 2 Mg/Ml Syringe) 2 mg IVPUSH Q2H PRN PRN Reason: Pain (severe 7-10) Last Admin: 09/17/20 17:55 Dose: 2 mg Documented by: Neostigmine Methylsulfate (Neostigmine Methylsulfate 1 Mg/Ml 5 Ml Syringe) C onfirm Administered Dose 5 mg .ROUTE .STK-MED ONE Stop: 09/23/20 07:02 Nicotine (Nicotine 21 Mg/24 Hr Patch) 21 mg TRDERM DAILY [facility] Last Admin: 09/21/20 09:06 Dose: Not Given Documented by: Ondansetron HCl (Ondansetron 4 Mg/2 Ml Sdv) Confirm Administered Dose 4 mg .ROUTE .STK-MED ONE Stop: 09/23/20 07:02 Propofol (Propofol 200 Mg/20 Ml Sdv) Confirm Administered Dose 200 mg .ROUTE .STK-MED ONE Stop: 09/17/20 08:32 Propofol (Propofol 200 Mg/20 Ml Sdv) Confirm Administered Dose 200 mg .ROUTE .STK-MED ONE Stop: 09/20/20 07:49 Propofol (Propofol 200 Mg/20 Ml Sdv) Confirm Administered Dose 200 mg .ROUTE .STK-MED ONE Stop: 09/20/20 11:08 Propofol (Propofol 200 Mg/20 Ml Sdv) Confirm Administered Dose 200 mg .ROUTE .STK-MED ONE Stop: 09/23/20 07:02 Rocuronium [place] (Rocuronium 50 Mg/5 Ml Vial) Confirm Administered Dose 50 mg .ROUTE .STK-MED ONE Stop: 09/23/20 07:02 Sodium Chloride (Sodium Chloride 0.9% 10 Ml Syringe) 10 ml FLUSH ONETIME ONE Stop: 09/15/20 20:08 Last Admin: 09/15/20 20:36 Dose: 10 ml Documented by: Sodium Chloride (Sodium Chloride 0.9% 10 Ml Syringe) 10 ml FLUSH ONETIME PRN PRN Reason: PER RADIOLOGY PROTOCOL Stop: 09/19/20 13:09 Sodium Chloride (Sodium Chloride 0.9% 1,000 Ml Bag) 500 ml IRR .STK-MED ONE Stop: 09/23/20 07:31 Last Admin: 09/23/20 07:30 Dose: 500 ml Documented by: Succinylcholine Chloride (Succinylcholine 200 Mg/10 Ml Mdv) Confirm Administered Dose 200 mg .ROUTE .STK-MED ONE Stop: 09/23/20 07:02 - Exam Quality Assessment: Supplemental Oxygen, DVT Prophylaxis Urinary Catheter Total Time: 1Days 2Hours General: Alert, Oriented, Cooperative, Moderate Distress Lungs: Clear to Auscultation, Normal Respiratory Effort Cardiovascular: Regular Rate, Regular Rhythm, No Murmurs GI/Abdominal Exam: Soft, No Organomegaly, Tender. No: Distended, Guarding, Rigid, Rebound Extremities: Non-Tender, No Pedal Edema - Patient Data Lab Results Last 24 hrs: Laboratory Results - last 24 hr 09/25/20 09/25/20 09/25/20 Range/Units 11:17 16:24 20:55 WBC (4.5-11.0) K/uL RBC (3.30-5.50) M/uL Hgb (12.0-15.0) g/dL Hct (36.0-48.0) % MCV (80-98) fL MCH (27-31) pg MCHC (32-36) % Plt Count (150-400) K/uL Sodium (140-148) mmol/L Potassium (3.6-5.2) mmol/L Chloride (100-108) mmol/L Carbon Dioxide (21-32) mmol/L Anion Gap (5.0-14.0) mmol/L BUN (7-18) mg/dL Creatinine (0.6-1.0) mg/dL Est Cr Clr Drug Dosing mL/min Estimated GFR (MDRD) (>60) Glucose (74-106) mg/dL POC Glucose 172 H 176 H 211 H (74-106) mg/dL Calcium (8.5-10.1) mg/dL Phosphorus (2.5-4.9) mg/dL Total Bilirubin (0.2-1.0) mg/dL AST (15-37) U/L ALT (12-78) U/L Alkaline Phosphatase (46-116) U/L Total Protein (6.4-8.2) g/dL Albumin (3.4-5.0) g/dL Globulin (2.3-3.5) g/dL Albumin/Globulin Ratio (1.2-2.2) 09/26/20 09/26/20 09/26/20 Range/Units 04:55 04:55 07:19 WBC 8.8 (4.5-11.0) K/uL RBC 4.18 (3.30-5.50) M/uL Hgb 11.5 L (12.0-15.0) g/dL Hct 37.0 (36.0-48.0) % MCV 89 (80-98) fL MCH 28 (27-31) pg MCHC 31 L (32-36) % Plt Count 439 H (150-400) K/uL Sodium 139 L (140-148) mmol/L Potassium 4.1 (3.6-5.2) mmol/L Chloride 99 L (100-108) mmol/L Carbon Dioxide 35 H (21-32) mmol/L Anion Gap 9.1 (5.0-14.0) mmol/L BUN 10 (7-18) mg/dL Creatinine 0.8 (0.6-1.0) mg/dL Est Cr Clr Drug Dosing 86.23 mL/min Estimated GFR (MDRD) > 60 (>60) Glucose 198 H (74-106) mg/dL POC Glucose 243 H (74-106) mg/dL Calcium 8.6 (8.5-10.1) mg/dL Phosphorus 4.3 (2.5-4.9) mg/dL Total Bilirubin 0.3 (0.2-1.0) mg/dL AST 20 (15-37) U/L ALT 33 (12-78) U/L Alkaline Phosphatase 73 (46-116) U/L Total Protein 6.5 (6.4-8.2) g/dL Albumin 2.3 L (3.4-5.0) g/dL Globulin 4.2 H (2.3-3.5) g/dL Albumin/Globulin Ratio 0.6 L (1.2-2.2) Result Diagrams: 09/26/20 04:55 09/26/20 04:55 Bald[place]ar Results Last 24 hrs: Microbiology 09/23/20 08:24 Anaerobic Culture - Final Pleural Fluid - Pleural Cavity, Right NO GROWTH AFTER 3 DAYS 09/23/20 08:28 Anaerobic Culture - Final Lung - Right NO GROWTH AFTER 3 DAYS 09/23/20 08:24 Gram Stain - Final Pleural Fluid - Pleural Cavity, Right Body Fluid Culture - Final Staphylococcus Capitis 09/23/20 08:24 Gram Stain - Final Thoracentesis Fluid - Right Body Fluid Culture - Final NO GROWTH AFTER 3 DAYS Sepsis Event Note - Evaluation Sepsis Screening Result: No Definite Risk - Focused Exam Vital Signs: Vital Signs Temp Pulse Resp BP Pulse Ox 09/26/20 07:34 97.3 F 94 16 104/41 L 92 L 09/26/20 07:30 92 L 09/26/20 03:00 97.2 F 81 18 102/58 L 93 L 09/26/20 01:36 93 L - Problem List Review Problem List Initiated/Reviewed/Updated: Yes - My Orders Last 24 Hours: My Active Orders 09/25/20 10:47 Convert IV to Saline Lock [OM.PC] Routine - Plan Plan:: ASSESSMENT AND PLAN Persistent right lower lobe pneumonia-status post thoracotomy for decortication, biopsies and cultures also obtained -Antibiotic coverage with levofloxacin -As needed nebulizers -Symptomatic management of cough and pain -Follow-up cultures -Surgical follow-up per Dr. Love Nausea with vomiting-resolved -Symptomatic management of nausea Type 2 diabetes mellitus-sugars moderately elevated at this time. Hemoglobin A1c was 10. -Lantus 36 units subcu at at bedtime -Continue home medications -High-dose sliding scale insulin -Diabetic education Maintenance issues - -DVT prophylaxis-SCD -GI prophylaxis-not indicated -Nutrition-consistent carbohydrate -Chavira catheter-not indicated Disposition -I anticipate discharge home after the hospital stay, I would anticipate several more days here in the hospital before discharge home
[2020-09-26] MEDS: Levofloxacin/Dextrose 5%-Water 750 MG in Premix Bag 1 BAG IV SCH (13:03)
[2020-09-26] MEDS: oxyCODONE 5 MG Tab PO PRN ×3 (13:03→22:14)
[2020-09-26] MEDS: Insulin Glargine,Human Rec. Analog 100 Units/ML 3 ML Pen SUBCUT SCH (21:02)
[2020-09-27] MEDS: Acetaminophen 500 MG Tab PO SCH ×4 (00:21→20:00)
[2020-09-27] MEDS: Metoclopramide 10 MG/2 ML SDV IVPUSH SCH ×5 (00:21→18:25)
[2020-09-27] MEDS: Magnesium Sulfate/Water 2 GM/50 ML BAG IV SCH ×4 (04:03→22:23)
[2020-09-27] MEDS: Ibuprofen 600 MG Tab PO SCH ×5 (04:03→22:30)
[2020-09-27] MEDS: oxyCODONE 5 MG Tab PO PRN ×3 (04:04→20:00)
[2020-09-27] MEDS: Insulin Lispro 100 Unit/ML 3 ML KwikPen SUBCUT SCH ×4 (07:47→22:20)
[2020-09-27] MEDS: Lactobacillus Rhamnosus GG (Probiotic) Cap PO SCH ×2 (08:43→20:29)
[2020-09-27] MEDS: metFORMIN 500 MG Tab PO SCH ×2 (08:43→18:16)
[2020-09-27] MEDS: glipiZIDE 5 MG Tab.ER PO SCH (08:43)
[2020-09-27] MEDS: Bisacodyl 5 MG Tab PO SCH ×2 (08:44→20:29)
--- NOTE | 2020-09-27 09:15 | PN ---
DATE OF SERVICE: 09/21/2020 The patient has been afebrile with stable vital signs and oxygenation somewhat since the chest tube was placed yesterday, and the chest tube Gram stain and RADHA stain show no bacterial or fungal elements. Chest x-ray looks better, but the location of the effusion medially makes it little bit difficult to know whether or not evacuated. Given this, we will get a CT scan of the chest tomorrow morning to look at that issue. Otherwise, maximize activity and work with pulmonary toilet. Continue present antibiotics per Dr. Strange. Sai Love MD /[id number]
--- NOTE | 2020-09-27 09:21 | CR ---
CHEST: Portable 09/26/2020 at 451 CLINICAL HISTORY:Chest tubes, loculated pleural effusion COMPARISON:09/25/2020 FINDINGS: 2 right chest tubes remain in place. There is persistent streaky and patchy density in right lower lobe similar to prior study. There is also some streaky atelectasis and scarring in the left lower lobe. Impression: Chest tubes remain in place Persistent bibasal densities right greater than left similar to prior studies
[2020-09-27] MEDS: Ondansetron 4 MG Tab.DIS PO PRN (09:49)
--- NOTE | 2020-09-27 10:16 | PN ---
DATE OF SERVICE: 09/22/2020 The patient clinically had been doing a little bit better. However, her CT scan shows still large amount of undrained fluid. A large collection is present in the major fissure as well as posteriorly and medially. Given this, I think that the best plan will be to proceed with thoracostomy, break up that fluid, allow the lung to be fully inflated and should facilitate a better long-term outcome than leaving that fluid in place which would likely result in . Potential risks of the procedure were reviewed with the patient, and she wishes to proceed. Sai Love MD /[id number]
--- NOTE | 2020-09-27 10:56 | PCM.PN ---
- General Info Date of Service: 09/27/20 Subjective Update: Ms. Nash has remained stable over the past 24 hours. Chest tubes were both removed this morning. She has been walking in the hallways and sitting in the chair. Appetite remains fairly good continues to experience incisional pain. Functional Status: Reports: Tolerating Diet, Ambulating, Urinating - Review of Systems General: Reports: Weakness, Fatigue. Denies: Fever, Chills Pulmonary: Reports: Shortness of Breath, Cough, Sputum. Denies: Pleuritic Chest Pain, Hemoptysis, Wheezing Cardiovascular: Reports: Dyspnea on Exertion. Denies: Chest Pain, Palpitations, Orthopnea, PND, Edema, Lightheadedness Gastrointestinal: Reports: No Symptoms Genitourinary: Reports: No Symptoms - Patient Data Vitals - Most Recent: Last Vital Signs Temp 97.3 F 09/27/20 07:42 Pulse 86 09/27/20 07:42 Resp 16 09/27/20 07:42 BP 113/59 L 09/27/20 07:42 Pulse Ox 93 L 09/27/20 07:55 Weight - Most Recent: 206 lb 6.383 oz I&O - Last 24 Hours: Intake & Output 09/26/20 09/27/20 09/27/20 22:59 06:59 14:59 Intake Total 700 500 150 Output Total 25 Balance 700 475 150 Lab Results Last 24 Hours: Laboratory Results - last 24 hr 09/26/20 09/26/20 09/26/20 Range/Units 11:35 16:21 20:54 POC Glucose 193 H 211 H 198 H (74-106) mg/dL 09/27/20 Range/Units 07:20 POC Glucose 129 H (74-106) mg/dL [facility] Results Last 24 Hours: Microbiology 09/23/20 08:24 Anaerobic Culture - Final Pleural Fluid - Pleural Cavity, Right NO GROWTH AFTER 3 DAYS 09/23/20 08:28 Anaerobic Culture - Final Lung - Right NO GROWTH AFTER 3 DAYS 09/23/20 08:24 Gram Stain - Final Pleural Fluid - Pleural Cavity, Right Body Fluid Culture - Final Staphylococcus Capitis 09/23/20 08:24 Gram Stain - Final Thoracentesis Fluid - Right Body Fluid Culture - Final NO GROWTH AFTER 3 DAYS Med Orders - Current: Current Medications Acetaminophen (Acetaminophen 500 Mg Tab) 1,000 mg PO Q6H [facility] Last Admin: 09/27/20 07:47 Dose: 1,000 mg Documented by: Albuterol (Albuterol 0.083% 2.5 Mg/3 Ml Neb Soln) 2.5 mg NEB Q4H PRN PRN Reason: shortness of breath/wheezing Last Admin: 09/17/20 11:41 Dose: 2.5 mg Documented by: Benzonatate (Benzonatate 100 Mg Cap) 100 mg PO Q6H PRN PRN Reason: Cough Last Admin: 09/24/20 08:34 Dose: 100 mg Documented by: Bisacodyl (Bisacodyl 5 Mg Tab) 10 mg PO BID [facility] Last Admin: 09/27/20 08:44 Dose: 10 mg Documented by: Dextrose/Water (50% Dextrose In Water 50 Ml Syringe) 50 ml IVPUSH ASDIRECTED PRN PRN Reason: Hypoglycemia Glipizide (Glipizide 5 Mg Tab.Er) 10 mg PO DAILY [facility] Last Admin: 09/27/20 08:43 Dose: 10 mg Documented by: Glucagon (Glucagon,Human Recombinant 1 Mg Vial) 1 mg IM ASDIRECTED PRN PRN Reason: Hypoglycemia Guaifenesin/Dextromethorphan (Guaifenesin/Dextromethorphan 100-10 Mg/5 Ml Soln 10 Ml Cup) 10 ml PO Q4H PRN PRN Reason: Cough Last Admin: 09/19/20 22:04 Dose: 10 ml Documented by: Hydroxyzine HCl (Hydroxyzine Hcl 100 Mg/2 Ml Sdv) 100 mg IM Q4H PRN PRN Reason: BREAKTHROUGH PAIN Levofloxacin/Dextrose 750 mg/ (Premix) 150 mls @ 100 mls/hr IV Q24H [facility] Stop: 09/27/20 14:00 Last Admin: 09/26/20 13:03 Dose: 100 mls/hr Documented by: Magnesium Sulfate (Magnesium Sulfate In Water 2 Gm/50 Ml) 2 gm in 50 mls @ 25 mls/hr IV Q6H [facility] Stop: 09/28/20 05:59 Last Admin: 09/27/20 09:50 Dose: 25 mls/hr Documented by: Ibuprofen (Ibuprofen 600 Mg Tab) 600 mg PO Q6H [facility] Last Admin: 09/27/20 10:12 Dose: Not Given Documented by: Insulin Glargine (Insulin Glargine,Human Rec. Analog 100 Units/Ml 3 Ml Pen) 30 units SUBCUT BEDTIME [facility] Last Admin: 09/26/20 21:02 Dose: 30 units Documented by: Insulin Human Lispro (Insulin Lispro 100 Unit/Ml 3 Ml Kwikpen) 0 unit SUBCUT QI DACANDBED [facility]; Protocol Last Admin: 09/27/20 07:47 Dose: Not Given Documented by: Lactobacillus Rhamnosus (Lactobacillus Rhamnosus Gg (Probiotic) Cap) 1 cap PO BID [facility] Last Admin: 09/27/20 08:43 Dose: 1 cap Documented by: Lorazepam (Lorazepam 0.5 Mg Tab) 0.5 mg PO Q4H PRN PRN Reason: Anxiety Last Admin: 09/26/20 22:13 Dose: 0.5 mg Documented by: Magnesium Hydroxide (Magnesium Hydroxide 400 Mg/5 Ml Susp 30 Ml Cup) 30 ml PO BID PRN PRN Reason: Constipation Last Admin: 09/26/20 22:16 Dose: 30 ml Documented by: Metformin HCl (Metformin 500 Mg Tab) 500 mg PO BIDMEALS [facility] Last Admin: 09/27/20 08:43 Dose: 500 mg Documented by: Metoclopramide HCl (Metoclopramide 10 Mg/2 Ml Sdv) 10 mg IVPUSH Q6H [facility] Last Admin: 09/27/20 05:47 Dose: 10 mg Documented by: Naloxone HCl (Naloxone 0.4 Mg/Ml Sdv) 0.1 mg IV ASDIRECTED PRN PRN Reason: decreased respiratory rate Ondansetron HCl (Ondansetron 4 Mg/2 Ml Sdv) 4 mg IVPUSH Q4H PRN PRN Reason: Nausea/Vomiting Last Admin: 09/21/20 22:05 Dose: 4 mg Documented by: Ondansetron HCl (Ondansetron 4 Mg Tab.Dis) 4 mg PO Q4H PRN PRN Reason: Nausea/Vomiting Last Admin: 09/27/20 09:49 Dose: 4 mg Documented by: Oxycodone HCl (Oxycodone 5 Mg Tab) 5 - 10 mg PO Q4H PRN PRN Reason: Pain Last Admin: 09/27/20 04:04 Dose: 10 mg Documented by: Senna/Docusate Sodium (Docusate Sodium/Sennosides 50-8.6 Mg Tab) 1 tab PO Q12H PRN PRN Reason: Constipation Last Admin: 09/26/20 22:13 Dose: 1 tab Documented by: Sodium Biphosphate/Sodium Phosphate (Sodium Phosphate,Monobasic/Sodium Phosphate,Dibasic Enema 133 Ml Bottle) 133 ml RECTAL ONETIME PRN PRN Reason: Constipation Sodium Chloride (Sodium Chloride 0.9% 10 Ml Syringe) 10 ml FLUSH ASDIRECTED PRN PRN Reason: Keep Vein Open Discontinued Medications Acetaminophen (Acetaminophen 325 Mg Tab) 650 mg PO Q4H PRN PRN Reason: Pain Last Admin: 09/19/20 22:52 Dose: 650 mg Documented by: Acetaminophen (Acetaminophen 500 Mg Tab) 1,000 mg PO Q6H [facility] Last Admin: 09/25/20 10:28 Dose: 1,000 mg Documented by: Hydrocodone Bitart/Acetaminophen (Acetaminophen/Hydrocodone 325-10 Mg Tab) 1 tab PO Q4H PRN PRN Reason: Pain Last Admin: 09/18/20 08:08 Dose: 1 tab Documented by: Azithromycin (Azithromycin 250 Mg Tab) 250 mg PO BEDTIME [facility] Azithromycin (Azithromycin 250 Mg Tab) 500 mg PO ONETIME ONE Stop: 09/15/20 23:58 Last Admin: 09/16/20 00:35 Dose: 500 mg Documented by: Bisacodyl (Bisacodyl 5 Mg Tab) 10 mg PO BID PRN PRN Reason: Constipation Last Admin: 09/22/20 08:26 Dose: 10 mg Documented by: Bisacodyl (Bisacodyl 10 Mg Supp) 10 mg RECTAL ONETIME ONE Stop: 09/21/20 18:10 Last Admin: 09/21/20 18:41 Dose: 10 mg Documented by: Bupivacaine HCl/Epinephrine Bitart (Bupivacaine 0.5%/Epinephrine 1:200,000 50 Ml Mdv) 15 ml INJECT .STK-MED ONE Stop: 09/20/20 10:51 Last Admin: 09/20/20 10:50 Dose: 15 ml Documented by: Bupivacaine HCl/Epinephrine Bitart (Bupivacaine 0.5%/Epinephrine 1:200,000 50 Ml Mdv) Confirm Administered Dose 50 ml .ROUTE .STK-MED ONE Stop: 09/23/20 06:53 Bupivacaine HCl/Epinephrine Bitart (Bupivacaine 0.5%/Epinephrine 1:200,000 30 Ml Sdv) 20 ml INJECT .STK-MED ONE Stop: 09/23/20 08:01 Last Admin: 09/23/20 08:00 Dose: 20 ml Documented by: Dexamethasone (Dexamethasone 4 Mg/Ml Sdv) Confirm Administered Dose 4 mg .ROUTE .STK-MED ONE Stop: 09/23/20 07:02 Diphenhydramine HCl (Diphenhydramine 50 Mg/Ml Sdv) 50 mg IVPUSH ONETIME ONE Stop: 09/15/20 20:02 Last Admin: 09/15/20 20:07 Dose: 50 mg Documented by: Diphenhydramine HCl (Diphenhydramine 50 Mg/Ml Sdv) 50 mg IVPUSH ONETIME ONE Stop: 09/19/20 12:15 Last Admin: 09/19/20 13:17 Dose: 50 mg Documented by: Fentanyl (Fentanyl 100 Mcg/2 Ml Sdv) Confirm Administered Dose 100 mcg .ROUTE .STK-MED ONE Stop: 09/17/20 08:32 Fentanyl (Fentanyl 100 Mcg/2 Ml Sdv) Confirm Administered Dose 100 mcg .ROUTE .STK-MED ONE Stop: 09/20/20 07:49 Fentanyl (Fentanyl 250 Mcg/5 Ml Sdv) Confirm Administered Dose 250 mcg .ROUTE .STK-MED ONE Stop: 09/23/20 07:04 Fentanyl (Fentanyl 100 Mcg/2 Ml Sdv) 50 mcg IVPUSH ONETIME ONE Stop: 09/23/20 09:25 Last Admin: 09/23/20 09:28 Dose: 50 mcg Documented by: Glipizide (Glipizide 5 Mg Tab.Er) 5 mg PO DAILY [facility] Last Admin: 09/21/20 09:06 Dose: 5 mg Documented by: Glycopyrrolate (Glycopyrrolate 0.2 Mg/Ml 5 Ml Mdv) Confirm Administered Dose 1 mg .ROUTE .STK-MED ONE Stop: 09/23/20 07:02 Hydromorphone HCl (Hydromorphone 0.5 Mg/0.5 Ml Syringe) 0.5 mg IVPUSH Q4H PRN PRN Reason: Pain (severe 7-10) Hydromorphone HCl (Hydromorphone/Normal Saline 15 Mg/30 Ml Idea Worker) 0 mg IV ASDIRECTED PRN; Protocol PRN Reason: Pain Last Admin: 09/22/20 05:35 Dose: 15 mg Documented by: Hydromorphone HCl (Hydromorphone/Normal Saline 15 Mg/30 Ml Idea Worker) 0 mg IV ASDIRECTED PRN; Protocol PRN Reason: [employer] PAIN CONTROL Last Admin: 09/26/20 01:43 Dose: 15 mg Documented by: Hydroxyzine HCl (Hydroxyzine Hcl 100 Mg/2 Ml Sdv) 100 mg IM ONETIME ONE Stop: 09/23/20 09:25 Last Admin: 09/23/20 09:30 Dose: 100 mg Documented by: Sodium Chloride (Normal Saline) 1,000 mls @ 999 mls/hr IV ASDIRECTED [facility] Last Admin: 09/15/20 17:16 Dose: 999 mls/hr Documented by: Sodium Chloride (Normal Saline) 100 mls @ 4 mls/sec IV ASDIRECTED [facility] Last Admin: 09/15/20 20:37 Dose: 4 mls/sec Documented by: Ceftriaxone Sodium 1 gm/ (Sodium Chloride) 50 mls @ 100 mls/hr IV ONETIME ONE Stop: 09/15/20 22:18 Last Admin: 09/15/20 22:07 Dose: 100 mls/hr Documented by: Ceftriaxone Sodium 1 gm/ (Sodium Chloride) 50 mls @ 100 mls/hr IV Q24H [facility] Last Admin: 09/16/20 00:16 Dose: Not Given Documented by: Ceftriaxone Sodium 1 gm/ (Sodium Chloride) 50 mls @ 100 mls/hr IV Q24H [facility] Sodium Chloride (Normal Saline) 1,000 mls @ 100 mls/hr IV ASDIRECTED [facility] Last Admin: 09/17/20 09:53 Dose: 100 mls/hr Documented by: Doxycycline Hyclate 100 mg/ (Sodium Chloride) 100 mls @ 100 mls/hr IV Q12H [facility] Last Admin: 09/18/20 11:23 Dose: 100 mls/hr Documented by: Ceftazidime 1 gm/ Sodium (Chloride) 50 mls @ 100 mls/hr IV Q8H [facility] Last Admin: 09/26/20 03:29 Dose: 100 mls/hr Documented by: Sodium Chloride (Normal Saline) 1,000 mls @ 25 mls/hr IV ASDIRECTED [facility] Last Admin: 09/17/20 11:59 Dose: 25 mls/hr Documented by: Potassium Chloride 20 meq/Lidocaine HCl 2 ml/ Sodium Chloride 112 mls @ 56 mls/hr IV Q2H [facility] Stop: 09/18/20 17:29 Last Admin: 09/18/20 20:39 Dose: 56 mls/hr Documented by: Vancomycin HCl 1.5 gm/ Sodium (Chloride) 250 mls @ 167 mls/hr IV Q12H [facility] Last Admin: 09/19/20 02:40 Dose: 167 mls/hr Documented by: Sodium Chloride (Normal Saline) 75 mls @ 3 mls/sec IV ONETIME ONE Stop: 09/19/20 13:09 Last Admin: 09/19/20 16:29 Dose: Not Given Documented by: Vancomycin HCl 1.5 gm/ Sodium (Chloride) 250 mls @ 167 mls/hr IV Q12H [facility] Last Admin: 09/20/20 01:38 Dose: 167 mls/hr Documented by: Vancomycin HCl 1.5 gm/ Sodium (Chloride) 250 mls @ 167 mls/hr IV Q8H [facility] Last Admin: 09/21/20 07:30 Dose: 167 mls/hr Documented by: Lactated Ringer's (Ringers, Lactated) Confirm Administered Dose 1,000 mls @ as directed .ROUTE .STK-MED ONE Stop: 09/23/20 08:14 Acetaminophen 1,000 mg/ Premix 100 mls @ 400 mls/hr IV NOW ONE Stop: 09/23/20 10:14 Last Admin: 09/23/20 09:43 Dose: 400 mls/hr Documented by: Dextrose/Lactated Ringer's (Dextrose 5%-Lactated Ringers) 1,000 mls @ 150 mls/hr IV ASDIRECTED [facility] Last Admin: 09/24/20 05:26 Dose: 150 mls/hr Documented by: Sodium Chloride (Normal Saline) Confirm Administered Dose 10 mls @ as directed .ROUTE .STK-MED ONE Stop: 09/23/20 11:30 Lactated Ringer's (Ringers, Lactated) 1,000 mls @ 100 mls/hr IV ASDIRECTED [facility] Last Admin: 09/25/20 06:35 Dose: 100 mls/hr Documented by: Ibuprofen (Ibuprofen 800 Mg Tab) 800 mg PO Q6H PRN PRN Reason: Pain (moderate 4-6) Last Admin: 09/19/20 22:53 Dose: 800 mg Documented by: Insulin Glargine (Insulin Glargine,Human Rec. Analog 100 Units/Ml 3 Ml Pen) 24 units SUBCUT BEDTIME [facility] Last Admin: 09/25/20 21:13 Dose: 24 units Documented by: Insulin Human Lispro (Insulin Lispro 100 Unit/Ml 3 Ml Kwikpen) 0 unit SUBCUT QIDACANDBED [facility]; Protocol Last Admin: 09/19/20 11:57 Dose: 6 unit Documented by: Insulin Human Lispro (Insulin Lispro 100 Unit/Ml 3 Ml Kwikpen) 8 unit SUBCUT ONETIME ONE Stop: 09/16/20 09:31 Last Admin: 09/16/20 09:59 Dose: 8 units Documented by: Insulin Human Lispro (Insulin Lispro 100 Unit/Ml 3 Ml Kwikpen) 12 unit SUBCUT ONETIME ONE Stop: 09/16/20 11:56 Last Admin: 09/16/20 12:04 Dose: 12 units Documented by: Insulin Human Lispro (Insulin Lispro 100 Units/Ml 3 Ml Vial) 15 unit SUBCUT ONETIME ONE Stop: 09/16/20 16:28 Last Admin: 09/16/20 16:45 Dose: 15 units Documented by: Iopamidol (Iopamidol 755 Mg/Ml 100 Ml Bottle) 100 ml IV . DIRECTED [facility] Last Admin: 09/15/20 20:36 Dose: 100 ml Documented by: Iopamidol (Iopamidol 612 Mg/Ml 100 Ml Bottle) 100 ml IV . DIRECTED PRN PRN Reason: RADIOLOGY EXAM Stop: 09/19/20 13:09 Ketorolac Tromethamine (Ketorolac 30 Mg/Ml Sdv) 30 mg IVPUSH ONETIME ONE Stop: 09/15/20 16:59 Last Admin: 09/15/20 17:16 Dose: 30 mg Documented by: Ketorolac Tromethamine (Ketorolac 30 Mg/Ml Sdv) 30 mg IVPUSH Q8H PRN PRN Reason: Pain Stop: 09/20/20 23:14 Last Admin: 09/16/20 05:27 Dose: 30 mg Documented by: Ketorolac Tromethamine (Ketorolac 30 Mg/Ml Sdv) 60 mg IM ONETIME ONE Stop: 09/23/20 09:34 Last Admin: 09/23/20 09:42 Dose: 60 mg Documented by: Lidocaine (Lidocaine 4% Top Soln Lta 4 Ml Syringe Kit) Confirm Administered Dose 4 ml .ROUTE .STK-MED ONE Stop: 09/17/20 08:33 Lidocaine (Lidocaine 4% Top Soln Lta 4 Ml Syringe Kit) Confirm Administered Dose 4 ml .ROUTE .STK-MED ONE Stop: 09/17/20 08:34 Lidocaine HCl (Lidocaine 2% Viscous Solution 15 Ml Cup) Confirm Administered Dose 15 ml .ROUTE .STK-MED ONE Stop: 09/17/20 07:32 Lidocaine HCl (Lidocaine 4% Top Soln 50 Ml Bottle) Confirm Administered Dose 50 ml .ROUTE .STK-MED ONE Stop: 09/17/20 07:33 Magnesium Citrate (Magnesium Citrate Solution 296 Ml Bottle) 296 ml PO ONETIME ONE Stop: 09/21/20 18:10 Last Admin: 09/21/20 18:41 Dose: 296 ml Documented by: Meropenem (Meropenem 500 Mg Sdv) Confirm Administered Dose 500 mg .ROUTE .STK- MED ONE Stop: 09/23/20 07:44 Meropenem (Meropenem 500 Mg Sdv) 500 mg IRR .STK-MED ONE Stop: 09/23/20 07:31 Last Admin: 09/23/20 07:30 Dose: 500 mg Documented by: Meropenem (Meropenem 500 Mg Sdv) Confirm Administered Dose 500 mg .ROUTE .STK- MED ONE Stop: 09/23/20 11:30 Methylprednisolone Sodium Succinate (Methylprednisolone Sodium Succinate 125 Mg/2 Ml Sdv) 125 mg IVPUSH ONETIME ONE Stop: 09/15/20 20:02 Last Admin: 09/15/20 20:09 Dose: 125 mg Documented by: Methylprednisolone Sodium Succinate (Methylprednisolone Sodium Succinate 125 Mg/2 Ml Sdv) 125 mg IVPUSH ONETIME ONE Stop: 09/19/20 12:14 Last Admin: 09/19/20 13:17 Dose: 125 mg Documented by: Midazolam HCl (Midazolam 1 Mg/Ml 2 Ml Sdv) Confirm Administered Dose 2 mg .ROUTE .STK-MED ONE Stop: 09/17/20 08:32 Midazolam HCl (Midazolam 1 Mg/Ml 2 Ml Sdv) Confirm Administered Dose 2 mg .ROUTE .STK-MED ONE Stop: 09/20/20 07:49 Morphine Sulfate (Morphine 2 Mg/Ml Syringe) 2 mg IVPUSH ONETIME ONE Stop: 09/15/20 17:38 Last Admin: 09/15/20 17:51 Dose: 2 mg Documented by: Morphine Sulfate (Morphine 2 Mg/Ml Syringe) 2 mg IVPUSH ONETIME ONE Stop: 09/15/20 21:51 Last Admin: 09/15/20 22:01 Dose: 2 mg Documented by: Morphine Sulfate (Morphine 2 Mg/Ml Syringe) 2 mg IVPUSH Q2H PRN PRN Reason: Pain (severe 7-10) Last Admin: 09/17/20 17:55 Dose: 2 mg Documented by: Neostigmine Methylsulfate (Neostigmine Methylsulfate 1 Mg/Ml 5 Ml Syringe) Confirm Administered Dose 5 mg .ROUTE .STK-MED ONE Stop: 09/23/20 07:02 Nicotine (Nicotine 21 Mg/24 Hr Patch) 21 mg TRDERM DAILY [facility] Last Admin: 09/21/20 09:06 Dose: Not Given Documented by: Ondansetron HCl (Ondansetron 4 Mg/2 Ml Sdv) Confirm Administered Dose 4 mg .ROUTE .STK-MED ONE Stop: 09/23/20 07:02 Propofol (Propofol 200 Mg/20 Ml Sdv) Confirm Administered Dose 200 mg .ROUTE .STK-MED ONE Stop: 09/17/20 08:32 Propofol (Propofol 200 Mg/20 Ml Sdv) Confirm Administered Dose 200 mg .ROUTE .STK-MED ONE Stop: 09/20/20 07:49 Propofol (Propofol 200 Mg/20 Ml Sdv) Confirm Administered Dose 200 mg .ROUTE .STK-MED ONE Stop: 09/20/20 11:08 Propofol (Propofol 200 Mg/20 Ml Sdv) Confirm Administered Dose 200 mg .ROUTE .STK-MED ONE Stop: 09/23/20 07:02 Rocuronium [place] (Rocuronium 50 Mg/5 Ml Vial) Confirm Administered Dose 50 mg .ROUTE .STK-MED ONE Stop: 09/23/20 07:02 Sodium Chloride (Sodium Chloride 0.9% 10 Ml Syringe) 10 ml FLUSH ONETIME ONE Stop: 09/15/20 20:08 Last Admin: 09/15/20 20:36 Dose: 10 ml Documented by: Sodium Chloride (Sodium Chloride 0.9% 10 Ml Syringe) 10 ml FLUSH ONETIME PRN PRN Reason: PER RADIOLOGY PROTOCOL Stop: 09/19/20 13:09 Sodium Chloride (Sodium Chloride 0.9% 1,000 Ml Bag) 500 ml IRR .STK-MED ONE Stop: 09/23/20 07:31 Last Admin: 09/23/20 07:30 Dose: 500 ml Documented by: Succinylcholine Chloride (Succinylcholine 200 Mg/10 Ml Mdv) Confirm Administered Dose 200 mg .ROUTE .STK-MED ONE Stop: 09/23/20 07:02 - Exam Quality Assessment: Supplemental Oxygen, DVT Prophylaxis Urinary Catheter Total Time: 1Days 2Hours General: Alert, Oriented, Cooperative, Mild Distress Lungs: Clear to Auscultation, Normal Respiratory Effort, Decreased Breath Sounds Cardiovascular: Regular Rate, Regular Rhythm, No Murmurs GI/Abdominal Exam: Soft, Non-Tender, No Organomegaly, No Distention Extremities: Non-Tender, No Pedal Edema - Patient Data Lab Results Last 24 hrs: Laboratory Results - last 24 hr 09/26/20 09/26/20 09/26/20 Range/Units 11:35 16:21 20:54 POC Glucose 193 H 211 H 198 H (74-106) mg/dL 09/27/20 Range/Units 07:20 POC Glucose 129 H (74-106) mg/dL Result Diagrams: 09/26/20 04:55 09/26/20 04:55 [facility] Results Last 24 hrs: Microbiology 09/23/20 08:24 Anaerobic Culture - Final Pleural Fluid - Pleural Cavity, Right NO GROWTH AFTER 3 DAYS 09/23/20 08:28 Anaerobic Culture - Final Lung - Right NO GROWTH AFTER 3 DAYS 09/23/20 08:24 Gram Stain - Final Pleural Fluid - Pleural Cavity, Right Body Fluid Culture - Final Staphylococcus Capitis 09/23/20 08:24 Gram Stain - Final Thoracentesis Fluid - Right Body Fluid Culture - Final NO GROWTH AFTER 3 DAYS Sepsis Event Note - Evaluation Sepsis Screening Result: No Definite Risk - Focused Exam Vital Signs: Vital Signs Temp Pulse Resp BP Pulse Ox 09/27/20 07:55 93 L 09/27/20 07:42 97.3 F 86 16 113/59 L 92 L 09/27/20 03:00 97.7 F 72 16 103/54 L 92 L 09/27/20 01:13 91 L - Problem List Review Problem List Initiated/Reviewed/Updated: Yes - My Orders Last 24 Hours: My Active Orders 09/26/20 21:00 Insulin Glarg,Human.Rec.Analog [LantUS Solostar] 30 units SUBCUT BEDTIME 09/27/20 09:50 Consult to Dietary [Consult to Philosophy Lecturer] [CONS] Routine - Plan Plan:: ASSESSMENT AND PLAN Persistent right lower lobe pneumonia-status post thoracotomy for decortication, biopsies and cultures also obtained. Culture from pleural fluid growing staph species, sensitive to levofloxacin -Antibiotic coverage with levofloxacin -As needed nebulizers -Symptomatic management of cough and pain -Surgical follow-up per Dr. Love Nausea with vomiting-resolved -Symptomatic management of nausea Type 2 diabetes mellitus-sugars moderately elevated at this time. Hemoglobin A1c was 10. -Lantus 36 units subcu at at bedtime -Continue home medications -High-dose sliding scale insulin -Diabetic education Maintenance issues - -DVT prophylaxis-SCD -GI prophylaxis-not indicated -Nutrition-consistent carbohydrate -Chavira catheter-not indicated Disposition -I anticipate discharge home after the hospital stay, I would anticipate several more days here in the hospital before discharge home
[2020-09-27] MEDS: Magnesium Hydroxide 400 MG/5 ML Susp 30 ML Cup PO PRN (11:50)
--- NOTE | 2020-09-27 13:01 | CR ---
CHEST: Portable 09/27/2020 at 4:26 AM CLINICAL HISTORY:Status post chest tube COMPARISON:09/26/2020 FINDINGS: 2 right chest tubes remain in place. There is some patchy density in the right infrahilar region which is increased slightly since prior study. Some of this may be technical. Improved aeration of the left lung base. Impression: Chest tubes remain in place. Persistent right lower lung density
[2020-09-27] MEDS: LORazepam 0.5 MG Tab PO PRN ×2 (13:05→20:28)
[2020-09-27] MEDS: Levofloxacin/Dextrose 5%-Water 750 MG in Premix Bag 1 BAG IV SCH (13:15)
--- NOTE | 2020-09-27 14:25 | PN ---
DATE OF SERVICE: 09/27/2020 The patient has been afebrile with stable vital signs. Cultures are now growing out Staph capitis which is sensitive to the Levaquin that she is presently on and we will continue that antibiotic. She is also growing some fungus in the BAL and we will add some Diflucan over the next couple of days. Chest tubes are removed today and the wounds look clean. She may be ready for discharge home tomorrow pending her clinical course. Sai Love MD /[phone]
[2020-09-27] MEDS: Insulin Glargine,Human Rec. Analog 100 Units/ML 3 ML Pen SUBCUT SCH (22:22)
[2020-09-28] MEDS: Metoclopramide 10 MG/2 ML SDV IVPUSH SCH ×5 (00:27→17:48)
[2020-09-28] MEDS: Acetaminophen 500 MG Tab PO SCH ×4 (00:27→19:32)
[2020-09-28] MEDS: oxyCODONE 5 MG Tab PO PRN ×3 (00:39→19:30)
[2020-09-28] MEDS: LORazepam 0.5 MG Tab PO PRN ×2 (00:46→21:18)
[2020-09-28] MEDS: Ibuprofen 600 MG Tab PO SCH ×5 (04:59→21:14)
[2020-09-28] MEDS: Magnesium Sulfate/Water 2 GM/50 ML BAG IV SCH (04:59)
[2020-09-28] MEDS: Insulin Lispro 100 Unit/ML 3 ML KwikPen SUBCUT SCH ×4 (08:27→21:22)
[2020-09-28] MEDS: metFORMIN 500 MG Tab PO SCH ×2 (08:28→17:42)
[2020-09-28] MEDS: Lactobacillus Rhamnosus GG (Probiotic) Cap PO SCH ×2 (08:38→21:14)
[2020-09-28] MEDS: Bisacodyl 5 MG Tab PO SCH ×2 (08:38→21:13)
[2020-09-28] MEDS: glipiZIDE 5 MG Tab.ER PO SCH (08:38)
--- NOTE | 2020-09-28 13:10 | PCM.PN ---
- General Info Date of Service: 09/28/20 Subjective Update: Ms. Nash is stable since yesterday, white blood cell count is normalized and she has remained afebrile. Chest wall pain improved with removal of chest tubes yesterday, still experiencing incisional pain related to the surgery. Functional Status: Reports: Tolerating Diet, Ambulating, Urinating - Review of Systems General: Reports: Weakness, Fatigue. Denies: Fever, Chills Pulmonary: Reports: Shortness of Breath, Cough. Denies: Pleuritic Chest Pain, Sputum, Hemoptysis, Wheezing Cardiovascular: Reports: Dyspnea on Exertion. Denies: Chest Pain, Palpitations, Orthopnea, PND, Edema, Lightheadedness Gastrointestinal: Reports: No Symptoms Genitourinary: Reports: No Symptoms - Patient Data Vitals - Most Recent: Last Vital Signs Temp 97.3 F 09/28/20 10:57 Pulse 76 09/28/20 10:57 Resp 16 09/28/20 10:57 BP 125/78 09/28/20 10:57 Pulse Ox 94 L 09/28/20 10:57 Weight - Most Recent: 206 lb 6.383 oz I&O - Last 24 Hours: Intake & Output 09/27/20 09/28/20 09/28/20 22:59 06:59 14:59 Intake Total 50 360 500 Balance 50 360 500 Lab Results Last 24 Hours: Laboratory Results - last 24 hr 09/27/20 09/27/20 09/28/20 Range/Units 16:37 21:05 07:18 POC Glucose 256 H 220 H 168 H (74-106) mg/dL 09/28/20 Range/Units 11:19 POC Glucose 241 H (74-106) mg/dL Med Orders - Current: Current Medications Acetaminophen (Acetaminophen 500 Mg Tab) 1,000 mg PO Q6H [facility] Last Admin: 09/28/20 08:27 Dose: 1,000 mg Documented by: Albuterol (Albuterol 0.083% 2.5 Mg/3 Ml Neb Soln) 2.5 mg NEB Q4H PRN PRN Reason: shortness of breath/wheezing Last Admin: 09/17/20 11:41 Dose: 2.5 mg Documented by: Benzonatate (Benzonatate 100 Mg Cap) 100 mg PO Q6H PRN PRN Reason: Cough Last Admin: 09/24/20 08:34 Dose: 100 mg Documented by: Bisacodyl (Bisacodyl 5 Mg Tab) 10 mg PO BID [facility] Last Admin: 09/28/20 08:38 Dose: Not Given Documented by: Dextrose/Water (50% Dextrose In Water 50 Ml Syringe) 50 ml IVPUSH ASDIRECTED PRN PRN Reason: Hypoglycemia Fluconazole (Fluconazole 100 Mg Tab) 200 mg PO DAILY [facility] Glipizide (Glipizide 5 Mg Tab.Er) 10 mg PO DAILY [facility] Last Admin: 09/28/20 08:38 Dose: 10 mg Documented by: Glucagon (Glucagon,Human Recombinant 1 Mg Vial) 1 mg IM ASDIRECTED PRN PRN Reason: Hypoglycemia Guaifenesin/Dextromethorphan (Guaifenesin/Dextromethorphan 100-10 Mg/5 Ml Soln 10 Ml Cup) 10 ml PO Q4H PRN PRN Reason: Cough Last Admin: 09/19/20 22:04 Dose: 10 ml Documented by: Hydroxyzine HCl (Hydroxyzine Hcl 100 Mg/2 Ml Sdv) 100 mg IM Q4H PRN PRN Reason: BREAKTHROUGH PAIN Ibuprofen (Ibuprofen 600 Mg Tab) 600 mg PO Q6H [facility] Last Admin: 09/28/20 09:10 Dose: 600 mg Documented by: Insulin Glargine (Insulin Glargine,Human Rec. Analog 100 Units/Ml 3 Ml Pen) 30 units SUBCUT BEDTIME [facility] Last Admin: 09/27/20 22:22 Dose: 30 units Documented by: Insulin Human Lispro (Insulin Lispro 100 Unit/Ml 3 Ml Kwikpen) 0 unit SUBCUT QIDACANDBED [facility]; Protocol Last Admin: 09/28/20 12:42 Dose: 6 units Documented by: Lactobacillus Rhamnosus (Lactobacillus Rhamnosus Gg (Probiotic) Cap) 1 cap PO BID [facility] Last Admin: 09/28/20 08:38 Dose: 1 cap Documented by: Lorazepam (Lorazepam 0.5 Mg Tab) 0.5 mg PO Q4H PRN PRN Reason: Anxiety Last Admin: 09/28/20 00:46 Dose: 0.5 mg Documented by: Magnesium Hydroxide (Magnesium Hydroxide 400 Mg/5 Ml Susp 30 Ml Cup) 30 ml PO BID PRN PRN Reason: Constipation Last Admin: 09/27/20 11:50 Dose: 30 ml Documented by: Metformin HCl (Metformin 500 Mg Tab) 500 mg PO BIDMEALS [facility] Last Admin: 09/28/20 08:28 Dose: 500 mg Documented by: Metoclopramide HCl (Metoclopramide 10 Mg/2 Ml Sdv) 10 mg IVPUSH Q6H [facility] Last Admin: 09/28/20 12:45 Dose: Not Given Documented by: Naloxone HCl (Naloxone 0.4 Mg/Ml Sdv) 0.1 mg IV ASDIRECTED PRN PRN Reason: decreased respiratory rate Ondansetron HCl (Ondansetron 4 Mg/2 Ml Sdv) 4 mg IVPUSH Q4H PRN PRN Reason: Nausea/Vomiting Last Admin: 09/21/20 22:05 Dose: 4 mg Documented by: Ondansetron HCl (Ondansetron 4 Mg Tab.Dis) 4 mg PO Q4H PRN PRN Reason: Nausea/Vomiting Last Admin: 09/27/20 09:49 Dose: 4 mg Documented by: Oxycodone HCl (Oxycodone 5 Mg Tab) 5 - 10 mg PO Q4H PRN PRN Reason: Pain Last Admin: 09/28/20 05:24 Dose: 10 mg Documented by: Senna/Docusate Sodium (Docusate Sodium/Sennosides 50-8.6 Mg Tab) 1 tab PO Q12H PRN PRN Reason: Constipation Last Admin: 09/27/20 11:50 Dose: 1 tab Documented by: Sodium Biphosphate/Sodium Phosphate (Sodium Phosphate,Monobasic/Sodium Phosphate,Dibasic Enema 133 Ml Bottle) 133 ml RECTAL ONETIME PRN PRN Reason: Constipation Sodium Chloride (Sodium Chloride 0.9% 10 Ml Syringe) 10 ml FLUSH ASDIRECTED PRN PRN Reason: Keep Vein Open Discontinued Medications Acetaminophen (Acetaminophen 325 Mg Tab) 650 mg PO Q4H PRN PRN Reason: Pain Last Admin: 09/19/20 22:52 Dose: 650 mg Documented by: Acetaminophen (Acetaminophen 500 Mg Tab) 1,000 mg PO Q6H [facility] Last Admin: 09/25/20 10:28 Dose: 1,000 mg Documented by: Hydrocodone Bitart/Acetaminophen (Acetaminophen/Hydrocodone 325-10 Mg Tab) 1 ta b PO Q4H PRN PRN Reason: Pain Last Admin: 09/18/20 08:08 Dose: 1 tab Documented by: Azithromycin (Azithromycin 250 Mg Tab) 250 mg PO BEDTIME [facility] Azithromycin (Azithromycin 250 Mg Tab) 500 mg PO ONETIME ONE Stop: 09/15/20 23:58 Last Admin: 09/16/20 00:35 Dose: 500 mg Documented by: Bisacodyl (Bisacodyl 5 Mg Tab) 10 mg PO BID PRN PRN Reason: Constipation Last Admin: 09/22/20 08:26 Dose: 10 mg Documented by: Bisacodyl (Bisacodyl 10 Mg Supp) 10 mg RECTAL ONETIME ONE Stop: 09/21/20 18:10 Last Admin: 09/21/20 18:41 Dose: 10 mg Documented by: Bupivacaine HCl/Epinephrine Bitart (Bupivacaine 0.5%/Epinephrine 1:200,000 50 Ml Mdv) 15 ml INJECT .STK-MED ONE Stop: 09/20/20 10:51 Last Admin: 09/20/20 10:50 Dose: 15 ml Documented by: Bupivacaine HCl/Epinephrine Bitart (Bupivacaine 0.5%/Epinephrine 1:200,000 50 Ml Mdv) Confirm Administered Dose 50 ml .ROUTE .STK-MED ONE Stop: 09/23/20 06:53 Bupivacaine HCl/Epinephrine Bitart (Bupivacaine 0.5%/Epinephrine 1:200,000 30 Ml Sdv) 20 ml INJECT .STK-MED ONE Stop: 09/23/20 08:01 Last Admin: 09/23/20 08:00 Dose: 20 ml Documented by: Dexamethasone (Dexamethasone 4 Mg/Ml Sdv) Confirm Administered Dose 4 mg .ROUTE .STK-MED ONE Stop: 09/23/20 07:02 Diphenhydramine HCl (Diphenhydramine 50 Mg/Ml Sdv) 50 mg IVPUSH ONETIME ONE Stop: 09/15/20 20:02 Last Admin: 09/15/20 20:07 Dose: 50 mg Documented by: Diphenhydramine HCl (Diphenhydramine 50 Mg/Ml Sdv) 50 mg IVPUSH ONETIME ONE Stop: 09/19/20 12:15 Last Admin: 09/19/20 13:17 Dose: 50 mg Documented by: Fentanyl (Fentanyl 100 Mcg/2 Ml Sdv) Confirm Administered Dose 100 mcg .ROUTE .STK-MED ONE Stop: 09/17/20 08:32 Fentanyl (Fentanyl 100 Mcg/2 Ml Sdv) Confirm Administered Dose 100 mcg .ROUTE .STK-MED ONE Stop: 09/20/20 07:49 Fentanyl (Fentanyl 250 Mcg/5 Ml Sdv) Confirm Administered Dose 250 mcg .ROUTE .STK-MED ONE Stop: 09/23/20 07:04 Fentanyl (Fentanyl 100 Mcg/2 Ml Sdv) 50 mcg IVPUSH ONETIME ONE Stop: 09/23/20 09:25 Last Admin: 09/23/20 09:28 Dose: 50 mcg Documented by: Glipizide (Glipizide 5 Mg Tab.Er) 5 mg PO DAILY [facility] Last Admin: 09/21/20 09:06 Dose: 5 mg Documented by: Glycopyrrolate (Glycopyrrolate 0.2 Mg/Ml 5 Ml Mdv) Confirm Administered Dose 1 mg .ROUTE .STK-MED ONE Stop: 09/23/20 07:02 Hydromorphone HCl (Hydromorphone 0.5 Mg/0.5 Ml Syringe) 0.5 mg IVPUSH Q4H PRN PRN Reason: Pain (severe 7-10) Hydromorphone HCl (Hydromorphone/Normal Saline 15 Mg/30 Ml [employer]) 0 mg IV ASDIRECTED PRN; Protocol PRN Reason: Pain Last Admin: 09/22/20 05:35 Dose: 15 mg Documented by: Hydromorphone HCl (Hydromorphone/Normal Saline 15 Mg/30 Ml [employer]) 0 mg IV ASDIRECTED PRN; Protocol PRN Reason: [employer]ASTEW[employer] PAIN CONTROL Last Admin: 09/26/20 01:43 Dose: 15 mg Documented by: Hydroxyzine HCl (Hydroxyzine Hcl 100 Mg/2 Ml Sdv) 100 mg IM ONETIME ONE Stop: 09/23/20 09:25 Last Admin: 09/23/20 09:30 Dose: 100 mg Documented by: Sodium Chloride (Normal Saline) 1,000 mls @ 999 mls/hr IV ASDIRECTED [facility] Last Admin: 09/15/20 17:16 Dose: 999 mls/hr Documented by: Sodium Chloride (Normal Saline) 100 mls @ 4 mls/sec IV ASDIRECTED [facility] Last Admin: 09/15/20 20:37 Dose: 4 mls/sec Documented by: Ceftriaxone Sodium 1 gm/ (Sodium Chloride) 50 mls @ 100 mls/hr IV ONETIME ONE Stop: 09/15/20 22:18 Last Admin: 09/15/20 22:07 Dose: 100 mls/hr Documented by: Ceftriaxone Sodium 1 gm/ (Sodium Chloride) 50 mls @ 100 mls/hr IV Q24H [facility] Last Admin: 09/16/20 00:16 Dose: Not Given Documented by: Ceftriaxone Sodium 1 gm/ (Sodium Chloride) 50 mls @ 100 mls/hr IV Q24H [facility] Sodium Chloride (Normal Saline) 1,000 mls @ 100 mls/hr IV ASDIRECTED [facility] Last Admin: 09/17/20 09:53 Dose: 100 mls/hr Documented by: Doxycycline Hyclate 100 mg/ (Sodium Chloride) 100 mls @ 100 mls/hr IV Q12H [facility] Last Admin: 09/18/20 11:23 Dose: 100 mls/hr Documented by: Ceftazidime 1 gm/ Sodium (Chloride) 50 mls @ 100 mls/hr IV Q8H [facility] Last Admin: 09/26/20 03:29 Dose: 100 mls/hr Documented by: Sodium Chloride (Normal Saline) 1,000 mls @ 25 mls/hr IV ASDIRECTED [facility] Last Admin: 09/17/20 11:59 Dose: 25 mls/hr Documented by: Potassium Chloride 20 meq/Lidocaine HCl 2 ml/ Sodium Chloride 112 mls @ 56 mls/hr IV Q2H [facility] Stop: 09/18/20 17:29 Last Admin: 09/18/20 20:39 Dose: 56 mls/hr Documented by: Vancomycin HCl 1.5 gm/ Sodium (Chloride) 250 mls @ 167 mls/hr IV Q12H [facility] Last Admin: 09/19/20 02:40 Dose: 167 mls/hr Documented by: Levofloxacin/Dextrose 750 mg/ (Premix) 150 mls @ 100 mls/hr IV Q24H [facility] Stop: 09/27/20 14:00 Last Admin: 09/27/20 13:15 Dose: 100 mls/hr Documented by: Sodium Chloride (Normal Saline) 75 mls @ 3 mls/sec IV ONETIME ONE Stop: 09/19/20 13:09 Last Admin: 09/19/20 16:29 Dose: Not Given Documented by: Vancomycin HCl 1.5 gm/ Sodium (Chloride) 250 mls @ 167 mls/hr IV Q12H [facility] Last Admin: 09/20/20 01:38 Dose: 167 mls/hr Documented by: Vancomycin HCl 1.5 gm/ Sodium (Chloride) 250 mls @ 167 mls/hr IV Q8H [facility] Last Admin: 09/21/20 07:30 Dose: 167 mls/hr Documented by: Lactated Ringer's (Ringers, Lactated) Confirm Administered Dose 1,000 mls @ as directed .ROUTE .STK-MED ONE Stop: 09/23/20 08:14 Acetaminophen 1,000 mg/ Premix 100 mls @ 400 mls/hr IV NOW ONE Stop: 09/23/20 10:14 Last Admin: 09/23/20 09:43 Dose: 400 mls/hr Documented by: Dextrose/Lactated Ringer's (Dextrose 5%-Lactated Ringers) 1,000 mls @ 150 mls/hr IV ASDIRECTED [facility] Last Admin: 09/24/20 05:26 Dose: 150 mls/hr Documented by: Sodium Chloride (Normal Saline) Confirm Administered Dose 10 mls @ as directed . ROUTE .STK-MED ONE Stop: 09/23/20 11:30 Lactated Ringer's (Ringers, Lactated) 1,000 mls @ 100 mls/hr IV ASDIRECTED [facility] Last Admin: 09/25/20 06:35 Dose: 100 mls/hr Documented by: Magnesium Sulfate (Magnesium Sulfate In Water 2 Gm/50 Ml) 2 gm in 50 mls @ 25 mls/hr IV Q6H [facility] Stop: 09/28/20 05:59 Last Admin: 09/28/20 04:59 Dose: 25 mls/hr Documented by: Ibuprofen (Ibuprofen 800 Mg Tab) 800 mg PO Q6H PRN PRN Reason: Pain (moderate 4-6) Last Admin: 09/19/20 22:53 Dose: 800 mg Documented by: Insulin Glargine (Insulin Glargine,Human Rec. Analog 100 Units/Ml 3 Ml Pen) 24 units SUBCUT BEDTIME [facility] Last Admin: 09/25/20 21:13 Dose: 24 units Documented by: Insulin Human Lispro (Insulin Lispro 100 Unit/Ml 3 Ml Kwikpen) 0 unit SUBCUT QIDACANDBED [facility]; Protocol Last Admin: 09/19/20 11:57 Dose: 6 unit Documented by: Insulin Human Lispro (Insulin Lispro 100 Unit/Ml 3 Ml Kwikpen) 8 unit SUBCUT ONETIME ONE Stop: 09/16/20 09:31 Last Admin: 09/16/20 09:59 Dose: 8 units Documented by: Insulin Human Lispro (Insulin Lispro 100 Unit/Ml 3 Ml Kwikpen) 12 unit SUBCUT ONETIME ONE Stop: 09/16/20 11:56 Last Admin: 09/16/20 12:04 Dose: 12 units Documented by: Insulin Human Lispro (Insulin Lispro 100 Units/Ml 3 Ml Vial) 15 unit SUBCUT ONETIME ONE Stop: 09/16/20 16:28 Last Admin: 09/16/20 16:45 Dose: 15 units Documented by: Iopamidol (Iopamidol 755 Mg/Ml 100 Ml Bottle) 100 ml IV . DIRECTED [facility] Last Admin: 09/15/20 20:36 Dose: 100 ml Documented by: Iopamidol (Iopamidol 612 Mg/Ml 100 Ml Bottle) 100 ml IV . DIRECTED PRN PRN Reason: RADIOLOGY EXAM Stop: 09/19/20 13:09 Ketorolac Tromethamine (Ketorolac 30 Mg/Ml Sdv) 30 mg IVPUSH ONETIME ONE Stop: 09/15/20 16:59 Last Admin: 09/15/20 17:16 Dose: 30 mg Documented by: Ketorolac Tromethamine (Ketorolac 30 Mg/Ml Sdv) 30 mg IVPUSH Q8H PRN PRN Reason: Pain Stop: 09/20/20 23:14 Last Admin: 09/16/20 05:27 Dose: 30 mg Documented by: Ketorolac Tromethamine (Ketorolac 30 Mg/Ml Sdv) 60 mg IM ONETIME ONE Stop: 09/23/20 09:34 Last Admin: 09/23/20 09:42 Dose: 60 mg Documented by: Lidocaine (Lidocaine 4% Top Soln Lta 4 Ml Syringe Kit) Confirm Administered Dose 4 ml .ROUTE .STK-MED ONE Stop: 09/17/20 08:33 Lidocaine (Lidocaine 4% Top Soln Lta 4 Ml Syringe Kit) Confirm Administered Dose 4 ml .ROUTE .STK-MED ONE Stop: 09/17/20 08:34 Lidocaine HCl (Lidocaine 2% Viscous Solution 15 Ml Cup) Confirm Administered Dose 15 ml .ROUTE .STK-MED ONE Stop: 09/17/20 07:32 Lidocaine HCl (Lidocaine 4% Top Soln 50 Ml Bottle) Confirm Administered Dose 50 ml .ROUTE .STK-MED ONE Stop: 09/17/20 07:33 Magnesium Citrate (Magnesium Citrate Solution 296 Ml Bottle) 296 ml PO ONETIME ONE Stop: 09/21/20 18:10 Last Admin: 09/21/20 18:41 Dose: 296 ml Documented by: Meropenem (Meropenem 500 Mg Sdv) Confirm Administered Dose 500 mg .ROUTE .STK- MED ONE Stop: 09/23/20 07:44 Meropenem (Meropenem 500 Mg Sdv) 500 mg IRR .STK-MED ONE Stop: 09/23/20 07:31 Last Admin: 09/23/20 07:30 Dose: 500 mg Documented by: Meropenem (Meropenem 500 Mg Sdv) Confirm Administered Dose 500 mg .ROUTE .STK- MED ONE Stop: 09/23/20 11:30 Methylprednisolone Sodium Succinate (Methylprednisolone Sodium Succinate 125 Mg/2 Ml Sdv) 125 mg IVPUSH ONETIME ONE Stop: 09/15/20 20:02 Last Admin: 09/15/20 20:09 Dose: 125 mg Documented by: Methylprednisolone Sodium Succinate (Methylprednisolone Sodium Succinate 125 Mg/2 Ml Sdv) 125 mg IVPUSH ONETIME ONE Stop: 09/19/20 12:14 Last Admin: 09/19/20 13:17 Dose: 125 mg Documented by: Midazolam HCl (Midazolam 1 Mg/Ml 2 Ml Sdv) Confirm Administered Dose 2 mg .ROUTE .STK-MED ONE Stop: 09/17/20 08:32 Midazolam HCl (Midazolam 1 Mg/Ml 2 Ml Sdv) Confirm Administered Dose 2 mg .ROUTE .STK-MED ONE Stop: 09/20/20 07:49 Morphine Sulfate (Morphine 2 Mg/Ml Syringe) 2 mg IVPUSH ONETIME ONE Stop: 09/15/20 17:38 Last Admin: 09/15/20 17:51 Dose: 2 mg Documented by: Morphine Sulfate (Morphine 2 Mg/Ml Syringe) 2 mg IVPUSH ONETIME ONE Stop: 09/15/20 21:51 Last Admin: 09/15/20 22:01 Dose: 2 mg Documented by: Morphine Sulfate (Morphine 2 Mg/Ml Syringe) 2 mg IVPUSH Q2H PRN PRN Reason: Pain (severe 7-10) Last Admin: 09/17/20 17:55 Dose: 2 mg Documented by: Neostigmine Methylsulfate (Neostigmine Methylsulfate 1 Mg/Ml 5 Ml Syringe) Confirm Administered Dose 5 mg .ROUTE .STK-MED ONE Stop: 09/23/20 07:02 Nicotine (Nicotine 21 Mg/24 Hr Patch) 21 mg TRDERM DAILY [facility] Last Admin: 09/21/20 09:06 Dose: Not Given Documented by: Ondansetron HCl (Ondansetron 4 Mg/2 Ml Sdv) Confirm Administered Dose 4 mg .ROUTE .STK-MED ONE Stop: 09/23/20 07:02 Propofol (Propofol 200 Mg/20 Ml Sdv) Confirm Administered Dose 200 mg .ROUTE .STK-MED ONE Stop: 09/17/20 08:32 Propofol (Propofol 200 Mg/20 Ml Sdv) Confirm Administered Dose 200 mg .ROUTE .STK-MED ONE Stop: 09/20/20 07:49 Propofol (Propofol 200 Mg/20 Ml Sdv) Confirm Administered Dose 200 mg .ROUTE .STK-MED ONE Stop: 09/20/20 11:08 Propofol (Propofol 200 Mg/20 Ml Sdv) Confirm Administered Dose 200 mg .ROUTE .STK-MED ONE Stop: 09/23/20 07:02 Rocuronium [place] (Rocuronium 50 Mg/5 Ml Vial) Confirm Administered Dose 50 mg .ROUTE .STK-MED ONE Stop: 09/23/20 07:02 Sodium Chloride (Sodium Chloride 0.9% 10 Ml Syringe) 10 ml FLUSH ONETIME ONE Stop: 09/15/20 20:08 Last Admin: 09/15/20 20:36 Dose: 10 ml Documented by: Sodium Chloride (Sodium Chloride 0.9% 10 Ml Syringe) 10 ml FLUSH ONETIME PRN PRN Reason: PER RADIOLOGY PROTOCOL Stop: 09/19/20 13:09 Sodium Chloride (Sodium Chloride 0.9% 1,000 Ml Bag) 500 ml IRR .STK-MED ONE Stop: 09/23/20 07:31 Last Admin: 09/23/20 07:30 Dose: 500 ml Documented by: Succinylcholine Chloride (Succinylcholine 200 Mg/10 Ml Mdv) Confirm Administered Dose 200 mg .ROUTE .STK-MED ONE Stop: 09/23/20 07:02 - Exam Quality Assessment: DVT Prophylaxis Urinary Catheter Total Time: 1Days 2Hours General: Alert, Oriented, Cooperative, Mild Distress Lungs: Clear to Auscultation, Normal Respiratory Effort, Decreased Breath Sounds Cardiovascular: Regular Rate, Regular Rhythm, No Murmurs GI/Abdominal Exam: Soft, Non-Tender, No Organomegaly, No Distention Extremities: Non-Tender, No Pedal Edema - Patient Data Lab Results Last 24 hrs: Laboratory Results - last 24 hr 09/27/20 09/27/20 09/28/20 Range/Units 16:37 21:05 07:18 POC Glucose 256 H 220 H 168 H (74-106) mg/dL 09/28/20 Range/Units 11:19 POC Glucose 241 H (74-106) mg/dL Result Diagrams: 09/26/20 04:55 09/26/20 04:55 Sepsis Event Note - Evaluation Sepsis Screening Result: No Definite Risk - Focused Exam Vital Signs: Vital Signs Temp Temp Pulse Resp BP Pulse Ox 09/28/20 10:57 97.3 F 76 16 125/78 94 L 09/28/20 07:34 93 L 09/28/20 07:10 97.3 F 65 16 106/58 L 93 L 09/28/20 03:00 97.3 F 85 16 106/61 93 L - Problem List Review Problem List Initiated/Reviewed/Updated: Yes - Plan Plan:: ASSESSMENT AND PLAN Persistent right lower lobe pneumonia-status post thoracotomy for decortication, biopsies and cultures also obtained. Culture from pleural fluid growing staph species, sensitive to levofloxacin -Antibiotic coverage with levofloxacin -As needed nebulizers -Symptomatic management of cough and pain -Surgical follow-up per Dr. Love Nausea with vomiting-resolved -Symptomatic management of nausea Type 2 diabetes mellitus-sugars moderately elevated at this time. Hemoglobin A1c was 10. -Lantus 36 units subcu at at bedtime -Continue home medications -High-dose sliding scale insulin -Diabetic education Maintenance issues - -DVT prophylaxis-SCD -GI prophylaxis-not indicated -Nutrition-consistent carbohydrate -Chavira catheter-not indicated Disposition -I anticipate discharge home after the hospital stay, I would anticipate several more days here in the hospital before discharge home
[2020-09-28] MEDS: Fluconazole 100 MG Tab PO SCH (14:24)
[2020-09-28] MEDS: Insulin Glargine,Human Rec. Analog 100 Units/ML 3 ML Pen SUBCUT SCH (21:23)
[2020-09-28] MEDS: Ondansetron 4 MG Tab.DIS PO PRN (23:13)
[2020-09-29] MEDS: Acetaminophen 500 MG Tab PO SCH ×2 (01:24→07:44)
[2020-09-29] MEDS: Metoclopramide 10 MG/2 ML SDV IVPUSH SCH ×2 (01:24→06:34)
[2020-09-29] MEDS: Ibuprofen 600 MG Tab PO SCH ×2 (05:42→09:22)
[2020-09-29 07:39] VITALS: BP 121/70; PULSE 59
[2020-09-29] MEDS: Insulin Lispro 100 Unit/ML 3 ML KwikPen SUBCUT SCH (07:43)
[2020-09-29] MEDS: Lactobacillus Rhamnosus GG (Probiotic) Cap PO SCH (09:22)
[2020-09-29] MEDS: metFORMIN 500 MG Tab PO SCH (09:23)
[2020-09-29] MEDS: Fluconazole 100 MG Tab PO SCH (09:23)
[2020-09-29] MEDS: glipiZIDE 5 MG Tab.ER PO SCH (09:23)
[2020-09-29] MEDS: Bisacodyl 5 MG Tab PO SCH (09:24)
--- NOTE | 2020-09-29 13:15 | PN ---
DATE OF SERVICE: 09/28/2020 The patient has been afebrile with stable vital signs. Her antibiotics were stopped yesterday per Dr. Polk. The pain control is somewhat marginal, but more or less to limit what we can prescribe at this point in terms of getting her home. With the Levaquin being stopped, we will give her some Diflucan to treat what appeared to be some colonization of fungus and bronchoalveolar lavage. Otherwise, recheck a chest x-ray tomorrow. Tentatively, plan for home tomorrow. Sai Love MD /[id number]
--- NOTE | 2020-09-29 14:54 | OR ---
DATE OF PROCEDURE: 09/17/2020 SURGEON: Sai Love MD PREOPERATIVE DIAGNOSIS: Persistent infiltrates/pneumonia, right lower lobe. POSTOPERATIVE DIAGNOSIS: Persistent infiltrates/pneumonia, right lower lobe. OPERATIVE PROCEDURE: Flexible bronchoscopy with: 1. Tracheobronchial washings (64077). 2. Bronchoalveolar lavage to right lower lobe ([id number]). ANESTHESIA: Topical plus IV sedation. INDICATION FOR PROCEDURE: This is a 44-year-old presenting with persistent pneumonia involving the right lower lobe. Plan is to proceed with a flexible bronchoscopy with biopsies and otherwise as indicated. Potential risks including bleeding, aspiration of gastric contents, and such were reviewed, and the patient wishes to proceed. DETAILS OF PROCEDURE: The patient was taken to the operating room and placed in a supine position with the head extended up roughly 30 degrees. IV sedation was administered, after which nasopharyngeal lidocaine was placed for anesthesia as well as transtracheal placement of lidocaine. The flexible bronchoscope was then passed through the left side of the nose. The visualized nasopharynx and hypopharynx were unremarkable. Cord motion was symmetrical and unremarkable. Within the tracheobronchial tree, there was very scant nonpurulent secretion present. Diffuse aspiration of the secretion was obtained and sent for tracheobronchial washing, sent for full microbiologic exam, cytologic workup. The basilar segments of the right lower lobe did show areas of edema, and bronchoscope was wedged into the basilar segments and 200 mL of saline injected. The return was very slightly white purulent effluent, and it was sent again for full cytologic and microbiologic workup. At that point, the procedure was concluded. The patient was taken to the recovery room in satisfactory condition. There were no evident complications. Sia Love MD /[id number]
--- NOTE | 2020-09-30 09:12 | CR ---
CHEST: 2 view CLINICAL HISTORY:Chest tube removal COMPARISON:09/27/2020 FINDINGS: Right chest tubes have been removed. There is no significant reaccumulation of fluid or pneumothorax. There is patchy density in the right lower lobe similar to prior study. There is an ovoid nodular density in the right lower lung field. This may be some loculated fluid in the fissure. Follow-up recommended until clear. Impression: Right chest tubes have been removed No accumulation of pleural fluid or pneumothorax
--- NOTE | 2020-09-30 12:05 | OR ---
DATE OF PROCEDURE: 09/23/2020 SURGEON: Sai Love MD PREOPERATIVE DIAGNOSIS: Persistent nonexpansion of lung with likely pleural lesions. POSTOPERATIVE DIAGNOSES: 1. Persistent nonexpansion of lung with likely pleural lesions. 2. Extensive encasement of parietal pleura preventing lung expansion along with thickened fibrotic chest wall and pleural lining as well. PROCEDURES PERFORMED: 1. Diagnostic thoracoscopy (10240). 2. Right lateral thoracotomy with: a. Decortication and parietal pleurectomy (57197). b. Removal of solid fibrinous exudate located within loculated pleural effusions. c. Wedge resection of right lower lobe and right middle lobe for diagnostic purposes (42244). ANESTHESIA: General. SLINGER SEQUINS: Sharon Banda PA-C INDICATIONS FOR PROCEDURE: The patient has been admitted with persistent pneumonia and pleural effusion. Chest tube was placed on Wednesday; however, a CT scan of the chest yesterday then showed continued nonexpansion of the lung with significant retained areas of loculated pleural effusion indicating the need for a more surgical approach to obtain a full re-expansion of the lung and evacuation of the effusion. The plan is to proceed with initial diagnostic thoracoscopy to ascertain whether or not thoracoscopic approach might be feasible, and if so, proceed with a thoracoscopic definitive treatment. Otherwise, if as one might expect, there is a significant amount of parietal pleural thickening preventing re- expansion of the lung, then a thoracotomy would be required. Potential risks of the procedure including bleeding, infection, injury to underlying viscera, as well as the possibility of cardiopulmonary, septic, or hemorrhagic complications leading to were discussed, and the patient wishes to proceed. DETAILS OF PROCEDURE: The patient was taken to the operating room and placed in a supine position. After general endotracheal anesthesia with a double-lumen tube was placed, a Chavira catheter was inserted and the patient placed into a left lateral decubitus position. Through the previous chest tube incision, a 12 mm trocar was placed into the pleural space and the thoracoscope was then placed into that area as well. What we then visualized was where the space had been partially evacuated of the pleural fluid by a chest tube was otherwise associated with non-expansile lung which was associated with extensive parietal pleural thickening and scarring. Given this, decision at that point was made to discontinue the thoracoscopic approach and proceed with a thoracotomy. After removal of the thoracoscope and trocar, a right lateral thoracotomy was then performed, and this was carried down into the 5th interspace which allowed entrance into the pleural space. As expected, there was quite a bit of thickening of the chest wall lining. This was freed up circumferentially. The lung itself was then freed up of pleural thickening as well with this more or less being peeled away from the lung primary with blunt dissection augmented with some cautery. This then allowed entrance into 2 areas of loculated effusion. This fluid was evacuated and cultured. Within this, there was some fibrinous exudate present, and this was evacuated as well. For diagnostic purposes, the areas of infiltrates involving the right lower lobe and right middle lobe, primarily the more dependent and posterior locations were biopsied by means of a MUNDO stapler and those 2 specimens sent separately for histologic evaluation. At this point, there appeared to be reasonably good hemostasis along the surface of the area. The pleural space was irrigated with antibiotic-containing saline solution consisting of meropenem and Zyvox and the patient then taken off single-lung ventilation small amount of air leak was present. Two chest tubes were placed, one a right-angled chest tube, one a straight chest tube, both 36-Divehi in size, through stab wounds inferior to the main incision, and those were sutured to the skin with some #2 Ethibond stitch. The were then reapproximated with some interrupted #2 Vicryl stitch. The musculature was then approximated with a running 0 Vicryl stitch, subcutaneous tissue with 4-0 Vicryl stitch, and the skin with cindy. A chest x-ray was subsequently obtained which showed good re-expansion of the lung with the patient at this point only having a minimal air leak, and a dressing was applied. The patient was taken to the recovery room in satisfactory condition. Physician assistant branch manager, Sharon Banda, played an essential role in assisting in this case, helping to position the patient, retract structures as needed, as well as suturing and cutting sutures when indicated. Her presence improved the patient's safety and decreased the operative time. Sai Love MD /[id number]
--- NOTE | 2020-09-30 14:29 | OR ---
DATE OF PROCEDURE: 09/20/2020 SURGEON: Sai Love MD PREOPERATIVE DIAGNOSIS: Loculated right pleural effusion. POSTOPERATIVE DIAGNOSIS: Loculated right pleural effusion. OPERATIVE PROCEDURE: Right tube thoracostomy. ANESTHESIA: Local plus IV sedation. INDICATIONS FOR PROCEDURE: The patient presents with persistent pleural effusion. This appears to be somewhat loculated. Attempt will be to drain this with a chest tube initially. If this is unsuccessful, then a subsequent thoracoscopy and/or thoracotomy might be required. Potential risks of the procedure including bleeding, infection, and injury to lung and/or chest wall were reviewed, and the patient wishes to proceed. DETAILS OF PROCEDURE: The patient was taken to the operating room and placed in a supine position. Ultrasound was then used to locate the pleural effusion which was located primary posteriorly and medially in the 8th interspace in the mid axillary line. Transverse incision was made after the area was anesthetized with 1% lidocaine. The tube was then directed downward and the pleural space entered. Initially, no fluid was obtained. The tube was eventually manipulated into what appeared to be some relatively clear serous fluid. This was evacuated and sent for culture as well as cytology and chemistry workup. The tube was then placed to suction and sutured to skin with 0 Ethibond stitch, and the patient was taken to the recovery room in satisfactory condition. Chest x-ray showed some persistence of the pleural effusion. We will need to see over next day or 2 whether the chest tube eventually evacuates that or we might need additional procedures such as thoracostomy or thoracotomy for complete re-expansion of the lung. Sai Love MD /[id number]
--- NOTE | 2020-09-30 16:28 | DISCH ---
FINAL DIAGNOSES: 1. Persistent right lower lobe pneumonia complicated by acute respiratory failure with hypoxia. 2. Loculated right pleural effusion. SECONDARY DIAGNOSES: 1. Type 2 diabetes mellitus. 2. History of COVID respiratory infection in December 2019 with subsequent vaccinations as well. 3. Persistent smoking. OPERATIVE PROCEDURES: 1. On 09/17/2020, flexible bronchoscopy with tracheobronchial washings and bronchoalveolar lavage of right lower lobe. 2. On 09/20/2020, right tube thoracostomy. 3. On 09/23/2020: a. Right thoracoscopy. b. Right lateral thoracotomy with: I. Pulmonary decortication. II.Removal of solid fibrinous pleural exudate. III. Wedge biopsy of right lower lobe and right middle lobe. SUMMARY: This is a 44-year-old presenting with roughly 2 to 3 week history of worsening respiratory symptoms. She has been treated with a course of oral antibiotics x2 and then presented now with persistent right lower lobe pneumonia with acute respiratory failure, hypoxia, and a loculated pleural effusion. The patient initially underwent a flexible bronchoscopy which included bronchoalveolar lavage. This did not show any malignant cells. The bronchoalveolar lavage of the lower lobe did show some yeast in one of the 3 samples. The patient was continued on IV antibiotics and had persistent pleural effusions noted, which appeared to be somewhat loculated. A right tube thoracostomy was placed on 09/20/2020, and this showed no bacterial growth; however, the chest x-ray continued to show what appeared to be some degree of loculated fluid, and CT scan confirmed that. Following this, on 09/23/2020, the patient underwent initial diagnostic thoracoscopy. This showed what appeared to be a densely scarred lung with requirement for decortication along with drainage of the loculated fluid. Given this, right lateral thoracotomy was performed and pulmonary decortication accomplished along with removal of some fibrinous exudate. The patient did have a wedge biopsy of the right lower lobe and right middle lobe. These came back showing inflammation, but no evidence of tumor. Likewise, the bronchoalveolar lavage showed no evidence of tumor on the cytology. Following the thoracotomy, the patient still had some atelectasis, some of which may be related to the staple lines used for the wedge resection, but generally has been afebrile with stable vital signs. Pleural cavity cultures obtained on 09/23/2020 did grow Staphylococcus capitis indicating a low-grade picture of empyema within at least one of the loculated fluid collections. The patient was began on a course of Levaquin for that, and with regard to the use of this, the Levaquin had an adverse reaction to Diflucan, and with completion of the Levaquin, the patient will be receiving 2 doses of Diflucan orally, one yesterday and one today prior to this discharge. The chest tubes had been removed, and chest x-ray remains satisfactory with no recurrent pleural effusion noted. She will be discharged home on Dilaudid 2 mg p.o. q.6 hours p.r.n. pain #12, Tylenol 1 g q.6 hours p.r.n., ibuprofen 600 mg q.i.d. p.r.n., Ativan 0.5 mg q.6 hours p.r.n. anxiety and/or pain, and Zofran 4 mg ODT q.4 hours p.r.n. nausea #30 with 1 refill. She will be following up with Dr. Love on 10/02/2020 at [facility] with PA and lateral chest x-ray to be obtained at that time. We will likely remove the cindy at the thoracotomy site at that appointment as well. /[id number]
== END 2020-09-29 10:30 | disposition home or self-care (01) | DRG 121 ==
LOC: JP.ED 15:38 → JP.MS 22:45 → JP.ED 22:45
PROVIDERS: ADMIT Family Medicine; ATTEND Hospitalist
PROC: 0B9F8ZX Drainage of Right Lower Lung Lobe, Via Natural or Artificial Opening Endoscopic, Diagnostic (ICD-10-PCS; principal; 2020-09-17)
PROC: 0W9930Z Drainage of Right Pleural Cavity with Drainage Device, Percutaneous Approach (ICD-10-PCS; 2020-09-20)
PROC: 0BNF0ZZ Release Right Lower Lung Lobe, Open Approach (ICD-10-PCS; 2020-09-23)
PROC: 0BBF0ZZ Excision of Right Lower Lung Lobe, Open Approach (ICD-10-PCS; 2020-09-23)
PROC: 0BJK4ZZ Inspection of Right Lung, Percutaneous Endoscopic Approach (ICD-10-PCS; 2020-09-23)
PROC: 0BBN0ZZ Excision of Right Pleura, Open Approach (ICD-10-PCS; 2020-09-23)
DX: J18.9 Pneumonia, unspecified organism (principal); J96.01 Acute respiratory failure with hypoxia; J90 Pleural effusion, not elsewhere classified; E11.9 Type 2 diabetes mellitus without complications; Z86.16 Personal history of COVID-19; F17.210 Nicotine dependence, cigarettes, uncomplicated; Z88.0 Allergy status to penicillin; Z88.5 Allergy status to narcotic agent; Z88.8 Allergy status to other drugs, medicaments and biological substances; Z79.84 Long term (current) use of oral hypoglycemic drugs; R11.2 Nausea with vomiting, unspecified
CPT/HCPCS: 36415; 71045; 71045-26; 71046; 71046-26; 71250; 71260; 71275; 76998; 80048; 80053; 80202; 82150; 82728; 82945; 82947; 83036; 83615; 83735; 84100; 84145; 84157; 85025; 85027; 86140; 87015; 87070; 87075; 87077; 87102; 87116; 87186; 87205; 87206; 87220; 88112; 88305; 88307; 89050; 94640; 94667; 94668; 94762; 96365; 96375; 96376; 99283; 99285-25; A9270-GY; J0131; J0330; J0696; J0713; J1100; J1170; J1200; J1815; J1815-GY; J1885; J1956; J2185; J2250; J2270; J2405; J2704; J2710; J2765; J2930; J3010; J3370; J3410; J3475; J3480; J3490; J7030; J7050; J7120; J7121; Q9967

== ENCOUNTER 2020-10-26 22:15 | Emergency (ER) | payer BC, OTHER, MEDICAID ==
[2020-10-26 23:25] VITALS: BP 157/92; PULSE 98
--- NOTE | 2020-10-27 00:07 | EDM.PDOC ---
ED HPI GENERAL MEDICAL PROBLEM - General Chief Complaint: Flank Pain Stated Complaint: MID STOMACH PAIN AFTER SURGERY Time Seen by Provider: 10/26/20 23:30 Source of Information: Reports: Patient History Limitations: Reports: No Limitations - History of Present Illness INITIAL COMMENTS - FREE TEXT/NARRATIVE: 45-year-old female who is having persistent right upper abdominal and right lateral chest pain since her surgery several weeks ago. It feels like a burning, tearing sensation near the surface of the abdomen. She does not have significant pain with breathing, denies nausea or vomiting. No fevers or chills. This is been a persistent recurring problem since her thoracic surgery 1 month ago. She was seen in the clinic 4 days ago and given some oxycodone for pain control, she still has 2 left but is concerned something is wrong because the pain is unrelenting. Onset: Gradual Duration: Week(s): (4 weeks), Waxing/Waning Location: Reports: Chest, Abdomen (Right-sided) Associated Symptoms: Reports: No Other Symptoms right chest/flank Pain Score (Numeric/FACES): 9 - Related Data Allergies Allergy/AdvReac Type Severity Reaction Status Date / Time iodine AdvReac Unknown Anxiety Verified 10/26/20 23:30 Home Meds: Home Meds glipiZIDE [Glipizide ER] 5 mg PO DAILY 01/08/20 [History] metFORMIN [Glucophage] 500 mg PO BIDMEALS 01/08/20 [History] Zolpidem Tartrate [Ambien] 1 tab PO BEDTIME PRN 10/26/20 [History] oxyCODONE 1 tab PO Q6H PRN 10/26/20 [History] Past Medical History HEENT History: Reports: Otitis Media, Sinusitis Gastrointestinal History: Reports: GERD Genitourinary History: Reports: Renal Calculus 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: Musculoskeletal History: Reports: Other (See Below) Other Musculoskeletal History: knee pain Neurological History: Reports: Migraines Psychiatric History: Reports: Panic Attack Endocrine/Metabolic History: Reports: Diabetes, Type II, Obesity/BMI 30+ Dermatologic History: Reports: Other (See Below) Other Dermatologic History: hx of butterfly rash on face, she has gotten checked for lupus which was negative - Infectious Disease History Infectious Disease History: Reports: Chicken Pox, Influenza, Mononucleosis, Novel Coronavirus, Shingles - Past Surgical History Other HEENT Surgeries/Procedures: migraines GI Surgical History: Reports: Cholecystectomy Female Surgical History: Reports: Other (See Below) Other Female Surgeries/Procedures: h/o kidney stones Musculoskeletal Surgical History: Reports: Other (See Below) Other Musculoskeletal Surgeries/Procedures:: knee problems Social & Family History - Family History Family Medical History: No Pertinent Family History - Tobacco Use Tobacco Use Status *Q: Never Tobacco User - Caffeine Use Caffeine Use: Reports: Tea - Recreational Drug Use Recreational Drug Use: No - Living Situation & Occupation Living situation: Reports: with Family (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 Denies: Diarrhea, Nausea, Vomiting : Reports: No Symptoms Skin: Reports: Other (Surgical lesions are healing nicely) Neurological: Denies: Paresthesia ED EXAM, GENERAL - Physical Exam Exam: See Below Exam Limited By: No Limitations General Appearance: Alert, Anxious, Mild Distress, Other (Looks fairly uncomfortable) Eye Exam: Bilateral Eye: Normal Inspection Head: Atraumatic Neck: Supple, Non-Tender Respiratory/Chest: Lungs Clear Cardiovascular: Regular Rate, Rhythm. No: Tachycardia GI/Abdominal: Soft, Other (I really cannot reproduce her tenderness with palpation, it seems more neuropathic) Neurological: Alert, Oriented Psychiatric: Anxious Skin Exam: Warm, Dry, Other (Surgical incision sites and J-tube sites are healing nicely) Course - Vital Signs Last Recorded V/S: Last Vital Signs Temp 97.8 F 10/26/20 23:33 Pulse 98 10/26/20 23:33 Resp 14 10/26/20 23:33 BP 157/92 H 10/26/20 23:33 Pulse Ox 97 10/26/20 23:33 - Orders/Labs/Meds Orders: Active Orders 24 hr Category Date Time Status Chest 2V [CR] Stat Exams 10/26/20 23:47 Taken - Re-Assessments/Exams Free Text/Narrative Re-Assessment/Exam: 10/27/20 04:01 A 2 view chest x-ray was obtained that showed a elevated right hemidiaphragm but improved from previous x-rays. I refilled her Percocet for an additional 15 doses, and we will try a Medrol Dosepak to see if we can decrease inflammation. I would like her to recheck with surgery next week unless she has marked improvement. Departure - Departure Time of Disposition: 00:18 Disposition: Home, Self-Care 01 Clinical Impression: Right-sided chest pain - Discharge Information Instructions: Nonspecific Chest Pain, Adult Referrals: PCP,None [Primary Care Provider] - Forms: ED Department Discharge Care Plan Goals: Continue with pain medication as prescribed and take Medrol Dosepak as prescribed. Activity as tolerated and update Dr. Love early next week on your progress with your pain. Return sooner if worsening such as difficulty breathing or fever. Sepsis Event Note (ED) - Evaluation Sepsis Screening Result: No Definite Risk - Focused Exam Vital Signs: Vital Signs Temp Pulse Resp BP Pulse Ox 10/26/20 23:33 97.8 F 98 14 157/92 H 97 10/26/20 23:24 97.8 F 98 14 157/92 H 97 - My Orders Last 24 Hours: My Active Orders 10/26/20 23:47 Chest 2V [CR] Stat - Assessment/Plan Last 24 Hours: My Active Orders 10/26/20 23:47 Chest 2V [CR] Stat
--- NOTE | 2020-10-28 12:31 | CR ---
CHEST: 2 view CLINICAL HISTORY:Right-sided postop chest pain COMPARISON:05/29/2020 FINDINGS: There is elevation of the right hemidiaphragm similar to prior studies. There is some subsegmental atelectasis in the right midlung field. Left lung is clear. Heart size and pulmonary vascularity are normal Impression: Elevation of the right hemidiaphragm with some chronic pleural-parenchymal scarring at the right lung base Streaky subsegmental atelectasis and/or scarring right perihilar region
== END 2020-10-27 00:18 | disposition home or self-care (01) ==
LOC: JP.ED 22:15
DX: R07.9 Chest pain, unspecified (principal); E11.9 Type 2 diabetes mellitus without complications; E66.9 Obesity, unspecified; Z68.35 Body mass index [BMI] 35.0-35.9, adult; Z79.84 Long term (current) use of oral hypoglycemic drugs; Z88.8 Allergy status to other drugs, medicaments and biological substances
CPT/HCPCS: 71046; 71046-26; 99284-25

== ENCOUNTER 2020-11-08 19:14 | Emergency (ER) | payer BC, MEDICAID ==
[2020-11-08 19:56] VITALS: BP 131/84; PULSE 95
[2020-11-08] MEDS ORDERED: Ketorolac 30 MG/ML SDV IM ONE (20:30)
[2020-11-08] MEDS ORDERED: Acetaminophen/HYDROcodone 325-5 MG Tab PO ONE (20:31)
--- NOTE | 2020-11-08 20:43 | EDM.PDOC ---
ED HPI GENERAL MEDICAL PROBLEM - General Chief Complaint: Wound Recheck Stated Complaint: RIGHT SIDE PAIN (POST SURGERY MONTH AGO) Time Seen by Provider: 11/08/20 20:37 Source of Information: Reports: Patient History Limitations: Reports: No Limitations - History of Present Illness INITIAL COMMENTS - FREE TEXT/NARRATIVE: pt is experiencing pain in the rt upper abdoman. This will come on suddenly and be severe. She feels that she does have pain all of the time. She has also felt nauseated and was put on protonix for that. She feels that the protonix has been helpful. She has no urine symptoms. She states that she continues to have spotting. Her last pap was 2 years ago. She has no pelvic pain. prior to surgery she had regular periods. She is not on control but is absolutely not . She has no urine symptoms. She was recently placed on lyrica,. Onset: Gradual, Other ( this has gone on since surgery. ) Duration: Day(s): Location: Reports: Abdomen Associated Symptoms: Reports: No Other Symptoms Right Anterior Flank Pain Score (Numeric/FACES): 9 - Related Data Allergies Allergy/AdvReac Type Severity Reaction Status Date / Time iodine AdvReac Unknown Anxiety Verified 10/26/20 23:30 Home Meds: Home Meds glipiZIDE [Glipizide ER] 5 mg PO DAILY 01/08/20 [History] metFORMIN [Glucophage] 500 mg PO BIDMEALS 01/08/20 [History] Acetaminophen/HYDROcodone [HYDROcodone-Acetaminophen 5-325 MG *] 1 tab PO Q6H PRN 11/08/20 [History] Pantoprazole Sodium [Protonix] 40 mg PO DAILY 11/08/20 [History] Pregabalin [Lyrica] 75 mg PO BID 11/08/20 [History] Past Medical History HEENT History: Reports: Otitis Media, Sinusitis Respiratory History: Reports: Other (See Below) Other Respiratory History: last month had surgery 3 days in a row for infection around right lung Gastrointestinal History: Reports: GERD Genitourinary History: Reports: Renal Calculus 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: Musculoskeletal History: Reports: Other (See Below) Other Musculoskeletal History: knee pain Neurological History: Reports: Migraines Psychiatric History: Reports: Panic Attack Endocrine/Metabolic History: Reports: Diabetes, Type II, Obesity/BMI 30+ Dermatologic History: Reports: Other (See Below) Other Dermatologic History: hx of butterfly rash on face, she has gotten checked for lupus which was negative - Infectious Disease History Infectious Disease History: Reports: Chicken Pox, Influenza, Mononucleosis, Novel Coronavirus, Shingles - Past Surgical History Other HEENT Surgeries/Procedures: migraines GI Surgical History: Reports: Cholecystectomy Female Surgical History: Reports: Other (See Below) Other Female Surgeries/Procedures: h/o kidney stones Musculoskeletal Surgical History: Reports: Other (See Below) Other Musculoskeletal Surgeries/Procedures:: knee problems Social & Family History - Family History Family Medical History: No Pertinent Family History - Tobacco Use Tobacco Use Status *Q: Never Tobacco User Second Hand Smoke Exposure: No - Caffeine Use Caffeine Use: Reports: None - Recreational Drug Use Recreational Drug Use: No - Living Situation & Occupation Living situation: Reports: with Family (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 ), Other ( ) Cardiovascular: Reports: No Symptoms Endocrine: Reports: No Symptoms GI/Abdominal: Reports: Abdominal Pain : Reports: No Symptoms Musculoskeletal: Reports: No Symptoms, Other (pt feels like the pain comes like a muscle spasm. ) Skin: Reports: No Symptoms Neurological: Reports: Other (possible nerve like pain) ED EXAM, GENERAL - Physical Exam Exam: See Below Free Text/Narrative:: pt arrived with pain in her rt lower chest and rt upper abdoman. She did have surgery on her rt lower lung area about 1 month ago. She has been dealing with this pain since that time. She did have a very extended period at the time of her surgery. She now has possible spotting every other day. She did not have that until the suirgery. Exam Limited By: No Limitations General Appearance: Alert, Anxious, Moderate Distress Ears: Normal TMs Nose: Normal Inspection Throat/Mouth: Normal Inspection Head: Atraumatic Neck: Normal Inspection Respiratory/Chest: No Respiratory Distress, Other ( she is tender in the rt anterior lower chest area. ) Cardiovascular: Regular Rate, Rhythm GI/Abdominal: Soft, Non-Tender (Female) Exam: Deferred Rectal (Female) Exam: Deferred Back Exam: Normal Inspection Extremities: Normal Inspection Neurological: Alert, Oriented, Normal Cognition Psychiatric: Anxious Course - Vital Signs Last Recorded V/S: Last Vital Signs Temp 36.4 C 11/08/20 19:55 Pulse 95 11/08/20 19:55 Resp 16 11/08/20 19:55 BP 131/84 11/08/20 19:55 Pulse Ox 93 L 11/08/20 19:55 - Orders/Labs/Meds Labs: Laboratory Tests 11/08/20 11/08/20 11/08/20 Range/Units 20:41 20:41 22:30 WBC 8.9 (4.5-11.0) K/uL RBC 4.77 (3.30-5.50) M/uL Hgb 13.0 (12.0-15.0) g/dL Hct 39.8 (36.0-48.0) % MCV 83 (80-98) fL MCH 27 (27-31) pg MCHC 33 (32-36) % Plt Count 387 (150-400) K/uL Neut % (Auto) 64.5 (36-66) % Lymph % (Auto) 27.4 (24-44) % [place] % (Auto) 5.8 (2-6) % Eos % (Auto) 2.1 (2-4) % Baso % (Auto) 0.2 (0-1) % Sodium 136 L (140-148) mmol/L Potassium 3.9 (3.6-5.2) mmol/L Chloride 99 L (100-108) mmol/L Carbon Dioxide 27 (21-32) mmol/L Anion Gap 13.9 (5.0-14.0) mmol/L BUN 14 (7-18) mg/dL Creatinine 0.7 (0.6-1.0) mg/dL Est Cr Clr Drug Dosing 93.25 mL/min Estimated GFR (MDRD) > 60 (>60) Glucose 253 H (74-106) mg/dL Calcium 8.4 L (8.5-10.1) mg/dL Total Bilirubin 0.4 (0.2-1.0) mg/dL AST 15 (15-37) U/L ALT 40 (12-78) U/L Alkaline Phosphatase 78 (46-116) U/L C-Reactive Protein < 0.05 (0.0-0.3) mg/dL Total Protein 7.1 (6.4-8.2) g/dL Albumin 3.7 (3.4-5.0) g/dL Globulin 3.4 (2.3-3.5) g/dL Albumin/Globulin Ratio 1.1 L (1.2-2.2) Urine Color Yellow (YELLOW) Urine Appearance Cloudy A (CLEAR) Urine pH 6.5 (5.0-8.0) Ur Specific [place] 1.025 (1.008-1.030) Urine Protein Negative (NEGATIVE) mg/dL Urine Glucose (UA) 500 H (NEGATIVE) mg/dL Urine Ketones Negative (NEGATIVE) mg/dL Urine Occult Blood Negative (NEGATIVE) Urine Nitrite Negative (NEGATIVE) Urine Bilirubin Negative (NEGATIVE) Urine Urobilinogen 1.0 (0.2-1.0) EU/dL Ur Leukocyte Esterase Negative (NEGATIVE) Urine RBC 0-5 (0-5) Urine WBC 0-5 (0-5) Ur Epithelial Cells Many Amorphous Sediment Not seen Urine Bacteria Few Urine Mucus Few Meds: Medications Discontinued Medications Generic Name Dose Route Start Last Admin Trade Name Freq PRN Reason Stop Dose Admin Hydrocodone Bitart/Acetaminophen 1 tab 11/08/20 20:31 11/08/20 20:45 Acetaminophen/Hydrocodone 325-5 Mg Tab PO 11/08/20 20:32 1 tab ONETIME ONE Administration Ketorolac Tromethamine 60 mg 11/08/20 20:30 11/08/20 22:14 Ketorolac 30 Mg/Ml Sdv IM 11/08/20 20:31 Not Given ONETIME ONE Ketorolac Tromethamine 10 mg 11/08/20 23:27 Ketorolac 10 Mg Tab PO 11/08/20 23:28 ONETIME ONE - Re-Assessments/Exams Free Text/Narrative Re-Assessment/Exam: 11/08/20 23:39 pt was found to have a elevated bs at 252. Her other chems looked good Her crp was normal. She did have a pelvic US which showed a possible endometrial polp w hich may be the cause of her spotting. Departure - Departure Time of Disposition: 23:21 Disposition: Home, Self-Care 01 Condition: Fair Clinical Impression: Endometrial polyp, Vaginal spotting, Right sided abdominal pain - Discharge Information Referrals: PCP,None [Primary Care Provider] - Forms: ED Department Discharge Care Plan Goals: moist heat to the rt side, continue to follow with Dr Love. Baclofen 10 mg qam for spasm, torodol 10 mg qid for the next 5 days, increase lyrica to 150 mg bid, keep appt with provider. , needs a pap smear, Pt has a probable endometrial polp and needs a OBGYN consult. send a copy of the US of the pelvis, send a copy of the US report with the pt. Sepsis Event Note (ED) - Evaluation Sepsis Screening Result: No Definite Risk
--- NOTE | 2020-11-08 23:14 | CRLUS ---
For Patients: As a result of the Century Cures Act, medical imaging exams and procedure reports are released immediately into your electronic medical record. You may view this report before your referring provider. If you have questions, please contact your health care provider. CLINICAL HISTORY: Persistent bleeding and spotting TECHNIQUE: Real time, irizarry scale images were acquired of the pelvis using a transabdominal and transvaginal approach. Color Doppler analysis was performed of the ovaries. FINDINGS: Uterus measures 9.4 x 5 x 6.7 centimeters. Endometrial stripe measures 1.2 centimeters. Endometrium is heterogeneous in appearance with slight increased vascularity in the endometrium. The left ovary measures 4.2 x 2.5 x 2.3 centimeters. Normal blood flow to the left ovary. Right ovary is not seen. IMPRESSION: 1. Heterogeneous endometrium measuring 1.2 centimeter vascularity within the endometrium. While endometrial mass not distinctly seen could consider sonohysterogram/direct visualization to evaluate for possible polyp. 2. Nonvisualization right ovary. Normal appearance of the left ovary. Dictated by Valorie Michael MD @ 11/08/2020 11:12:56 PM (Electronically Signed)
[2020-11-08] MEDS ORDERED: Ketorolac 10 MG Tab PO ONE (23:27)
--- NOTE | 2020-11-11 07:25 | CRLUS ---
Final Report: CLINICAL HISTORY: Persistent bleeding and spotting TECHNIQUE: Real time, irizarry scale images were acquired of the pelvis using a transabdominal and transvaginal approach. Color Doppler analysis was performed of the ovaries. FINDINGS: Uterus measures 9.4 x 5 x 6.7 centimeters. Endometrial stripe measures 1.2 centimeters. Endometrium is heterogeneous in appearance with slight increased vascularity in the endometrium. The left ovary measures 4.2 x 2.5 x 2.3 centimeters. Normal blood flow to the left ovary. Right ovary is not seen. IMPRESSION: 1. Heterogeneous endometrium measuring 1.2 centimeter vascularity within the endometrium. While endometrial mass not distinctly seen could consider sonohysterogram/direct visualization to evaluate for possible polyp. 2. Nonvisualization right ovary. Normal appearance of the left ovary. Dictated by Valorie Michael MD @ 11/08/2020 11:12:56 PM (Electronic Signature) [email or web address]
== END 2020-11-08 23:28 | disposition home or self-care (01) ==
LOC: JP.ED 19:14
DX: N84.0 Polyp of corpus uteri (principal); R10.11 Right upper quadrant pain; K21.9 Gastro-esophageal reflux disease without esophagitis; E11.9 Type 2 diabetes mellitus without complications; E66.9 Obesity, unspecified; Z68.36 Body mass index [BMI] 36.0-36.9, adult; Z88.8 Allergy status to other drugs, medicaments and biological substances; Z86.16 Personal history of COVID-19; Z79.84 Long term (current) use of oral hypoglycemic drugs; Z79.899 Other long term (current) drug therapy
CPT/HCPCS: 36415; 76830; 76857; 80053; 81001; 85025; 86140; 99284; A9270

== ENCOUNTER 2021-07-21 20:42 | Emergency (ER) | payer BC, MEDICAID ==
[2021-07-21 21:28] VITALS: BP 128/86; PULSE 117
[2021-07-21] MEDS ORDERED: Ondansetron 4 MG Tab.DIS PO ONE (21:53)
== END 2021-07-21 22:15 | disposition home or self-care (01) ==
LOC: JP.ED 20:42
DX: U07.1 COVID-19 (principal); J06.9 Acute upper respiratory infection, unspecified; R11.2 Nausea with vomiting, unspecified; E11.9 Type 2 diabetes mellitus without complications; E66.9 Obesity, unspecified; Z79.84 Long term (current) use of oral hypoglycemic drugs; Z91.018 Allergy to other foods; Z91.041 Radiographic dye allergy status; Z68.35 Body mass index [BMI] 35.0-35.9, adult
CPT/HCPCS: 99283; Q0162

== ENCOUNTER 2022-02-09 19:33 | Emergency (ER) | payer BC, MEDICAID ==
[2022-02-09 19:58] VITALS: BP 154/79; PULSE 96
[2022-02-09 20:59] LABS: CORONAVIRUS COVID-19 NAA NEGATIVE (NEGATIVE)
== END 2022-02-09 21:15 | disposition home or self-care (01) ==
LOC: JP.ED 19:33
DX: J40 Bronchitis, not specified as acute or chronic (principal); E11.9 Type 2 diabetes mellitus without complications; E66.9 Obesity, unspecified; Z68.35 Body mass index [BMI] 35.0-35.9, adult; Z91.041 Radiographic dye allergy status; Z91.018 Allergy to other foods; Z88.4 Allergy status to anesthetic agent; Z79.899 Other long term (current) drug therapy; Z90.49 Acquired absence of other specified parts of digestive tract; Z87.891 Personal history of nicotine dependence; Z20.822 Contact with and (suspected) exposure to COVID-19
CPT/HCPCS: 0241U; 71046; 99283

== ENCOUNTER 2022-09-18 01:24 | Emergency (ER) | payer BC, MEDICAID ==
[2022-09-18 01:42] VITALS: PULSE 109
[2022-09-18 02:14] VITALS: BP 130/71
== END 2022-09-18 02:14 | disposition home or self-care (01) ==
LOC: JP.ED 01:24 → EEVIPCON 01:24 → JP.ED 02:14
DX: T78.40XA Allergy, unspecified, initial encounter (principal); E11.9 Type 2 diabetes mellitus without complications; E66.9 Obesity, unspecified; Z86.16 Personal history of COVID-19; Z91.041 Radiographic dye allergy status; Z91.018 Allergy to other foods; Z79.84 Long term (current) use of oral hypoglycemic drugs
CPT/HCPCS: 99283

== ENCOUNTER 2022-12-05 22:44 | Emergency (ER) | payer BC, MEDICAID ==
[2022-12-05 23:52] VITALS: BP 122/89; PULSE 108
== END 2022-12-06 00:27 | disposition home or self-care (01) ==
LOC: JP.ED 22:44
DX: L60.0 Ingrowing nail (principal); F17.210 Nicotine dependence, cigarettes, uncomplicated; E11.9 Type 2 diabetes mellitus without complications; E66.9 Obesity, unspecified; Z68.30 Body mass index [BMI] 30.0-30.9, adult; Z86.16 Personal history of COVID-19; Z79.899 Other long term (current) drug therapy; Z91.018 Allergy to other foods; Z91.041 Radiographic dye allergy status
CPT/HCPCS: 99283

== ENCOUNTER 2023-01-21 01:59 | Emergency (ER) | payer BC, MEDICAID ==
[2023-01-21] MEDS ORDERED: Sodium Chloride 0.9% 10 ML Syringe FLUSH PRN (02:14)
[2023-01-21 02:25] LABS: BASOPHILS PERCENT AUTO 0.1 % (0.1-1.3); EOSINOPHILS ABSOLUTE AUTO 0.12 K/uL (0.00-0.40); EOSINOPHILS PERCENT AUTO 0.8 % (0.0-5.4); HEMATOCRIT 38.8 % (34.3-46.0); HEMOGLOBIN 12.7 g/dL (11.2-15.5); IMMATURE GRAN ABSOLUTE AUTO 0.07 K/uL (0.00-0.23); IMMATURE GRAN PERCENT AUTO 0.5 % (0.0-0.7); LYMPHOCYTES ABSOLUTE AUTO 1.88 K/uL (0.8-3.3); LYMPHOCYTES PERCENT AUTO 12.3 % (11.4-47.7); MEAN CORPUSCULAR HEMOGLOBIN 26.7 pg (31.6-35.5); MEAN CORPUSCULAR HGB CONC 32.7 g/dL (31.6-35.5); MEAN CORPUSCULAR VOLUME 81.7 fL (81.4-99.0); MONOCYTES ABSOLUTE AUTO 0.57 K/uL (0.20-0.90); MONOCYTES PERCENT AUTO 3.7 % (3.3-12.6); NEUTROPHILS ABSOLUTE AUTO 12.62 K/uL (1.0-7.6); NEUTROPHILS PERCENT AUTO 82.6 % (40.0-78.1); PLATELET COUNT,PLT 393 K/uL (130-375); RED BLOOD CELL COUNT 4.75 M/uL (3.77-5.24); WHITE BLOOD CELL COUNT,WBC 15.3 K/uL (3.2-11.0)
[2023-01-21 02:30] LABS: BASE EXCESS VENOUS -0.8 mm/L; BASOPHILS ABSOLUTE AUTO 0.02 K/uL (0.00-0.10); BICARBONATE,VENOUS 23.5 mmol/L; CARBOXYHEMOGLOBIN 1.7 % (0.0-1.6); METHEMOGLOBIN 1.2 %; O2 SATURATION VENOUS 64.1; OXYHEMOGLOBIN 62.2 %; PH,VENOUS 7.387 (7.350-7.450); TOTAL HEMOGLOBIN 13.3 g/dL (12.0-16.0)
[2023-01-21 02:31] LABS: PO2 VENOUS 38.7 mm/Hg
[2023-01-21 02:43] LABS: PROTHROMBIN TIME 10.1 sec (9.2-10.6); PTT,PARTIAL THROMBOPLSTIN TIME 22.5 sec (21.8-27.3)
[2023-01-21 02:48] LABS: ALANINE AMINOTRANSFERASE,ALT 19 U/L (12-78); ALBUMIN 3.5 g/dL (3.4-5.0); ALKALINE PHOSPHATASE 69 U/L (46-116); ANION GAP 15.6 mmol/L (5.0-14.0); ASPARTATE AMNIOTRANSFERASE,AST 16 U/L (15-37); BILIRUBIN TOTAL 0.6 mg/dL (0.2-1.0); BLOOD UREA NITROGEN,BUN 16 mg/dL (7-18); CALCIUM 8.4 mg/dL (8.5-10.1); CARBON DIOXIDE,CO2 25 mmol/L (21-32); CHLORIDE,CL 103 mmol/L (100-108); EST CRCL DRUG DOSING (CG) 63.93 mL/min; ESTIMATED GFR 71 mL/min (>60); GLUCOSE RANDOM 245 mg/dL (74-106); POTASSIUM,K 3.6 mmol/L (3.6-5.2); PROTEIN TOTAL,TP 7.1 g/dL (6.4-8.2); SODIUM,NA 140 mmol/L (140-148)
[2023-01-21 02:54] LABS: MAGNESIUM 1.8 mg/dL (1.8-2.4); TSH ULTRASENSITIVE 3.723 uIU/mL (0.358-3.740)
[2023-01-21 02:57] LABS: AMPHETAMINES SCREEN, URINE NEGATIVE (NEGATIVE); BARBITURATE SCREEN,URINE NEGATIVE (NEGATIVE); BENZODIAZEPINES SCREEN,URINE NEGATIVE (NEGATIVE); METHADONE SCREEN, URINE NEGATIVE (NEGATIVE); METHAMPHETAMINES SCREEN, URINE NEGATIVE (NEGATIVE); OXYCODONE SCREEN,URINE NEGATIVE (NEGATIVE); PROPOXYPHENE SCREEN,URINE NEGATIVE (NEGATIVE); THC SCREEN,URINE 50 NG/ML NEGATIVE (NEGATIVE)
[2023-01-21 03:06] VITALS: BP 129/84; PULSE 104
[2023-01-21 03:17] LABS: APPEARANCE,URINE SLIGHTLY CLOUDY (CLEAR); COLOR,URINE YELLOW (YELLOW)
[2023-01-21 03:18] LABS: BILIRUBIN,URINE NEGATIVE (NEGATIVE); GLUCOSE,URINE 100 mg/dL (NEGATIVE); KETONES,URINE 40 mg/dL (NEGATIVE); LEUKOCYTE ESTERASE,URINE NEGATIVE (NEGATIVE); NITRITE,URINE NEGATIVE (NEGATIVE); OCCULT BLOOD,URINE MODERATE (NEGATIVE); PROTEIN,URINE 100 mg/dL (NEGATIVE); RBC,URINE 75-100 (0-5); UROBILINOGEN,URINE 0.2 EU/dL (0.2-1.0); WBC,URINE 0-5 (0-5)
[2023-01-21 03:19] LABS: AMORPHOUS SEDIMENT,URINE NOT SEEN; BACTERIA,URINE MODERATE; EPITHELIAL CELLS,URINE MODERATE; MUCUS,URINE NOT SEEN
== END 2023-01-21 04:42 | disposition home or self-care (01) ==
LOC: JP.ED 01:59
DX: F43.9 Reaction to severe stress, unspecified (principal); F41.1 Generalized anxiety disorder; R41.843 Psychomotor deficit; E11.9 Type 2 diabetes mellitus without complications; E66.9 Obesity, unspecified; Z68.32 Body mass index [BMI] 32.0-32.9, adult; Z91.018 Allergy to other foods; Z91.041 Radiographic dye allergy status; Z91.048 Other nonmedicinal substance allergy status; Z90.49 Acquired absence of other specified parts of digestive tract; Z86.16 Personal history of COVID-19; Z79.899 Other long term (current) drug therapy
CPT/HCPCS: 36415; 70450; 80053; 80305-QW; 80307; 81001; 82140; 82803; 83735; 84443; 84703; 85025; 85379; 85610; 85730; 86140; 99284

== ENCOUNTER 2023-07-11 15:04 | Emergency (ER) | payer BC, MEDICAID ==
[2023-07-11 15:30] LABS: BASOPHILS ABSOLUTE AUTO 0.03 K/uL (0.00-0.10); BASOPHILS PERCENT AUTO 0.4 % (0.1-1.3)
[2023-07-11 15:42] LABS: ANION GAP 9.4 mmol/L (5.0-14.0); BLOOD UREA NITROGEN,BUN 15 mg/dL (7-18); CALCIUM 8.8 mg/dL (8.5-10.1); CARBON DIOXIDE,CO2 27 mmol/L (21-32); CHLORIDE,CL 104 mmol/L (100-108); CREATININE 0.6 mg/dL (0.6-1.0); ESTIMATED GFR 113 mL/min (>60); GLUCOSE RANDOM 117 mg/dL (74-106); POTASSIUM,K 4.1 mmol/L (3.6-5.2); SODIUM,NA 140 mmol/L (140-148)
[2023-07-11 15:44] LABS: HEMATOCRIT 35.2 % (34.3-46.0); HEMOGLOBIN 11.6 g/dL (11.2-15.5); MEAN CORPUSCULAR HEMOGLOBIN 25.7 pg (31.6-35.5); PLATELET COUNT,PLT 212 K/uL (130-375); RED BLOOD CELL COUNT 4.51 M/uL (3.77-5.24)
[2023-07-11 15:45] LABS: EOSINOPHILS ABSOLUTE AUTO 0.27 K/uL (0.00-0.40); EOSINOPHILS PERCENT AUTO 3.9 % (0.0-5.4); IMMATURE GRAN ABSOLUTE AUTO 0.04 K/uL (0.00-0.23); IMMATURE GRAN PERCENT AUTO 0.6 % (0.0-0.7); LYMPHOCYTES ABSOLUTE AUTO 1.61 K/uL (0.8-3.3); MONOCYTES ABSOLUTE AUTO 0.43 K/uL (0.20-0.90); MONOCYTES PERCENT AUTO 6.1 % (3.3-12.6); NEUTROPHILS ABSOLUTE AUTO 4.63 K/uL (1.0-7.6)
[2023-07-11] MEDS: Sodium Chloride 0.9% 200 ML IV SCH (16:33)
[2023-07-11] MEDS: Iopamidol 755 Mg/ML 100 ML Bottle IV SCH (16:33)
[2023-07-11] MEDS: Sodium Chloride 0.9% 10 ML Syringe FLUSH PRN (16:33)
[2023-07-11] MEDS: Iopamidol 612 MG/ML 100 ML Bottle IV SCH (16:33)
[2023-07-11 18:33] VITALS: BP 139/75; PULSE 90
== END 2023-07-11 17:48 | disposition home or self-care (01) ==
LOC: JP.ED 15:04
DX: I27.20 Pulmonary hypertension, unspecified (principal); F41.9 Anxiety disorder, unspecified; R51.9 Headache, unspecified; E11.9 Type 2 diabetes mellitus without complications; E66.9 Obesity, unspecified; Z86.16 Personal history of COVID-19; Z88.8 Allergy status to other drugs, medicaments and biological substances; Z91.041 Radiographic dye allergy status; Z91.018 Allergy to other foods
CPT/HCPCS: 36415; 70450; 70496; 70498; 71260; 80048; 82947; 85025; 93005; 99285; J3490; Q9967; 93010; 99284